=== PATIENT | female | born 2000 | race Caucasian/White ===

== ENCOUNTER 2020-03-22 08:50 | Observation (INO) | payer OTHER, SELFPAY ==
--- OUTSIDE RECORDS SUMMARY | 2020-03-22 08:59 | XMS REPORT | Summary of Care ---
:2000 Author Organization [facility] - Health Address [address] [id number] Care Team Providers Name Role Phone Joseph Cai MD Primary Care Provider Encounter Details Date Type Department Care Team Description 12/27/2019 Orders Only [facility] Doctor Unassigned, No [address] [facility] [place] [address] Allergies Active Allergy Reactions Severity Noted Date Comments Cephalexin Swelling 09/02/2012 Sulfa (Sulfonamide Antibiotics) Swelling 3 documented as of this encounter (statuses as of 12/27/2019) Medications Medication Sig Dispensed Refills Start Date End Date Status vitamin w/FA Take 1 tablet by 100 tablet 3 11/20/2018 Active tabletIndications: mouth daily. Liveborn infant, of eaton , born in hospital by vaginal delivery, High risk , antepartum, Maternal varicella, non-immune, Morbid obesity with body mass index of 40.0-49.9, Oligohydramnios in third trimester, single or unspecified fetus, Mild pre-eclampsia in third trimester, 38 weeks gestation of FLUoxetine 20 mg Take 1 capsule 30 capsule 3 05/27/2019 Active capsuleIndications: by mouth daily. depression albuterol 90 Inhale 2 Puffs 8.5 g 0 08/24/2019 A ctive mcg/actuation every 6 (six) inhalerIndications: hours as needed Viral illness for Wheezing or Shortness of Breath. documented as of this encounter (statuses as of 12/27/2019) Active Problems Problem Noted Date Presence of intrauterine contraceptive device 05/27/20 19 depression 05/27/2019 Obesity (BMI 30-39.9) 12/17/2018 Morbid obesity with body mass index of 40.0-49.9 10/12 Maternal varicella, non-immune 03/24/2018 Overview: Address in documented as of this encounter (statuses as of 12/27/2019) Resolved Problems Problem Noted Date Resolved Date Liveborn infant, of eaton , born in hospital by 11/20/2018 01/06/2019 vaginal delivery Mild pre-eclampsia in third trimester 11/18/2018 Oligohydramnios 11/17/2018 05/27/2019 38 weeks gestation of 04/28/2018 01/07/20 Dehydration during 04/28/2018 11/17/2018 Recent weight loss 04/28/2018 11/17/2018 Chlamydia 03/24/2018 11/17/2018 High risk , antepartum 03/23/2018 05/27/20 19 High risk teen in first trimester 03/23/2018 11/17/2018 Primigravida in first trimester 03/23/2018 11/18/19 19 Needs flu shot 03/23/2018 11/17/2018 Nausea and vomiting during prior to 22 weeks 03/2311/17/2018 gestation documented as of this encounter (statuses as of 12/27/2019) Immunizations Name Administration Dates Next Due DTAP 05/09/2005, 08/15/2003, 11/16/2002, 03/26/2001, 2000 HEPATITIS A 01/06/2013, 05/09/2005 HIB 4 Dose Schedule 08/15/2003, 11/16/2002, 03/26/2001, 2000 Hep B, Adol or Pedi Dosage 08/15/2003, 03/26/2001, , 2000 Influenza Virus Vaccine 03/23/2018, 04/09/2011 Influenza Virus Vaccine Quad .5 mL IM 03/23/2018 6+ MO MMR 05/09/2005, 11/16/2002 Meningococcal Vaccine 01/06/2013 Pneumococcal 13 Conjugate, PCV13 05/09/2005 (Prevnar 13) Polio (IPV/OPV) 05/09/2005, 11/16/2002, 03/26/2001, 2000 Rho (d) Immune Globulin 10/12/2018 TDAP 10/29/2018, 01/06/2013 Varicella (varivax)(chicken pox) 11/20/2018, 01/06/2013, 01/2004 documented as of this encounter Social History Tobacco Use Types Packs/Day Years Used Date Never Smoker Smokeless Tobacco: Never Used Alcohol Use Drinks/Week oz/Week Comments No Sex Assigned at Date Recorded Not on file Job Start Date Occupation Industry Not on file Not on file Not on file Travel History Travel Start Travel End No recent travel history available. documented as of this encounter Last Filed Vital Signs Not on filedocumented in this encounter Plan of Treatment Date Type Specialty Care Team Description 12/27/2019 Office Visit Obstetrics & Gynecology Eliel Cai MD [address] [place] [address] [address] [address] [phone] Health Maintenance Due Date Last Done Comments MENINGOCOCCAL B VACCINES (1 2010 of 2 - Risk Bexsero 2-dose series) HPV VACCINES (1 - Female 2011 2-dose series) WELL CARE VISIT: 12-21 YEARS 2012 (yearly) CHLAMYDIA SCREENING 12/30/2019 12/29/2018, 10/29/2018, 03/23/2018 INFLUENZA VACCINE (#1) 2020 03/23/2018, 03/23/2018, 04/09/2011 Depression Screening 05/27/2020 05/27/2019, 05/27/2019 DTaP,Tdap,and Td Vaccines (8 10/29/2028 10/29/2018, 013, - Td) 05/09/2005, Additional history exists PNEUMOCOCCAL 0-64 YEARS Completed 05/09/2005 COMBINED SERIES MENINGOCOCCAL VACCINE Aged Out 01/06/2013 No longer eligible based on patient 's age to complete this topic VARICELLA VACCINES Completed 11/20/2018, 01/06/2013, 08/15/2003 documented as of this encounter Procedures Procedure Name Priority Date/Time Associated Diagnosis Comme nts CONSENT/REFUSAL FOR Routine 12/27/2019 10:24 AM DIAGNOSIS AND TREATMENT CDT ASSIGNMENT OF BENEFITS Routine 12/27/2019 10:24 AM CDT documented in this encounter Results Not on filedocumented in this encounter
--- OUTSIDE RECORDS SUMMARY | 2020-03-22 08:59 | XMS REPORT | Continuity of Care Document ---
:2000 Author Organization [facility] t Address [address] [place] [address] Care Team Providers Name Role Phone Jonathan Mcguire MD Attending Clinician Moises JACK Attending Clinician Doctor Unassigned, Name Attending Clinician Unavailable Problems This patient has no known problems. Allergies, Adverse Reactions, Alerts This patient has no known allergies or adverse reactions. Medications This patient has no known medications. Procedures This patient has no known procedures. Encounters Start End Encounter Admission Attending Care Care Encounter Source Date/Time Date/Time Type Type Clinicians Facility Department ID 2020-03-20 2020-03-20 [facility] [id number] 08:02:35 23:59:00 Encounter Elvis [facility] [id number] [facility] [id number] 2020-03-09 2020-03-09 Emergency [id number] 21:34:00 23:39:00 Jerry Calix [id number] [place] [id number] [place] [id number] 2020-03-09 2020-03-09 [address] [id number] 00:00:00 00:00:00 Elvis Calix [id number] [place] [id number] [facility] [id number] [facility] 2020-03-09 2020-03-09 Orders Doctor NICHOLAS [id number] 00:00:00 00:00:00 Only Unassigned, [place] [id number] [place] [facility] [id number] Results This patient has no known results.
--- OUTSIDE RECORDS SUMMARY | 2020-03-22 09:00 | XMS REPORT | Summary of Care ---
:2000 Author Organization [facility] Address [address] [place] [id number] Care Team Providers Name Role Phone MD Chris Primary Care Provider Reason for Referral (Routine) Status Reason Specialty Diagnoses / Referred By Referred To Procedures Contact Contact New Request Ophthalmology Diagnoses Routine eye exam Chris Procedures CONSULT/REFERRAL OPHTHALMOLOGY MD Tyson [address] [place] [address] [facility] [address] [place] [address] Reason for Visit Reason Comments New Patient MIGRAINE Encounter Details Date Type Department Care Team Description 02/04/[address] [facility] Pediatric Tyson Perez M igraine equivalent syndrome (Primary Dx); and Adult Primary MD Encounter to establish care with new doc tor; [address] Does not have health insurance; [address] [place] [address] [id number] [place], [place] [phone] [address] [phone] Allergies Active Allergy Reactions Severity Noted Date Comments Cephalexin Swelling 09/02/2012 Sulfa (Sulfonamide Antibiotics) Swelling 3 documented as of this encounter (statuses as of 02/04/2020) Medications Medication Sig Dispensed Refills Start Date End Date Status albuterol 90 Inhale 2 Puffs 8.5 g 0 08/24/2019 A ctive mcg/actuation every 6 (six) inhalerIndications: hours as needed Viral illness for Wheezing or Shortness of Breath. estradiol 1 mg Take 1 tablet by 30 tablet 3 12/27/2019 Active tabletIndications: mouth daily. Breakthrough bleeding associated with intrauterine device (IUD) [id number] Take 1 tablet by 90 tablet 0 02/04/2020 Active feine per mouth every 6 tabletIndications: (six) hours as Migraine equivalent needed for Pain. syndrome documented as of this encounter (statuses as of 02/04/2020) Active Problems Problem Noted Date Migraine equivalent syndrome 02/04/2020 Routine eye exam 02/04/2020 Does not have health insurance 02/04/2020 Breakthrough bleeding associated with intrauterine dev ice (IUD) 12/27/2019 Presence of intrauterine contraceptive device 05/27/20 Obesity (BMI 30-39.9) 12/17/2018 Morbid obesity with body mass index of 40.0-49.9 10/12 Maternal varicella, non-immune 03/24/2018 Overview: Address in documented as of this encounter (statuses as of 02/04/2020) Resolved Problems Problem Noted Date Resolved Date depression 05/27/2019 12/27/2019 Liveborn infant, of eaton , born in hospital by 11/20/2018 01/06/2019 vaginal delivery Mild pre-eclampsia in third trimester 11/18/2018 Oligohydramnios 11/17/2018 05/27/2019 38 weeks gestation of 04/28/2018 01/07/20 19 Dehydration during 04/28/2018 11/17/2018 Recent weight loss 04/28/2018 11/17/2018 Chlamydia 03/24/2018 11/17/2018 High risk , antepartum 03/23/2018 05/27/20 19 High risk teen in first trimester 03/23/2018 11/17/2018 Primigravida in first trimester 03/23/2018 11/18/19 19 Needs flu shot 03/23/2018 11/17/2018 Nausea and vomiting during prior to 22 weeks 03/2311/17/2018 gestation documented as of this encounter (statuses as of 02/04/2020) Immunizations Name Administration Dates Next Due DTAP 05/09/2005, 08/15/2003, 11/16/2002, 03/26/2001, 2000 HEPATITIS A 01/06/2013, 05/09/2005 HIB 4 Dose Schedule 08/15/2003, 11/16/2002, 03/26/2001, 2000 Hep B, Adol or Pedi Dosage 08/15/2003, 03/26/2001, 1, 2000 Influenza Virus Vaccine 03/23/2018, 04/09/2011 Influenza [...] Assigned at Date Recorded Not on file COVID-19 Exposure Response Date Recorded In the last month, have you been in contact with No / Unsure 02/04/2020 9:52 AM CDT someone who was confirmed or suspected to have Coronavirus / COVID-19? documented as of this encounter Last Filed Vital Signs Vital Sign Reading Time Taken Comments Blood Pressure 107/76 02/04/2020 9:56 AM CDT Pulse 100 02/04/2020 9:56 AM CDT Temperature 36.8 C (98.2 F) 02/04/2020 9:56 AM CDT Respiratory Rate 18 02/04/2020 9:56 AM CDT Oxygen Saturation 98% 02/04/2020 9:56 AM CDT Inhaled Oxygen Concentration - - Weight 118.3 kg (260 lb 12.8 oz) 02/04/2020 9:56 AM CDT Height 162.6 cm (5' 4") 02/04/2020 9:56 AM CDT Body Mass Index 44.77 02/04/2020 9:56 AM CDT documented in this encounter Patient Instructions Patient InstructionsEdTyson odom MD - 02/04/2020 10:00 AM CDT Patient Education Migraine Headache: Stages and Treatment A migraine headache tends to progress in stages. Learning these stages can help you better understand what is happening. Then you can learn ways to reduce pain and relieve other symptoms. Methods for relieving your symptoms include self- care and medicines. Migraine stages Migraines tend to progress through 4 stages. Many people don't have all stages, and stages may differ with each headache: Prodrome. A few hours to a day or so before the headache, you may feel tired, (yawning many times),uneasy, or barroso. You may also feel bloated or crave certain foods. Aura. Up to an hour before the headache starts, some migraine sufferers experience auraflashing lights, blind spots, other vision problems, confusion,difficulty speaking, or other neurologic symptoms. Headache. Moderate to severe pain affects one side of the head and then can spread to both sides,often along with nausea. You may be highly sensitive to light, sound, and odors. Vomiting or diarrhea may also happen. This stage lasts 4 to 72 hours. Postdrome. After your headache ends, you may feel tired, achy, and "washed out." This may last for a day or so. Self-care during a migraine Here is what you can do: Use a cold compress. Wrap a thin cloth around a cold pack, a cold can of soda, or a bag of frozenvegetables. Apply this to your mandaen or other pain site. Drink fluids. If nausea makes it hard to drink, try sucking on ice. Rest. If possible, lie down. Try not to bend over, as this may increase your pain. Sometimes laying in a dark quiet room can help the migraine from being aggravated. Try caffeine. Some people find that drinking fluids with caffeine, such as coffee or tea, helps to lessen migraine pain. Using medicines Work with your healthcare provider to find the rightmedicines for you. Medicines for migraine may relieve pain (analgesics), relieve nausea, or attack the migraine's root causes (migraine-specific medicines). Rebound headache Taking analgesics each day, or even several times a week, may lead to more frequent and severe headaches. These are called rebound headaches. If you think you're having rebound headaches, tell your healthcare provider. He or she can help you safely decrease your medicine. Rebound caffeine withdrawal headaches can also happen. Certain medicines are addictive and can cause rebound headaches when discontinued abruptly. [employer]. last reviewed this educational content on 10/07/201719991522-9309 [employer]. [address] [place] [address], [place] [address]. All rights reserved. This information is not intended as a substitute for professional medical care. Always follow your healthcare professional's instructions. documented in this encounter Progress Notes Tyson Perez MD - 02/04/2020 10:00 AM CDT Cc: Chief Complaint Patient presents with New Patient MIGRAINE Cary Romano is a 19 year old female who has a past medical history of Breakthrough bleeding associated with intrauterine device (IUD) (12/27/2019), Chlamydia (03/24/2018), Mild pre-eclampsia in third trimester (11/18/2018), and depression (05/27/2019). She also has no past medical history of Anemia, Anesthesia complication, Anxiety, Asthma, Autoimmune disorder, Blood dyscrasia, Blood transfusion, without reported diagnosis, Breast disorder, Cancer, Clotting disorder, Coronary artery disease, Diabetes mellitus, Endocrine disorder, Endometriosis, Female infertility, Genital herpes,Genital warts, Heart murmur, Hormone disorder, Human immunodeficiency virus (HIV) disease, Kidney dis ease, Leiomyoma of uterus, Liver disease, Menstrual disorder, Osteoporosis, Pap smear abnormality ofcervix, PID (pelvic inflammatory disease), Rh incompatibility, Seizures, Sickle cell anemia, Substance abuse, Superficial thrombophlebitis, Thyroid disease, Transfusion history, Trauma, Tuberculosis, or Urinary incontinence. Patient presents to establish care with a new provider. At this visit, patient reports REED that comes and goes for the past 2 months, last all day, notes vision changes with blurriness and white dots, ringing in both ears, with intermittent N/V. Patient denies head trauma. Patient does not drink alcohol, smoke or use illicit drugs. Patient reports FH migraine on her mother's side of the family. Patient denies CP, palpitations or SOB. Allergies Cary is allergic to keflex [cephalexin] and sulfa (sulfonamide antibiotics). Medications Outpatient Medications Prior to Visit Medication Sig Dispense Refill estradiol 1 mg tablet Take 1 tablet by mouth daily. 30 tablet 3 albuterol 90 mcg/actuation inhaler Inhale 2 Puffs every 6 (six) hours as needed for Wheezing or Shortness of Breath. 8.5 g 0 No facility-administered medications prior to visit. Histories Past Medical History: Diagnosis Date Breakthrough bleeding associated with intrauterine device (IUD) 12/27/2019 Chlamydia 03/24/2018 Mild pre-eclampsia in third trimester 11/18/2018 depression 05/27/2019 Past Surgical History: Procedure Laterality Date INSERT CERVICAL DILATOR 11/17/2018 Social History Socioeconomic History Marital status: Single Spouse name: Not on file Number of children: Not on file Years of education: Not on file Highest education level: Not on file Occupational History Not on file Social Needs Financial resource strain: Not on file Food insecurity Worry: Not on file Inability: Not on file Transportation needs Medical: Not on file Non-medical: Not on file Tobacco Use Smoking status: Never Smoker Smokeless tobacco: Never Used Substance and Sexual Activity Alcohol use: No Drug use: Never Sexual activity: Yes Partners: Male control/protection: I.U.D. Lifestyle Physical activity Days per week: Not on file Minutes per session: Not on file Stress: Not on file Relationships Social connections Talks on phone: Not on file Gets together: Not on file Attends synagogue service: Not on file Active member of club or organization: Not on file Attends meetings of clubs or organizations: Not on file Relationship status: Not on file Intimate partner violence Fear of current or ex partner: Not on file Emotionally abused: Not on file Physically abused: Not on file Forced sexual activity: Not on file Other Topics Concern Not on file Social History Narrative Pt denies physical and sexual abuse. Patient feels safe at home. Family History Problem Relation Age of Onset Hypertension Mother Hypertension Paternal Grandfather Heart Paternal Grandfather Heart Maternal Grandfather Breast Cancer Paternal Grandmother Cancer Maternal Grandmother skin cancer Review of Systems Eyes: Positive for visual disturbance. Respiratory: Negative for shortness of breath. Cardiovascular: Negative for chest pain and palpitations. Gastrointestinal: Negative for abdominal pain. Neurological: Positive for headaches. Vital Signs BP 107/76 (BP Location: Right arm, Patient Position: Sitting, BP CUFF SIZE: Adult Medium) | Pulse 100 | Temp 36.8 C (98.2 F) (Temporal Artery) | Resp 18 | Ht 5' 4" (1.626 m) | Wt 260 lb 12.8 oz (118.3 kg) | LMP 01/27/2020 (Exact Date) | SpO2 98% | BMI 44.77 kg/m Physical Exam Vitals signs and nursing note reviewed. Constitutional: Appearance: Normal appearance. HENT: Head: Normocephalic and atraumatic. Eyes: Extraocular Movements: Extraocular movements intact. Pupils: Pupils are equal, round, and reactive to light. Neck: Musculoskeletal: Normal range of motion and neck supple. Cardiovascular: Rate and Rhythm: Normal rate and regular rhythm. Pulmonary: Effort: Pulmonary effort is normal. Breath sounds: Normal breath sounds. Abdominal: General: Abdomen is flat. Musculoskeletal: Normal range of motion. Skin: General: Skin is warm. Capillary Refill: Capillary refill takes less than 2 seconds. Neurological: General: No focal deficit present. Mental Status: She is alert and oriented to person, place, and time. Psychiatric: Mood and Affect: Mood normal. Behavior: Behavior normal. Assessment/Plan Migraine equivalent syndrome - Anticipatory guidance discussed - Labs as ordered - [id number] per tablet; Take 1 tablet by mouth every 6 (six) hours as needed for Pain. Dispense: 90 tablet; Refill: 0 Does not have health insurance - Resources for medications given - CONSULT/REFERRAL SOCIAL WORK-AMBULATORY Routine eye exam - CONSULT/REFERRAL OPHTHALMOLOGY Preventive Care: Medication reconciliation, patient education and anticipatory guidance completed. All questions and concerns addressed. AVS given, handout provided. Return in about 3 months (around 05/06/2020), or if symptoms worsen or fail to improve. Tyson Perez MD, MPH, [facility] Clinical Mandolin Repairer, Department of Family Medicine [facility] Primary & Specialty Care - ADC 02/04/2020 11:30 AM documented in this encounter Plan of Treatment Date Type Specialty Care Team Description 03/28/2020 Office Visit Obstetrics & Gynecology Saritha Cabrera PA-C [address] [place] [address] [phone] 05/09/2020 Office Visit Family Medicine Tyson Perez MD [address] [place] [address] Dr [address] [place], [place] [address] [phone] Name Type Priority Associated Diagnoses Order S chedule CBC WITH DIFF LAB Routine Migraine equivalent Expecte d: 02/04/2020, syndrome Expires: 2020 COMP. METABOLIC PANEL LAB Routine Migraine equivalent Expected: 02/04/2020, (43823) syndrome Expires: 2020 GLYCOSYLATED HEMOGLOBIN LAB Routine Migraine equivale nt Expected: 02/04/2020, (A1C) syndrome Expires: 2020 LIPID PANEL (19521)(TOTAL LAB Routine Migraine equiva lent Expected: 02/04/2020, CHOLESTEROL, syndrome Expires: 2020 TRIGLYCERIDES, HDL) THYROID STIMULATING LAB Routine Migraine equivalent E xpected: 02/04/2020, HORMONE syndrome Expires: 2020 FREE T4 LAB Routine Migraine equivalent Expected : 02/04/2020, syndrome Expires: 2020 FREE T3 LAB Routine Migraine equivalent Expected : 02/04/2020, syndrome Expires: 2020 Health Maintenance Due Date Last Done Comments MENINGOCOCCAL B VACCINES (1 2010 of 2 - Risk Bexsero 2-dose series) HPV VACCINES (1 - 2-dose 2011 series) WELL CARE VISIT: 12-21 YEARS 2012 (yearly) CHLAMYDIA SCREENING 12/30/2019 12/29/2018, 11/19/2018, 10/29/2018, Additional history exists INFLUENZA VACCINE (#1) 2020 03/23/2018, 03/23/2018, 04/09/2011 Depression Screening 05/27/2020 05/27/2019, 05/27/2019 DTaP,Tdap,and Td Vaccines (8 10/29/2028 10/29/2018, 013, - Td) 05/09/2005, Additional history exists PNEUMOCOCCAL 0-64 YEARS Completed 05/09/2005 COMBINED SERIES MENINGOCOCCAL VACCINE Aged Out 01/06/2013 No longer eligible based on patient 's age to complete this topic VARICELLA VACCINES Completed 11/20/2018, 01/06/2013, 08/15/2003 documented as of this encounter Results Not on filedocumented in this encounter Visit Diagnoses Diagnosis Migraine equivalent syndrome - Primary Variants of migraine, not elsewhere clas sified, without mention of intractable migraine without mention of status migra inosus Encounter to establish care with new doc tor Does not have health insurance Other specified housing or economic circ umstances Routine eye exam documented in this encounter
--- OUTSIDE RECORDS SUMMARY | 2020-03-22 09:00 | XMS REPORT | Summary of Care ---
:2000 Author Organization [facility] - [facility] Address [address] [place] [address] Care Team Providers Name Role Phone Joseph Cai MD Primary Care Provider Reason for Visit Reason Comments INTRAUTERINE DEVICE check Encounter Details Date Type Department Care Team Description 12/27/2019 Office Visit [facility] Women's Shelbie Cai MD Breakthrough bleeding associated with in trauterine device (IUD) (Primary Dx); Healthcare- [address] Family planning, IUD (intrau terine device) check/reinsertion/removal [address] [place] [address] [address], [address] [place], [place] [address] [phone] Allergies Active Allergy Reactions Severity Noted Date Comments Cephalexin Swelling 09/02/2012 Sulfa (Sulfonamide Antibiotics) Swelling 3 documented as of this encounter (statuses as of 12/27/2019) Medications Medication Sig Dispensed Refills Start End Date Status Date albuterol 90 Inhale 2 8.5 g 0 Active mcg/actuation Puffs every 6 0 inhalerIndications: (six) hours Viral illness as needed for Wheezing or Shortness of Breath. estradiol 1 mg Take 1 tablet 30 tablet 3 A ctive tabletIndications: by mouth 0 Breakthrough daily. bleeding associated with intrauterine device (IUD) vitamin Take 1 tablet 100 tablet 3 12/27/19 Discontinued w/FA by mouth 02 26 (Patient tabletIndications: daily. R eported) Liveborn infant, of eaton , born in hospital by vaginal delivery, High risk , antepartum, Maternal varicella, non-immune, Morbid obesity with body mass index of 40.0-49.9, Oligohydramnios in third trimester, single or unspecified fetus, Mild pre-eclampsia in third trimester, 38 weeks gestation of FLUoxetine 20 mg Take 1 30 capsule 3 12/27/19 Di scontinued capsuleIndications: capsule by 9 (Patient mouth daily. Report ed) depression documented as of this encounter (statuses as of 12/27/2019) Active Problems Problem Noted Date Breakthrough bleeding associated with intrauterine dev ice (IUD) 12/27/2019 Presence of intrauterine contraceptive device 05/27/20 Obesity (BMI 30-39.9) 12/17/2018 Morbid obesity with body mass index of 40.0-49.9 10/12 Maternal varicella, non-immune 03/24/2018 Overview: Address in documented as of this encounter (statuses as of 12/27/2019) Resolved Problems Problem Noted Date Resolved Date depression 05/27/2019 12/27/2019 Liveborn , of eaton , born in hospital by [...] Travel End No recent travel history available. COVID-19 Exposure Response Date Recorded In the last month, have you been in contact with No / Unsure 12/27/2019 10:25 AM CDT someone who was confirmed or suspected to have Coronavirus / COVID-19? documented as of this encounter Last Filed Vital Signs Vital Sign Reading Time Taken Comments Blood Pressure 140/84 12/27/2019 10:49 AM CDT Pulse 90 12/27/2019 10:49 AM CDT Temperature 37.1 C (98.7 F) 12/27/2019 10:49 AM CDT Respiratory Rate 18 12/27/2019 10:49 AM CDT Oxygen Saturation - - Inhaled Oxygen Concentration - - Weight 117.9 kg (260 lb) 12/27/2019 10:49 AM CDT Height 162.6 cm (5' 4") 12/27/2019 10:49 AM CDT Body Mass Index 44.63 12/27/2019 10:49 AM CDT documented in this encounter Progress Notes Shelbie Cai MD - 12/27/2019 10:30 AM CDTCC: Prolonged bleeding on IUD HPI: Cary Romano is a 19 year old female here for problem visit. Vanessa IUD placedon 01/06/2019. States that she has a period every month but period lasted 2 wks: 3-4 days of spotting then 7 days of moderate vaginal bleeding (used 4 pads daily) and then 3-4 days of vaginal spotting. This has not change since IUD placed. Sexually active with 1 partner for the past 1 yr. ROS: Constitutional: Negative fever, chills Cardiovascular: Negative chest pain Respiratory: Negative SOB Gastrointestinal: Negative abdominal pain, nausea, vomiting Gynecologic: As above PE: BP: (140)/(84) Temp: [37.1 C (98.7 F)] Temp source: Oral (12/26 1049) Pulse: [90] Resp: [18] SpO2: -- Height: [5' 4" (162.6 cm)] Weight: [260 lb (117.9 kg)] BMI (calculated): [44.63] NAD RRR Breathing unlabored Soft, NTTP Speculum exam revealed IUD strings at the external os A/P: Family planning, IUD (intrauterine device) check/reinsertion/removal (primary encounter diagnosis) Comment: IUD strings in place Breakthrough bleeding associated with intrauterine device (IUD) Comment: Discussed a trial of estrace daily for 2-3 months. Plan: estradiol 1 mg tablet; RTC in 3 months for follow-up RTC for WWE PRN Shelbie Cai MD #[id number] 12/27/2019 3:25 PM documented in this encounter Plan of Treatment Date Type Specialty Care Team Description 02/04/2020 Office Visit Obstetrics & Gynecology Saritha Cabrera PA-C [address] [phone] 03/28/2020 Office Visit Obstetrics & Gynecology Saritha Cabrera PA-C [address] [phone] Health Maintenance Due Date Last Done Comments [...] filedocumented in this encounter Visit Diagnoses Diagnosis Breakthrough bleeding associated with in trauterine device (IUD) - Primary Family planning, IUD (intrauterine devic e) check/reinsertion/removal Surveillance of previously prescribed in trauterine contraceptive device documented in this encounter
--- OUTSIDE RECORDS SUMMARY | 2020-03-22 09:00 | XMS REPORT | Summary of Care ---
:2000 Author Organization [facility] - [facility] Address [address] [place] [address] Care Team Providers Name Role Phone Joseph Cai MD Primary Care Provider Reason for Visit Reason Comments INTRAUTERINE DEVICE check Encounter Details Date Type Department Care Team Description 12/27/2019 Office Visit [facility] Women's Shelbie Cai MD Breakthrough bleeding associated with in trauterine device (IUD) (Primary Dx); Healthcare- [address] Family planning, IUD (intrau terine device) check/reinsertion/removal [address] [place] [address] [address], [address] [place], [place] [address] [phone] Allergies Active Allergy Reactions Severity Noted Date [...] RTC for WWE PRN Shelbie Cai MD #[id number] 12/27/2019 3:25 PM documented in this encounter Plan of Treatment Date Type Specialty Care Team Description 02/04/2020 Office Visit Obstetrics & Gynecology Saritha Cabrera PA-C [address] [phone] 03/28/2020 Office Visit Obstetrics & Gynecology Saritha Cabrera PA-C [address] [phone] Health Maintenance Due Date Last Done [...]
--- OUTSIDE RECORDS SUMMARY | 2020-03-22 09:00 | XMS REPORT | Summary of Care ---
:2000 Author Organization [facility] Address [address] [place] [address] Care Team Providers Name Role Phone MD Chris Primary Care Provider Reason for Referral (Routine) Status Reason Specialty Diagnoses / Referred By Referred To Procedures Contact Contact New Request Ophthalmology Diagnoses Routine eye exam Chris Procedures CONSULT/REFERRAL OPHTHALMOLOGY MD Tyson [address] [place] [address] [facility] [address] [place] [address] Reason for Visit Reason Comments New Patient MIGRAINE Encounter Details Date Type Department Care Team Description 02/04/[address] [facility] Pediatric Tyson Perez M igraine equivalent syndrome (Primary Dx); and Adult Primary MD Encounter to establish care with new doc tor; [address] Does not have health insurance; [address] [place] [address], [address] [id number] [place], [place] [phone] [address] [phone] Allergies Active Allergy Reactions Severity Noted Date [...] Breakthrough bleeding associated with intrauterine device (IUD) kvckxebtey-wxmlolz-biv Take 1 tablet by 90 tablet 0 [...] bag of frozenvegetables. Apply this to your voodoo or other pain site. Drink fluids. If [...] can cause rebound headaches when discontinued abruptly. [employer] last reviewed this educational content on 10/07/201719996699-3235 [employer], [employer]. [address] [place] [address], [place] [address]. All rights reserved. This information is not [...] file Gets together: Not on file Attends scientologist service: Not on file Active member of [...] guidance discussed - Labs as ordered - lhvikkxkkg-upwqjyg-nntvsdjw per tablet; Take 1 tablet by mouth [...] fail to improve. Tyson Perez MD, MPH, [facility] Clinical [employer], Department of Family Medicine [facility] Primary & Specialty Care - [facility] 02/04/2020 11:30 AM documented in this encounter Plan of Treatment Date Type Specialty Care Team Description 03/28/2020 Office Visit Obstetrics & Gynecology Saritha Cabrera PA-C [address] [place] [phone] 05/09/2020 Office Visit Family Medicine Tyson Perez MD [address] [place] [address] Dr [address], [place] [address] [phone] Name Type Priority Associated Diagnoses Order S chedule CBC WITH DIFF LAB Routine Migraine equivalent Expecte d: 02/04/2020, syndrome Expires: 2020 COMP. METABOLIC PANEL LAB Routine Migraine equivalent Expected: 02/04/2020, (51193) syndrome Expires: 2020 GLYCOSYLATED HEMOGLOBIN LAB Routine Migraine equivale nt Expected: 02/04/2020, (A1C) syndrome Expires: 2020 LIPID PANEL (65713)(TOTAL LAB Routine Migraine equiva lent Expected: 02/04/2020, [...]
--- OUTSIDE RECORDS SUMMARY | 2020-03-22 09:01 | XMS REPORT | Summary of Care ---
:2000 Author Organization [facility] - Health Address [address] [place], [place] [address] Care Team Providers Name Role Phone MD Chris Primary Care Provider Encounter Details Date Type Department Care Team Description 02/04/2020 Orders Only [facility] Doctor Unassigned, No [address] [facility] [place] [address] Allergies Active Allergy Reactions Severity Noted Date [...] Breakthrough bleeding associated with intrauterine device (IUD) dzpgafqyuk-zacnlrd-xmj Take 1 tablet by 90 tablet 0 [...] 12/27/2019 Presence of intrauterine contraceptive device 05/27/20 19 Obesity (BMI 30-39.9) 12/17/2018 Morbid obesity with [...] 03/28/2020 Office Visit Obstetrics & Gynecology Saritha Cbarera PA-C [address] [place] [phone] 05/09/2020 Office Visit Family Medicine Tyson Perez MD [address] [place] [address] 02/20/2021 Office Visit Obstetrics & Gynecology Eliel Cai MD [address] [place] [address] Health Maintenance Due Date Last Done Comments [...] Name Priority Date/Time Associated Diagnosis Comme nts ASSIGNMENT OF BENEFITS Routine 02/04/2020 1:59 PM CDT documented in this encounter Results Not on filedocumented in this encounter
--- OUTSIDE RECORDS SUMMARY | 2020-03-22 09:01 | XMS REPORT | Summary of Care ---
:2000 Author Organization [facility] Address [address] [place] [address] Care Team Providers Name Role Phone MD Chris Primary Care Provider Reason for Visit Reason Comments Well Woman Exam Encounter Details Date Type Department Care Team Description 02/04/2020 Office Visit [facility] Women's Adum, Nasreen Colvin MD Well woman exam with routine gynecologic al exam (Primary Dx); [address] Surveillance of intrauterine contraceptive device; [address] [place] [address] Counseling for HPV (human papillomavirus ) vaccination [facility], [address] [address] [phone] Allergies Active Allergy Reactions Severity Noted Date [...] Breakthrough bleeding associated with intrauterine device (IUD) aiixgssuwe-fjlfkor-oni Take 1 tablet by 90 tablet 0 [...] Sign Reading Time Taken Comments Blood Pressure 115/80 02/04/2020 11:17 AM CDT Pulse 94 02/04/2020 11:17 AM CDT Temperature 36.8 C (98.3 F) 02/04/2020 11:17 AM CDT Respiratory Rate 18 02/04/2020 11:17 AM CDT Oxygen Saturation - - Inhaled Oxygen Concentration - - Weight 118.3 kg (260 lb 12.8 oz) 02/04/2020 11:17 AM CDT Height 162.6 cm (5' 4") 02/04/2020 11:17 AM CDT Body Mass Index 44.77 02/04/2020 11:17 AM CDT documented in this encounter Progress Notes Nasreen Maloney MD - 02/04/2020 10:45 AM CDT Chief complaint: Chief Complaint Patient presents with Well Woman Exam 19 year-old presents for WWE. She has no concerns today. She has a Romeo IUD which was inserted in 2019 and reports that she continues to have irregular cycles but otherwise tolerating it well. 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 Declined STI screening. Hx of depression but reports that her mood is currently good and denies any symptoms of depression or anxiety disorder. Unsure of having had HPV vaccination- will check on it. I reviewed the importance of the vaccination, catch phase up to age 26 and gave her written information on it. Histories OB History Para Term AB Living 1 1 1 1 SAB TAB Ectopic Multiple Live Births 0 1 # Outcome Date GA Lbr Go/2nd Weight Sex Delivery Anes PTL Lv 1 Term 11/19/18 39w1d 38:08 / 00:41 7 lb 11 oz (3.487 kg) F NORMAL SPONT EPI N BRADLY Past Medical History: Diagnosis Date Breakthrough bleeding associated with intrauterine device (IUD) 12/27/2019 Chlamydia 03/24/2018 Mild pre-eclampsia in third trimester 11/18/2018 depression 05/27/2019 Family History Problem Relation Age of Onset Hypertension Mother Hypertension Paternal Grandfather Heart Paternal Grandfather Heart Maternal Grandfather Breast Cancer Paternal Grandmother Cancer Maternal Grandmother skin cancer Family Status Relation Name Status Mo (Not Specified) PGFa (Not Specified) MGFa (Not Specified) PGMo (Not Specified) MGMo (Not Specified) Past Surgical History: Procedure Laterality Date INSERT [...] file Gets together: Not on file Attends amish service: Not on file Active member of [...] sexual abuse. Patient feels safe at home. Social History Substance and Sexual Activity Sexual Activity Yes Partners: Male control/protection: I.U.D. Labs No new labs Radiology No new radiology. Allergies Cary is allergic to keflex [cephalexin] and sulfa (sulfonamide antibiotics). Medications Cary has a current medication list which includes the following prescription(s): gkjczpxhch-qebtdzs-oytvrfil, estradiol, and albuterol. Review of Systems Constitutional: Negative. HENT: Negative. Eyes: Negative. Respiratory: Negative. Breasts: Negative. Cardiovascular: Negative. Gastrointestinal: Negative. Genitourinary: Negative. Musculoskeletal: Negative. Skin: Negative. Neurological: Negative. Psychiatric/Behavioral: Negative. Endocrine: Endocrine negative BP 115/80 (BP Location: Left arm, Patient Position: Sitting, BP CUFF SIZE: Adult Small) | Pulse 94| Temp 36.8 C (98.3 F) (Oral) | Resp 18 | Ht 5' 4" (1.626 m) | Wt 260 lb 12.8 oz (118.3 kg) | LMP 01/27/2020 (Exact Date) | BMI 44.77 kg/m Pregravid BMI: Could not be calculated Physical Exam Vitals reviewed. Constitutional: She is oriented to person, place, and time. She appears well- developed and well-groomed. Her body habitus is obese. Neck: No tenderness and no mass. No thyroid nodules palpated. No neck adenopathy. Cardiovascular: Regular rate and rhythm. No murmur auscultated. No peripheral edema present. Pulmonary/Chest: Breath sounds clear to auscultation. Normal inspiratory effort. Abdominal: Abdomen is soft. No mass palpated. No tenderness present. There is no hepatosplenomegaly.There is no rigidity and no guarding. No hernia palpated or inspected. Neuro/Psychiatric: She has a normal mood and affect. She is oriented to person, place, and time. Skin: Skin normal. Lymphadenopathy: No neck adenopathy present. No axillary adenopathy present. No inguinal adenopathy present. Breast: Right breast exhibits no mass, no nipple discharge and no tenderness. Left breast exhibits no mass, no nipple discharge and no tenderness. Breasts are symmetrical. External genitalia: Normal external genitalia appropriate for age. Urethral meatus: Normal urethral meatus Vagina:No lesion inspected. Normal support. No abnormal vaginal discharge found. No lesions in the vagina. Cervix: No lesion. No tenderness and no discharge present. IUD string visualized Uterus: Uterus is normal size, normal contour, normal position and non-tender. Adnexa: Right adnexa without tenderness, ovary enlargement or mass. Left adnexa without tenderness, ovary enlargement or mass. Assessment/Plan Well woman exam with routine gynecological exam (primary encounter diagnosis) Comment:Reviewed good nutrition, regular exercise, use of sunscreen, awareness of her breasts, routine annuals, avoidance of risky behaviour- safe sex practices including abstinence, use of drugs and smoking/ vapping, importance of phone and internet safety. Save driving and use of seat belts. Also recommended age appropriate vaccinations and screening labs. Surveillance of intrauterine contraceptive device Comment: IUD string visualized. Patient continues to tolerate it well, encouraged that she checks for string on a regular basis and continue yearly WWE Counseling for HPV (human papillomavirus) vaccination Comment:Reviewed the importance of HPV vaccination with patient. Explained the HPV vaccination is given to prevent abnormal pap smear which can lead to cervical cancer,perineal warts and anal cancer. The vaccination is usually recommended to start age 9-11 and is a series of 3 shots with a catch phaseup to age 26. Current vaccination will protect against type 16,18,6 and 11. Vaccination doesn't replace the routine papsmears There are few SE of the vaccination with some people complaining of soreness at the injection site. Written information provided to patient This visit did not involve counseling and coordination that comprised more than 50% of the visit time. Nasreen Maloney MD documented in this encounter Plan of Treatment Date Type Specialty Care Team Description 03/28/2020 Office Visit Obstetrics & Gynecology Saritha Cabrera PA-C [address] [place] [phone] 05/09/2020 Office Visit Family Medicine Tyson Perez MD [address] [place] [address] [phone] 02/20/2021 Office Visit Obstetrics & Gynecology Eliel Cai MD [address] [place] [address] [address]. [place], [place] [address] [phone] Health Maintenance Due Date Last Done Comments [...] filedocumented in this encounter Visit Diagnoses Diagnosis Well woman exam with routine gynecologic al exam - Primary Routine gynecological examination Surveillance of intrauterine contracepti ve device Surveillance of previously prescribed in trauterine contraceptive device Counseling for HPV (human papillomavirus ) vaccination Other specified counseling documented in this encounter
--- OUTSIDE RECORDS SUMMARY | 2020-03-22 09:01 | XMS REPORT | Summary of Care ---
:2000 Author Organization [facility] Address [address] [place] [address] Care Team Providers Name Role Phone MD Chris Primary Care Provider Reason for Visit Reason Comments Well Woman Exam Encounter Details Date Type Department Care Team Description 02/04/2020 Office Visit [facility] Women's Adum, Nasreen Colvin MD Well woman exam with routine gynecologic al exam (Primary Dx); [address] Surveillance of intrauterine contraceptive device; [address] [place] [address] Counseling for HPV (human papillomavirus ) vaccination [facility], [address] [phone] Allergies Active Allergy Reactions Severity Noted Date [...] Breakthrough bleeding associated with intrauterine device (IUD) ybensmxliy-tgxzwue-uiy Take 1 tablet by 90 tablet 0 [...] file Gets together: Not on file Attends episcopal service: Not on file Active member of [...] medication list which includes the following prescription(s): okpvniqmub-qlwpvkm-ffzvnqrt, estradiol, and albuterol. Review of Systems Constitutional: [...] Visit Obstetrics & Gynecology Saritha Cabrera PA-C [address] [place] [phone] 05/09/2020 Office Visit Family Medicine Tyson Perez MD [address] [place] [address] [phone] 02/20/2021 Office Visit Obstetrics & Gynecology Eliel Cai MD [address] [place] [address] [address]. [place], [place] [address] [phone] Health Maintenance Due Date Last Done Comments [...]
--- OUTSIDE RECORDS SUMMARY | 2020-03-22 09:01 | XMS REPORT | Summary of Care ---
:2000 Author Organization [facility] Address [address] [place] [address] Care Team Providers Name Role Phone MD Chris Primary Care Provider Reason for Visit Reason Comments Social Work Encounter Details Date Type Department Care Team Description 02/04/2020 Patient Outreach [facility] Pediatric Guadalupe Donahue Social Work and Adult Primary Care- [address] [place] [address], [address] [place] [address] Allergies Active Allergy Reactions Severity Noted Date [...] Breakthrough bleeding associated with intrauterine device (IUD) staqtvzwyb-gjcsolg-wut Take 1 tablet by 90 tablet 0 [...] Signs Not on filedocumented in this encounter Progress Notes Liz Donahue - 02/04/2020 12:29 PM CDTSocial work note MILITARY SOURCE OPERATIONS SPECIALIST received a referral to assist patient with Indigent program application. MILITARY SOURCE OPERATIONS SPECIALIST called patient and she provide her email address to received the application. MILITARY SOURCE OPERATIONS SPECIALIST explained how to fill the application. MILITARY SOURCE OPERATIONS SPECIALIST send her the application, notarize letter of support and form [id number]. MILITARY SOURCE OPERATIONS SPECIALIST also sent her the following resources: Other medical resources in your area: [facility] prescription Assistance -[phone] [place] [address] Director: Kisha Fraser /[phone] for apps Email: [email or web address] Hours: Friday, 8:00 a.m. 5:00 p.m. & Fridays, 8:00 a.m. 12:00 p.m. Pt reported she doesn't have any other needs at this time. Liz Donahue LMSW [employer] [facility] Department of Care Management Ambulatory Social Work documented in this encounter Plan of Treatment Date Type Specialty Care Team Description 03/28/2020 Office Visit Obstetrics & Gynecology Saritha Cabrera PA-C [address] [facility] [address] [facility] [address] [place], [place] [address] [phone] 05/09/2020 Office Visit Family Medicine Tyson Perez MD [address] [place] [address] Dr [place] [address] [place] [address] [phone] 02/20/2021 Office Visit Obstetrics & Gynecology Eliel Cai MD [address] [place] [address] [address] [place], [place] [address] Health Maintenance Due Date Last [...]
--- OUTSIDE RECORDS SUMMARY | 2020-03-22 09:02 | XMS REPORT | Summary of Care ---
:2000 Author Organization [facility] - Health Address [address] [id number] Care Team Providers Name Role Phone Joseph Cai MD Primary Care Provider MD Chris Primary Care Provider Encounter Details Date Type Department Care Team Description 01/04/2020 Orders Only [facility] Doctor Unassigned, No [address] [facility] [place] [address] Allergies Active Allergy Reactions Severity Noted Date Comments Cephalexin Swelling 09/02/2012 Sulfa (Sulfonamide Antibiotics) Swelling 3 documented as of this encounter (statuses as of 02/07/2020) Medications Medication Sig Dispensed Refills Start Date End Date Status albuterol 90 Inhale 2 Puffs 8.5 g 0 08/24/2019 A ctive mcg/actuation every 6 (six) inhalerIndications: hours as needed Viral illness for Wheezing or Shortness of Breath. estradiol 1 mg Take 1 tablet by 30 tablet 3 12/27/2019 Active tabletIndications: mouth daily. Breakthrough bleeding associated with intrauterine device (IUD) documented as of this encounter (statuses as of 02/07/2020) Active Problems Problem Noted Date Migraine equivalent syndrome 02/04/2020 Routine eye exam 02/04/2020 Does not have health insurance 02/04/2020 Breakthrough bleeding associated with intrauterine dev ice (IUD) 12/27/2019 Presence of intrauterine contraceptive device 05/27/20 19 Obesity (BMI 30-39.9) 12/17/2018 Morbid obesity with body mass index of 40.0-49.9 10/12 Maternal varicella, non-immune 03/24/2018 Overview: Address in documented as of this encounter (statuses as of 02/07/2020) Resolved Problems Problem Noted Date Resolved Date [...] as of this encounter (statuses as of 02/07/2020) Immunizations Name Administration Dates Next Due DTAP [...] Obstetrics & Gynecology Saritha Cabrera PA-C [address] [place] [address] [phone] 05/09/2020 Office Visit Family Medicine Tyson Perez MD [address] [place] [address] 77 15 02/20/2021 Office Visit Obstetrics & Gynecology Eliel Cai MD [address] [place] [address] 775 15 Health Maintenance Due Date Last Done Comments MENINGOCOCCAL B VACCINES (1 2010 of 2 - Risk Bexsero 2-dose series) HPV VACCINES (1 - 2-dose 2011 series) CHLAMYDIA SCREENING 12/30/2019 12/29/2018, 11/19/2018, 10/29/2018, Additional history exists INFLUENZA VACCINE (#1) 2020 03/23/2018, 03/23/2018, 04/09/2011 Depression Screening 05/27/2020 05/27/2019, 05/27/2019 WELL CARE VISIT: 12-21 YEARS 02/03/2021 02/04/2020 (yearly) DTaP,Tdap,and Td Vaccines (8 10/29/2028 10/29/2018, 013, - Td) 05/09/2005, Additional history exists PNEUMOCOCCAL 0-64 YEARS Completed 05/09/2005 COMBINED SERIES MENINGOCOCCAL VACCINE Aged Out 01/06/2013 No longer eligible based on patient 's age to complete this topic VARICELLA VACCINES Completed 11/20/2018, 01/06/2013, 08/15/2003 documented as of this encounter Procedures Procedure Name Priority Date/Time Associated Diagnosis Comme nts [facility] STATEMENT OF PATIENT Routine 01/04/2020 12:01 AM FINANCIAL RESPONSIBILITY CDT documented in this encounter Results Not on filedocumented in this encounter
--- OUTSIDE RECORDS SUMMARY | 2020-03-22 09:02 | XMS REPORT | Summary of Care ---
:2000 Author Organization [facility] Address [address] [place] [address] Care Team Providers Name Role Phone MD Chris Primary Care Provider Encounter Details Date Type Department Care Team Description 02/07/2020 Patient Secure [facility] Pediatric Tyson Bragg MD and Adult Primary Care- [address] [facility] [address] [address] [address], [address] [place] [address] [phone] Allergies Active Allergy Reactions Severity Noted Date Comments Cephalexin Swelling 09/02/2012 Sulfa (Sulfonamide Antibiotics) Swelling 3 documented as of this encounter (statuses as of 02/08/2020) Medications Medication Sig Dispensed Refills Start Date End Date Status albuterol 90 Inhale 2 Puffs 8.5 g 0 08/24/2019 A ctive mcg/actuation every 6 (six) inhalerIndications: hours as needed Viral illness for Wheezing or Shortness of Breath. estradiol 1 mg Take 1 tablet by 30 tablet 3 12/27/2019 Active tabletIndications: mouth daily. Breakthrough bleeding associated with intrauterine device (IUD) rndfazsbql-iqceqqw-hck Take 1 tablet by 90 tablet 0 02/04/2020 Active feine per mouth every 6 tabletIndications: (six) hours as Migraine equivalent needed for Pain. syndrome documented as of this encounter (statuses as of 02/08/2020) Active Problems Problem Noted Date Migraine equivalent syndrome 02/04/2020 Routine eye exam 02/04/2020 Does not have health insurance 02/04/2020 Breakthrough bleeding associated with intrauterine dev ice (IUD) 12/27/2019 Presence of intrauterine contraceptive device 05/27/20 19 Obesity (BMI 30-39.9) 12/17/2018 Morbid obesity with body mass index of 40.0-49.9 10/12 Maternal varicella, non-immune 03/24/2018 Overview: Address in documented as of this encounter (statuses as of 02/08/2020) Resolved Problems Problem Noted Date Resolved Date [...] as of this encounter (statuses as of 02/08/2020) Immunizations Name Administration Dates Next Due DTAP [...] Visit Obstetrics & Gynecology Saritha Cabrera PA-C [address] [place] [address] [phone] 05/09/2020 Office Visit Family Medicine Tyson Perez MD [address] [place] [address] [place] [address] 15 02/20/2021 Office Visit Obstetrics & Gynecology Eliel Cai MD [address] [place], [place] [address]olly [address] 77 [phone] Health Maintenance Due Date Last Done Comments [...]
--- OUTSIDE RECORDS SUMMARY | 2020-03-22 09:02 | XMS REPORT | Summary of Care ---
:2000 Author Organization [facility] Address [address] [place] [address] Care Team Providers Name Role Phone MD Chris Primary Care Provider Reason for Visit Reason Comments LAB WORK Auth/Cert Status Reason Specialty Diagnoses / Procedures Referred By C ontact Referred To Contact Phlebotomy Diagnoses Migraine equivalent syndrome Adc Pob Lab Draw Procedures CBC W/DIFF CMP AIC LIPID PANEL TSH FREE T4 FREE T3 Professional Office Building [address] [facility] , [address] [place] [address] Phone: Fax: Encounter Details Date Type Department Care Team Description 02/04/2020 Web Project Manager Visit [facility] Adrian Perez MD [address] [place] [address] Dr Mcfar[address] [place] [address] Migraine equivalent Professional Office 2, Adc Lab syndrome Building Phlebotomy Lab Professional Office Building [address] [facility] , [address] [place] [address] Allergies Active Allergy Reactions Severity Noted Date [...] Breakthrough bleeding associated with intrauterine device (IUD) llfhjtyuhb-cunauun-uhu Take 1 tablet by 90 tablet 0 [...] Signs Not on filedocumented in this encounter Nursing Notes Kasandra Casas - 02/04/2020 11:15 AM CDT Venipuncture collection performed by clean technique on the left anticubitus. Total of 1 attempts were made. Slight pressure and a bandage/dressing were applied to the site(s). The patient experienced no complications. The following specimens were processed according to instructions and sent to [facility] laboratories per lab order on today: LT BLUE SST 1 RED LAV 2 PPT DK GREEN (LiHep) DK GREEN (SodH) [place] DK BLUE (K2) DK BLUE (S) ACD Blood Culture NIPT/NTD documented in this encounter Plan of Treatment Date Type Specialty Care Team Description 03/28/2020 Office Visit Obstetrics & Gynecology Saritha Cabrera PA-C 146 [facility] 208 [place], [place] [phone] 05/09/2020 Office Visit Family Medicine Tyson Perez MD [address] [place] [address] [address] [place], [place] [address] [phone] 02/20/2021 Office Visit Obstetrics & Gynecology Eliel Cai MD [address] [place], [place] [address]Molly [address] [place], [place] [address] Health Maintenance Due Date Last [...] encounter Visit Diagnoses Diagnosis Migraine equivalent syndrome Variants of migraine, not elsewhere clas sified, without mention of intractable migraine without mention of status migra inosus documented in this encounter
--- OUTSIDE RECORDS SUMMARY | 2020-03-22 09:03 | XMS REPORT | Summary of Care ---
:[address] [facility] Address [address] [place], [place] [id number] Care Team Providers Name Role Phone MD Chris Primary Care Provider Reason for Visit Reason Comments Lab Results Talk To Provider Assessment Encounter Details Date Type Department Care Team Description 02/08/2020 Telephone [facility] Pediatric Tyson Perez MD Lab Results; Talk To and Adult Primary [facility] Provider; Assessment Care- [facility] [address] [address] [place] [address] Allergies Active Allergy Reactions Severity Noted Date [...] Breakthrough bleeding associated with intrauterine device (IUD) xdutadvvwm-rtjofpl-gtx Take 1 tablet by 90 tablet 0 [...] Signs Not on filedocumented in this encounter Miscellaneous Notes Telephone Encounter - Susan Acosta RN - 02/08/2020 1:04 PM CDTPatient scheduled for a telehealth appointment with for today to discuss and clarify patients concerns. elephone Encounter - Gaby Leija - 02/08/2020 12:33 PM CDTPatient called to ask for her lab results. She stated that someone is trying to reach her but I was not able to see any encounters from the clinic. She is terrified that she has a brain tumor. She is crying and she stated that she has called the clinic and sent a mychart encounter as well with no response yet. She was somehow transferred to our referral center yet we have not called her. She went to [facility] on Friday to see the eye provider. She sent the info as well to the provider in a mychart message with the results. She said that the doctor told her to read up on her condition on the web and that to be diagnosis, she would have to have a brain surgery She is also asking for a neurology referral to Dr Barclay. Please call her POLO. She is very scared and has been reading a lot of info on the web over the weekend. documented in this encounter Plan of Treatment Date Type Specialty Care Team Description 02/08/2020 Telemedicine Visit Family Medicine Avery Perez MD [address] [place] [address] 77 15 03/28/2020 Office Visit Obstetrics & Gynecology Saritha Cabrera PA-C [address] [place] [phone] 05/09/2020 Office Visit Family Medicine Tyson Perez MD [address] [place] [address] 15 02/20/2021 Office Visit Obstetrics & Gynecology Eliel Cai MD [address] [place] [address] DR. Mc[address] [place] [address] 77 15 Health Maintenance Due Date Last [...]
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
--- OUTSIDE RECORDS SUMMARY | 2020-03-22 09:04 | XMS REPORT | Summary of Care ---
:2000 Author Organization [facility] Address [address] [place] [address] Care Team Providers Name Role Phone MD Chris Primary Care Provider Reason for Referral MRI/CAT Scan (Routine) Status Reason Specialty Diagnoses / Referred By Referred To Procedures Contact Contact Closed Diagnostic Diagnoses Migraine equivalent syndrome Papilledema Tyson Perez, Radiology Procedures MR BRAIN WO CONTRAST [address] [place] [address] [address] Reason for Visit MRI/CAT Scan (Routine) Status Reason Specialty Diagnoses / Referred By Referred To Procedures Contact Contact Closed Diagnostic Diagnoses Migraine equivalent syndrome Papilledema Tyson Perez, Radiology Procedures MR BRAIN WO CONTRAST [address] [place] [address] Dr [address]n [address] [place] [address] Encounter Details Date Type Department Care Team Description 02/19/2020 Hospital Encounter [facility] Tyson Goetz MD Arrived [address] [facility] [address] [phone] Allergies Active Allergy Reactions Severity Noted Date Comments Cephalexin Swelling 09/02/2012 Sulfa (Sulfonamide Antibiotics) Swelling 03/27/201 3 documented as of this encounter (statuses as of 02/20/2020) Medications Medication Sig Dispensed Refills Start Date End Date Status albuterol 90 Inhale 2 Puffs 8.5 g 0 08/24/2019 A ctive mcg/actuation every 6 (six) inhalerIndications: hours as needed Viral illness for Wheezing or Shortness of Breath. estradiol 1 mg Take 1 tablet by 30 tablet 3 12/27/2019 Active tabletIndications: mouth daily. Breakthrough bleeding associated with intrauterine device (IUD) kcwwqdxrxu-twemkfy-npf Take 1 tablet by 90 tablet 0 02/04/2020 Active feine per mouth every 6 tabletIndications: (six) hours as Migraine equivalent needed for Pain. syndrome documented as of this encounter (statuses as of 02/20/2020) Active Problems Problem Noted Date Papilledema 02/08/2020 [...] as of this encounter (statuses as of 02/20/2020) Resolved Problems Problem Noted Date Resolved Date [...] as of this encounter (statuses as of 02/20/2020) Immunizations Name Administration Dates Next Due DTAP [...] been in contact with No / Unsure 02/19/2020 4:51 PM CDT someone who was confirmed or suspected to have Coronavirus / COVID-19? documented as of this encounter Last Filed Vital Signs Not on filedocumented in this encounter Plan of Treatment Date Type Specialty Care Team Description 02/28/2020 Office Visit Neurology Elvis Mcguire MD [address] [place], [place] [address]d. [place], [place] [phone] 02/29/2020 Office Visit Family Medicine Tyson Perez MD [address] [place] [address] Dr Conner [place], [place] [address] 03/28/2020 Office Visit Obstetrics & Gynecology Saritha Cabrera PA-C 146 [facility] 208 [place], [place] [phone] 05/09/2020 Office Visit Family Medicine Tyson Perez MD [address] [place] [address] 02/20/2021 Office Visit Obstetrics & Gynecology Eliel Cai MD [address] [place], [place] [address] 208 [place], [place] [address] Health Maintenance Due Date [...] Name Priority Date/Time Associated Diagnosis Comme nts MR BRAIN WO Routine 02/19/2020 5:29 PM Migraine equivalent R esults for this CONTRAST CDT syndrome procedure are in Papilledema the results section. documented in this encounter Results MR BRAIN WO CONTRAST (02/19/2020 5:29 PM CDT) Specimen Impressions Performed At PACS/VR/DOSE No acute intracranial abnormality. Narrative Performed At MR BRAIN WO CONTRAST PACS/VR/DOSE COMPARISON: None HISTORY: Headache, chronic, normal neuro exam TECHNIQUE: Multisequence multiplanar MR images the brain were obtained without IV contrast. FINDINGS: The ventricles and cerebral sulci are normal in calibe r and configuration. No midline shift, hydrocephalus or patho logical extra-axial fluid collection is present. The basal cistern s are unremarkable. No restricted diffusion is present to espino ggest acute infarct. No abnormal parenchymal signal abnormality is present. No abnormal gradient blooming. The T2 flow voids for the major intracra nial vessels are unremarkable. Trace fluid within the mastoid air cells on the right. Remainder of the paranasal sinuses and left mastoid air c ells are essentially clear. Procedure Note [facility], Radiant Results Inft User - 2019 5:37 PM CDT MR BRAIN WO CONTRAST COMPARISON: None HISTORY: Headache, chronic, normal neuro exam TECHNIQUE: Multisequence multiplanar MR images the brain were obtained without IV contrast. FINDINGS: The ventricles and cerebral sulci are no rmal in caliber and configuration. No midline shift, hydrocephalus or patho logical extra-axial fluid collection is present. The basal cistern s are unremarkable. No restricted diffusion is present to espino ggest acute infarct. No abnormal parenchymal signal abnormality is presen t. No abnormal gradient blooming. The T2 flow voids for the major intracra nial vessels are unremarkable. Trace fluid within the mastoid air cells on the right. Remainder of the paranasal sinuses and left mastoid air c ells are essentially clear. IMPRESSION No acute intracranial abnormality. Performing Organization Address City/State/Zipcode Phone Number PACS/VR/DOSE documented in this encounter Visit Diagnoses Diagnosis Migraine equivalent syndrome Variants of migraine, not elsewhere clas sified, without mention of intractable migraine without mention of status migra inosus Papilledema Papilloedema, unspecified documented in this encounter
--- OUTSIDE RECORDS SUMMARY | 2020-03-22 09:04 | XMS REPORT | Summary of Care ---
:2000 Author Organization [facility] Address [address] [place] [address] Care Team Providers Name Role Phone MD Chris Primary Care Provider Reason for Referral (Routine) Status Reason Specialty Diagnoses / Referred By Referred To Procedures Contact Contact New Request Neurology Diagnoses Migraine equivalent syndrome Papilledema Tyson Perez, Procedures CONSULT/REFERRAL NEUROLOGY [address] [place] [address] [phone] MRI/CAT Scan (Routine) Status Reason Specialty Diagnoses / Referred By Referred To Procedures Contact Contact New Request Diagnostic Diagnoses Migraine equivalent syndrome Papilledema Chris, Radiology Procedures MR BRAIN WO CONTRAST MD Tyson [address] [place] [address] [address] Reason for Visit Reason Comments Eye Pain Eye Problem Referral/consult Encounter Details Date Type Department Care Team Description 02/08/2020 Telemedicine Visit [facility] Tyson Perez, Migr remington equivalent syndrome (Primary Dx); Pediatric and Adult Papilledema Primary Care- [address] [place] [address] Dr Rouse [address], [address] [place] [phone] Allergies Active Allergy Reactions Severity Noted Date Comments Cephalexin Swelling 09/02/2012 Sulfa (Sulfonamide Antibiotics) Swelling 3 documented as of this encounter (statuses as of 02/11/2020) Medications Medication Sig Dispensed Refills Start Date End Date Status albuterol 90 Inhale 2 Puffs 8.5 g 0 08/24/2019 A ctive mcg/actuation every 6 (six) inhalerIndications: hours as needed Viral illness for Wheezing or Shortness of Breath. estradiol 1 mg Take 1 tablet by 30 tablet 3 12/27/2019 Active tabletIndications: mouth daily. Breakthrough bleeding associated with intrauterine device (IUD) eaopzabsra-rgeoekb-geo Take 1 tablet by 90 tablet 0 02/04/2020 Active feine per mouth every 6 tabletIndications: (six) hours as Migraine equivalent needed for Pain. syndrome documented as of this encounter (statuses as of 02/11/2020) Active Problems Problem Noted Date Papilledema 02/08/2020 [...] as of this encounter (statuses as of 02/11/2020) Resolved Problems Problem Noted Date Resolved Date [...] as of this encounter (statuses as of 02/11/2020) Immunizations Name Administration Dates Next Due DTAP [...] last month, have you been in contact Unable to assess 02/08/2020 2:35 PM CDT with someone who was confirmed or suspected to have Coronavirus / COVID-19? documented as of this encounter Last Filed Vital Signs Not on filedocumented in this encounter Progress Notes Tyson Perez MD - 02/08/2020 3:00 PM CDT Cc: Chief Complaint Patient presents with Eye Pain Eye Problem Referral/consult Cary Romano is a 19 year old [...] history, Trauma, Tuberculosis, or Urinary incontinence. Patient has hx vision changes with blurriness and white dots, ringing in both ears, with intermittent N/V. Patient was seen 02/04/2020, referred to Ophthalmology, and completed her external Opthalmologist on 02/05/2020. 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 Patient was advised to check spinal pressure. Patient reports being concerned, looked on the internet about causes of "papillary edema", is very anxious and worried. 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 Patient was started on Butalbital- aspirin-caffeine 1 Tab q6H PRN. Patient FH migraine on her mother's side of the family. Patient denies CP, palpitations or SOB. Allergies Cary is allergic to keflex [cephalexin] and sulfa (sulfonamide antibiotics). Medications Outpatient Medications Prior to Visit Medication Sig Dispense Refill geiyzfsfwk-ucwdpuv-upduljxf per tablet Take 1 tablet by mouth every 6 (six) hours as needed for Pain. 90 tablet 0 estradiol 1 mg tablet Take 1 tablet [...] pre-eclampsia in third trimester 11/18/2018 depression 05/27/2019 No past surgical history on file. Social History Socioeconomic History Marital status: Single [...] pain. Neurological: Positive for headaches. Vital Signs LMP 01/27/2020 (Exact Date) Physical Exam Vitals signs and nursing note [...] Behavior normal. Assessment/Plan Migraine equivalent syndrome - s/p Ophthalmology visit, papilledema noted, will age MRI brain. Anticipatory guidance discussed - Labs reviewed and discussed, monitor - Encouraged to avoid prolonged exposure to bright lights, including "blue lights from Cell-phones". - Continue with ovsaxorefn-yykrecq-ywjhetew 1 Tab q6H PRN - MR BRAIN WO CONTRAST; Future - CONSULT/REFERRAL NEUROLOGY Preventive Care: Medication reconciliation, patient education and anticipatory guidance completed. All questions and concerns addressed. AVS given, handout provided. Return in about 2 weeks (around 02/22/2020), or if symptoms worsen or fail to improve. Tyson Perez MD, MPH, AAAZVS Clinical Lead [place], Department of Family Medicine [facility] - [facility] 02/08/2020 4:16 PM documented in this encounter Plan of Treatment Date Type Specialty Care Team Description 02/18/2020 Office Visit Neurology Elvis Mcguire MD [address] [place] [address]. [place], [place] [phone] 02/19/2020 Appointment Radiology Tyson Perez MD [address] [place] [address] Dr Mcfarland [address] [place] [address] 15 [phone] 02/29/2020 Office Visit Family Medicine Tyson Perez MD [address] [place] [address] Dr Mcfarland [address] [place] [address] 15 [phone] 03/28/2020 Office Visit Obstetrics & Gynecology Saritha Cabrera PA-C [address] [place] [address] [place] [phone] 05/09/2020 Office Visit Family Medicine Tyson Perez MD [address] [facility] [address] Mcfarland 205 [place], [place] [address] 02/20/2021 Office Visit Obstetrics & Gynecology Eliel Cai MD [address] [place] [address] DR. Mcfarland 208 [place], [place] [address] Name Type Priority Associated Diagnoses Order S chedule MR BRAIN WO CONTRAST IMAGING Routine Migraine equivalent Expected: 02/08/2020, syndrome Expires: 02/07/2021 Papilledema Health Maintenance Due Date Last Done Comments [...]
--- OUTSIDE RECORDS SUMMARY | 2020-03-22 09:04 | XMS REPORT | Summary of Care ---
:2000 Author Organization [facility] Address [address] [place], [place] [id number] Care Team Providers Name Role Phone MD Chris Primary Care Provider Reason for Referral (Routine) Status Reason Specialty Diagnoses / Referred By Referred To Procedures Contact Contact New Request Ophthalmology Diagnoses Complicated headache syndromes IIH (idiopathic intracranial hypertension) Elvis Mcguire Procedures CONSULT OPHTHALMOLOGY MD Jonathan [address] [place] [address]. [place] [phone] Reason for Visit Reason Comments New Evaluation (Routine) Status Reason Specialty Diagnoses / Procedures Referred By C johnny Referred To Contact Closed Neurology Diagnoses Migraine equivalent syndrome Papilledema Tyson Perez MD Procedures CONSULT/REFERRAL NEUROLOGY [address] [place] [address] Dr Mcfarland [address] [place] [phone] Phone: Encounter Details Date Type Department Care Team Description 02/28/2020 Office Visit [facility] Elvis Mcguire Complicated headache syndromes (Primary Dx); Neurology-Fifi Castillo MD IIH (idiopathic intracranial hypertensio n) [address] [place] [phone] Allergies Active Allergy Reactions [...] Breakthrough bleeding associated with intrauterine device (IUD) egrvlwcxxe-juvcopw-ryg Take 1 tablet by 90 tablet 0 [...] say that she had recently seen an strap sewer to felt that she might have some early papilledema and it was recommended she have a spinal fluid examination. She recently had an MRI study ordered by primary care physician and it was red as negative although I think there might be a partially empty sella. Treatment for the headaches has been with a variety of different qhaj-tlh-btbzrph medications including Tylenol, Advil, BC powder, CBD [...] (two) times daily., Disp: 60 tablet, Rfl:2 erlzxjltvt-tjcqpjt-xawvejva per tablet, Take 1 tablet by mouth [...] file Gets together: Not on file Attends zoroastrianism service: Not on file Active member of [...] during the exam, attention and concentration normal, hotel or motel receptionist and expression intact, fund of information [...] this point that she actually see an cut off operator scorer, and I did talk about potential workupwhich [...] from a Microsoft Word template created with [employer]. The text was dictated into the template via [employer]. documented in this encounter Plan of Treatment Date Type Specialty Care Team Description 05/09/2020 Office Visit Family Medicine Tyson Perez MD [address] [place] [address] Dr Mcfarland [address] [place] [address] 02/20/2021 Office Visit Obstetrics & Gynecology Eliel Cai MD [address] [place] [address] DR. Mcfarland [address] [place] [address] Health Maintenance Due Date Last Done [...]
--- OUTSIDE RECORDS SUMMARY | 2020-03-22 09:05 | XMS REPORT | Summary of Care ---
:2000 Author Organization [facility] Address [address] [place], [place] [id number] Care Team Providers Name Role Phone MD Chris Primary Care Provider Reason for Referral Radiology Services (Routine) Status Reason Specialty Diagnoses / Referred By Referred To Procedures Contact Contact New Request Diagnostic Diagnoses Complicated headache syndromes IIH (idiopathic intracranial hypertension) Elvis Mcguire Radiology Procedures IR SPINAL LUMBAR PUNCTURE DIAGNOSTIC MD Jonathan [address] [place] [phone] (Routine) Status Reason Specialty Diagnoses / Referred By Referred To Procedures Contact Contact New Request Ophthalmology Diagnoses Complicated headache syndromes IIH (idiopathic intracranial hypertension) Elvis Mcguire Procedures CONSULT OPHTHALMOLOGY MD Jonathan [address] [place] [phone] Reason for Visit Reason Comments New Evaluation (Routine) Status Reason Specialty Diagnoses / Procedures Referred By C ontact Referred To Contact Closed Neurology Diagnoses Migraine equivalent syndrome Papilledema Tyson Perez MD Procedures CONSULT/REFERRAL NEUROLOGY [address] [place] [address] Dr Conner [place], [place] [address] Phone: Encounter Details Date Type Department Care Team Description 02/28/2020 Office Visit [facility] Elvis Mcguire Complicated headache syndromes (Primary Dx); Neurology-Fifi Castillo MD IIH (idiopathic intracranial hypertensio n) [address] [place] [phone] Allergies Active Allergy Reactions Severity Noted Date Comments Cephalexin Swelling 09/02/2012 Sulfa (Sulfonamide Antibiotics) Swelling 3 documented as of this encounter (statuses as of 03/03/2020) Medications Medication Sig Dispensed Refills Start Date End Date Status albuterol 90 Inhale 2 Puffs 8.5 g 0 08/24/2019 A ctive mcg/actuation every 6 (six) inhalerIndications: hours as needed Viral illness for Wheezing or Shortness of Breath. estradiol 1 mg Take 1 tablet by 30 tablet 3 12/27/2019 Active tabletIndications: mouth daily. Breakthrough bleeding associated with intrauterine device (IUD) jlytgmmhmg-gcpsgny-qqy Take 1 tablet by 90 tablet 0 02/04/2020 Active feine per mouth every 6 tabletIndications: (six) hours as Migraine equivalent needed for Pain. syndrome acetaZOLAMIDE 250 mg Take 1 tablet by 60 tablet 2 02/28/2020 Active tabletIndications: mouth 2 (two) Complicated headache times daily. syndromes, IIH (idiopathic intracranial hypertension) documented as of this encounter (statuses as of 03/03/2020) Active Problems Problem Noted Date Papilledema 02/08/2020 [...] as of this encounter (statuses as of 03/03/2020) Resolved Problems Problem Noted Date Resolved Date [...] as of this encounter (statuses as of 03/03/2020) Immunizations Name Administration Dates Next Due DTAP [...] say that she had recently seen an manager market intelligence to felt that she might have some early papilledema and it was recommended she have a spinal fluid examination. She recently had an MRI study ordered by primary care physician and it was red as negative although I think there might be a partially empty sella. Treatment for the headaches has been with a variety of different qkoe-kxr-qjzcjds medications including Tylenol, Advil, BC powder, CBD [...] (two) times daily., Disp: 60 tablet, Rfl:2 lciiknjsxz-gyxpzpz-sfrchgjr per tablet, Take 1 tablet by mouth [...] file Gets together: Not on file Attends druze service: Not on file Active member of [...] during the exam, attention and concentration normal, spa receptionist and expression intact, fund of information [...] this point that she actually see an retail selling specialist, and I did talk about potential workupwhich [...] from a Microsoft Word template created with [employer]. The text was dictated into the template via [employer]. documented in this encounter Miscellaneous Notes Addendum Note - Elvis Mcguire MD - 02/28/2020 8:00 AM CDT Addended by: ELVIS MCGUIRE JR., MD on: 03/03/2020 12:52 PM Modules accepted: Orders documented in this encounter Plan of Treatment Date Type Specialty Care Team Description 05/09/2020 Office Visit Family Medicine Tyson Perez MD [address] [place] [address] Dr Mcfarland [address] [place] [address] 02/20/2021 Office Visit Obstetrics & Gynecology Eliel Cai MD [address] [place] [address] DR. Mcfarland [address] [place] [phone] 15 Name Type Priority Associated Diagnoses Order S chedule IR SPINAL LUMBAR PUNCTURE IMAGING Routine Complicated hea dache Expected: DIAGNOSTIC syndromes 03/03/2020, IIH (idiopathic Expires: intracranial hypertension) BODY FLUID CELL COUNT LAB Routine Complicated headach e Expected: syndromes 03/03/2020, IIH (idiopathic Expires: intracranial hypertension) CEREBROSPINAL FLUID LAB Routine Complicated headache Expected: GLUCOSE syndromes 03/03/2020, IIH (idiopathic Expires: intracranial hypertension) CEREBROSPINAL FLUID LAB Routine Complicated headache Expected: PROTEIN syndromes 03/03/2020, IIH (idiopathic Expires: intracranial hypertension) CSF CULTURE LAB Routine Complicated headache Expecte d: syndromes 03/03/2020, IIH (idiopathic Expires: intracranial hypertension) CYTO SPINAL FLUID LAB Routine Complicated headache Ex pected: syndromes 03/03/2020, IIH (idiopathic Expires: intracranial hypertension) Health Maintenance Due Date Last Done Comments [...]
--- OUTSIDE RECORDS SUMMARY | 2020-03-22 09:05 | XMS REPORT | Summary of Care ---
:2000 Author Organization [facility] Address [address] [place], [place] [address] Care Team Providers Name Role Phone MD Chris Primary Care Provider Reason for Visit Reason Comments Rx Concern/Question Allergic Encounter Details Date Type Department Care Team Description 02/28/2020 Telephone [facility] Elvis Mcguire, Rx Con cern/Question Neurology-Fifi DE GUZMAN (Allergic) [address] [place] [phone] Allergies Active Allergy Reactions [...] Breakthrough bleeding associated with intrauterine device (IUD) ofvlqaqdng-hdodujg-mhm Take 1 tablet by 90 tablet 0 [...] this encounter Miscellaneous Notes Telephone Encounter - Skyla Madsen LVN - 03/03/2020 2:02 PM CDTSpoke to patient and let her know we don't want her to take the Diamox d/t allergy to sulfa. Informed her spinal tap had been ordered and someone would call to schedule. elephone Encounter - Elvis Mcguire MD - 03/03/2020 12:48 PM CDTI will order the spinal tap, I don't want to take a chance on the Diamox if she does have this allergy to sulfa, there is a chance she could have an allergic reaction. elephone Encounter - Marilin Camarillo - 03/01/2020 4:34 PM CDLata Romano is a 19 year old female [facility] calling stating patient has an allergy to Sulfa-drugs elephone Encounter - Skyla Madsen LVN - 03/01/2020 4:[address] Deny, Spoke to patient and let her know to not take the diamox. Patient stated she would be willing to do spinal tap. Wants to know if she can pay it out since she does not have insurance. I told her that would be a question she would have to speak radiology about. Would you like to order the spinal tap? Please review and advise. elephone Encounter - Brittanie Benitez - 03/01/2020 4:18 PM Miguel A Romano is a 19 year old female Patient mother is calling. She is wanting to check status of medication acetaZOLAMIDE 250 mg tablet due to being allergic, and to see if patient should take another medication or none at all. Please contact patient at [phone] elephone Encounter - Elvis Mcguire MD - 03/01/2020 2:27 PM CDTProbably would be safer to skip the diamox, but otherwise for headache, drug therapy is limited. Question is should she proceed to spinal tap for diagnosis. I had hoped that the diamox might eliminatedthe need for the test. elephone Encounter - Yenifer Banegas RN - 02/29/2020 9:08 AM CDTPatient states literature for this medication notes to tell provider if allergic to sulfa. She had a child jon allergy to sulfa and it is listed in her allergy list. Advised will route to provider for alternate or advice. Telephone Encounter - Sandrita Lopez - 02/28/2020 3:51 PM CDTSierra Francisco Javier Romano is a 19 year old female Patient is calling stating that she is allergic to Sulfa in acetaZOLAMIDE 250 . Please contact her at [phone] (home) documented in this encounter Plan of Treatment Date Type Specialty Care Team Description 05/09/2020 Office Visit Family Medicine Tyson Perez MD [address] [place] [address] Dr Mcfarland 205 [place], [place] [address] 02/20/2021 Office Visit Obstetrics & Gynecology Eliel Cai MD [address] [place] [address] DR. Mcfarland [address] [place] [address] Health Maintenance Due Date Last Done [...]
--- OUTSIDE RECORDS SUMMARY | 2020-03-22 09:05 | XMS REPORT | Summary of Care ---
:2000 Author Organization [facility] Address [address] [place], [place] [id number] Care Team Providers Name Role Phone MD Chris Primary Care Provider Reason for Visit Reason Comments Referral/consult Encounter Details Date Type Department Care Team Description 02/08/2020 Telephone [facility] Pediatric and Tyson Fraga MD Referral/consult Adult Primary Care- [address] [facility] [address] [place] [address] [address] [place] [address] [phone] Allergies Active Allergy Reactions Severity Noted Date Comments Cephalexin Swelling 09/02/2012 Sulfa (Sulfonamide Antibiotics) Swelling 3 documented as of this encounter (statuses as of 03/02/2020) Medications Medication Sig Dispensed Refills Start Date End Date Status albuterol 90 Inhale 2 Puffs 8.5 g 0 08/24/2019 A ctive mcg/actuation every 6 (six) inhalerIndications: hours as needed Viral illness for Wheezing or Shortness of Breath. estradiol 1 mg Take 1 tablet by 30 tablet 3 12/27/2019 Active tabletIndications: mouth daily. Breakthrough bleeding associated with intrauterine device (IUD) xfwirkccde-xmtjqsk-dwf Take 1 tablet by 90 tablet 0 02/04/2020 Active feine per mouth every 6 tabletIndications: (six) hours as Migraine equivalent needed for Pain. syndrome documented as of this encounter (statuses as of 03/02/2020) Active Problems Problem Noted Date Papilledema 02/08/2020 [...] as of this encounter (statuses as of 03/02/2020) Resolved Problems Problem Noted Date Resolved Date [...] as of this encounter (statuses as of 03/02/2020) Immunizations Name Administration Dates Next Due DTAP [...] this encounter Miscellaneous Notes Telephone Encounter - Anup Conley RN - 03/02/2020 1:03 [facility] maintenance. This encounter has been open for over 72 hours and needs no further action. RN closing encounter. Anup Conley RN Nurse Clinician III [facility] elephone Encounter - Christine Bolanos - 02/08/2020 8:40 AM CDTSphill Francisco Javier Romano is a 19 year old female patient calling for referral to Neurology ( Dr. Barclay). Please call. documented in this encounter Plan of Treatment Date Type Specialty Care Team Description 05/09/2020 Office Visit Family Medicine Tyson Perez MD [address] [place] [address] Dr [place], [place] [address] [phone] 02/20/2021 Office Visit Obstetrics & Gynecology Eliel Cai MD [address] [place] [address] DR. Pozo [place] [id number] 15 [phone] Health Maintenance Due Date Last Done Comments [...]
--- OUTSIDE RECORDS SUMMARY | 2020-03-22 09:06 | XMS REPORT | Summary of Care ---
:2000 Author Organization [place] [id number] Care Team Providers Name Role Phone MD Chris Primary Care Provider Reason for Visit Reason Comments Assessment Encounter Details Date Type Department Care Team Description 03/09/2020 Telephone [facility] Elvis Mcguire MD Assessment Neurology-[address] [place] [phone] [address] [place] [address]-[facility] [phone] Allergies Active Allergy Reactions Severity Noted Date Comments Cephalexin Swelling 09/02/2012 Sulfa (Sulfonamide Antibiotics) Swelling 3 documented as of this encounter (statuses as of 03/09/2020) Medications Medication Sig Dispensed Refills Start Date End Date Status albuterol 90 Inhale 2 Puffs 8.5 g 0 08/24/2019 A ctive mcg/actuation every 6 (six) inhalerIndications: hours as needed Viral illness for Wheezing or Shortness of Breath. estradiol 1 mg Take 1 tablet by 30 tablet 3 12/27/2019 Active tabletIndications: mouth daily. Breakthrough bleeding associated with intrauterine device (IUD) xuomlrqldj-gmjfzne-kqt Take 1 tablet by 90 tablet 0 02/04/2020 Active feine per mouth every 6 tabletIndications: (six) hours as Migraine equivalent needed for Pain. syndrome acetaZOLAMIDE 250 mg Take 1 tablet by 60 tablet 2 02/28/2020 Active tabletIndications: mouth 2 (two) Complicated headache times daily. syndromes, IIH (idiopathic intracranial hypertension) documented as of this encounter (statuses as of 03/09/2020) Active Problems Problem Noted Date Papilledema 02/08/2020 [...] as of this encounter (statuses as of 03/09/2020) Resolved Problems Problem Noted Date Resolved Date [...] as of this encounter (statuses as of 03/09/2020) Immunizations Name Administration Dates Next Due DTAP [...] this encounter Miscellaneous Notes Telephone Encounter - Christine Bolanos - 03/09/2020 8:48 AM CDTSphill Romano is a 19 year old female patient calling to speak with Dr. Mcguire regarding speech difficulty and stuttering over the last week. Please call. [phone] documented in this encounter Plan of Treatment Date Type Specialty Care Team Description 05/09/2020 Office Visit Family Medicine Tyson Perez MD [address] [place] [address] Dr [place] [address] [place] [address] 15 02/20/2021 Office Visit Obstetrics & Gynecology Eliel Cai MD [address] [place] [address] DR. Mcfar[address] [place] [address] Health Maintenance Due Date Last Done [...]
--- OUTSIDE RECORDS SUMMARY | 2020-03-22 09:06 | XMS REPORT | Summary of Care ---
:2000 Author Organization [place] [phone] Care Team Providers Name Role Phone MD Chris Primary Care Provider Reason for Visit Reason Comments Assessment Encounter Details Date Type Department Care Team Description 03/09/2020 Telephone [facility] Elvis Mcguire MD Assessment Neurology-[address] [place] [phone] [address] [place] [address]-[facility] [phone] Allergies Active Allergy Reactions Severity Noted Date [...] Breakthrough bleeding associated with intrauterine device (IUD) tegxhuoqil-nhaoibs-ohk Take 1 tablet by 90 tablet 0 [...] stuttering over the last week. Please call. [phone] documented in this encounter Plan of Treatment Date Type Specialty Care Team Description 05/09/2020 Office Visit Family Medicine Tyson Perez MD [address] [place] [address] Dr [place] [address] [place] [address] 15 02/20/2021 Office Visit Obstetrics & Gynecology Eliel Cai MD [address] [place] [address] [address]. Mcfar[address] [place] [address] 15 Health Maintenance Due Date Last Done [...]
--- OUTSIDE RECORDS SUMMARY | 2020-03-22 09:07 | XMS REPORT | Summary of Care ---
:2000 Author Organization [facility] Address [address] [place], [place] [id number] Care Team Providers Name Role Phone MD Chris Primary Care Provider Reason for Referral Radiology Services (Routine) Status Reason Specialty Diagnoses / Referred By Referred To Procedures Contact Contact Closed Diagnostic Diagnoses Complicated headache syndromes IIH (idiopathic intracranial hypertension) Elvis Mcguire Radiology Procedures IR SPINAL LUMBAR PUNCTURE DIAGNOSTIC MD Jonathan [address] [place] [phone] Reason for Visit Radiology Services (Routine) Status Reason Specialty Diagnoses / Referred By Referred To Procedures Contact Contact Closed Diagnostic Diagnoses Complicated headache syndromes IIH (idiopathic intracranial hypertension) Elvis Mcguire Radiology Procedures IR SPINAL LUMBAR PUNCTURE DIAGNOSTIC MD Jonathan [address] [place] [phone] Encounter Details Date Type Department Care Team Description 03/20/2020 Hospital Encounter [facility] Elvis Mcguire Interventional Radio logy MD Jonathan [address] [place] [phone] [facility]. [phone] [place] [address] Allergies Active Allergy Reactions Severity Noted Date Comments Cephalexin Swelling 09/02/2012 Sulfa (Sulfonamide Antibiotics) Swelling 3 documented as of this encounter (statuses as of 03/21/2020) Medications Medication Sig Dispensed Refills Start Date End Date Status albuterol 90 Inhale 2 Puffs 8.5 g 0 08/24/2019 A ctive mcg/actuation every 6 (six) inhalerIndications: hours as needed Viral illness for Wheezing or Shortness of Breath. estradiol 1 mg Take 1 tablet by 30 tablet 3 12/27/2019 Active tabletIndications: mouth daily. Breakthrough bleeding associated with intrauterine device (IUD) hjqmsklqpw-sbhrqwp-gtg Take 1 tablet by 90 tablet 0 02/04/2020 Active feine per mouth every 6 tabletIndications: (six) hours as Migraine equivalent needed for Pain. syndrome acetaZOLAMIDE 250 mg Take 1 tablet by 60 tablet 2 02/28/2020 Active tabletIndications: mouth 2 (two) Complicated headache times daily. syndromes, IIH (idiopathic intracranial hypertension) documented as of this encounter (statuses as of 03/21/2020) Active Problems Problem Noted Date Papilledema 02/08/2020 [...] as of this encounter (statuses as of 03/21/2020) Resolved Problems Problem Noted Date Resolved Date [...] as of this encounter (statuses as of 03/21/2020) Immunizations Name Administration Dates Next Due DTAP [...] been in contact with No / Unsure 03/20/2020 8:00 AM CDT someone who was confirmed or suspected to have Coronavirus / COVID-19? documented as of this encounter Last Filed Vital Signs Vital Sign Reading Time Taken Comments Blood Pressure 127/77 03/20/2020 11:15 AM CDT Pulse 76 03/20/2020 11:15 AM CDT Temperature 36.8 C (98.2 F) 03/20/2020 8:36 AM CDT Respiratory Rate 16 03/20/2020 9:38 AM CDT Oxygen Saturation 97% 03/20/2020 11:15 AM CDT Inhaled Oxygen Concentration - - Weight - - Height - - Body Mass Index - - documented in this encounter Discharge Instructions Krishna Marc RN - 03/20/2020 Patient Discharge Instructions Follow instructions as indicated below: Today you had a procedure in the radiology department. We want to make sure that you have the information that you need to care for yourself after you go home. The nurse has explained the things that you need to do and has indicated the instruction that apply to your procedure below. Spinal Procedures: Spend the next 24 hours lying down as much as possible. Continue to drink 8 ounces of caffeinated beverage every hour over the next 24 hours, excepr while sleeping. If you develop a severe headache, stiff neck, drowsiness, weekness in the legs, paralysis or sizures, call the number listed below. Resume diet and Medications Increase fluid intake over the next 24 hours. No heavy lifting (more than 5 pounds) or strenuous exercise for the next 24 hours. Avoid aspirin or aspirin containing products for 24 hours. Unless directed by your doctor, use non-aspirin pain relievers. Watch for signs and symptoms of infection (chills, fever of 101F, drainage, redness, edema, swelling). Avoid hot baths or showers for 24 hours, after 24 hours showers are preferred until the area has healed. Keep site dry and clean. If bleeding occurs at the site, place a clean cloth over the area and apply firm pressure for 15 minutes, If the area does not stop bleeding or you notice your site swelling, call the number listed below. Diet Instructions: regular Take Home Medications: These are medications ordered for you by your healthcare provider. Do not take any other medicationsor supplements unless advised by your healthcare provider. Patient's Medications START taking these medications No medications on file CONTINUE taking these medications which have NOT CHANGED ACETAZOLAMIDE 250 MG TABLET Take 1 tablet by mouth 2 (two) times daily. ALBUTEROL 90 MCG/ACTUATION INHALER Inhale 2 Puffs every 6 (six) hours as needed for Wheezing or Shortness of Breath. XNYIGXRPFF-EHJMMER-GUXTBGOU PER TABLET Take 1 tablet by mouth every 6 (six) hours as needed for Pain. ESTRADIOL 1 MG TABLET Take 1 tablet by mouth daily. START taking Modified Medications as Prescribed No medications on file STOP taking these medications No medications on file Follow-up appointments: To schedule other appointments, call the [facility] at or . You may also make appointments online by going to [email or web address] and follow the RequestAppointment quicklink. For worsening symptoms/problems/questions: Non-emergency/urgent: call the [facility] at or and ask for the Neuroradiologist emissions testing and repair technician. Patient provided with preferred teaching of verbal information. Shows readiness to learn. Verbal instruction teaching provided. Individual is able to read and verbalizes understanding of teaching provided. Our Goal is to Always Provide You with Very Good Care! We will be mailing you a survey, Please complete and return at your convenience. Thank You TOBACCO AVOIDANCE Exposure to tobacco either from smoking or from second hand (environmental) smoke or smokeless tobacco (snuff) is damaging to your health. This information is to encourage everyone to avoid tobacco exposure. It is recommended that you: ? If you smoke or use smokeless tobacco, we encourage you to quit. ? If you have already quit smoking, continue your good work! ? If you do not smoke or use smokeless tobacco, do not start. ? Avoid secondhand smoke. Additional Resources You may want to contact these organizations for further information on smoking and how to quit. [place] [employer], http://www.lungusa.org/stop-smoking/ [place] [employer], http://www.cancer.org/Healthy/StayAwayfromTobacco/index [place] Heart Association, http://www.heart.org/HEARTORG/GettingHealthy/QuitSmoking/Quit-Smoking_[facility] _001085_SubHomePage.jsp documented in this encounter Plan of Treatment Date Type Specialty Care Team Description 05/09/2020 Office Visit Family Medicine Tyson Perez MD [address] [place] [address] Dr Mcfarland [address] [place], [place] [address] 02/20/2021 Office Visit Obstetrics & Gynecology Eliel Cai MD [address] [place] [address] DR. [place], [place] [address] [phone] Name Type Priority Associated Diagnoses Date/Ti me IR SPINAL LUMBAR IMAGING Routine Complicated headache 05/2020 9:48 AM PUNCTURE DIAGNOSTIC syndromes CDT IIH (idiopathic intracranial hypertension) CSF CULTURE LAB Routine Complicated headache 020 9:29 AM syndromes CDT IIH (idiopathic intracranial hypertension) CYTO SPINAL FLUID LAB Routine Complicated headache 9:29 AM syndromes CDT IIH (idiopathic intracranial hypertension) CSF CULTURE LAB Routine Complicated headache 020 9:29 AM syndromes CDT IIH (idiopathic intracranial hypertension) Name Type Priority Associated Diagnoses Order S chedule CSF CULTURE LAB Routine Complicated headache ONCE fo r 1 Occurrences syndromes starting 03/20/2020 until IIH (idiopathic 03/20/2020 intracranial hypertension) CYTO SPINAL FLUID LAB Routine Complicated headache ON CE for 1 Occurrences syndromes starting 03/20/2020 until IIH (idiopathic 03/20/2020, 1 completed intracranial hypertension) Health Maintenance Due Date Last Done Comments PNEUMOCOCCAL 0-64 YEARS 07/04/2005 05/09/2005 COMBINED SERIES (1 of 2 - PPSV23) MENINGOCOCCAL B VACCINES (1 2010 of 2 - Risk Bexsero 2-dose series) HPV VACCINES (1 - 2-dose 2011 series) CHLAMYDIA SCREENING 12/30/2019 12/29/2018, 11/19/2018, 10/29/2018, Additional history exists INFLUENZA VACCINE (#1) 2020 03/23/2018, 03/23/2018, 04/09/2011 Depression Screening 05/27/2020 05/27/2019, 05/27/2019 WELL CARE VISIT: 12-21 YEARS 02/03/2021 02/04/2020 (yearly) DTaP,Tdap,and Td Vaccines (8 10/29/2028 10/29/2018, 013, - Td) 05/09/2005, Additional history exists MENINGOCOCCAL VACCINE Aged Out 01/06/2013 No longer eligible based on patient 's age to complete this topic VARICELLA VACCINES Completed 11/20/2018, 01/06/2013, 08/15/2003 documented as of this encounter Procedures Procedure Name Priority Date/Time Associated Diagnosis Comme nts IR SPINAL LUMBAR Routine 03/20/2020 9:48 AM Complicated heada gregoria PUNCTURE DIAGNOSTIC CDT syndromes IIH (idiopathic intracranial hypertension) Procedure Note - [facility], Radia nt Results Inft User - 03/20/2020 9:58 AM CDT FLUOROSCOPY GUIDED LUMBAR PU NCTURE HISTORY: Chronic REED questio n IIH, please obtain csf OP SEDATION: Local anesthesia. ATTENDING PRESENCE: As the attending radiologist, I was immediately available during the entire procedure. chaplain resident- Dr. Nikolas Tan. RADIATION DOSE: 33.9 mGy. TECHNIQUE: The risks, benefi ts and alternatives were discussed and informed consent was obtained. Prior to beginning the procedure, Robbins Protocol was performed to confirm the patient's identity and the planned procedure. Maximum sterile barriers inc luding cap, mask, hand hygiene, sterile gloves, sterile gown, large sterile drape and cutaneous antisepsis were used. The patient was placed in th e prone position and the lower back was sterilely prepped and draped . Using fluoroscopic guidance, an entry site was marked and 2% buffered l idocaine was administered subcutaneously for local anesthesia. Under fluoroscopic guidance, a 22 gauge spinal needle was advanced into the thecal sac at the level of L 3-L4. An opening pressure of 46 cm was obtained. Approximately 4.5 cc of clear CSF were removed for a water analysis. The needle was rem sumit. Sterile dressing was applied. The patient tolerated the pr ocedure well without difficulty and had no immediate postprocedural com plications. ESTIMATED BLOOD LOSS: Minima l. CONDITION: Stable. DISCHARGED TO: Patient care division. FINDINGS: Spot fluoroscopic image demo nstrates intrathecal needle placement at the level of L3-L4. IMPRESSION Successful lumbar puncture w ith an opening pressure of 46 cm. Clear CSF samples were collected and s ent to laboratory. Preliminary Report Dictated by Resident: Nikolas Tan CSF CULTURE Routine 03/20/2020 9:29 Complicated headache AM CDT syndromes IIH (idiopathic intracranial hypertension) BODY FLUID DIRECT Routine 03/20/2020 9:29 Complicated headach e Results for this COUNT AM CDT syndromes procedure are in IIH (idiopathic the results intracranial section. hypertension) BODY FLUID MANUAL Routine 03/20/2020 9:29 Complicated headach e Results for this DIFF AM CDT syndromes procedure are in IIH (idiopathic the results intracranial section. hypertension) BODY FLUID DIRECT Routine 03/20/2020 9:29 Complicated headach e Results for this COUNT AM CDT syndromes procedure are in IIH (idiopathic the results intracranial section. hypertension) CEREBROSPINAL FLUID Routine 03/20/2020 9:29 Complicated heada gregoria Results for this GLUCOSE AM CDT syndromes procedure are in IIH (idiopathic the results intracranial section. hypertension) CEREBROSPINAL FLUID Routine 03/20/2020 9:29 Complicated heada gregoria Results for this PROTEIN AM CDT syndromes procedure are in IIH (idiopathic the results intracranial section. hypertension) documented in this encounter Results BODY FLUID MANUAL DIFF (03/20/2020 9:29 AM CDT) Pathologist Sig nature #CELS CNTD [facility] Specimen Cerebrospinal Fluid - CEREBRAL SPINAL FL UID Narrative Performed At Less than 100 cells counted due to low WBC; Differenti al is [facility] not reported in percent. 60 cells counted: 25 Neutrophils, 25 Lymphocytes, 8 Macrophages, 1 Reactive Lymphocyte, and 1 Eosinophils. Performing Organization Address [facility] Phone Number [facility] CLIA: [id number] [place] [address] [place] [address] BODY FLUID DIRECT COUNT (03/20/2020 9:29 AM CDT) Pathologist Sig nature BF COLOR Clear [facility] BF WBC Count 1 0 - 5 /L [facility] BF RBC Count 332 /L [facility] Specimen Cerebrospinal Fluid - CEREBRAL SPINAL FL UID Performing Organization Address [facility] Phone Number [facility] CLIA: [id number] [place], [place] [id number] [address] [facility] CEREBROSPINAL FLUID PROTEIN (03/20/2020 9:29 AM CDT) T. PRO CSF 30.0 15.0 - 45.0 [facility] mg/dL SERVICES UNSPUN BODY FLUID Colorless [facility] COLOR SERVICES UNSPUN BODY FLUID Clear [facility] CLARITY SERVICES SPUN BODY FLUID Colorless [facility] COLOR SERVICES SPUN BODY FLUID Clear [facility] CLARITY SERVICES Sediment The sediment [facility] volume is <0.1 SERVICES mLs of the total fluid volume of 1.0 mLs and its color is RED. Specimen Cerebrospinal Fluid - LUMBAR PUNCTURE Performing Organization Address City/[facility] Phone Number [facility] CLIA: [id number] [place] [address] [phone] [address] [facility] CEREBROSPINAL FLUID GLUCOSE (03/20/2020 9:29 AM CDT) GLU CSF 56 50 - 80 mg/dL [facility] UNSPUN BODY FLUID Colorless [facility] COLOR SERVICES UNSPUN BODY FLUID Clear [facility] CLARITY SERVICES SPUN BODY FLUID Colorless [facility] COLOR SERVICES SPUN BODY FLUID Clear [facility] CLARITY SERVICES Sediment The sediment [facility] volume is <0.1 SERVICES mLs of the total fluid volume of 1.0 mLs and its color is RED. Specimen Cerebrospinal Fluid - LUMBAR PUNCTURE Performing Organization Address City/State/Zipcode Phone Number [facility] CLIA: [id number] [place] [address] [place] [address] documented in this encounter Visit Diagnoses Diagnosis Complicated headache syndromes Other complicated headache syndrome IIH (idiopathic intracranial hypertensio n) Benign intracranial hypertension documented in this encounter
--- OUTSIDE RECORDS SUMMARY | 2020-03-22 09:07 | XMS REPORT | Summary of Care ---
:2000 Author Organization [place] [phone] Care Team Providers Name Role Phone MD Chris Primary Care Provider Reason for Visit Reason Comments Assessment Encounter Details Date Type Department Care Team Description 03/09/2020 Telephone [facility] Elvis Mcguire MD Assessment Neurology-[address] [place] [phone] [address] [place] [address]-[facility] [phone] Allergies Active Allergy Reactions Severity Noted Date [...] Breakthrough bleeding associated with intrauterine device (IUD) bramizkade-qfmqeyp-wzx Take 1 tablet by 90 tablet 0 [...] Telephone Encounter - Skyla Madsen LVN - 03/09/2020 11:00 AM JEANTDr. Mcguire, Spoke to patient. Reporting new symptom started a week ago. It comes and goes. She can think of a sentence but can not express it. She reports she can get the first 2 words out while stuttering and then she will finally give up. When asked if she had scheduled tests that were ordered at [facility] 02-28-20 BODY FLUID CELL COUNT CEREBROSPINAL FLUID GLUCOSE CEREBROSPINAL FLUID PROTEIN CSF CULTURE CYTO SPINAL FLUID IR SPINAL LUMBAR PUNCTURE DIAGNOSTIC She stated no one has called to schedule. I gave her Radiology's phone number and asked her to call them to schedule. Please review and advise. elephone Encounter - Christine Bolanos - 03/09/2020 8:48 AM Miguel A Francisco Javier Romano is a 19 year old female patient calling to speak with Dr. Mcguire regarding speech difficulty and stuttering over the last week. Please call. [phone] documented in this encounter Plan of Treatment Date Type Specialty Care Team Description 05/09/2020 Office Visit Family Medicine Tyson Perez MD [address] [place] [address] Dr Mcfarland [address] [place], [place] [address] 02/20/2021 Office Visit Obstetrics & Gynecology Eliel Cai MD [address] [place] [address] DR. Mcfarland [address] [place], [place] [address] Health Maintenance Due Date Last [...]
--- OUTSIDE RECORDS SUMMARY | 2020-03-22 09:07 | XMS REPORT | Summary of Care ---
:2000 Author Organization [facility] - [facility] Address [address] [place], [place] [address] Care Team Providers Name Role Phone MD Chris Primary Care Provider Reason for Visit Reason Comments Headache + onset of severe stuttering last night Auth/Cert Status Reason Specialty Diagnoses / Referred By Referred To Procedures Contact Contact Emergency Medicine [facility] Em ergency Dept [address] [place] [address] Fax: Encounter Details Date Type Department Care Team Description 03/09/2020 Emergency ADC-Emergency Jerry De Leon FNP Nonintractable headache, unspecified chr onicity pattern, unspecified headache type (Primary Dx); Department [address] [facility] 132 [facility] [address] [place] [address] [phone] Allergies Active Allergy Reactions Severity Noted Date [...] Breakthrough bleeding associated with intrauterine device (IUD) [id number]-zpb Take 1 tablet by 90 tablet 0 [...] been in contact with No / Unsure 03/09/2020 8:14 PM CDT someone who was confirmed or suspected to have Coronavirus / COVID-19? documented as of this encounter Last Filed Vital Signs Vital Sign Reading Time Taken Comments Blood Pressure 133/80 03/09/2020 11:12 PM CDT Pulse 103 03/09/2020 11:12 PM CDT Temperature 37.1 C (98.8 F) 03/09/2020 8:29 PM CDT Respiratory Rate 16 03/09/2020 11:12 PM CDT Oxygen Saturation 98% 03/09/2020 11:12 PM CDT Inhaled Oxygen Concentration - - Weight 118.8 kg (262 lb) 03/09/2020 8:29 PM CDT Height - - Body Mass Index - - documented in this encounter Discharge Instructions Jerry Chen FNP - 03/09/2020 DIAGNOSIS ICD-10-CM ICD-9-CM 1. Nonintractable headache, unspecified chronicity pattern, unspecified headache type R51.9 784.0 2. Stutter F80.81 315.35 NO LIFE-THREATENING FINDINGS ON TODAY'S EXAM. SPECIAL CARE INSTRUCTIONS: Stay well hydrated Follow up with PCP/ Neurology Return to ER as needed for change or worsening of condition FOLLOW-UP RECOMMENDATIONS: RECOMMEND FOLLOW-UP WITH A PRIMARY CARE PROVIDER OR SPECIALIST IN 2-5 DAYS, ESPECIALLY IF NO IMPROVEMENT IN SYMPTOMS. TO FOLLOW-UP WITHIN THE [facility], TRY THESE OPTIONS (CLINIC APPOINTMENTS AVAILABLE ON [id number]-TBEI BASIS): 1. SCHEDULE AN APPOINTMENT ONLINE AT WWW[facility] 2. OR CALL THE [facility] ACCESS CENTER AT OR 3. OR CALL YOUR [facility] PHYSICIAN'S OFFICE DIRECTLY IF YOU ARE ALREADY AN ESTABLISHED [facility] PATIENT. OR, YOU MAY FOLLOW-UP WITH A PROVIDER OF YOUR CHOICE, SUCH : 1. A PHYSICIAN OF YOUR CHOICE 2. [facility], . LOCATIONS IN [facility] 3. [facility], [address] [place] [address]; [phone] RETURN TO ER FOR WORSENING OF SYMPTOMS. AttachmentsThe following attachments cannot be sent through Care Everywhere. Headache, Migraine, Classic (Citizen [place])documented in this encounter ED Notes Carlos Eduardo Kwon RN - 03/09/2020 8:28 PM CDTPt reports that she has been seeing a neurologist for about a month for headaches and blurry vision. States that she developed severe stuttering that started last night that she has never had before.Patient has steady gait, otherwise no other complaints. documented in this encounter Miscellaneous Notes ED Nurse Note - Yenny Fernandez RN - 03/09/2020 11:20 PM CDTPt given printed and verbal discharge instructions regarding stutter and non intractable headache, encouraged hydration, No prescriptions provided Pt verbalized understanding of instructions, pt awake alert oriented, resp reg unlabored, skin w/d, color appropriate for race, moves all ext well,pt encouraged to follow up with neurologist Advised to seek medical attention for new/prolonged/worsening of symptoms, Symptoms were addressed. No adverse reaction to meds given in ER noted upon discharge PIV d'cd, dressing to site, catheter in tact. Awake, alert oriented, resp reg unlabored, skin w/d, pt leaving amb with steady gait, in no apparent distress, D Nurse Note - Yenny Fernandez RN - 03/09/2020 11:11 PM CDTPatient reports that she wants to go home. Patient states that she does not want to wait for the fluids to stop and just wants to go home. Patient appears very anxious at this time. Provider aware. documented in this encounter Plan of Treatment Date Type Specialty Care Team Description 03/20/2020 Appointment Radiology Elvis Mcguire MD [address] [place] [address]. [place], [place] [phone] 05/09/2020 Office Visit Family Medicine Tyson Perez MD [address] [place] [address] Dr Mcfarland [address] [place], [place] [address] 02/20/2021 Office Visit Obstetrics & Gynecology Eliel Cai MD [address] [place] [address] DR. Mcfarland [address] [place], [place] [address] Health Maintenance Due Date [...] Name Priority Date/Time Associated Diagnosis Comme nts POCT TEST POLO 03/09/2020 10:55 Nonintractable Re sults for this PM CDT headache, unspecified proced ure are in chronicity pattern, the resu lts unspecified headache section . type Stutter URINALYSIS STAT 03/09/2020 10:36 Nonintractable Results f or this PM CDT headache, unspecified proced ure are in chronicity pattern, the resu lts unspecified headache section . type Stutter CBC WITHOUT DIFF STAT 03/09/2020 10:36 Nonintractable Resul ts for this PM CDT headache, unspecified proced ure are in chronicity pattern, the resu lts unspecified headache section . type Stutter BASIC METABOLIC STAT 03/09/2020 10:36 Nonintractable Result s for this PANEL (NA, K, CL, PM CDT headache, unspecified p rocedure are in CO2, GLUCOSE, BUN, chronicity pattern, th e results CREATININE, CA) unspecified headache sect ion. type Stutter documented in this encounter Results POCT TEST (03/09/2020 10:55 PM CDT) Pathologist Sig nature POCT PREG Negative On board controls acceptable Present with C Line POCT PREG LOT # [id number] POCT PREG TEST DATE 04/08/2021 Specimen Urine - URINE, CLEAN CATCH URINALYSIS (03/09/2020 10:36 PM CDT) Pathologist Sig nature APPEARANCE Clear Clear [facility] COLOR Straw (A) Yellow [facility] PH 7.0 4.8 - 8.0 [facility] SP GRAVITY 1.010 1.003 - 1.030 [facility] GLU U QUAL Normal Normal [facility] BLOOD Negative Negative [facility] KETONES Negative Negative [facility] PROTEIN Negative Negative [facility] UROBILIN Normal Normal [facility] BILIRUBIN Negative Negative [facility] NITRITE Negative Negative [facility] LEUK MALIA Negative Negative [facility] RBC/HPF 2 0 - 3 HPF [facility] WBC/HPF 1 0 - 5 HPF [facility] BACTERIA Negative Negative [facility] SQ EPITH 1 HPF [facility] Specimen Urine - URINE, CLEAN CATCH Performing Organization Address [facility] Phone Number [facility] CLIA: [id number] [place] [address] CBC WITHOUT DIFF (03/09/2020 10:36 PM CDT) Pathologist Sig nature WBC 11.43 (H) 4.30 - 11.10 [facility] 10*3/L [facility] RBC 5.34 (H) 3.93 - 5.25 [facility] 10*6/L [facility] HGB 13.0 11.6 - 15.0 g/dL [facility] HCT 41.0 35.7 - 45.2 % [facility] MCH 24.3 (L) 25.9 - 32.8 pg [facility] MCV 76.8 (L) 80.6 - 95.5 fL [facility] MCHC 31.7 31.6 - 35.1 g/dL [facility] PLT 410 (H) 166 - 358 10*3/L [facility] MPV 9.8 9.5 - 12.9 fL [facility] RDW-CV 14.5 12.0 - 15.5 % [facility] RDW-SD 39.9 39.0 - 49.9 fL [facility] NRBC x10^3 <0.01 10*3/L [facility] NRBC/100 WBC 0.0 0.0 - 10.0 /100 [facility] WBCs HOSPITAL [facility] IPF % [facility] Specimen Blood - VENOUS Performing Organization Address City/[facility] Services[facility] Phone Number [facility] CLIA: [id number] [place] [address] BASIC METABOLIC PANEL (NA, K, CL, CO2, GLUCOSE, BUN, CREATININE, CA) (03/09/2020 10:36 PM CDT) [facility] NA 138 135 - 145 [facility] mmol/L [facility] K 3.4 (L) 3.5 - 5.0 [facility] mmol/L [facility] CL 101 98 - 108 mmol/L [facility] CO2 TOTAL 26 23 - 31 mmol/L [facility] AGAP 11 2 - 16 [facility] BUN 11 7 - 23 mg/dL [facility] GLUCOSE 90 70 - 110 mg/dL [facility] CREATININE 0.52 0.50 - 1.04 [facility] mg/dL [facility] CALCIUM 9.4 8.6 - 10.6 [facility] mg/dL [facility] eGFR Calculation 151.9 mL/min/1.73m2 [facility] ([facility] Tristan[place]) eGFR Calculation 184.1 mL/min/1.73m2 [facility] () [facility] Specimen Blood - VENOUS Narrative Performed At Association of Glomerular Filtration Rate (GFR) [facility] and Staging of Kidney Disease* + + +- + | GFR (mL/min/1.73 m2) | With Kidney Damage | Without Kidney Damage + + +- + | >90 | Stage one | Normal + + +- + | 60-89 | Stage two | Decreased GFR + + +- + | 30-59 | Stage three | Stage three + + +- + | 15-29 | Stage four | Stage four + + +- + | <15 (or dialysis) | Stage five | Stage five + + +- + *Each stage assumes the associated GFR level has been in effect for at least three months. Stages 1 to 5, with or without kidney disease, indicate chronic kidney disease. Notes: Determination of stages one and two (with eGFR >59mL/min/1.73 m2) requires estimation of kidney damage for at least three months as defined by structural or functional abnormalities of the kidney, manifested by either: Pathological abnormalities or Markers of kidney damage (including abnormalities in the composition of the blood or urine or abnormalities in imaging tests). Performing Organization Address City/State/Zipcode Phone Number [facility] CLIA: [id number] [place] [address] LABORATORY [address] [facility] documented in this encounter Visit Diagnoses Diagnosis Nonintractable headache, unspecified chr onicity pattern, unspecified headache type - Primary Stutter Childhood onset fluency disorder documented in this encounter Administered Medications Medication Order MAR Action Action Date Dose Rate Site oenkbmzpke-wvkdzmbwogjcv-tpdd Given 03/09/2020 10:56 PM CDT 1 ta blet (ESGIC) 50-325-40 mg tablet 1 tablet 1 tablet, Oral, ONCE, 1 dose, Gracie 03/09/20 at 2230, Routine dexamethasone (DECADRON PHOSPHATE) injection Given 06/2019 10:56 PM CDT 10 mg 10 mg 10 mg, Slow IV Push, ONCE, 1 dose, Gracie 03/09/20 at 2330, STAT diphenhydrAMINE (BENADRYL) injection 25 mg Given 03/09/2020 10:56 PM CDT 25 mg 25 mg, Intravenous, ONCE, 1 dose, Gracie 03/09/20 at 2330, POLO ketorolac (TORADOL) injection 30 mg Given 03/09/2020 10:56 PM CDT 30 mg 30 mg, Slow IV Push, ONCE, 1 dose, Gracie 03/09/20 at 2330, Routine, body team member approving Restricted medication: TERRENCE LAURENT metoclopramide HCl (REGLAN) injection 10 mg Given 03/09/2020 10:56 PM CDT 10 mg 10 mg, Slow IV Push, ONCE, 1 dose, Gracie 03/09/20 at 2330, POLO NaCl 0.9% (NS) bolus infusion New Bag 03/09/2020 10:55 PM CDT 1,000 mL 999 mL/hr 1,000 mL at 999 mL/hr, 1,000 mL, IV Infusion, ONCE, 1 dose, Gracie 03/09/20 at 2330, STAT documented in this encounter"
--- OUTSIDE RECORDS SUMMARY | 2020-03-22 09:07 | XMS REPORT | Summary of Care ---
:2000 Author Organization [facility] - Health Address [address] [place] [address] Care Team Providers Name Role Phone MD Chris Primary Care Provider Encounter Details Date Type Department Care Team Description 03/09/2020 Orders Only [facility] Doctor Unassigned, No [address] [facility] Name [place] [phone] Allergies Active Allergy Reactions Severity Noted Date [...] Breakthrough bleeding associated with intrauterine device (IUD) eoowevsabb-[id number]-kdq Take 1 tablet by 90 tablet 0 [...] Description 03/20/2020 Appointment Radiology Elvis Mcguire MD [address] [place] [phone] 05/09/2020 Office Visit Family Medicine Tyson Perez MD [address] [place] [address] Dr Mcfarland [address] [place] [address] 02/20/2021 Office Visit Obstetrics & Gynecology Eliel Cai MD [address] [place] [address] DR. Mcfarland [address] [place] [address] Health Maintenance Due Date Last [...] Associated Diagnosis Comme nts CONSENT/REFUSAL FOR Routine 03/09/2020 8:14 PM CDT DIAGNOSIS AND TREATMENT documented in this encounter Results Not on filedocumented in this encounter
[2020-03-22] MEDS ORDERED: KETOROLAC 30 MG/ML INJ ONE ×2 (09:42→09:47)
[2020-03-22] MEDS ORDERED: NA CHLORIDE 0.9% 0 ML ONE (09:42)
[2020-03-22] MEDS ORDERED: NA CHLORIDE 0.9% 1,000 ML ONE ×2 (09:47→12:41)
[2020-03-22 10:03] LABS: Absolute Lymphocytes (CBC) 1.1 K/uL (0.7-4.9); Basophils % 0.5 % (0-1.3); Hematocrit 40.1 % (36.0-45.0); Lymphocytes % 9.6 % (15.3-44.8); MPV 8.6 fL (7.6-11.3); RBC Red Blood Cell Count 5.37 M/uL (3.86-4.86)
[2020-03-22 10:11] LABS: Blood Morphology Comment NOT SEEN (NOT SEEN); Platelet Estimate ADEQ
[2020-03-22 10:17] LABS: BUN Blood Urea Nitrogen 8 mg/dL (7-18); Bicarbonate 24 mmol/L (21-32); Glucose Level 102 mg/dL (74-106); Potassium 3.8 mmol/L (3.5-5.1); Sodium Level 140 mmol/L (136-145)
[2020-03-22] MEDS ORDERED: ONDANSETRON 4 MG/2 ML VIAL ONE (10:36)
[2020-03-22] MEDS ORDERED: MORPHINE 4 MG/ML SYR ONE ×2 (10:36→13:32)
[2020-03-22] MEDS ORDERED: DIPHENHYDRAMINE 50 MG/ML VIAL ONE (12:41)
[2020-03-22] MEDS ORDERED: dexAMETHasone 10 MG/ML VIAL ONE (12:41)
[2020-03-22] MEDS ORDERED: METOCLOPRAMIDE 10 MG/2mL INJ ONE (12:41)
--- NOTE | 2020-03-22 15:56 | EDPHYS ---
Physician Documentation [facility] Name: Cary Romano Age: 19 yrs Sex: Female : 2000 Arrival Date: 03/22/2020 Time: 08:53 Bed 16 Private MD: ED Physician Jerry Pineda HPI: 03/22 17:29 This 19 yrs old Female presents to ER via EMS with complaints of Headache \T\ kdr backache. 17:30 The patient's problem is reported as headache and back pain s/p LP on Friday at [facility] [place]. Onset: The symptoms/episode began/occurred acutely, She states that the pain started about two hours after completion of the LP and has persisted. Duration: This was a single incident, The episode is continuous, the symptoms became persistent. Context: symptoms became apparent Friday. The symptoms are alleviated by nothing. The symptoms are aggravated by standing, walking, moving head, changing position. Associated signs and symptoms: Pertinent positives: Right arm pain with movement. Severity of symptoms: At their worst the symptoms were mild. Patient's baseline: Neuro: alert and fully oriented, Motor: no deficits, Ambulation: walks without assistance. The patient has not experienced similar symptoms in the past. At [facility] in [place] on Friday for LP/Opening pressure. 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 - Social history:: Smoking status: Patient denies any tobacco usage or history of. ROS: 17:30 Constitutional: Negative for fever, chills, and weight loss, Eyes: Negative for injury, kdr pain, redness, and discharge, ENT: Negative for injury, pain, and discharge, Neck: Negative for injury, pain, and swelling, Cardiovascular: Negative for chest pain, palpitations, and edema, Respiratory: Negative for shortness of breath, cough, wheezing, and pleuritic chest pain, Abdomen/GI: Negative for abdominal pain, nausea, vomiting, diarrhea, and constipation, : Negative for injury, bleeding, discharge, and swelling, MS/Extremity: Negative for injury and deformity, Skin: Negative for injury, rash, and discoloration, Psych: Negative for depression, anxiety, suicide ideation, homicidal ideation, and hallucinations, Allergy/Immunology: Negative for hives, rash, and allergies, Endocrine: Negative for neck swelling, polydipsia, polyuria, polyphagia, and marked weight changes, Hematologic/Lymphatic: Negative for swollen nodes, abnormal bleeding, and unusual bruising. 17:30 Neck: Positive for pain with movement, pain at rest, Negative for stiffness, swelling. 17:30 Neuro: Positive for headache. Exam: 17:30 Head/Face: Normocephalic, atraumatic. Eyes: Pupils equal round and reactive to light, kdr extra-ocular motions intact. Lids and lashes normal. Conjunctiva and sclera are non-icteric and not injected. Cornea within normal limits. Periorbital areas with no swelling, redness, or edema. Chest/axilla: Normal chest wall appearance and motion. Nontender with no deformity. No lesions are appreciated. Cardiovascular: Regular rate and rhythm with a normal S1 and S2. No gallops, murmurs, or rubs. Normal PMI, no JVD. No pulse deficits. Respiratory: Lungs have equal breath sounds bilaterally, clear to auscultation and percussion. No rales, rhonchi or wheezes noted. No increased work of breathing, no retractions or nasal flaring. Abdomen/GI: Soft, non-tender, with normal bowel sounds. No distension or tympany. No guarding or rebound. No evidence of tenderness throughout. Skin: Warm, dry with normal turgor. Normal color with no rashes, no lesions, and no evidence of cellulitis. MS/ Extremity: Pulses equal, no cyanosis. Neurovascular intact. Full, normal range of motion. Neuro: Awake and alert, GCS 15, oriented to person, place, time, and situation. Cranial nerves II-XII grossly intact. Motor strength 5/5 in all extremities. Sensory grossly intact. Cerebellar exam normal. Normal gait. Psych: Awake, alert, with orientation to person, place and time. Behavior, mood, and affect are within normal limits. 17:30 Neck: External neck: is normal, C-spine: ROM/movement: pain, that is mild, with any movement, Meningeal signs: Kernig's sign is negative, Brudzinski's sign is negative, nuchal rigidity, is not appreciated, Limited by pain not rigidity. 17:48 Radiologist reports: NAD kdr Vital Signs: 08:53 BP 117 / 79; Pulse 86; Resp 16; Temp 98; Pulse Ox 98% ; Weight 117.93 kg; Height 5 ft. hb 4 in. (162.56 cm); Pain 10/10; 10:00 BP 124 / 71; Pulse 59; Resp 18; Pulse Ox 98% on R/A; Pain 10/10; em 10:42 BP 107 / 62; Pulse 72; Resp 14; Pulse Ox 96% on R/A; Pain 7/10; ss 11:45 BP 127 / 80; Pulse 87; Resp 15 S; Pulse Ox 97% ; ss 13:05 BP 116 / 66; Pulse 72; Resp 18; Pulse Ox 97% on R/A; em 14:33 BP 132 / 59; Pulse 70; Resp 14; Pulse Ox 97% on R/A; Pain 8/10; ss 15:34 BP 123 / 69; Pulse 78; Pulse Ox 96% on R/A; Pain 6/10; jp3 08:53 Body Mass Index 44.63 (117.93 kg, 162.56 cm) hb Jaqui Coma Score: 11:45 Eye Response: spontaneous(4). Verbal Response: oriented(5). Motor Response: obeys ss commands(6). Total: 15. MDM: 10:58 Data reviewed: vital signs, nurses notes. ED course: Have discussed blood patch kdr evaluation with Dr. David at about 10:30. He will get to the ED as soon as possible. 15:56 Patient medically screened. kdr 17:30 ED course: The patient had some improvement in her back pain after the blood patch but kdr still had significant REED and limited overall movement due to exacerbation of REED. 03/22 09:05 Order name: CBC with Diff; Complete Time: 12:19 kdr 03/22 09:05 Order name: Chem 7; Complete Time: 12:19 kdr 03/22 10:11 Order name: Manual Differential; Complete Time: 12:19 EDMS 03/22 14:18 Order name: Urine Dipstick--Ancillary (enter results) hb 03/22 14:18 Order name: Urine --Ancillary (enter results) hb 03/22 15:53 Order name: CT Head Brain wo Cont kdr 03/22 16:48 Order name: CT; Complete Time: 17:50 EDMS 03/22 14:14 Order name: Urine Test (obtain specimen); Complete Time: 14:14 ss 03/22 14:14 Order name: Urine Dipstick-Ancillary (obtain specimen); Complete Time: 14:14 ss Administered Medications: 09:45 Drug: TORadol - Ketorolac 15 mg Route: IVP; Site: right antecubital; em 10:20 Follow up: Response: No adverse reaction; No change in condition; Pain is unchanged, em physician notified 09:45 Drug: NS 0.9% 1000 ml Route: IV; Rate: 1 bolus; Site: right antecubital; em 10:42 Follow up: IV Status: Completed infusion; IV Intake: 1000ml ss 10:25 Drug: Zofran (Ondansetron) 4 mg Route: IVP; Site: right antecubital; em 10:42 Follow up: Response: No adverse reaction ss 10:27 Drug: morphine 4 mg Route: IVP; Site: right antecubital; em 10:41 Follow up: Response: No adverse reaction; Pain is decreased ss 12:31 Drug: NS 0.9% 1000 ml Route: IV; Rate: 1000 ml; Site: right antecubital; em 13:30 Follow up: IV Status: Completed infusion; IV Intake: 1000ml ss 12:31 Drug: Benadryl 25 mg Route: IVP; Site: right antecubital; em 13:19 Follow up: Response: No adverse reaction; No change in condition; Pain is unchanged, em physician notified 12:33 Drug: Reglan 10 mg Route: IVP; Site: right antecubital; em 13:20 Follow up: Response: No adverse reaction; Marked relief of symptoms; Pain is unchanged, em physician notified 12:35 Drug: Decadron - Dexamethasone 10 mg Route: IVP; Site: right antecubital; em 13:20 Follow up: Response: No adverse reaction; No change in condition; Pain is unchanged, em physician notified 13:27 Drug: morphine 4 mg Route: IVP; Site: right antecubital; ss 16:27 Follow up: Response: No adverse reaction ss Disposition: 10/14/20 15:56 Hospitalization ordered by Brendan Waters for Observation. 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 - Bed requested for Telemetry/MedSurg (observation). - Status is Observation. ss - Condition is Fair. - Problem is new. - Symptoms have improved. Signatures: Dispatcher [employer] Larissa Villalobos, Jerry Cain RN, MD MD kdr Munoz, Edgar, RN RN em Smirch, [place], RN RN Terrence Johns PA PA [id number] Maria Fernanda Garcia RN RN Corrections: (The following items were deleted from the chart) 16:17 15:56 Hospitalization Ordered by Brendan Waters DO for Observation. Preliminary kl diagnosis is Post Lumbar Puncture Spinal Headache. Bed requested for Telemetry/MedSurg (observation). Status is Observation. Condition is Fair. Problem is new. Symptoms have improved. kdr 16:55 16:17 03/22/2020 15:56 Hospitalization Ordered by Brendan Waters DO for Observation. 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 Bed requested for Telemetry/MedSurg (observation). Status is Observation. Condition is Fair. Problem is new. Symptoms have improved. kl
--- NOTE | 2020-03-22 15:56 | ER ---
Nurse's Notes [facility] Name: Cary Romano Age: 19 yrs Sex: Female : 2000 Arrival Date: 03/22/2020 Time: 08:53 Bed 16 Private MD: Diagnosis: Post Lumbar Puncture Spinal Headache Presentation: 03/22 08:53 Chief complaint: EMS states: Headache, dizziness, low back pain, and N/V after LP 2 hb days ago. Coronavirus screen: At this time, the client does not indicate any symptoms associated with coronavirus-19. Ebola Screen: No symptoms or risks identified at this time. Initial Sepsis Screen: Does the patient meet any 2 criteria? No. Patient's initial sepsis screen is negative. Does the patient have a suspected source of infection? No. Patient's initial sepsis screen is negative. Risk Assessment: Do you want to hurt yourself or someone else? Patient reports no desire to harm self or others. Onset of symptoms was March 20, 2020. 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 - Social history:: Smoking status: Patient denies any tobacco usage or history of. Screenin:58 Abuse screen: Denies threats or abuse. Denies injuries from another. Nutritional hb screening: No deficits noted. Tuberculosis screening: No symptoms or risk factors identified. Fall Risk Total Garzon Fall Scale indicates Low Risk Score (25-44 pts). Fall prevention measures have been instituted. Side Rails Up X 2 Frequent Obs/Assesments occuring As available Patient and Family Educated on Fall Prevention Program and strategies. Assessment: 09:10 General: Appears distressed, uncomfortable, Behavior is calm, cooperative, Denies em fever. Pain: Complains of pain in head Pain currently is 10 out of 10 on a pain scale. Pain began 2-3 days ago. Neuro: Level of Consciousness is awake, alert, obeys commands, Oriented to person, place, time, situation, Appropriate for age Reports headache in entire. Cardiovascular: Capillary refill < 3 seconds Patient's skin is warm and dry. Respiratory: Airway is patent Respiratory effort is even, unlabored, Respiratory pattern is regular, symmetrical. GI: Reports nausea. Derm: Skin is intact, is healthy with good turgor, Skin is pink, warm \T\ dry. Musculoskeletal: Capillary refill < 3 seconds, Range of motion: intact in all extremities. 10:20 Reassessment: Patient and/or family updated on plan of care and expected duration. Pain em level reassessed. Patient is alert, oriented x 3, equal unlabored respirations, skin warm/dry/pink. reports pain is unchanged, Dr. Pineda notified, received new medication orders. 10:43 Reassessment: Patient appears in no apparent distress at this time. Patient is alert, ss oriented x 3, equal unlabored respirations, skin warm/dry/pink. Pt reports that after Morphine administration pain has decreased. Awaiting for anesthesiology. Patient states feeling better. 11:36 Reassessment: Dr. David at bedside to perform blood patch procedure with patients ss informed consent. 11:48 Reassessment: Pt laying flat as ordered by Dr. David. for 30 minutes. Spouse at bedside. PT on monitors. Call light remains within reach. 13:06 Reassessment: reports pain is unchanged, provider notified. em 13:55 Reassessment: Pt reports that pain has decreased minimally after morphine ss administration, but states that as soon as she tries to reposition her pain is back to 10/10. Dr. Pineda notified. Paged Dr. David. Awaiting for response. 14:32 Reassessment: Pt is laying at a 30 degree angle. Reports headache has not improved, but ss back pain has. Dr. David at bedside assessing patient. Awaiting disposition. 15:51 Reassessment: Reassessment: Dr. Waters at bedside discussing plan of care/ admission. 16:33 Reassessment: PT back from CT. Report called to MAURICE Crum on 2nd floor. Pt ambulated ss to restroom with spouse at side. Refused wheelchair/ bedpan. Pt reports that when standing her pain is still 10/10 , but when lying down her pain subsides to 6/10. Respiratory: Respiratory effort is even, unlabored. Vital Signs: 08:53 BP 117 / 79; Pulse 86; Resp 16; Temp 98; Pulse Ox 98% ; Weight 117.93 kg; Height 5 ft. hb 4 in. (162.56 cm); Pain 10/10; 10:00 BP 124 / 71; Pulse 59; Resp 18; Pulse Ox 98% on R/A; Pain 10/10; em 10:42 BP 107 / 62; Pulse 72; Resp 14; Pulse Ox 96% on R/A; Pain 7/10; ss 11:45 BP 127 / 80; Pulse 87; Resp 15 S; Pulse Ox 97% ; ss 13:05 BP 116 / 66; Pulse 72; Resp 18; Pulse Ox 97% on R/A; em 14:33 BP 132 / 59; Pulse 70; Resp 14; Pulse Ox 97% on R/A; Pain 8/10; ss 15:34 BP 123 / 69; Pulse 78; Pulse Ox 96% on R/A; Pain 6/10; jp3 08:53 Body Mass Index 44.63 (117.93 kg, 162.56 cm) hb [place] Coma Score: 11:45 Eye Response: spontaneous(4). Verbal Response: oriented(5). Motor Response: obeys ss commands(6). Total: 15. ED Course: 08:53 Patient arrived in ED. hb 08:56 Jerry Pineda MD is Attending Physician. kdr 08:56 Triage completed. hb 08:58 Danielito Taylor, RN is Primary Nurse. em 08:58 Arm band placed on. hb 09:10 Patient has correct armband on for positive identification. Placed in gown. Bed in low em position. Pulse ox on. NIBP on. 09:45 Initial lab(s) drawn, by la, sent to lab. Inserted saline lock: 22 gauge in right em antecubital area, using aseptic technique. Blood collected. 15:53 No provider procedures requiring assistance completed. Patient admitted, IV remains in ss place. 15:55 Brendan Waters DO is Hospitalizing Provider. kdr Administered Medications: 09:45 Drug: TORadol - Ketorolac 15 mg Route: IVP; Site: right antecubital; em 10:20 Follow up: Response: No adverse reaction; No change in condition; Pain is unchanged, em physician notified 09:45 Drug: NS 0.9% 1000 ml Route: IV; Rate: 1 bolus; Site: right antecubital; em 10:42 Follow up: IV Status: Completed infusion; IV Intake: 1000ml ss 10:25 Drug: Zofran (Ondansetron) 4 mg Route: IVP; Site: right antecubital; em 10:42 Follow up: Response: No adverse reaction ss 10:27 Drug: morphine 4 mg Route: IVP; Site: right antecubital; em 10:41 Follow up: Response: No adverse reaction; Pain is decreased ss 12:31 Drug: NS 0.9% 1000 ml Route: IV; Rate: 1000 ml; Site: right antecubital; em 13:30 Follow up: IV Status: Completed infusion; IV Intake: 1000ml ss 12:31 Drug: Benadryl 25 mg Route: IVP; Site: right antecubital; em 13:19 Follow up: Response: No adverse reaction; No change in condition; Pain is unchanged, em physician notified 12:33 Drug: Reglan 10 mg Route: IVP; Site: right antecubital; em 13:20 Follow up: Response: No adverse reaction; Marked relief of symptoms; Pain is unchanged, em physician notified 12:35 Drug: Decadron - Dexamethasone 10 mg Route: IVP; Site: right antecubital; em 13:20 Follow up: Response: No adverse reaction; No change in condition; Pain is unchanged, em physician notified 13:27 Drug: morphine 4 mg Route: IVP; Site: right antecubital; ss 16:27 Follow up: Response: No adverse reaction ss Intake: 10:42 IV: 1000ml; Total: 1000ml. ss 13:30 IV: 1000ml; Total: 2000ml. ss Outcome: 15:56 Decision to Hospitalize by Provider. kdr 16:33 Condition: stable ss 16:33 Instructed on the need for admit. 16:54 Admitted to Med/surg accompanied by tech, family with patient, via stretcher, with ss chart. 16:55 Patient left the ED. ss Signatures: Jerry Pineda MD MD [facility] Danielito Taylor RN RN em Claribel Moctezuma RN RN Marai Fernanda Garcia RN RN Antonio Rdz jp3 Corrections: (The following items were deleted from the chart) 15:53 09:10 General: Appears in no apparent distress. uncomfortable, Behavior is calm, ss cooperative, Denies fever, em
--- NOTE | 2020-03-22 16:12 | P.HP ---
Certification for Inpatient Patient admitted to: Observation With expected LOS: <2 Midnights Patient will require the following post-hospital care: None Practitioner: I am a practitioner with admitting privileges, knowledge of patient current condition, hospital course, and medical plan of care. Services: Services provided to patient in accordance with Admission requirements found in Title 42 Section 412.3 of the Code of Federal Regulations Patient History Date of Service: 03/22/20 Primary Care Provider: Neurology-Dr. Mcguire Reason for admission: Headache, nausea and vomiting History of Present Illness: 19-year-old female presented to the emergency room with persistent headache, nausea and vomiting. Patient is seen by neurology as an outpatient. She recently saw neurology for chronic headaches. Intracranial hypertension was suspected. Patient had MRI of the brain about 1 month ago. This was unremarkable. Patient had a spinal lumbar tap this past Friday to further evaluate her chronic headaches. Since the lumbar tap patient has had persistent headaches with nausea and vomiting. She denies any significant chest pain, shortness of breath. Denies any or constipation. She came to the ER for further evaluation. In the ER patient was evaluated. White count 11.5, hemoglobin 13.3. Platelet count 310. Sodium 140, potassium 3.8. BUN of 8, creatinine 0.6 with a GFR greater than 90. Glucose 102. Patient continued with persistent pain. Patient required pain IV. Anesthesia was consulted for blood patch. Blood patch was successful. Due to her continued nausea, and headache patient was admitted for observation. When saw the patient ER, she appeared comfortable. Iliana was at bedside. Eb laird reports photophobia. Home medications list reviewed: Yes - Past Medical/Surgical History Diabetic: No -: Suspected intracranial hypertension Past Surgical History: Patient denies surgical history Psychosocial/ Personal History: Patient has a fiance. She has 1 child. Patient has an IUD. - Family History Family History: Reviewed- Non-Contributory - Social History Smoking Status: Never smoker Alcohol use: No CD- Drugs: No Caffeine use: Yes Place of Residence: Home Review of Systems General: Weakness, As per HPI Eyes: Unremarkable ENT: Unremarkable Respiratory: Unremarkable Cardiovascular: Light Headedness, As per HPI Gastrointestinal: Nausea, As per HPI Genitourinary: Unremarkable Musculoskeletal: Unremarkable Integumentary: Unremarkable Neurological: Weakness, As per HPI (Headache, photophobia.) Physical Examination - Physical Exam General: Alert, In no apparent distress, Oriented x3, Cooperative HEENT: Atraumatic, Normocephalic, PERRLA, Other (Dry mucous membranes) Neck: Supple Respiratory: Clear to auscultation bilaterally, Normal air movement Cardiovascular: Normal pulses, Regular rate/rhythm Gastrointestinal: Normal bowel sounds, Soft and benign, Non-distended, No tenderness, No masses, No rebound, No guarding Musculoskeletal: No erythema, No tenderness, No warmth Integumentary: No tenderness/swelling, No erythema, No warmth, No cyanosis Neurological: Normal speech, Normal strength at 5/5 x4 extr, Normal tone, Normal affect - Studies Laboratory Data (last 24 hrs) 03/22/20 09:45: Sodium 140, Potassium 3.8, BUN 8, Creatinine 0.65, Glucose 102 03/22/20 09:45: WBC 11.5 H, Hgb 13.3, Hct 40.1, Plt Count 310 Assessment and Plan - Plan Impression: Persistent headache status post spinal tap 03/20/20 with nausea and vomiting, status post blood patch Plan: Patient will be admitted for observation. Patient had blood patch done by anesthesia in the emergency room. Pain slightly improved. Will provide IV fluids. Will provide medication for pain. Will obtain CT head to further evaluate. Blood and urine cultures obtained. Will reach out to her neurologist-Dr. Mcguire to discuss her recent findings from lumbar tap and MRI report. Will provide DVT prophylaxis. Anticipate improvement over the next 24 hr. Anticipate discharge tomorrow morning. Discharge Plan: Home Plan to discharge in: 24 Hours - Advance Directives Does patient have a Living Will: No Does patient have a Durable POA for Healthcare: No - Code Status/Comfort Care Code Status Assessed: Yes (Patient is full code) Time Spent Managing Pts Care (In Minutes): 55
--- NOTE | 2020-03-22 16:45 | RAD REPORT ---
EXAM DESCRIPTION: CT - Head Brain Wo Cont - 03/22/2020 4:29 pm CLINICAL HISTORY: Headache COMPARISON: None. TECHNIQUE: Computed axial tomography of the head was obtained. IV contrast was not requested. All CT scans are performed using dose optimization technique as appropriate and may include automated exposure control or mA/KV adjustment according to patient size. FINDINGS: An intracranial bleed is not seen . The ventricles are normal in caliber. No extra-axial fluid collection is noted. Fluid within the sinuses/ mastoids is not seen. IMPRESSION: No acute intracranial abnormality is seen. If patient's symptoms persist MRI of the bra in would be recommended.
[2020-03-22] MEDS ORDERED: ACETAMINOPHEN 500 MG TAB PO PRN (17:11)
[2020-03-22] MEDS ORDERED: TRAMADOL HCL 50 MG TAB PO PRN (17:11)
[2020-03-22 17:12] VITALS: O2SAT 96
[2020-03-22 17:36] VITALS: BMI 44.6
[2020-03-22] MEDS: ENOXAPARIN 40 MG/0.4 ML SQ SCH (18:02)
[2020-03-22] MEDS: HYDROCODONE/APAP 7.5/325 MG TAB PO PRN (18:03)
[2020-03-22] MEDS: NACHLORIDE 0.45% 1,000 ML IV SCH (18:03)
[2020-03-22 20:14] LABS: Urine Blood NEGATIVE (NEG); Urine Glucose NEGATIVE (NEG); Urine Protein NEGATIVE (NEG); Urine Specific Gravity 1.015 (1.005-1.030)
[2020-03-23] MEDS: ONDANSETRON 4 MG/2 ML VIAL IV PRN ×2 (01:41→08:38)
[2020-03-23] MEDS: NACHLORIDE 0.45% 1,000 ML IV SCH (02:43)
[2020-03-23 04:32] LABS: Absolute Lymphocytes (CBC) 1.2 K/uL (0.7-4.9); Basophils % 0.4 % (0-1.3); Hematocrit 39.6 % (36.0-45.0); Lymphocytes % 8.2 % (15.3-44.8); MPV 8.9 fL (7.6-11.3); RBC Red Blood Cell Count 5.25 M/uL (3.86-4.86)
[2020-03-23 04:46] LABS: BUN Blood Urea Nitrogen 7 mg/dL (7-18); Bicarbonate 23 mmol/L (21-32); Glucose Level 103 mg/dL (74-106); Magnesium 2.3 mg/dL (1.8-2.4); Potassium 3.7 mmol/L (3.5-5.1); Sodium Level 139 mmol/L (136-145)
--- NOTE | 2020-03-23 07:35 | P.DS ---
Admission Date: 03/22/20 Discharge Date: 03/23/20 Primary Care Provider: PCP-[facility] Fifi; Neurology-Dr. Mcguire Disposition: ROUTINE DISCHARGE Discharge Condition: GOOD Reason for Admission: Headache, nausea and vomiting Consultations: none Procedures: CT Head: FINDINGS: An intracranial bleed is not seen . The ventricles are normal in caliber. No extra-axial fluid collection is noted. Fluid within the sinuses/ mastoids is not seen. IMPRESSION: No acute intracranial abnormality is seen. Procedure: Blood patch to Lumbar region by Anesthesia Medical Problem List: Persistent headache status post spinal tap 03/20/20 with nausea and vomiting, status post blood patch Brief History of Present Illness: 19-year-old female presented to the emergency room with persistent headache, nausea and vomiting. Patient is seen by neurology as an outpatient. She recently saw neurology for chronic headaches. Intracranial hypertension was suspected. Patient had MRI of the brain about 1 month ago. This was unremarkable. Patient had a spinal lumbar tap this past Friday to further evaluate her chronic headaches. Since the lumbar tap patient has had persistent headaches with nausea and vomiting. She denies any significant chest pain, shortness of breath. Denies any or constipation. She came to the ER for further evaluation. In the ER patient was evaluated. White count 11.5, hemoglobin 13.3. Platelet count 310. Sodium 140, potassium 3.8. BUN of 8, creatinine 0.6 with a GFR greater than 90. Glucose 102. Patient continued with persistent pain. Patient required pain IV. Anesthesia was consulted for blood patch. Blood patch was successful. Due to her continued nausea, and headache patient was admitted for observation. When saw the patient ER, she appeared comfortable. Iliana was at bedside. Patient reports photophobia. Hospital Course: Patient presented with persistent headache, nausea and vomiting. Patient seen by Neurology at [facility]. Patient suffers from chronic headaches. Patient had spinal lumbar tap this past Friday at [facility] for further evaluation of possible intracranial hypertension. Patient reports recent MRI unremarkable. The patient continued to have increasing headaches, nausea and vomiting. This persisted. The patient was seen in the ER. Patient was given medication for nausea and vomiting. Symptoms likely related to post spinal lumbar tap. Patient was seen by anesthesia. Blood patch was placed with improvement. The patient was monitored Overnite. Patient received IV fluids. At this time patient back to baseline. Pro calcitonin unremarkable. Electrolytes unremarkable. At discharge she is without significant headache, nausea or vomiting. I was able to speak to her neurologist-Dr. Mcguire from [facility]. At discharge she may continue with Tylenol or ibuprofen as needed for pain. Patient will be given Zofran as needed for nausea. Recommend follow up with her PCP within 1 week. Will also recommend that she follow up with neurology. She does have an appointment within the next 7-10 days for follow up. Vital Signs/Physical Exam: Temp Pulse Resp BP Pulse Ox 98.0 F 60 16 123/71 98 03/23/20 04:00 03/23/20 04:00 03/23/20 04:00 03/23/20 04:00 03/23/20 04:00 General: Alert, In no apparent distress, Oriented x3, Cooperative HEENT: Atraumatic Neck: Supple Respiratory: Clear to auscultation bilaterally, Normal air movement Cardiovascular: Normal pulses, Regular rate/rhythm Gastrointestinal: Normal bowel sounds, Soft and benign, Non-distended, No tenderness, No masses, No rebound, No guarding Musculoskeletal: No erythema, No tenderness, No warmth Integumentary: No tenderness/swelling, No erythema, No warmth, No cyanosis Neurological: Normal speech, Normal strength at 5/5 x4 extr, Normal tone, Normal affect Laboratory Data at Discharge: WBC 14.5 K/uL (4.3-10.9) H D 03/23/20 03:24 Hgb 13.0 g/dL (12.0-15.0) 03/23/20 03:24 Hct 39.6 % (36.0-45.0) 03/23/20 03:24 Plt Count 321 K/uL (152-406) 03/23/20 03:24 Sodium 139 mmol/L (136-145) 03/23/20 03:29 Potassium 3.7 mmol/L (3.5-5.1) 03/23/20 03:29 BUN 7 mg/dL (7-18) 03/23/20 03:29 Creatinine 0.54 mg/dL (0.55-1.3) L 03/23/20 03:29 Glucose 103 mg/dL (74-106) 03/23/20 03:29 Magnesium 2.3 mg/dL (1.8-2.4) 03/23/20 03:29 Home Medications: Ondansetron HCl [Zofran] 4 mg PO TID PRN #5 tablet 03/23/20 New Medications: Ondansetron HCl [Zofran] 4 mg PO TID PRN #5 tablet PRN Reason: Nausea / Vomiting Patient Discharge Instructions: 1. Recommend follow up with her PCP within 1 week to follow up this hospitalization. 2. Patient presented with persistent headache, nausea and vomiting. Patient seen by Neurology at [facility]. Patient suffers from chronic headaches. Patient had spinal lumbar tap this past Friday at [facility] for further evaluation of possible intracranial hypertension. Patient reports recent MRI unremarkable. The patient continued to have increasing headaches, nausea and vomiting. This persisted. The patient was seen in the ER. Patient was given medication for nausea and vomiting. Symptoms likely related to post spinal lumbar tap. Patient was seen by anesthesia. Blood patch was placed with improvement. The patient was monitored Overnite. Patient received IV fluids. At this time patient back to baseline. Pro calcitonin unremarkable. Electrolytes unremarkable. At discharge she is without significant headache, nausea or vomiting. I was able to speak to her neurologist-Dr. Mcguire from [facility]. At discharge she may continue with Tylenol or ibuprofen as needed for pain. Patient will be given Zofran as needed for nausea. Recommend follow up with her PCP within 1 week. Will also recommend that she follow up with neurology. She does have an appointment within the next 7-10 days for follow up. Diet: Regular Activity: Ad beto Time spent managing pt's care (in minutes): 55
[2020-03-23] MEDS: HYDROCODONE/APAP 7.5/325 MG TAB PO PRN (08:37)
[2020-03-23] MEDS: ENOXAPARIN 40 MG/0.4 ML SQ SCH (08:39)
[2020-03-23] MEDS ORDERED: POTASSIUM CL SA 10 MEQ TAB PO ONE (09:00)
[2020-03-23] MEDS ORDERED: FAMOTIDINE 20 MG TAB PO SCH (09:00)
[2020-03-23] MEDS ORDERED: INFLUENZA VACCINE (for 3y+) 0.5 ML DOSE IMVAC ONE (09:00)
[2020-03-23 09:07] VITALS: BP 129/62; TEMP 98.3
== END 2020-03-23 09:12 | disposition home or self-care (01) ==
LOC: ER 08:50 → ERHOLD 16:19 → 2ND 16:34
PROVIDERS: ADMIT Family Medicine; ATTEND Family Medicine
PROC: 3E0S3GC Introduction of Other Therapeutic Substance into Epidural Space, Percutaneous Approach (ICD-10-PCS; principal; 2020-03-22)
DX: G97.1 Other reaction to spinal and lumbar puncture (principal); R11.2 Nausea with vomiting, unspecified; Z20.828 Contact with and (suspected) exposure to other viral communicable diseases
CPT/HCPCS: 36415; 70450; 80048; 81003; 81025; 83735; 84145; 84439; 84443; 85025; 87040; 90471; 96361; 96374; 96375; 99285; G0378; J1100; J1200; J1650; J2405; J2765; J7030; Q2035; U0002

== ENCOUNTER 2021-05-18 16:43 | Emergency (ER) | payer SELFPAY ==
--- OUTSIDE RECORDS SUMMARY | 2021-05-18 16:55 | XMS REPORT | Continuity of Care Document ---
:2000 Author Organization [facility] t Address [address] [place] [address] Care Team Providers Name Role Phone Payton DE GUZMAN Primary Care Physician Brenda RICHARDS T Attending Clinician Unavailable Flash JACK Attending Clinician Enedelia COOK Attending Clinician CHAZ PEOPLES Attending Clinician Unavailable Marii Maloney MD Attending Clinician Marii MALONEY Attending Clinician Unavailable Doctor Unassigned, Name Attending Clinician Unavailable Wilmer Turner DO Attending Clinician JOSH Attending Clinician Unavailable Jonathan Mcguire MD Attending Clinician CLARIBEL KAnthony Attending Clinician Unavailable PAYTON Attending Clinician Unavailable JONATHAN MCGUIRE Attending Clinician Unavailable JONATHAN MCGUIRE Attending Clinician Unavailable ENEDELIA Attending Clinician Unavailable Moises JACK Attending Clinician Payton DE GUZMAN Attending Clinician 2, Lab Attending Clinician Unavailable Hans Donahue Attending Clinician Unavailable Chaz Peoples MD Attending Clinician Hans VARNER Attending Clinician Unavailable Yumiko Mendez Attending Clinician UNKNOWN Attending Clinician Unavailable ALEJO MARTINS Attending Clinician Unavailable Guadalupe EWING Attending Clinician Unavailable Payers Payer Name Policy Type Policy Number Effective Date Expiration Date S ource [id number] 2019 00:00:00 Problems Condition Condition Condition Status Onset Resolution Last Treating Co mments Source Name Details Category Date Date Treatment Clinician Date Papilledem Papilledem Disease Active 2020- U nivers a a 9-01 ity of 00:00: [place] 00 Medical Branch Migraine Migraine Disease Active Unive rs equivalent equivalent 8-28 it y of syndrome syndrome 00:00: [place] [facility] Routine Routine Disease Active Univers eye exam eye exam 8-28 ity of 00:00: [place] 00 Medical Branch Does not Does not Disease Active Unive rs have have 8-28 ity of health health 00:00: [place] insurance insurance 00 [facility] Branch Breakthrou Breakthrou Disease Active 2019- U nivers gh gh 7-20 ity of bleeding bleeding 00:00: [place] associated associated 00 Me dical with with Branch intrauteri intrauteri ne device ne device (IUD) (IUD) Presence Presence Disease Active 2018-06 Unive rs of of 2-19 ity of intrauteri intrauteri [place] Medical contracept contracept Br anch octavia device octavia device Disease Active 2018-06 U margarethers depression depression 2-19 it y of 00:00: [place] [facility] Obesity Obesity Disease Active Univers (BMI (BMI 7-11 ity of 30-39.9) 30-39.9) 00:00: [place] 00 Medical Branch Oligohydra Oligohydra Disease Active U nivers mnios mnios 6-11 ity of 00:00: [place] [facility] Morbid Morbid Disease Active Univers obesity obesity 5-06 it[place] of with body with body [place] mass index mass index 00 Me dical of of Branch 40.0-49.9 40.0-49.9 Maternal Maternal Disease Active 2017-06 Overview: Un antony varicella, varicella, 0-16 Formatt[place] ity of non-immune non-immune 00:00: g of this 00 note Medical might be Branch different from the original. Address in Postpartu m High risk High risk Disease Active 2017-06 Uni vers , , 0-15 it y of antepartum antepartum 00:00[place] [facility] Allergies, Adverse Reactions, Alerts Allergy Allergy Status Severity Reaction(s) Onset Inactive Treating Comm ents Source Name Type Date Date Clinician CEPHALEX DRUG Active Swelling Univer s IN INGREDI 3-27 ity of 00:00: [place] 00 Medical Branch SULFA Drug Active Swelling Univers (SULFONA Class 3-27 ity of MIDE 00:00: [place] ANTIBIOT 00 Medical ICS) Branch Cephalex Propensi Active Swelling Univ ers in ty to 3-27 ity of adverse 00:00: [place] reaction 00 Medical s Branch Sulfa Propensi Active Swelling Univer s (Sulfona ty to 3-27 ity of mide adverse 00:00: [place] Antibiot reaction 00 Medica l ics) s Branch Social History Social Habit Start Date Stop Date Quantity Comments Source History SDOH University o f Alcohol Frequency [place] [facility] ed[facility] History SDOH University o f Alcohol Std [place] [facility] Drinks Branch History SDGA University o f Alcohol Binge [place] [facility] Exposure to Not sure [facility] SARS-CoV-2 [facility] [place] (event) Branch Alcohol intake 2021-02-25 2021-02-25 Current drinker Unive rsity of 00:00:00 00:00:00 of alcohol [facility] [place] (finding) Branch Alcohol Comment 2021-02-25 2021-02-25 social Universit y of 00:00:00 00:00:00 [facility] Tobacco use and 2020-11-02 2020-11-02 Never used Universit y of exposure 00:00:00 00:00:00 [facility] Sex Assigned At 2000 2000 Universit y of 00:00:00 00:00:00 [facility] Smoking Status Start Date Stop Date Source Never smoker [facility] Branch Medications Ordered Filled Start Stop Current Ordering Indication Dosage Frequency Signature Comments Components Source Medication Medication Date Date Medication? Clinician (SIG) Name Name norethindro Yes .35mg Take 0.35 Univers ne 0.35 mg 9-19 mg by ity of tablet 20:51: mouth [place] 04 daily. Medical Branch norethindro Yes .35mg Take 0.35 Univers ne 0.35 mg 9-19 mg by ity of tablet 20:51: mouth [place] 04 daily. Medical Branch norethindro Yes .35mg Take 0.35 Univers ne 0.35 mg 9-19 mg by ity of tablet 20:51: mouth [place] 04 daily. Medical Branch 2020- No Take by Univ ers vit 02-2519 mouth. ity of calc,iron,f 20:50: 00:00 [place] olic 04 :00 Medical ( Branch VITAMIN ORAL) azithromyci Yes [id number] 250mg Take 1 Univers n 9-19 tablet by ity of (ZITHROMAX) 00:00: mouth [place] 250 mg 00 daily. Medical tablet Take 500 Branch mg day 1, then 250 mg days 2 to 5. methylPREDN Yes [id number] Take by [facility] ISolone 02-25 mouth ity of (MEDROL, 00:00: SEE-INSTRU [place] JANE,) 4 mg 00 CTIONS. Medica l tablets follow Branch package directions azithromyci Yes [id number] 250mg Take 1 Univers n 9-19 tablet by ity of (ZITHROMAX) 00:00: mouth [place] 250 mg 00 daily. Medical tablet Take 500 Branch mg day 1, then 250 mg days 2 to 5. methylPREDN Yes [id number] Take by [facility] ISolone 02-25 mouth ity of (MEDROL, 00:00: SEE-INSTRU [place] JANE,) 4 mg 00 CTIONS. Medica l tablets follow Branch package directions azithromyci Yes [id number] 250mg Take 1 Univers n 9-19 tablet by ity of (ZITHROMAX) 00:00: mouth [place] 250 mg 00 daily. Medical tablet Take 500 Branch mg day 1, then 250 mg days 2 to 5. methylPREDN Yes [id number] Take by [facility] ISolone 02-25 mouth ity of (MEDROL, 00:00: SEE-INSTRU [place] JANE,) 4 mg 00 CTIONS. Medica l tablets follow Branch package directions Yes Take by [facility] rs vit 5- mouth. ity of calc,iron,f 18:04: [place] olic 32 Medical ( Branch VITAMIN ORAL) Yes Take by [facility] rs vit -27 mouth. ity of calc,iron,f 18:04: [place] [address] Medical ( Branch VITAMIN ORAL) Yes Take by Unive rs vit 5- mouth. ity of calc,iron,f 18:04: [place] [address] Medical ( Branch VITAMIN ORAL) gadobenate 2019-06 2020- No .2mL/kg 0.2 mL/kg, Univers dimeglumine 06-13 Intravenou i ty of (MULTIHANCE 01:00: 00:49 s, ONCE, 1 [place] -20 mL) 00 :00 dose, Wed Medical injection 04/12/20 at Bran ch 0.2 mL/kg 1900, Routine hydroCHLORO 2019-06 Yes [id number] 25mg Take 1 Univers thiazide 25 0-20 tablet by ity of mg tablet 00:00: mouth [place] 00 daily. Medical Branch hydroCHLORO 2019-06 Yes [id number] 25mg Take 1 Univers thiazide 25 0-20 tablet by ity of mg tablet 00:00: mouth [place] 00 daily. Medical Branch hydroCHLORO 2019-06 Yes [id number] 25mg Take 1 Univers thiazide 25 0-20 tablet by ity of mg tablet 00:00: mouth [place] 00 daily. Medical Branch hydroCHLORO 2019-06 Yes [id number] 25mg Take 1 Univers thiazide 25 0-20 tablet by ity of mg tablet 00:00: mouth [place] 00 daily. Medical Branch hydroCHLORO 2019-06 Yes [id number] 25mg Take 1 Univers thiazide 25 0-20 tablet by ity of mg tablet 00:00: mouth [place] 00 daily. Medical Branch hydroCHLORO 2019-06 Yes [id number] 25mg Take 1 Univers thiazide 25 0-20 tablet by ity of mg tablet 00:00: mouth [place] 00 daily. Medical Branch hydroCHLORO 2019-06 Yes [id number] 25mg Take 1 Univers thiazide 25 0-20 tablet by ity of mg tablet 00:00: mouth [place] 00 daily. Medical Branch hydroCHLORO 2019-06 Yes [id number] 25mg Take 1 Univers thiazide 25 0-20 tablet by ity of mg tablet 00:00: mouth [place] 00 daily. [facility] Branch hydroCHLORO 2019-06 Yes [id number] 25mg Take 1 Univers thiazide 25 0-20 tablet by ity of mg tablet 00:00: mouth [place] 00 daily. Medical Branch hydroCHLORO 2019-06- No [id number] 25mg Take 1 [facility] thiazide 25 0-20 09-19 tablet by it y of mg tablet 00:00: 00:00 mouth [place] 00 :00 daily. Medical Branch NaCl 0.9% 2019-06 No 1000mL at 999 Uni vers (NS) bolus 003-10 mL/hr, ity of infusion 04:30: 04:18 1,000 mL, [place] as 1,000 mL 00 :00 IV Medical Infusion, Branch ONCE, 1 dose, [facility] 03/09/20 at 2330, STAT metoclopram 2019-06 No 10mg 10 mg, Uni vers sonia HCl 003-10 Slow IV ity of (REGLAN) 04:30: 03:56 Push, [place] injection 00 :00 ONCE, 1 Medical 10 mg dose, [facility] 03/09/20 at 2330, POLO ketorolac 2019-06 No 30mg 30 mg, Unive rs (TORADOL) 003-10 Slow IV ity of injection 04:30: 03:56 Push, [place] 30 mg 00 :00 ONCE, 1 Medical dose, [facility] 03/09/20 at 2330, Routine
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 approving Restricted medication : TERRENCE LAURENT diphenhydrA 2019-06 No 25mg 25 mg, Uni vers MINE 003-10 Intravenou ity of (BENADRYL) 04:30: 03:56 s, ONCE, 1 [place] injection 00 :00 dose, [facility] Medic al 25 mg 03/09/20 at Branch 2330, POLO dexamethaso 2019-06 No 10mg 10 mg, Uni vers ne 003-10 Slow IV ity of (DECADRON 04:30: 03:56 Push, [place] PHOSPHATE) 00 :00 ONCE, 1 Medica l injection dose, [facility] Branc h 10 mg 03/09/20 at 2330, STAT butalbital- 2019-06- No 1{tbl} 1 tablet, [facility] acetaminoph 003-10 Oral, ity of en-caff 03:30: 03:56 ONCE, 1 [place] (ESGIC) 00 :00 dose, [facility] Medical 50-325-40 03/09/20 at Bran ch mg tablet 1 2230, tablet Routine acetaZOLAMI 2020-0 Yes [id number] 250mg Take 1 Univers DE 250 mg 9-21 tablet by ity o f tablet 00:00: mouth 2 00 (two) Medical times Branch daily. acetaZOLAMI 2020-0 Yes [id number] 250mg Take 1 Univers DE 250 mg 9-21 tablet by ity o f tablet 00:00: mouth 2 00 (two) Medical times Branch daily. acetaZOLAMI 2020-0 Yes [id number] 250mg Take 1 Univers DE 250 mg 9-21 tablet by ity o f tablet 00:00: mouth 2 00 (two) Medical times Branch daily. acetaZOLAMI 2020-0 Yes [id number] 250mg Take 1 Univers DE 250 mg 9-21 tablet by ity o f tablet 00:00: mouth 2 (two) Medical times Branch daily. acetaZOLAMI 2020-0 Yes [id number] 250mg Take 1 Univers [place] 250 mg 9-21 tablet by ity o f tablet 00:00: mouth 2 (two) Medical times Branch daily. acetaZOLAMI 2020-0 Yes [id number] 250mg Take 1 Univers [place] 250 mg 9-21 tablet by ity o f tablet 00:00: mouth 2 (two) Medical times Branch daily. acetaZOLAMI 2020-0 Yes [id number] 250mg Take 1 Univers [place] 250 mg 9-21 tablet by ity o f tablet 00:00: mouth 2 (two) Medical times Branch daily. acetaZOLAMI 2020-0 Yes [id number] 250mg Take 1 Univers [place] 250 mg 9-21 tablet by ity o f tablet 00:00: mouth 2 (two) Medical times Branch daily. acetaZOLAMI 2020-0 Yes [id number] 250mg Take 1 Univers [place] 250 mg 9-21 tablet by ity o f tablet 00:00: mouth 2 (two) Medical times Branch daily. acetaZOLAMI 2020-0 Yes [id number] 250mg Take 1 Univers [place] 250 mg 9-21 tablet by ity o f tablet 00:00: mouth 2 (two) Medical times Branch daily. acetaZOLAMI 2020-0 Yes [id number] 250mg Take 1 Univers [place] 250 mg 9-21 tablet by ity o f tablet 00:00: mouth 2 (two) Medical times Branch daily. acetaZOLAMI 2020-0 Yes [id number] 250mg Take 1 Univers [place] 250 mg 9-21 tablet by ity o f tablet 00:00: mouth 2 [place] 00 (two) Medical times Branch daily. acetaZOLAMI 2020-0 Yes [id number] 250mg Take 1 Univers [place] 250 mg 9-21 tablet by ity o f tablet 00:00: mouth 2 [place] 00 (two) Medical times Branch daily. acetaZOLAMI 2020-0 Yes [id number] 250mg Take 1 Univers [place] 250 mg 9-21 tablet by ity o f tablet 00:00: mouth 2 [place] 00 (two) Medical times Branch daily. acetaZOLAMI 2020-0 Yes [id number] 250mg Take 1 Univers [place] 250 mg 9-21 tablet by ity o f tablet 00:00: mouth 2 [place] 00 (two) Medical times Branch daily. acetaZOLAMI 2020-0 Yes [id number] 250mg Take 1 Univers [place] 250 mg 9-21 tablet by ity o f tablet 00:00: mouth 2 [place] 00 (two) Medical times Branch daily. acetaZOLAMI 2019-0 Yes [id number] 250mg Take 1 Univers [place] 250 mg 9-21 tablet by ity o f tablet 00:00: mouth 2 [place] 00 (two) Medical times Branch daily. acetaZOLAMI 2020-0 Yes [id number] 250mg Take 1 Univers [place] 250 mg 9-21 tablet by ity o f tablet 00:00: mouth 2 [place] 00 (two) Medical times Branch daily. acetaZOLAMI 2019-0 Yes [id number] 250mg Take 1 Univers [place] 250 mg 9-21 tablet by ity o f tablet 00:00: mouth 2 [place] 00 (two) Medical times Branch daily. acetaZOLAMI 2019-0 Yes [id number] 250mg Take 1 Univers [place] 250 mg 9-21 tablet by ity o f tablet 00:00: mouth 2 [place] 00 (two) Medical times Branch daily. acetaZOLAMI 2020-0 2020- No [id number] 250mg Take 1 Univers [place] 250 mg 9-21 09-19 tablet by ity of tablet 00:00: 00:00 mouth 2 [place] 00 :00 (two) Medical times Branch daily. butalbital- 2020-0 Yes [id number] 1{tbl} Take 1 Univers aspirin-caf 8-28 tablet by ity of feine per 00:00: mouth [place] tablet 00 every 6 Medical (six) Branch hours as needed for Pain. butalbital- 2020-0 Yes [id number] 1{tbl} Take 1 Univers aspirin-caf 8-28 tablet by ity of feine per 00:00: mouth [place] tablet 00 every 6 Medical (six) Branch hours as needed for Pain. butalbital- 2020-0 Yes [id number] 1{tbl} Take 1 Univers aspirin-caf 8-28 tablet by ity of feine per 00:00: mouth [place] tablet 00 every 6 Medical (six) Branch hours as needed for Pain. butalbital- 2020-0 Yes [id number] 1{tbl} Take 1 Univers aspirin-caf 8-28 tablet by ity of feine per 00:00: mouth [place] tablet 00 every 6 Medical (six) Branch hours as needed for Pain. butalbital- 2020-0 Yes [id number] 1{tbl} Take 1 Univers aspirin-caf 8-28 tablet by ity of feine per 00:00: mouth [place] tablet 00 every 6 Medical (six) Branch hours as needed for Pain. butalbital- 2020-0 Yes [id number] 1{tbl} Take 1 Univers aspirin-caf 8-28 tablet by ity of feine per 00:00: mouth [place] tablet 00 every 6 Medical (six) Branch hours as needed for Pain. butalbital- 2020-0 Yes [id number] 1{tbl} Take 1 Univers aspirin-caf 8-28 tablet by ity of feine per 00:00: mouth [place] tablet 00 every 6 Medical (six) Branch hours as needed for Pain. butalbital- 2020-0 Yes [id number] 1{tbl} Take 1 Univers aspirin-caf 8-28 tablet by ity of feine per 00:00: mouth [place] tablet 00 every 6 Medical (six) Branch hours as needed for Pain. butalbital- 2020-0 Yes [id number] 1{tbl} Take 1 Univers aspirin-caf 8-28 tablet by ity of feine per 00:00: mouth [place] tablet 00 every 6 Medical (six) Branch hours as needed for Pain. butalbital- 2020-0 Yes [id number] 1{tbl} Take 1 Univers aspirin-caf 8-28 tablet by ity of feine per 00:00: mouth [place] tablet 00 every 6 Medical (six) Branch hours as needed for Pain. butalbital- 2020-0 Yes [id number] 1{tbl} Take 1 Univers aspirin-caf 8-28 tablet by ity of feine per 00:00: mouth [place] tablet 00 every 6 Medical (six) Branch hours as needed for Pain. butalbital- 2020-0 Yes [id number] 1{tbl} Take 1 Univers aspirin-caf 8-28 tablet by ity of feine per 00:00: mouth [place] tablet 00 every 6 Medical (six) Branch hours as needed for Pain. butalbital- 2020-0 Yes [id number] 1{tbl} Take 1 Univers aspirin-caf 8-28 tablet by ity of feine per 00:00: mouth [place] tablet 00 every 6 Medical (six) Branch hours as needed for Pain. butalbital- 2020-0 Yes [id number] 1{tbl} Take 1 Univers aspirin-caf 8-28 tablet by ity of feine per 00:00: mouth [place] tablet 00 every 6 Medical (six) Branch hours as needed for Pain. butalbital- 2020-0 Yes [id number] 1{tbl} Take 1 Univers aspirin-caf 8-28 tablet by ity of feine per 00:00: mouth [place] tablet 00 every 6 Medical (six) Branch hours as needed for Pain. butalbital- 2020-0 Yes [id number] 1{tbl} Take 1 Univers aspirin-caf 8-28 tablet by ity of feine per 00:00: mouth [place] tablet 00 every 6 Medical (six) Branch hours as needed for Pain. butalbital- 2020-0 Yes [id number] 1{tbl} Take 1 Univers aspirin-caf 8-28 tablet by ity of feine per 00:00: mouth [place] tablet 00 every 6 Medical (six) Branch hours as needed for Pain. butalbital- 2020-0 Yes [id number] 1{tbl} Take 1 Univers aspirin-caf 8-28 tablet by ity of feine per 00:00: mouth [place] tablet 00 every 6 Medical (six) Branch hours as needed for Pain. butalbital- 2020-0 Yes [id number] 1{tbl} Take 1 Univers aspirin-caf 8-28 tablet by ity of feine per 00:00: mouth [place] tablet 00 every 6 Medical (six) Branch hours as needed for Pain. butalbital- 2020-0 Yes [id number] 1{tbl} Take 1 Univers aspirin-caf 8-28 tablet by ity of feine per 00:00: mouth [place] tablet 00 every 6 Medical (six) Branch hours as needed for Pain. butalbital- 2020-0 Yes [id number] 1{tbl} Take 1 Univers aspirin-caf 8-28 tablet by ity of feine per 00:00: mouth [place] tablet 00 every 6 Medical (six) Branch hours as needed for Pain. butalbital- 2020-0 Yes [id number] 1{tbl} Take 1 Univers aspirin-caf 8-28 tablet by ity of feine per 00:00: mouth [place] tablet 00 every 6 Medical (six) Branch hours as needed for Pain. butalbital- 2020-0 Yes [id number] 1{tbl} Take 1 Univers aspirin-caf 8-28 tablet by ity of feine per 00:00: mouth [place] tablet 00 every 6 Medical (six) Branch hours as needed for Pain. butalbital- 2020-0 Yes [id number] 1{tbl} Take 1 Univers aspirin-caf 8-28 tablet by ity of feine per 00:00: mouth [place] tablet 00 every 6 Medical (six) Branch hours as needed for Pain. butalbital- 2020-0 Yes [id number] 1{tbl} Take 1 Univers aspirin-caf 8-28 tablet by ity of feine per 00:00: mouth [place] tablet 00 every 6 Medical (six) Branch hours as needed for Pain. butalbital- 2020-0 Yes [id number] 1{tbl} Take 1 Univers aspirin-caf 8-28 tablet by ity of feine per 00:00: mouth [place] tablet 00 every 6 Medical (six) Branch hours as needed for Pain. butalbital- 2020-0 Yes [id number] 1{tbl} Take 1 Univers aspirin-caf 8-28 tablet by ity of feine per 00:00: mouth [place] tablet 00 every 6 Medical (six) Branch hours as needed for Pain. butalbital- 2020-0 Yes [id number] 1{tbl} Take 1 Univers aspirin-caf 8-28 tablet by ity of feine per 00:00: mouth [place] tablet 00 every 6 Medical (six) Branch hours as needed for Pain. butalbital- 2019- Yes [id number] 1{tbl} Take 1 Univers aspirin-caf 8-28 tablet by ity of feine per 00:00: mouth [place] tablet 00 every 6 Medical (six) Branch hours as needed for Pain. butalbital- 2019- Yes [id number] 1{tbl} Take 1 Univers aspirin-caf 8-28 tablet by ity of feine per 00:00: mouth [place] tablet 00 every 6 Medical (six) Branch hours as needed for Pain. butalbital- 2019- Yes [id number] 1{tbl} Take 1 Univers aspirin-caf 8-28 tablet by ity of feine per 00:00: mouth [place] tablet 00 every 6 Medical (six) Branch hours as needed for Pain. butalbital- 2019- Yes [id number] 1{tbl} Take 1 Univers aspirin-caf 8-28 tablet by ity of feine per 00:00: mouth [place] tablet 00 every 6 Medical (six) Branch hours as needed for Pain. butalbital- 2020- No [id number] 1{tbl} Take 1 Univers aspirin-caf 8-28 09-19 tablet by it y of feine per 00:00: 00:00 mouth [place] tablet 00 :00 every 6 Medical (six) Branch hours as needed for Pain. estradiol 1 2019-0 Yes [id number] 1mg Take 1 Univers mg tablet 7-20 tablet by ity o f 00:00: mouth [place] 00 daily. Medical Branch estradiol 1 2020-0 Yes [id number] 1mg Take 1 Univers mg tablet 7-20 tablet by ity o f 00:00: mouth [place] 00 daily. Medical Branch estradiol 1 2020-0 Yes [id number] 1mg Take 1 Univers mg tablet 7-20 tablet by ity o f 00:00: mouth [place] 00 daily. Medical Branch estradiol 1 2020-0 Yes [id number] 1mg Take 1 Univers mg tablet 7-20 tablet by ity o f 00:00: mouth [place] 00 daily. Medical Branch estradiol 1 2020-0 Yes [id number] 1mg Take 1 Univers mg tablet 7-20 tablet by ity o f 00:00: mouth [place] 00 daily. Medical Branch estradiol 1 2020-0 Yes [id number] 1mg Take 1 Univers mg tablet 7-20 tablet by ity o f 00:00: mouth [place] 00 daily. Medical Branch estradiol 1 2020-0 Yes [id number] 1mg Take 1 Univers mg tablet 7-20 tablet by ity o f 00:00: mouth [place] 00 daily. Medical Branch estradiol 1 2020-0 Yes [id number] 1mg Take 1 Univers mg tablet 7-20 tablet by ity o f 00:00: mouth [place] 00 daily. Medical Branch estradiol 1 2020-0 Yes [id number] 1mg Take 1 Univers mg tablet 7-20 tablet by ity o f 00:00: mouth [place] 00 daily. Medical Branch estradiol 1 2020-0 Yes [id number] 1mg Take 1 Univers mg tablet 7-20 tablet by ity o f 00:00: mouth [place] 00 daily. Medical Branch estradiol 1 2020-0 Yes [id number] 1mg Take 1 Univers mg tablet 7-20 tablet by ity o f 00:00: mouth [place] 00 daily. Medical Branch estradiol 1 2020-0 Yes [id number] 1mg Take 1 Univers mg tablet 7-20 tablet by ity o f 00:00: mouth [place] 00 daily. Medical Branch estradiol 1 2020-0 Yes [id number] 1mg Take 1 Univers mg tablet 7-20 tablet by ity o f 00:00: mouth [place] 00 daily. Medical Branch estradiol 1 2020-0 Yes [id number] 1mg Take 1 Univers mg tablet 7-20 tablet by ity o f 00:00: mouth [place] 00 daily. Medical Branch estradiol 1 2020-0 Yes [id number] 1mg Take 1 Univers mg tablet 7-20 tablet by ity o f 00:00: mouth [place] 00 daily. Medical Branch estradiol 1 2020-0 Yes [id number] 1mg Take 1 Univers mg tablet 7-20 tablet by ity o f 00:00: mouth [place] 00 daily. Medical Branch estradiol 1 2020-0 Yes [id number] 1mg Take 1 Univers mg tablet 7-20 tablet by ity o f 00:00: mouth [place] 00 daily. Medical Branch estradiol 1 2020-0 Yes [id number] 1mg Take 1 Univers mg tablet 7-20 tablet by ity o f 00:00: mouth [place] 00 daily. Medical Branch estradiol 1 2020-0 Yes [id number] 1mg Take 1 Univers mg tablet 7-20 tablet by ity o f 00:00: mouth [place] 00 daily. Medical Branch estradiol 1 2020-0 Yes [id number] 1mg Take 1 Univers mg tablet 7-20 tablet by ity o f 00:00: mouth [place] 00 daily. Medical Branch estradiol 1 2020-0 Yes [id number] 1mg Take 1 Univers mg tablet 7-20 tablet by ity o f 00:00: mouth [place] 00 daily. Medical Branch estradiol 1 2020-0 Yes [id number] 1mg Take 1 Univers mg tablet 7-20 tablet by ity o f 00:00: mouth [place] 00 daily. Medical Branch estradiol 1 2020-0 Yes [id number] 1mg Take 1 Univers mg tablet 7-20 tablet by ity o f 00:00: mouth [place] 00 daily. Medical Branch estradiol 1 2020-0 Yes [id number] 1mg Take 1 Univers mg tablet 7-20 tablet by ity o f 00:00: mouth [place] 00 daily. Medical Branch estradiol 1 2020-0 Yes [id number] 1mg Take 1 Univers mg tablet 7-20 tablet by ity o f 00:00: mouth [place] 00 daily. Medical Branch estradiol 1 2020-0 Yes [id number] 1mg Take 1 Univers mg tablet 7-20 tablet by ity o f 00:00: mouth [place] 00 daily. Medical Branch estradiol 1 2020-0 Yes [id number] 1mg Take 1 Univers mg tablet 7-20 tablet by ity o f 00:00: mouth [place] 00 daily. Medical Branch estradiol 1 2020-0 Yes [id number] 1mg Take 1 Univers mg tablet 7-20 tablet by ity o f 00:00: mouth [place] 00 daily. Medical Branch estradiol 1 2020-0 Yes [id number] 1mg Take 1 Univers mg tablet 7-20 tablet by ity o f 00:00: mouth [place] 00 daily. Medical Branch estradiol 1 2020-0 Yes [id number] 1mg Take 1 Univers mg tablet 7-20 tablet by ity o f 00:00: mouth [place] 00 daily. Medical Branch estradiol 1 2020-0 Yes [id number] 1mg Take 1 Univers mg tablet 7-20 tablet by ity o f 00:00: mouth [place] 00 daily. Medical Branch estradiol 1 2020-0 Yes [id number] 1mg Take 1 Univers mg tablet 7-20 tablet by ity o f 00:00: mouth [place] 00 daily. Medical Branch estradiol 1 2019-0 2020- No [id number] 1mg Take 1 Univers mg tablet 7-20 05-27 tablet by ity of 00:00: 00:00 mouth [place] 00 :00 daily. Medical Branch estradiol 1 2019-0 2020- No [id number] 1mg Take 1 Univers mg tablet 7- 05-27 tablet by ity of 00:00: 00:00 mouth [place] 00 :00 daily. Medical Branch albuterol 2020-0 Yes [id number] 2{puff} Inhale 2 Univers 90 3-17 Puffs ity of mcg/actuati 00:00: every 6 [place] as on inhaler 00 (six) Medical hours as Branch needed for Wheezing or Shortness of Breath. albuterol 2019-0 Yes [id number] 2{puff} Inhale 2 Univers 90 3-17 Puffs ity of mcg/actuati 00:00: every 6 [place] on inhaler 00 (six) Medical hours as Branch needed for Wheezing or Shortness of Breath. albuterol 2019-0 Yes [id number] 2{puff} Inhale 2 [facility] 90 3-17 Puffs ity of mcg/actuati 00:00: every 6 [place] on inhaler 00 (six) Medical hours as Branch needed for Wheezing or Shortness of Breath. albuterol 2019-0 Yes [id number] 2{puff} Inhale 2 [facility] 90 3-17 Puffs ity of mcg/actuati 00:00: every 6 [place] on inhaler 00 (six) Medical hours as Branch needed for Wheezing or Shortness of Breath. albuterol 2020-0 Yes [id number] 2{puff} Inhale 2 [facility] 90 3-17 Puffs ity of mcg/actuati 00:00: every 6 [place] inhaler 00 (six) Medical hours as Branch needed for Wheezing or Shortness of Breath. albuterol 2020-0 Yes [id number] 2{puff} Inhale 2 [facility] 90 3-17 Puffs ity of mcg/actuati 00:00: every 6 [place] inhaler 00 (six) Medical hours as Branch needed for Wheezing or Shortness of Breath. albuterol 2020-0 Yes [id number] 2{puff} Inhale 2 [facility] 90 3-17 Puffs ity of mcg/actuati 00:00: every 6 [place] inhaler 00 (six) Medical hours as Branch needed for Wheezing or Shortness of Breath. albuterol 2020-0 Yes [id number] 2{puff} Inhale 2 [facility] 90 3-17 Puffs ity of mcg/actuati 00:00: every 6 [place] on inhaler 00 (six) Medical hours as Branch needed for Wheezing or Shortness of Breath. albuterol 2020-0 Yes [id number] 2{puff} Inhale 2 [facility] 90 3-17 Puffs ity of mcg/actuati 00:00: every 6 [place] on inhaler 00 (six) Medical hours as Branch needed for Wheezing or Shortness of Breath. albuterol 2020-0 Yes [id number] 2{puff} Inhale 2 [facility] 90 3-17 Puffs ity of mcg/actuati 00:00: every 6 [place] on inhaler 00 (six) Medical hours as Branch needed for Wheezing or Shortness of Breath. albuterol 2020-0 Yes [id number] 2{puff} Inhale 2 [facility] 90 3-17 Puffs ity of mcg/actuati 00:00: every 6 [place] on inhaler 00 (six) Medical hours as Branch needed for Wheezing or Shortness of Breath. albuterol 2020-0 Yes [id number] 2{puff} Inhale 2 [facility] 90 3-17 Puffs ity of mcg/actuati 00:00: every 6 [place] on inhaler 00 (six) Medical hours as Branch needed for Wheezing or Shortness of Breath. albuterol 2020-0 Yes [id number] 2{puff} Inhale 2 [facility] 90 3-17 Puffs ity of mcg/actuati 00:00: every 6 [place] on inhaler 00 (six) Medical hours as Branch needed for Wheezing or Shortness of Breath. albuterol 2020-0 Yes [id number] 2{puff} Inhale 2 [facility] 90 3-17 Puffs ity of mcg/actuati 00:00: every 6 [place] on inhaler 00 (six) Medical hours as Branch needed for Wheezing or Shortness of Breath. albuterol 2020-0 Yes [id number] 2{puff} Inhale 2 [facility] 90 3-17 Puffs ity of mcg/actuati 00:00: every 6 [place] on inhaler 00 (six) Medical hours as Branch needed for Wheezing or Shortness of Breath. albuterol 2020-0 Yes [id number] 2{puff} Inhale 2 [facility] 90 3-17 Puffs ity of mcg/actuati 00:00: every 6 [place] on inhaler 00 (six) Medical hours as Branch needed for Wheezing or Shortness of Breath. albuterol 2020-0 Yes [id number] 2{puff} Inhale 2 [facility] 90 3-17 Puffs ity of mcg/actuati 00:00: every 6 [place] on inhaler 00 (six) Medical hours as Branch needed for Wheezing or Shortness of Breath. albuterol 2019-0 Yes [id number] 2{puff} Inhale 2 [facility] 90 3-17 Puffs ity of mcg/actuati 00:00: every 6 [place] on inhaler 00 (six) Medical hours as Branch needed for Wheezing or Shortness of Breath. albuterol 2020-0 Yes [id number] 2{puff} Inhale 2 [facility] 90 3-17 Puffs ity of mcg/actuati 00:00: every 6 [place] on inhaler 00 (six) Medical hours as Branch needed for Wheezing or Shortness of Breath. albuterol 2019-0 Yes [id number] 2{puff} Inhale 2 [facility] 90 3-17 Puffs ity of mcg/actuati 00:00: every 6 [place] on inhaler 00 (six) Medical hours as Branch needed for Wheezing or Shortness of Breath. albuterol 2019-0 Yes [id number] 2{puff} Inhale 2 [facility] 90 3-17 Puffs ity of mcg/actuati 00:00: every 6 [place] inhaler 00 (six) Medical hours as Branch needed for Wheezing or Shortness of Breath. albuterol 2019-0 Yes [id number] 2{puff} Inhale 2 [facility] 90 3-17 Puffs ity of mcg/actuati 00:00: every 6 [place] on inhaler 00 (six) Medical hours as Branch needed for Wheezing or Shortness of Breath. albuterol 2019-0 Yes [id number] 2{puff} Inhale 2 [facility] 90 3-17 Puffs ity of mcg/actuati 00:00: every 6 [place] on inhaler 00 (six) Medical hours as Branch needed for Wheezing or Shortness of Breath. albuterol 2020-0 Yes [id number] 2{puff} Inhale 2 [facility] 90 3-17 Puffs ity of mcg/actuati 00:00: every 6 [place] on inhaler 00 (six) Medical hours as Branch needed for Wheezing or Shortness of Breath. albuterol 2020-0 Yes [id number] 2{puff} Inhale 2 [facility] 90 3-17 Puffs ity of mcg/actuati 00:00: every 6 [place] on inhaler 00 (six) Medical hours as Branch needed for Wheezing or Shortness of Breath. albuterol 2020-0 Yes [id number] 2{puff} Inhale 2 [facility] 90 3-17 Puffs ity of mcg/actuati 00:00: every 6 [place] on inhaler 00 (six) Medical hours as Branch needed for Wheezing or Shortness of Breath. albuterol 2020-0 Yes [id number] 2{puff} Inhale 2 [facility] 90 3-17 Puffs ity of mcg/actuati 00:00: every 6 [place] on inhaler 00 (six) Medical hours as Branch needed for Wheezing or Shortness of Breath. albuterol 2020-0 Yes [id number] 2{puff} Inhale 2 [facility] 90 3-17 Puffs ity of mcg/actuati 00:00: every 6 [place] on inhaler 00 (six) Medical hours as Branch needed for Wheezing or Shortness of Breath. albuterol 2020-0 Yes [id number] 2{puff} Inhale 2 [facility] 90 3-17 Puffs ity of mcg/actuati 00:00: every 6 [place] on inhaler 00 (six) Medical hours as Branch needed for Wheezing or Shortness of Breath. albuterol 2020-0 Yes [id number] 2{puff} Inhale 2 [facility] 90 3-17 Puffs ity of mcg/actuati 00:00: every 6 [place] on inhaler 00 (six) Medical hours as Branch needed for Wheezing or Shortness of Breath. albuterol 2020-0 Yes [id number] 2{puff} Inhale 2 [facility] 90 3-17 Puffs ity of mcg/actuati 00:00: every 6 [place] on inhaler 00 (six) Medical hours as Branch needed for Wheezing or Shortness of Breath. albuterol 2020-0 Yes [id number] 2{puff} Inhale 2 [facility] 90 3-17 Puffs ity of mcg/actuati 00:00: every 6 [place] on inhaler 00 (six) Medical hours as Branch needed for Wheezing or Shortness of Breath. albuterol 2020-0 Yes [id number] 2{puff} Inhale 2 [facility] 90 3-17 Puffs ity of mcg/actuati 00:00: every 6 [place] on inhaler 00 (six) Medical hours as Branch needed for Wheezing or Shortness of Breath. albuterol Yes [id number] 2{puff} Inhale 2 [facility] 90 3-17 Puffs ity of mcg/actuati 00:00: every 6 [place] on inhaler 00 (six) Medical hours as Branch needed for Wheezing or Shortness of Breath. albuterol 2020- No [id number] 2{puff} Inhale 2 [facility] 90 3-17 05-27 Puffs ity of mcg/actuati 00:00: 00:00 every 6 [place] inhaler 00 :00 (six) Medical hours as Branch needed for Wheezing or Shortness of Breath. albuterol 2020- No [id number] 2{puff} Inhale 2 [facility] 90 3-17 05-27 Puffs ity of mcg/actuati 00:00: 00:00 every 6 [place] on inhaler 00 :00 (six) Medical hours as Branch needed for Wheezing or Shortness of Breath. bromphenira 2019- No [id number] 5mL Take 5 mL [facility] mine-pseudo 3-17 -28 by mouth 4 i ty of ephedrine-D 00:00: 04:59 (four) [place] [facility] M (BROMFED 00 :00 times Medical DM) 2-30-10 daily as Bran ch mg/5 mL needed for syrup Congestion /Allergies or Cough for up to 10 days. FLUoxetine 2018-06 Yes [id number] 20mg Take 1 U nivers 20 mg 2-19 capsule by ity of capsule 00:00: mouth [place] 00 daily. Medical Branch FLUoxetine 2018-06 Yes [id number] 20mg Take 1 U nivers 20 mg 2-19 capsule by ity of capsule 00:00: mouth [place] 00 daily. Medical Branch FLUoxetine 2018-06 Yes [id number] 20mg Take 1 U nivers 20 mg 2-19 capsule by ity of capsule 00:00: mouth [place] 00 daily. Medical Branch FLUoxetine 2018-06- No [id number] 20mg Take 1 [facility] 20 mg 2-19 07-20 capsule by ity of capsule 00:00: 00:00 mouth [place] 00 :00 daily. Medical Branch FLUoxetine 2018-06- No [id number] 20mg Take 1 [facility] 20 mg 2-19 07-20 capsule by ity of capsule 00:00: 00:00 mouth [place] 00 :00 daily. Medical Branch levonorgest 2019-0 2019- No 1{devic Un [place] rel (KEEGAN) 01-10 e} ity of 14 mcg/24 00:00: 20:49 [place] hrs (3 yrs) 00 :00 Medical 13.5 mg IUD Branch 1 Device levonorgest 2019-0 2019- No 1{devic 1 Device, [facility] rel (KEEGAN) 01-10 e} Intrauteri i ty of 14 mcg/24 00:00: 20:49 ne, ONCE, [place] hrs (3 yrs) 00 :00 1 dose, Medic al 13.5 mg IUD 01/09/19 Br anch 1 Device at 1900, Routine levonorgest 2019-0 2019- No 1{devic Un [place] rel (KEEGAN) 01-10 e} ity of 14 mcg/24 00:00: 20:49 [place] hrs (3 yrs) 00 :00 Medical 13.5 mg IUD Branch 1 Device levonorgest 2019-0 2019- No 1{devic 1 Device, [facility] rel (KEEGAN) 01-10 e} Intrauteri i ty of 14 mcg/24 00:00: 20:49 ne, ONCE, [place] (3 yrs) 00 :00 1 dose, Medic al 13.5 mg IUD 01/09/19 Br anch 1 Device at 1900, Routine FLUoxetine 2019-0 Yes [id number] 20mg Take 1 U nivers 20 mg 7-11 capsule by ity of capsule 00:00: mouth [place] 00 daily. Medical Branch FLUoxetine 2019-0 Yes [id number] 20mg Take 1 U nivers 20 mg 7-11 capsule by ity of capsule 00:00: mouth [place] 00 daily. Medical Branch FLUoxetine 2019-0 Yes [id number] 20mg Take 1 U nivers 20 mg 7-11 capsule by ity of capsule 00:00: mouth [place] 00 daily. Medical Branch FLUoxetine 2019-0 Yes [id number] 20mg Take 1 U nivers 20 mg 7-11 capsule by ity of capsule 00:00: mouth [place] 00 daily. Medical Branch FLUoxetine 2019-0 Yes [id number] 20mg Take 1 U nivers 20 mg 7-11 capsule by ity of capsule 00:00: mouth [place] 00 daily. Medical Branch Yes [id number] 1{tbl} Take 1 U nivers vitamin 6-14 tablet by ity of w/FA tablet 00:00: mouth [place] 00 daily. Medical Branch Yes [id number] 1{tbl} Take 1 U nivers vitamin 6-14 tablet by ity of w/FA tablet 00:00: mouth [place] 00 daily. Medical Branch Yes [id number] 1{tbl} Take 1 U nivers vitamin 6-14 tablet by ity of w/FA tablet 00:00: mouth [place] 00 daily. Medical Branch Yes [id number] 1{tbl} Take 1 U nivers vitamin 6-14 tablet by ity of w/FA tablet 00:00: mouth [place] 00 daily. [facility] Branch Yes [id number] 1{tbl} Take 1 U nivers vitamin 6-14 tablet by ity of w/FA tablet 00:00: mouth [place] 00 daily. Medical Branch Yes [id number] 1{tbl} Take 1 U nivers vitamin 6-14 tablet by ity of w/FA tablet 00:00: mouth [place] 00 daily. Medical Branch Yes [id number] 1{tbl} Take 1 U nivers vitamin 6-14 tablet by ity of w/FA tablet 00:00: mouth [place] 00 daily. [facility] Yes [id number] 1{tbl} Take 1 U nivers vitamin 6-14 tablet by ity of w/FA tablet 00:00: mouth [place] 00 daily. Medical Branch 0 2020- No [id number] 1{tbl} Take 1 [facility] vitamin 6-14 07-20 tablet by ity of w/FA tablet 00:00: 00:00 [place] 00 :00 daily. Medical [place] 0 2020- No [id number] 1{tbl} Take 1 [facility] vitamin 6-14 07-20 tablet by ity of w/FA tablet 00:00: 00:00 [place] 00 :00 daily. [facility] Immunizations Ordered Immunization Filled Immunization Date Status Commen ts Source Name Name Varicella 2018-11-20 Completed [facility] (varivax)(chicken 00:00:00 [place] [facility] pox) Branch Varicella 2018-11-20 Completed [facility] (varivax)(chicken 00:00:00 [place] [facility] pox) Branch Varicella 2018-11-20 Completed [facility] of (varivax)(chicken 00:00:00 [place] [facility] pox) Branch Varicella 2018-11-20 Completed [facility] of (varivax)(chicken 00:00:00 [place] [facility] pox) Branch Varicella 2018-11-20 Completed [facility] of (varivax)(chicken 00:00:00 [place] [facility] pox) Branch Varicella 2018-11-20 Completed [facility] of (varivax)(chicken 00:00:00 [place] [facility] pox) Branch Varicella 2018-11-20 Completed [facility] (varivax)(chicken 00:00:00 [place] [facility] pox) Branch Varicella 2018-11-20 Completed [facility] of (varivax)(chicken 00:00:00 [place] [facility] pox) Branch Varicella 2018-11-20 Completed [facility] of (varivax)(chicken 00:00:00 [place] [facility] pox) Branch Varicella 2018-11-20 Completed [facility] of (varivax)(chicken 00:00:00 [place] [facility] pox) Branch Varicella 2018-11-20 Completed [facility] of (varivax)(chicken 00:00:00 [place] [facility] pox) Branch Varicella 2018-11-20 Completed [facility] of (varivax)(chicken 00:00:00 [place] [facility] ed[facility] pox) Branch Varicella 2018-11-20 Completed [facility] of (varivax)(chicken 00:00:00 [place] [facility] ed[facility] pox) Branch Varicella 2018-11-20 Completed [facility] of (varivax)(chicken 00:00:00 [place] [facility] ed[facility] pox) Branch Varicella 2018-11-20 Completed [facility] of (varivax)(chicken 00:00:00 [place] [facility] edical pox) Branch Varicella 2018-11-20 Completed [facility] of (varivax)(chicken 00:00:00 [place] [facility] edical pox) Branch Varicella 2018-11-20 Completed [facility] of (varivax)(chicken 00:00:00 [place] [facility] ed[facility] pox) Branch Varicella 2018-11-20 Completed [facility] of (varivax)(chicken 00:00:00 [place] [facility] ed[facility] pox) Branch Varicella 2018-11-20 Completed [facility] of (varivax)(chicken 00:00:00 [place] [facility] ed[facility] pox) Branch Varicella 2018-11-20 Completed [facility] of (varivax)(chicken 00:00:00 [place] [facility] pox) Branch Varicella 2018-11-20 Completed [facility] of (varivax)(chicken 00:00:00 [place] [facility] ed[facility] pox) Branch Varicella 2018-11-20 Completed [facility] of (varivax)(chicken 00:00:00 [place] [facility] ed[facility] pox) Branch Varicella 2018-11-20 Completed [facility] of (varivax)(chicken 00:00:00 [place] [facility] ed[facility] pox) Branch Varicella 2018-11-20 Completed [facility] of (varivax)(chicken 00:00:00 [place] [facility] ed[facility] pox) Branch Varicella 2018-11-20 Completed [facility] of (varivax)(chicken 00:00:00 [place] [facility] pox) Branch Varicella 2018-11-20 Completed [facility] of (varivax)(chicken 00:00:00 [place] [facility] ed[facility] pox) Branch Varicella 2018-11-20 Completed University of (varivax)(chicken 00:00:00 [place] [facility] ed[facility] pox) Branch Varicella 2018-11-20 Completed University of (varivax)(chicken 00:00:00 [place] [facility] ed[facility] pox) Branch Varicella 2018-11-20 Completed University of (varivax)(chicken 00:00:00 [place] [facility] ed[facility] pox) Branch Varicella 2018-11-20 Completed [facility] of (varivax)(chicken 00:00:00 [place] [facility] ed[facility] pox) Branch Varicella 2018-11-20 Completed University of (varivax)(chicken 00:00:00 [place] [facility] ed[facility] pox) Branch Varicella 2018-11-20 Completed University of (varivax)(chicken 00:00:00 [place] [facility] ed[facility] pox) Branch Varicella 2018-11-20 Completed University of (varivax)(chicken 00:00:00 [place] [facility] ed[facility] pox) Branch Varicella 2018-11-20 Completed University of (varivax)(chicken 00:00:00 [place] [facility] ed[facility] pox) Branch Varicella 2018-11-20 Completed University of (varivax)(chicken 00:00:00 [place] [facility] ed[facility] pox) Branch Varicella 2018-11-20 Completed University of (varivax)(chicken 00:00:00 [place] [facility] ed[facility] pox) Branch Varicella 2018-11-20 Completed University of (varivax)(chicken 00:00:00 [place] [facility] ed[facility] pox) Branch Varicella 2018-11-20 Completed University of (varivax)(chicken 00:00:00 [place] [facility] ed[facility] pox) Branch Varicella 2018-11-20 Completed University of (varivax)(chicken 00:00:00 [place] [facility] ed[facility] pox) Branch Varicella 2018-11-20 Completed University of (varivax)(chicken 00:00:00 [place] [facility] pox) Branch Varicella 2018-11-20 Completed [facility] of (varivax)(chicken 00:00:00 [place] [facility] pox) Branch Varicella 2018-11-20 Completed [facility] of (varivax)(chicken 00:00:00 [place] [facility] pox) Branch Varicella 2018-11-20 Completed [facility] of (varivax)(chicken 00:00:00 [place] [facility] pox) Branch Varicella 2018-11-20 Completed [facility] of (varivax)(chicken 00:00:00 [place] [facility] ed[facility] pox) Branch Varicella 2018-11-20 Completed [facility] of (varivax)(chicken 00:00:00 [place] [facility] ed[facility] pox) Branch Varicella 2018-11-20 Completed University of (varivax)(chicken 00:00:00 [place] [facility] ed[facility] pox) Branch TDAP 2018-10-29 Completed University of 00:00:00 [facility] TDAP 2018-10-29 Completed University of 00:00:00 [facility] TDAP 2018-10-29 Completed University of 00:00:00 [facility] TDAP 2018-10-29 Completed University of 00:00:00 [facility] TDAP 2018-10-29 Completed University of 00:00:00 [facility] TDAP 2018-10-29 Completed University of 00:00:00 [facility] TDAP 2018-10-29 Completed University of 00:00:00 [facility] TDAP 2018-10-29 Completed University of 00:00:00 [facility] TDAP 2018-10-29 Completed University of 00:00:00 [facility] TDAP 2018-10-29 Completed University of 00:00:00 [facility] TDAP 2018-10-29 Completed University of 00:00:00 [facility] TDAP 2018-10-29 Completed University of 00:00:00 [facility] TDAP 2018-10-29 Completed University of 00:00:00 [facility] TDAP 2018-10-29 Completed University of 00:00:00 [place] [facility] TDAP 2018-10-29 Completed University of 00:00:00 [place] [facility] TDAP 2018-10-29 Completed University of 00:00:00 [place] [facility] TDAP 2018-10-29 Completed University of 00:00:00 [place] [facility] TDAP 2018-10-29 Completed University of 00:00:00 [place] [facility] TDAP 2018-10-29 Completed University of 00:00:00 [place] [facility] TDAP 2018-10-29 Completed University of 00:00:00 [place] [facility] Tdap 2018-10-29 Completed University of 00:00:00 [place] [facility] Tdap 2018-10-29 Completed University of 00:00:00 [place] [facility] Tdap 2018-10-29 Completed University of 00:00:00 [place] [facility] Tdap 2018-10-29 Completed University of 00:00:00 [place] [facility] Tdap 2018-10-29 Completed University of 00:00:00 [place] [facility] Tdap 2018-10-29 Completed University of 00:00:00 [place] [facility] Tdap 2018-10-29 Completed University of 00:00:00 [place] [facility] TDAP 2018-10-29 Completed University of 00:00:00 [place] [facility] TDAP 2018-10-29 Completed University of 00:00:00 [place] [facility] TDAP 2018-10-29 Completed University of 00:00:00 [place] [facility] TDAP 2018-10-29 Completed University of 00:00:00 [place] [facility] TDAP 2018-10-29 Completed University of 00:00:00 [place] [facility] TDAP 2018-10-29 Completed University of 00:00:00 [place] [facility] TDAP 2018-10-29 Completed University of 00:00:00 [place] [facility] TDAP 2018-10-29 Completed University of 00:00:00 [place] [facility] TDAP 2018-10-29 Completed University of 00:00:00 [place] [facility] TDAP 2018-10-29 Completed University of 00:00:00 [place] [facility] TDAP 2018-10-29 Completed University of 00:00:00 [place] [facility] TDAP 2018-10-29 Completed University of 00:00:00 [place] [facility] TDAP 2018-10-29 Completed University of 00:00:00 [place] [facility] TDAP 2018-10-29 Completed University of 00:00:00 [place] [facility] TDAP 2018-10-29 Completed University of 00:00:00 [facility] [place] [facility] TDAP 2018-10-29 Completed University of 00:00:00 [facility] [place] [facility] TDAP 2018-10-29 Completed University of 00:00:00 [facility] [place] [facility] TDAP 2018-10-29 Completed University of 00:00:00 [facility] [place] [facility] TDAP 2018-10-29 Completed University of 00:00:00 [facility] [place] [facility] Rho (d) Immune 2018-10-12 Completed University of Globulin 00:00:00 [place] [facility] Rho (d) Immune 2018-10-12 Completed University of Globulin 00:00:00 [facility] [place] [facility] Rho (d) Immune 2018-10-12 Completed University of Globulin 00:00:00 [facility] [place] [facility] Rho (d) Immune 2018-10-12 Completed University of Globulin 00:00:00 [facility] [place] [facility] Rho (d) Immune 2018-10-12 Completed University of Globulin 00:00:00 [facility] [place] [facility] Rho (d) Immune 2018-10-12 Completed University of Globulin 00:00:00 [facility] [place] [facility] Rho (d) Immune 2018-10-12 Completed University of Globulin 00:00:00 [facility] [place] [facility] Rho (d) Immune 2018-10-12 Completed University of Globulin 00:00:00 [facility] [place] [facility] Rho (d) Immune 2018-10-12 Completed University of Globulin 00:00:00 [facility] [place] [facility] Rho (d) Immune 2018-10-12 Completed University of Globulin 00:00:00 [facility] [place] [facility] Rho (d) Immune 2018-10-12 Completed University of Globulin 00:00:00 [facility] [place] [facility] Rho (d) Immune 2018-10-12 Completed University of Globulin 00:00:00 [place] [facility] Rho (d) Immune 2018-10-12 Completed University of Globulin 00:00:00 [place] [facility] Rho (d) Immune 2018-10-12 Completed University of Globulin 00:00:00 [facility] [place] [facility] Rho (d) Immune 2018-10-12 Completed University of Globulin 00:00:00 [facility] [place] [facility] Rho (d) Immune 2018-10-12 Completed University of Globulin 00:00:00 [place] [facility] Rho (d) Immune 2018-10-12 Completed University of Globulin 00:00:00 [facility] [place] [facility] Rho (d) Immune 2018-10-12 Completed University of Globulin 00:00:00 [place] [facility] Rho (d) Immune 2018-10-12 Completed University of Globulin 00:00:00 [facility] [place] [facility] Rho (d) Immune 2018-10-12 Completed University of Globulin 00:00:00 [facility] [place] [facility] Rho (d) Immune 2018-10-12 Completed University of Globulin 00:00:00 [facility] [place] [facility] Rho (d) Immune 2018-10-12 Completed University of Globulin 00:00:00 [facility] [place] [facility] Rho (d) Immune 2018-10-12 Completed University of Globulin 00:00:00 [facility] [place] [facility] Rho (d) Immune 2018-10-12 Completed University of Globulin 00:00:00 [facility] [place] [facility] Rho (d) Immune 2018-10-12 Completed University of Globulin 00:00:00 [facility] [place] [facility] Rho (d) Immune 2018-10-12 Completed University of Globulin 00:00:00 [facility] [place] [facility] Rho (d) Immune 2018-10-12 Completed University of Globulin 00:00:00 [facility] [place] [facility] Rho (d) Immune 2018-10-12 Completed University of Globulin 00:00:00 [facility] [place] [facility] Rho (d) Immune 2018-10-12 Completed University of Globulin 00:00:00 [facility] [place] [facility] Rho (d) Immune 2018-10-12 Completed University of Globulin 00:00:00 [facility] [place] [facility] Rho (d) Immune 2018-10-12 Completed University of Globulin 00:00:00 [facility] [place] [facility] Rho (d) Immune 2018-10-12 Completed University of Globulin 00:00:00 [facility] [place] [facility] Rho (d) Immune 2018-10-12 Completed University of Globulin 00:00:00 [facility] [place] [facility] Rho (d) Immune 2018-10-12 Completed University of Globulin 00:00:00 [facility] [place] [facility] Rho (d) Immune 2018-10-12 Completed University of Globulin 00:00:00 [facility] [place] [facility] Rho (d) Immune 2018-10-12 Completed University of Globulin 00:00:00 [facility] [place] [facility] Rho (d) Immune 2018-10-12 Completed University of Globulin 00:00:00 [facility] [place] [facility] Rho (d) Immune 2018-10-12 Completed University of Globulin 00:00:00 [facility] [place] [facility] Rho (d) Immune 2018-10-12 Completed University of Globulin 00:00:00 [facility] [place] [facility] Rho (d) Immune 2018-10-12 Completed University of Globulin 00:00:00 [facility] [place] [facility] Rho (d) Immune 2018-10-12 Completed University of Globulin 00:00:00 [facility] [place] [facility] Rho (d) Immune 2018-10-12 Completed University of Globulin 00:00:00 [facility] Rho (d) Immune 2018-10-12 Completed University of Globulin 00:00:00 [facility] Rho (d) Immune 2018-10-12 Completed University of Globulin 00:00:00 [facility] Rho (d) Immune 2018-10-12 Completed University of Globulin 00:00:00 [facility] Rho (d) Immune 2018-10-12 Completed University of Globulin 00:00:00 [facility] Influenza Virus 2018-03-23 Completed Universit y of Vaccine 00:00:00 [facility] Influenza Virus 2018-03-23 Completed Universit y of Vaccine Quad .5 mL 00:00:00 [facility] 6+ MO Branch Influenza Virus 2018-03-23 Completed Universit y of Vaccine 00:00:00 [facility] Influenza Virus 2018-03-23 Completed Universit y of Vaccine [place] .5 mL 00:00:00 [facility] 6+ [place] Branch Influenza Virus 2018-03-23 Completed Universit y of Vaccine 00:00:00 [facility] Influenza Virus 2018-03-23 Completed Universit y of Vaccine [place] .5 mL 00:00:00 [facility] 6+ [place] Branch Influenza Virus 2018-03-23 Completed Universit y of Vaccine 00:00:00 [facility] Influenza Virus 2018-03-23 Completed [facility] Quad .5 mL 00:00:00 [facility] 6+ MO Branch Influenza Virus 2018-03-23 Completed [facility] Vaccine 00:00:00 [facility] Influenza Virus 2018-03-23 Completed [facility] Vaccine 00:00:00 [facility] Influenza Virus 2018-03-23 Completed [facility] Vaccine Quad .5 mL 00:00:00 [facility] 6+ MO Branch Influenza Virus 2018-03-23 Completed [facility] Vaccine 00:00:00 [facility] Influenza Virus 2018-03-23 Completed [facility] Vaccine Quad .5 mL 00:00:00 [facility] 6+ MO [facility] Influenza Virus 2018-03-23 Completed [facility] Vaccine 00:00:00 [facility] Influenza Virus 2018-03-23 Completed [facility] Vaccine Quad .5 mL 00:00:00 [facility] 6+ MO [facility] Influenza Virus 2018-03-23 Completed [facility] Vaccine 00:00:00 [facility] Influenza Virus 2018-03-23 Completed [facility] Vaccine Quad .5 mL 00:00:00 [facility] 6+ MO [facility] Influenza Virus 2018-03-23 Completed [facility] Vaccine 00:00:00 [facility] [place] Influenza Virus 2018-03-23 Completed [facility] Vaccine Quad .5 mL 00:00:00 [facility] 6+ MO [facility] Influenza Virus 2018-03-23 Completed [facility] Vaccine Quad .5 mL 00:00:00 [facility] 6+ MO [facility] Influenza Virus 2018-03-23 Completed [facility] Vaccine 00:00:00 [facility] [place] Influenza Virus 2018-03-23 Completed [facility] Vaccine Quad .5 mL 00:00:00 [facility] 6+ MO [facility] Influenza Virus 2018-03-23 Completed [facility] Vaccine 00:00:00 [facility] Influenza Virus 2018-03-23 Completed [facility] Vaccine Quad .5 mL 00:00:00 [facility] 6+ MO [facility] Influenza Virus 2018-03-23 Completed [facility] Vaccine 00:00:00 [facility] Influenza Virus 2018-03-23 Completed [facility] Vaccine Quad .5 mL 00:00:00 [facility] 6+ MO [facility] Influenza Virus 2018-03-23 Completed [facility] Vaccine 00:00:00 [facility] Influenza Virus 2018-03-23 Completed [facility] Vaccine Quad .5 mL 00:00:00 [facility] 6+ MO Branch Influenza Virus 2018-03-23 Completed [facility] Vaccine 00:00:00 [facility] Influenza Virus 2018-03-23 Completed [facility] Vaccine 00:00:00 [facility] Influenza Virus 2018-03-23 Completed [facility] Vaccine Quad .5 mL 00:00:00 [facility] 6+ MO [facility] Influenza Virus 2018-03-23 Completed [facility] Vaccine 00:00:00 [facility] [place] Influenza Virus 2018-03-23 Completed [facility] Vaccine Quad .5 mL 00:00:00 [facility] 6+ MO [facility] Influenza Virus 2018-03-23 Completed [facility] Vaccine 00:00:00 [facility] Influenza Virus 2018-03-23 Completed [facility] Vaccine Quad .5 mL 00:00:00 [facility] 6+ MO [facility] Influenza Virus 2018-03-23 Completed [facility] Vaccine 00:00:00 [facility] Influenza Virus 2018-03-23 Completed [facility] Vaccine Quad .5 mL 00:00:00 [facility] 6+ MO [facility] Influenza Virus 2018-03-23 Completed [facility] Vaccine 00:00:00 [facility] [place] Influenza Virus 2018-03-23 Completed [facility] Vaccine Quad .5 mL 00:00:00 [facility] 6+ MO [facility] Influenza Virus 2018-03-23 Completed [facility] Vaccine 00:00:00 [facility] [place] Influenza Virus 2018-03-23 Completed [facility] Vaccine Quad .5 mL 00:00:00 [facility] 6+ MO [facility] Influenza Virus 2018-03-23 Completed [facility] Vaccine Quad .5 mL 00:00:00 [facility] 6+ MO [facility] Influenza Virus 2018-03-23 Completed [facility] Vaccine Quad .5 mL 00:00:00 [facility] 6+ MO [facility] Influenza Virus 2018-03-23 Completed [facility] Vaccine Quad .5 mL 00:00:00 [facility] 6+ MO [facility] Influenza Virus 2018-03-23 Completed [facility] Vaccine Quad .5 mL 00:00:00 [facility] 6+ MO [facility] Influenza Virus 2018-03-23 Completed [facility] Vaccine Quad .5 mL 00:00:00 [facility] 6+ MO [facility] Influenza Virus 2018-03-23 Completed [facility] Vaccine Quad .5 mL 00:00:00 [facility] 6+ MO [facility] Influenza Virus 2018-03-23 Completed [facility] Vaccine Quad .5 mL 00:00:00 [facility] 6+ MO [facility] Influenza Virus 2018-03-23 Completed [facility] Vaccine 00:00:00 [facility] [place] Influenza Virus 2018-03-23 Completed [facility] Vaccine Quad .5 mL 00:00:00 [facility] 6+ [facility] Influenza Virus 2018-03-23 Completed [facility] Vaccine 00:00:00 [facility] [place] Influenza Virus 2018-03-23 Completed [facility] Vaccine Quad .5 mL 00:00:00 [facility] 6+ MO [facility] Influenza Virus 2018-03-23 Completed [facility] Vaccine 00:00:00 [facility] [place] Influenza Virus 2018-03-23 Completed [facility] Vaccine Quad .5 mL 00:00:00 [facility] 6+ MO [facility] Influenza Virus 2018-03-23 Completed [facility] Vaccine 00:00:00 [facility] Influenza Virus 2018-03-23 Completed [facility] Vaccine Quad .5 mL 00:00:00 [facility] 6+ MO [facility] Influenza Virus 2018-03-23 Completed [facility] Vaccine 00:00:00 [facility] [place] Influenza Virus 2018-03-23 Completed [facility] Vaccine Quad .5 mL 00:00:00 [facility] 6+ MO [facility] Influenza Virus 2018-03-23 Completed [facility] Vaccine 00:00:00 [facility] Influenza Virus 2018-03-23 Completed [facility] Vaccine Quad .5 mL 00:00:00 [facility] 6+ [facility] Influenza Virus 2018-03-23 Completed [facility] Vaccine 00:00:00 [facility] Influenza Virus 2018-03-23 Completed [facility] Vaccine Quad .5 mL 00:00:00 [facility] 6+ MO [facility] Influenza Virus 2018-03-23 Completed [facility] Vaccine 00:00:00 [facility] Influenza Virus 2018-03-23 Completed [facility] Vaccine Quad .5 mL 00:00:00 [facility] 6+ MO Branch Influenza Virus 2018-03-23 Completed [facility] Vaccine 00:00:00 [facility] Influenza Virus 2018-03-23 Completed [facility] Vaccine Quad .5 mL 00:00:00 [facility] 6+ MO Branch Influenza Virus 2018-03-23 Completed [facility] Vaccine 00:00:00 [facility] Influenza Virus 2018-03-23 Completed [facility] Vaccine Quad .5 mL 00:00:00 [facility] 6+ MO Branch Influenza Virus 2018-03-23 Completed [facility] Vaccine 00:00:00 [facility] Influenza Virus 2018-03-23 Completed [facility] Vaccine Quad .5 mL 00:00:00 [facility] 6+ MO [facility] Influenza Virus 2018-03-23 Completed [facility] Vaccine 00:00:00 [facility] Influenza Virus 2018-03-23 Completed [facility] Vaccine Quad .5 mL 00:00:00 [facility] 6+ MO [facility] Influenza Virus 2018-03-23 Completed [facility] Vaccine 00:00:00 [facility] Influenza Virus 2018-03-23 Completed [facility] Vaccine Quad .5 mL 00:00:00 [facility] 6+ MO [facility] Influenza Virus 2018-03-23 Completed [facility] Vaccine 00:00:00 [facility] Influenza Virus 2018-03-23 Completed [facility] Vaccine Quad .5 mL 00:00:00 [facility] 6+ MO [place] Influenza Virus 2018-03-23 Completed [facility] Vaccine 00:00:00 [facility] Influenza Virus 2018-03-23 Completed [facility] Vaccine Quad .5 mL 00:00:00 [facility] 6+ MO [place] Influenza Virus 2018-03-23 Completed [facility] Vaccine 00:00:00 [facility] Influenza Virus 2018-03-23 Completed [facility] Vaccine Quad .5 mL 00:00:00 [facility] 6+ MO [place] Influenza Virus 2018-03-23 Completed [facility] Vaccine 00:00:00 [facility] Influenza Virus 2018-03-23 Completed [facility] Vaccine Quad .5 mL 00:00:00 [facility] 6+ MO [place] Influenza Virus 2018-03-23 Completed [facility] Vaccine 00:00:00 [facility] Influenza Virus 2018-03-23 Completed [facility] Vaccine Quad .5 mL 00:00:00 [facility] 6+ MO [place] Influenza Virus 2018-03-23 Completed [facility] Vaccine Quad .5 mL 00:00:00 [facility] 6+ MO [place] Meningococcal 2013-01-06 Completed [facility] Vaccine 00:00:00 [facility] TDAP 2013-01-06 Completed [facility] 00:00:00 [facility] Varicella 2013-01-06 Completed [facility] (varivax)(chicken 00:00:00 [place] [facility] pox) [facility] HEPATITIS A 2013-01-06 Completed [facility] 00:00:00 [facility] Meningococcal 2013-01-06 Completed [facility] of Vaccine 00:00:00 [facility] TDAP 2013-01-06 Completed [facility] 00:00:00 [facility] Varicella 2013-01-06 Completed [facility] (varivax)(chicken 00:00:00 [facility] pox[facility] HEPATITIS A 2013-01-06 Completed [facility] 00:00:00 [facility] Meningococcal 2013-01-06 Completed [facility] Vaccine 00:00:00 [facility] TDAP 2013-01-06 Completed [facility] 00:00:00 [facility] Varicella 2013-01-06 Completed [facility] (varivax)(chicken 00:00:00 [facility] pox[facility] HEPATITIS A 2013-01-06 Completed [facility] 00:00:00 [facility] Meningococcal 2013-01-06 Completed [facility] Vaccine 00:00:00 [facility] HEPATITIS A 2013-01-06 Completed [facility] 00:00:00 [facility] TDAP 2013-01-06 Completed [facility] 00:00:00 [facility] Varicella 2013-01-06 Completed [facility] (varivax)(chicken 00:00:00 [place] [facility] pox[facility] HEPATITIS A 2013-01-06 Completed [facility] 00:00:00 [facility] Meningococcal 2013-01-06 Completed [facility] of Vaccine 00:00:00 [facility] TDAP 2013-01-06 Completed [facility] 00:00:00 [facility] Varicella 2013-01-06 Completed [facility] of (varivax)(chicken 00:00:00 [facility] edical pox) Branch HEPATITIS A 2013-01-06 Completed [facility] of 00:00:00 [facility] Meningococcal 2013-01-06 Completed [facility] of Vaccine 00:00:00 [facility] Meningococcal 2013-01-06 Completed [facility] Vaccine 00:00:00 [facility] TDAP 2013-01-06 Completed [facility] 00:00:00 [facility] Varicella 2013-01-06 Completed [facility] (varivax)(chicken 00:00:00 [place] [facility] pox[facility] HEPATITIS A 2013-01-06 Completed [facility] 00:00:00 [facility] Meningococcal 2013-01-06 Completed [facility] of Vaccine 00:00:00 [facility] TDAP 2013-01-06 Completed [facility] 00:00:00 [facility] Varicella 2013-01-06 Completed [facility] (varivax)(chicken 00:00:00 [place] [facility] pox[facility] TDAP 2013-01-06 Completed [facility] 00:00:00 [facility] Varicella 2013-01-06 Completed [facility] (varivax)(chicken 00:00:00 [place] [facility] pox) [facility] HEPATITIS A 2013-01-06 Completed [facility] 00:00:00 [facility] Meningococcal 2013-01-06 Completed [facility] Vaccine 00:00:00 [facility] TDAP 2013-01-06 Completed [facility] 00:00:00 [facility] Varicella 2013-01-06 Completed [facility] (varivax)(chicken 00:00:00 [place] [facility] pox) [facility] HEPATITIS A 2013-01-06 Completed [facility] 00:00:00 [facility] Meningococcal 2013-01-06 Completed [facility] Vaccine 00:00:00 [facility] TDAP 2013-01-06 Completed [facility] 00:00:00 [facility] Varicella 2013-01-06 Completed [facility] (varivax)(chicken 00:00:00 [facility] pox) [facility] HEPATITIS A 2013-01-06 Completed [facility] 00:00:00 [facility] Meningococcal 2013-01-06 Completed [facility] Vaccine 00:00:00 [facility] TDAP 2013-01-06 Completed [facility] 00:00:00 [facility] Varicella 2013-01-06 Completed [facility] (varivax)(chicken 00:00:00 [facility] pox[facility] HEPATITIS A 2013-01-06 Completed [facility] 00:00:00 [facility] Meningococcal 2013-01-06 Completed [facility] Vaccine 00:00:00 [facility] TDAP 2013-01-06 Completed [facility] 00:00:00 [facility] Varicella 2013-01-06 Completed [facility] (varivax)(chicken 00:00:00 [facility] pox) [facility] HEPATITIS A 2013-01-06 Completed [facility] 00:00:00 [facility] Meningococcal 2013-01-06 Completed [facility] Vaccine 00:00:00 [facility] TDAP 2013-01-06 Completed [facility] 00:00:00 [facility] Varicella 2013-01-06 Completed [facility] (varivax)(chicken 00:00:00 [place] [facility] pox) [facility] HEPATITIS A 2013-01-06 Completed [facility] 00:00:00 [facility] HEPATITIS A 2013-01-06 Completed [facility] 00:00:00 [facility] Meningococcal 2013-01-06 Completed [facility] Vaccine 00:00:00 [facility] TDAP 2013-01-06 Completed [facility] 00:00:00 [facility] Varicella 2013-01-06 Completed [facility] (varivax)(chicken 00:00:00 [facility] pox) [facility] HEPATITIS A 2013-01-06 Completed [facility] 00:00:00 [facility] Meningococcal 2013-01-06 Completed [facility] Vaccine 00:00:00 [facility] TDAP 2013-01-06 Completed [facility] 00:00:00 [facility] Varicella 2013-01-06 Completed [facility] (varivax)(chicken 00:00:00 [place] [facility] pox) [facility] Meningococcal 2013-01-06 Completed [facility] Vaccine 00:00:00 [facility] HEPATITIS A 2013-01-06 Completed [facility] 00:00:00 [facility] Meningococcal 2013-01-06 Completed [facility] Vaccine 00:00:00 [facility] TDAP 2013-01-06 Completed [facility] 00:00:00 [facility] Varicella 2013-01-06 Completed [facility] (varivax)(chicken 00:00:00 [place] [facility] pox) [facility] HEPATITIS A 2013-01-06 Completed [facility] 00:00:00 [facility] Meningococcal 2013-01-06 Completed [facility] Vaccine 00:00:00 [facility] TDAP 2013-01-06 Completed [facility] 00:00:00 [facility] Varicella 2013-01-06 Completed [facility] (varivax)(chicken 00:00:00 [place] [facility] pox[facility] TDAP 2013-01-06 Completed [facility] 00:00:00 [facility] Varicella 2013-01-06 Completed [facility] (varivax)(chicken 00:00:00 [place] [facility] pox) [facility] HEPATITIS A 2013-01-06 Completed [facility] 00:00:00 [facility] Meningococcal 2013-01-06 Completed [facility] Vaccine 00:00:00 [facility] TDAP 2013-01-06 Completed [facility] 00:00:00 [facility] Varicella 2013-01-06 Completed [facility] (varivax)(chicken 00:00:00 [place] [facility] pox) [facility] HEPATITIS A 2013-01-06 Completed [facility] 00:00:00 [facility] Meningococcal 2013-01-06 Completed [facility] Vaccine 00:00:00 [facility] TDAP 2013-01-06 Completed [facility] 00:00:00 [facility] Varicella 2013-01-06 Completed [facility] (varivax)(chicken 00:00:00 [place] [facility] pox) [facility] HEPATITIS A 2013-01-06 Completed [facility] 00:00:00 [facility] Meningococcal 2013-01-06 Completed [facility] Vaccine 00:00:00 [facility] TDAP 2013-01-06 Completed [facility] 00:00:00 [facility] Varicella 2013-01-06 Completed [facility] (varivax)(chicken 00:00:00 [place] [facility] pox) [facility] HEPATITIS A 2013-01-06 Completed [facility] 00:00:00 [facility] Meningococcal 2013-01-06 Completed [facility] Vaccine 00:00:00 [facility] TDAP 2013-01-06 Completed [facility] 00:00:00 [facility] Varicella 2013-01-06 Completed [facility] (varivax)(chicken 00:00:00 [place] [facility] pox) [facility] HEPATITIS A 2013-01-06 Completed [facility] 00:00:00 [facility] Meningococcal 2013-01-06 Completed [facility] Vaccine 00:00:00 [facility] TDAP 2013-01-06 Completed [facility] 00:00:00 [facility] Varicella 2013-01-06 Completed [facility] (varivax)(chicken 00:00:00 [place] [facility] pox) [facility] HEPATITIS A 2013-01-06 Completed [facility] 00:00:00 [facility] Meningococcal 2013-01-06 Completed [facility] Vaccine 00:00:00 [facility] TDAP 2013-01-06 Completed [facility] 00:00:00 [facility] Varicella 2013-01-06 Completed [facility] (varivax)(chicken 00:00:00 [place] [facility] pox) [facility] HEPATITIS A 2013-01-06 Completed [facility] 00:00:00 [facility] Meningococcal 2013-01-06 Completed [facility] Vaccine 00:00:00 [facility] TDAP 2013-01-06 Completed [facility] 00:00:00 [facility] Varicella 2013-01-06 Completed [facility] (varivax)(chicken 00:00:00 [place] [facility] pox) [facility] HEPATITIS A 2013-01-06 Completed [facility] 00:00:00 [facility] Meningococcal 2013-01-06 Completed [facility] Vaccine 00:00:00 [facility] TDAP 2013-01-06 Completed [facility] 00:00:00 [facility] Varicella 2013-01-06 Completed [facility] (varivax)(chicken 00:00:00 [place] [facility] pox) [facility] HEPATITIS A 2013-01-06 Completed [facility] 00:00:00 [facility] Meningococcal 2013-01-06 Completed [facility] Vaccine 00:00:00 [facility] TDAP 2013-01-06 Completed [facility] 00:00:00 [facility] Varicella 2013-01-06 Completed [facility] (varivax)(chicken 00:00:00 [place] [facility] pox) [facility] HEPATITIS A 2013-01-06 Completed [facility] 00:00:00 [facility] Meningococcal 2013-01-06 Completed [facility] Vaccine 00:00:00 [facility] TDAP 2013-01-06 Completed [facility] 00:00:00 [facility] Varicella 2013-01-06 Completed [facility] (varivax)(chicken 00:00:00 [place] [facility] pox) [facility] HEPATITIS A 2013-01-06 Completed [facility] 00:00:00 [facility] Meningococcal 2013-01-06 Completed [facility] Vaccine 00:00:00 [facility] TDAP 2013-01-06 Completed [facility] 00:00:00 [facility] Varicella 2013-01-06 Completed [facility] (varivax)(chicken 00:00:00 [place] [facility] pox[facility] HEPATITIS A 2013-01-06 Completed [facility] 00:00:00 [facility] Meningococcal 2013-01-06 Completed [facility] Vaccine 00:00:00 [facility] TDAP 2013-01-06 Completed [facility] 00:00:00 [facility] Varicella 2013-01-06 Completed [facility] (varivax)(chicken 00:00:00 [place] [facility] pox) [facility] HEPATITIS A 2013-01-06 Completed [facility] 00:00:00 [facility] Meningococcal 2013-01-06 Completed [facility] Vaccine 00:00:00 [facility] TDAP 2013-01-06 Completed [facility] 00:00:00 [facility] Varicella 2013-01-06 Completed [facility] (varivax)(chicken 00:00:00 [place] [facility] pox) [facility] HEPATITIS A 2013-01-06 Completed [facility] 00:00:00 [facility] Meningococcal 2013-01-06 Completed [facility] Vaccine 00:00:00 [facility] TDAP 2013-01-06 Completed [facility] 00:00:00 [facility] Varicella 2013-01-06 Completed [facility] (varivax)(chicken 00:00:00 [place] [facility] pox) [facility] HEPATITIS A 2013-01-06 Completed [facility] 00:00:00 [facility] Meningococcal 2013-01-06 Completed [facility] Vaccine 00:00:00 [facility] TDAP 2013-01-06 Completed [facility] 00:00:00 [facility] Varicella 2013-01-06 Completed [facility] (varivax)(chicken 00:00:00 [place] [facility] pox) [facility] HEPATITIS A 2013-01-06 Completed [facility] 00:00:00 [facility] Meningococcal 2013-01-06 Completed [facility] Vaccine 00:00:00 [facility] TDAP 2013-01-06 Completed [facility] 00:00:00 [facility] Varicella 2013-01-06 Completed [facility] (varivax)(chicken 00:00:00 [place] [facility] pox) [facility] HEPATITIS A 2013-01-06 Completed [facility] 00:00:00 [facility] Meningococcal 2013-01-06 Completed [facility] Vaccine 00:00:00 [facility] TDAP 2013-01-06 Completed [facility] 00:00:00 [facility] Varicella 2013-01-06 Completed [facility] (varivax)(chicken 00:00:00 [place] [facility] pox[facility] HEPATITIS A 2013-01-06 Completed [facility] 00:00:00 [facility] Meningococcal 2013-01-06 Completed [facility] Vaccine 00:00:00 [facility] TDAP 2013-01-06 Completed [facility] 00:00:00 [facility] Varicella 2013-01-06 Completed [facility] (varivax)(chicken 00:00:00 [place] [facility] pox) [facility] HEPATITIS A 2013-01-06 Completed [facility] 00:00:00 [facility] Meningococcal 2013-01-06 Completed [facility] Vaccine 00:00:00 [facility] TDAP 2013-01-06 Completed [facility] 00:00:00 [facility] Varicella 2013-01-06 Completed [facility] (varivax)(chicken 00:00:00 [place] [facility] pox) [facility] HEPATITIS A 2013-01-06 Completed [facility] 00:00:00 [facility] Meningococcal 2013-01-06 Completed [facility] Vaccine 00:00:00 [facility] TDAP 2013-01-06 Completed [facility] 00:00:00 [facility] Varicella 2013-01-06 Completed [facility] (varivax)(chicken 00:00:00 [place] [facility] pox) [facility] HEPATITIS A 2013-01-06 Completed [facility] 00:00:00 [facility] Meningococcal 2013-01-06 Completed [facility] Vaccine 00:00:00 [facility] TDAP 2013-01-06 Completed [facility] 00:00:00 [facility] Varicella 2013-01-06 Completed [facility] (varivax)(chicken 00:00:00 [place] [facility] pox[facility] HEPATITIS A 2013-01-06 Completed [facility] 00:00:00 [facility] Influenza Virus 2011-04-09 Completed [facility] Vaccine 00:00:00 [facility] Influenza Virus 2011-04-09 Completed [facility] Vaccine 00:00:00 [facility] Influenza Virus 2011-04-09 Completed [facility] Vaccine 00:00:00 [facility] Influenza Virus 2011-04-09 Completed [facility] Vaccine 00:00:00 [facility] Influenza Virus 2011-04-09 Completed [facility] Vaccine 00:00:00 [facility] Influenza Virus 2011-04-09 Completed [facility] Vaccine 00:00:00 [facility] Influenza Virus 2011-04-09 Completed [facility] Vaccine 00:00:00 [facility] Influenza Virus 2011-04-09 Completed [facility] Vaccine 00:00:00 [facility] Influenza Virus 2011-04-09 Completed [facility] Vaccine 00:00:00 [facility] Influenza Virus 2011-04-09 Completed [facility] Vaccine 00:00:00 [facility] Influenza Virus 2011-04-09 Completed [facility] Vaccine 00:00:00 [facility] Influenza Virus 2011-04-09 Completed [facility] Vaccine 00:00:00 [facility] Influenza Virus 2011-04-09 Completed [facility] Vaccine 00:00:00 [facility] Influenza Virus 2011-04-09 Completed [facility] Vaccine 00:00:00 [facility] Influenza Virus 2011-04-09 Completed [facility] Vaccine 00:00:00 [facility] Influenza Virus 2011-04-09 Completed [facility] Vaccine 00:00:00 [facility] Influenza Virus 2011-04-09 Completed [facility] Vaccine 00:00:00 [facility] Influenza Virus 2011-04-09 Completed [facility] Vaccine 00:00:00 [facility] Influenza Virus 2011-04-09 Completed [facility] Vaccine 00:00:00 [facility] Influenza Virus 2011-04-09 Completed [facility] Vaccine 00:00:00 [facility] Influenza Virus 2011-04-09 Completed [facility] Vaccine 00:00:00 [facility] Influenza Virus 2011-04-09 Completed [facility] Vaccine 00:00:00 [facility] Influenza Virus 2011-04-09 Completed [facility] Vaccine 00:00:00 [facility] Influenza Virus 2011-04-09 Completed [facility] Vaccine 00:00:00 [facility] Influenza Virus 2011-04-09 Completed [facility] Vaccine 00:00:00 [facility] Influenza Virus 2011-04-09 Completed [facility] Vaccine 00:00:00 [facility] Influenza Virus 2011-04-09 Completed [facility] Vaccine 00:00:00 [facility] Influenza Virus 2011-04-09 Completed [facility] Vaccine 00:00:00 [facility] Influenza Virus 2011-04-09 Completed [facility] Vaccine 00:00:00 [facility] Influenza Virus 2011-04-09 Completed [facility] Vaccine 00:00:00 [facility] Influenza Virus 2011-04-09 Completed [facility] Vaccine 00:00:00 [facility] Influenza Virus 2011-04-09 Completed [facility] Vaccine 00:00:00 [facility] Influenza Virus 2011-04-09 Completed [facility] Vaccine 00:00:00 [facility] Influenza Virus 2011-04-09 Completed [facility] Vaccine 00:00:00 [facility] Influenza Virus 2011-04-09 Completed [facility] Vaccine 00:00:00 [facility] Influenza Virus 2011-04-09 Completed [facility] Vaccine 00:00:00 [facility] Influenza Virus 2011-04-09 Completed [facility] Vaccine 00:00:00 [facility] Influenza Virus 2011-04-09 Completed [facility] Vaccine 00:00:00 [facility] Influenza Virus 2011-04-09 Completed [facility] Vaccine 00:00:00 [facility] DTAP 2005-05-09 Completed [facility] 00:00:00 [facility] HEPATITIS A 2005-05-09 Completed [facility] 00:00:00 [facility] MMR 2005-05-09 Completed [facility] 00:00:00 [facility] Pneumococcal 13 2005-05-09 Completed [facility] Conjugate, PCV13 00:00:00 [facility] (Prevnar 13) [facility] DTAP 2005-05-09 Completed [facility] 00:00:00 [facility] Polio (IPV/OPV) 2005-05-09 Completed [facility] 00:00:00 [facility] DTAP 2005-05-09 Completed [facility] 00:00:00 [facility] HEPATITIS A 2005-05-09 Completed [facility] 00:00:00 [facility] MMR 2005-05-09 Completed [facility] 00:00:00 [facility] Pneumococcal 13 2005-05-09 Completed [facility] Conjugate, PCV13 00:00:00 [place] [facility] (Prevnar 13) [facility] Polio (IPV/OPV) 2005-05-09 Completed [facility] 00:00:00 [facility] HEPATITIS A 2005-05-09 Completed [facility] 00:00:00 [facility] DTAP 2005-05-09 Completed [facility] 00:00:00 [facility] HEPATITIS A 2005-05-09 Completed [facility] of 00:00:00 [facility] MMR 2005-05-09 Completed [facility] 00:00:00 [facility] Pneumococcal 13 2005-05-09 Completed [facility] Conjugate, PCV13 00:00:00 [facility] dical (Prevnar 13) Branch Polio (IPV/OPV) 2005-05-09 Completed [facility] 00:00:00 [facility] DTAP 2005-05-09 Completed [facility] 00:00:00 [facility] HEPATITIS A 2005-05-09 Completed [facility] 00:00:00 [facility] MMR 2005-05-09 Completed [facility] 00:00:00 [facility] Pneumococcal 13 2005-05-09 Completed [facility] of Conjugate, PCV13 00:00:00 [facility] dical (Prevnar 13) Branch Polio (IPV/OPV) 2005-05-09 Completed [facility] 00:00:00 [facility] DTAP 2005-05-09 Completed [facility] 00:00:00 [facility] HEPATITIS A 2005-05-09 Completed [facility] of 00:00:00 [facility] MMR 2005-05-09 Completed [facility] of 00:00:00 [facility] MMR 2005-05-09 Completed [facility] 00:00:00 [facility] Pneumococcal 13 2005-05-09 Completed [facility] of Conjugate, PCV13 00:00:00 [facility] dical (Prevnar 13) Branch Pneumococcal 13 2005-05-09 Completed [facility] of Conjugate, PCV13 00:00:00 [facility] dical (Prevnar 13) Branch Polio (IPV/OPV) 2005-05-09 Completed [facility] 00:00:00 [facility] DTAP 2005-05-09 Completed [facility] 00:00:00 [facility] HEPATITIS A 2005-05-09 Completed [facility] of 00:00:00 [facility] MMR 2005-05-09 Completed [facility] 00:00:00 [facility] Polio (IPV/OPV) 2005-05-09 Completed [facility] 00:00:00 [facility] Pneumococcal 13 2005-05-09 Completed [facility] Conjugate, PCV13 00:00:00 [facility] (Prevnar 13) [facility] Polio (IPV/OPV) 2005-05-09 Completed [facility] 00:00:00 [facility] DTAP 2005-05-09 Completed [facility] 00:00:00 [facility] HEPATITIS A 2005-05-09 Completed [facility] of 00:00:00 [facility] MMR 2005-05-09 Completed [facility] 00:00:00 [facility] Pneumococcal 13 2005-05-09 Completed [facility] Conjugate, PCV13 00:00:00 [place] [facility] (Prevnar 13) [facility] Polio (IPV/OPV) 2005-05-09 Completed [facility] 00:00:00 [facility] DTAP 2005-05-09 Completed [facility] of 00:00:00 [facility] HEPATITIS A 2005-05-09 Completed [facility] of 00:00:00 [facility] MMR 2005-05-09 Completed [facility] of 00:00:00 [facility] Pneumococcal 13 2005-05-09 Completed [facility] of Conjugate, PCV13 00:00:00 [facility] dical (Prevnar 13) Branch Polio (IPV/OPV) 2005-05-09 Completed [facility] 00:00:00 [facility] DTAP 2005-05-09 Completed [facility] of 00:00:00 [facility] HEPATITIS A 2005-05-09 Completed [facility] of 00:00:00 [facility] MMR 2005-05-09 Completed [facility] 00:00:00 [facility] Pneumococcal 13 2005-05-09 Completed [facility] Conjugate, PCV13 00:00:00 [place] [facility] (Prevnar 13) [facility] Polio (IPV/OPV) 2005-05-09 Completed [facility] 00:00:00 [facility] DTAP 2005-05-09 Completed [facility] 00:00:00 [facility] HEPATITIS A 2005-05-09 Completed [facility] of 00:00:00 [facility] MMR 2005-05-09 Completed [facility] 00:00:00 [facility] Pneumococcal 13 2005-05-09 Completed [facility] Conjugate, PCV13 00:00:00 [place] [facility] (Prevnar 13) Branch Polio (IPV/OPV) 2005-05-09 Completed [facility] 00:00:00 [facility] DTAP 2005-05-09 Completed [facility] 00:00:00 [facility] HEPATITIS A 2005-05-09 Completed [facility] of 00:00:00 [facility] MMR 2005-05-09 Completed [facility] of 00:00:00 [facility] Pneumococcal 13 2005-05-09 Completed [facility] of Conjugate, PCV13 00:00:00 [facility] dical (Prevnar 13) Branch Polio (IPV/OPV) 2005-05-09 Completed [facility] 00:00:00 [facility] DTAP 2005-05-09 Completed [facility] of 00:00:00 [facility] HEPATITIS A 2005-05-09 Completed [facility] of 00:00:00 [facility] MMR 2005-05-09 Completed [facility] 00:00:00 [facility] Pneumococcal 13 2005-05-09 Completed [facility] of Conjugate, PCV13 00:00:00 [facility] dical (Prevnar 13) Branch Polio (IPV/OPV) 2005-05-09 Completed [facility] 00:00:00 [facility] DTAP 2005-05-09 Completed [facility] of 00:00:00 [facility] HEPATITIS A 2005-05-09 Completed [facility] of 00:00:00 [facility] MMR 2005-05-09 Completed [facility] of 00:00:00 [facility] Pneumococcal 13 2005-05-09 Completed [facility] of Conjugate, PCV13 00:00:00 [facility] dical (Prevnar 13) Branch Polio (IPV/OPV) 2005-05-09 Completed [facility] 00:00:00 [facility] DTAP 2005-05-09 Completed [facility] of 00:00:00 [facility] HEPATITIS A 2005-05-09 Completed [facility] of 00:00:00 [facility] MMR 2005-05-09 Completed [facility] of 00:00:00 [facility] Pneumococcal 13 2005-05-09 Completed [facility] of Conjugate, PCV13 00:00:00 [facility] dical (Prevnar 13) Branch Polio (IPV/OPV) 2005-05-09 Completed [facility] 00:00:00 [facility] DTAP 2005-05-09 Completed [facility] of 00:00:00 [facility] HEPATITIS A 2005-05-09 Completed [facility] 00:00:00 [facility] MMR 2005-05-09 Completed [facility] 00:00:00 [facility] Pneumococcal 13 2005-05-09 Completed [facility] Conjugate, PCV13 00:00:00 [place] [facility] (Prevnar 13) Branch Polio (IPV/OPV) 2005-05-09 Completed [facility] 00:00:00 [facility] DTAP 2005-05-09 Completed [facility] of 00:00:00 [facility] HEPATITIS A 2005-05-09 Completed [facility] of 00:00:00 [facility] MMR 2005-05-09 Completed [facility] 00:00:00 [facility] Pneumococcal 13 2005-05-09 Completed [facility] Conjugate, PCV13 00:00:00 [facility] (Prevnar 13) Branch Polio (IPV/OPV) 2005-05-09 Completed [facility] 00:00:00 [facility] DTAP 2005-05-09 Completed [facility] of 00:00:00 [facility] HEPATITIS A 2005-05-09 Completed [facility] of 00:00:00 [facility] MMR 2005-05-09 Completed [facility] of 00:00:00 [facility] Pneumococcal 13 2005-05-09 Completed [facility] of Conjugate, PCV13 00:00:00 [facility] dical (Prevnar 13) Branch Polio (IPV/OPV) 2005-05-09 Completed [facility] of 00:00:00 [facility] DTAP 2005-05-09 Completed [facility] of 00:00:00 [facility] HEPATITIS A 2005-05-09 Completed [facility] 00:00:00 [facility] MMR 2005-05-09 Completed [facility] 00:00:00 [facility] Pneumococcal 13 2005-05-09 Completed [facility] Conjugate, PCV13 00:00:00 [place] [facility] (Prevnar 13) Branch Polio (IPV/OPV) 2005-05-09 Completed [facility] 00:00:00 [facility] DTAP 2005-05-09 Completed [facility] 00:00:00 [facility] HEPATITIS A 2005-05-09 Completed [facility] of 00:00:00 [facility] MMR 2005-05-09 Completed [facility] 00:00:00 [facility] Pneumococcal 13 2005-05-09 Completed [facility] Conjugate, PCV13 00:00:00 [place] [facility] (Prevnar 13) Branch Polio (IPV/OPV) 2005-05-09 Completed [facility] 00:00:00 [facility] DTAP 2005-05-09 Completed [facility] of 00:00:00 [facility] HEPATITIS A 2005-05-09 Completed [facility] 00:00:00 [facility] MMR 2005-05-09 Completed [facility] 00:00:00 [facility] Pneumococcal 13 2005-05-09 Completed [facility] of Conjugate, PCV13 00:00:00 [facility] dical (Prevnar 13) Branch Polio (IPV/OPV) 2005-05-09 Completed [facility] 00:00:00 [facility] DTAP 2005-05-09 Completed [facility] of 00:00:00 [facility] HEPATITIS A 2005-05-09 Completed [facility] of 00:00:00 [facility] MMR 2005-05-09 Completed [facility] 00:00:00 [facility] Pneumococcal 13 2005-05-09 Completed [facility] of Conjugate, PCV13 00:00:00 [facility] dical (Prevnar 13) Branch Polio (IPV/OPV) 2005-05-09 Completed [facility] 00:00:00 [facility] DTAP 2005-05-09 Completed [facility] of 00:00:00 [facility] HEPATITIS A 2005-05-09 Completed [facility] of 00:00:00 [facility] MMR 2005-05-09 Completed [facility] 00:00:00 [facility] Pneumococcal 13 2005-05-09 Completed [facility] of Conjugate, PCV13 00:00:00 [facility] dical (Prevnar 13) Branch Polio (IPV/OPV) 2005-05-09 Completed [facility] 00:00:00 [facility] DTAP 2005-05-09 Completed [facility] of 00:00:00 [facility] HEPATITIS A 2005-05-09 Completed [facility] 00:00:00 [facility] MMR 2005-05-09 Completed [facility] 00:00:00 [facility] Pneumococcal 13 2005-05-09 Completed [facility] of Conjugate, PCV13 00:00:00 [facility] dical (Prevnar 13) Branch Polio (IPV/OPV) 2005-05-09 Completed [facility] 00:00:00 [facility] DTAP 2005-05-09 Completed [facility] of 00:00:00 [facility] HEPATITIS A 2005-05-09 Completed [facility] 00:00:00 [facility] MMR 2005-05-09 Completed [facility] 00:00:00 [facility] Pneumococcal 13 2005-05-09 Completed [facility] Conjugate, PCV13 00:00:00 [facility] (Prevnar 13) Branch Polio (IPV/OPV) 2005-05-09 Completed [facility] 00:00:00 [facility] DTAP 2005-05-09 Completed [facility] of 00:00:00 [facility] HEPATITIS A 2005-05-09 Completed [facility] of 00:00:00 [facility] MMR 2005-05-09 Completed [facility] of 00:00:00 [facility] Pneumococcal 13 2005-05-09 Completed [facility] Conjugate, PCV13 00:00:00 [facility] (Prevnar 13) Branch Polio (IPV/OPV) 2005-05-09 Completed [facility] 00:00:00 [facility] DTAP 2005-05-09 Completed [facility] of 00:00:00 [facility] HEPATITIS A 2005-05-09 Completed [facility] of 00:00:00 [facility] MMR 2005-05-09 Completed [facility] of 00:00:00 [facility] Pneumococcal 13 2005-05-09 Completed [facility] of Conjugate, PCV13 00:00:00 [facility] dical (Prevnar 13) Branch Polio (IPV/OPV) 2005-05-09 Completed [facility] of 00:00:00 [facility] DTAP 2005-05-09 Completed [facility] of 00:00:00 [facility] HEPATITIS A 2005-05-09 Completed [facility] of 00:00:00 [facility] MMR 2005-05-09 Completed [facility] of 00:00:00 [facility] Pneumococcal 13 2005-05-09 Completed [facility] of Conjugate, PCV13 00:00:00 [facility] dical (Prevnar 13) Branch Polio (IPV/OPV) 2005-05-09 Completed [facility] 00:00:00 [facility] DTAP 2005-05-09 Completed [facility] of 00:00:00 [facility] HEPATITIS A 2005-05-09 Completed [facility] of 00:00:00 [facility] MMR 2005-05-09 Completed [facility] 00:00:00 [facility] Pneumococcal 13 2005-05-09 Completed [facility] Conjugate, PCV13 00:00:00 [place] [facility] (Prevnar 13) Branch Polio (IPV/OPV) 2005-05-09 Completed [facility] 00:00:00 [facility] DTAP 2005-05-09 Completed [facility] of 00:00:00 [facility] HEPATITIS A 2005-05-09 Completed [facility] of 00:00:00 [facility] MMR 2005-05-09 Completed [facility] of 00:00:00 [facility] Pneumococcal 13 2005-05-09 Completed [facility] of Conjugate, PCV13 00:00:00 [facility] dical (Prevnar 13) Branch Polio (IPV/OPV) 2005-05-09 Completed [facility] 00:00:00 [facility] DTAP 2005-05-09 Completed [facility] of 00:00:00 [facility] DTAP 2005-05-09 Completed [facility] of 00:00:00 [facility] HEPATITIS A 2005-05-09 Completed [facility] of 00:00:00 [facility] MMR 2005-05-09 Completed [facility] 00:00:00 [facility] Pneumococcal 13 2005-05-09 Completed [facility] of Conjugate, PCV13 00:00:00 [facility] dical (Prevnar 13) Branch Polio (IPV/OPV) 2005-05-09 Completed [facility] of 00:00:00 [facility] DTAP 2005-05-09 Completed [facility] of 00:00:00 [facility] HEPATITIS A 2005-05-09 Completed [facility] of 00:00:00 [facility] HEPATITIS A 2005-05-09 Completed [facility] of 00:00:00 [facility] MMR 2005-05-09 Completed [facility] of 00:00:00 [facility] Pneumococcal 13 2005-05-09 Completed [facility] of Conjugate, PCV13 00:00:00 [facility] dical (Prevnar 13) Branch Polio (IPV/OPV) 2005-05-09 Completed [facility] 00:00:00 [facility] DTAP 2005-05-09 Completed [facility] of 00:00:00 [facility] HEPATITIS A 2005-05-09 Completed [facility] of 00:00:00 [facility] MMR 2005-05-09 Completed [facility] of 00:00:00 [facility] Pneumococcal 13 2005-05-09 Completed [facility] of Conjugate, PCV13 00:00:00 [facility] dical (Prevnar 13) Branch Polio (IPV/OPV) 2005-05-09 Completed [facility] 00:00:00 [facility] DTAP 2005-05-09 Completed [facility] of 00:00:00 [facility] HEPATITIS A 2005-05-09 Completed [facility] of 00:00:00 [facility] MMR 2005-05-09 Completed [facility] of 00:00:00 [facility] Pneumococcal 13 2005-05-09 Completed [facility] of Conjugate, PCV13 00:00:00 [facility] dical (Prevnar 13) Branch Polio (IPV/OPV) 2005-05-09 Completed [facility] 00:00:00 [facility] MMR 2005-05-09 Completed [facility] 00:00:00 [facility] Pneumococcal 13 2005-05-09 Completed [facility] of Conjugate, PCV13 00:00:00 [facility] dical (Prevnar 13) Branch DTAP 2005-05-09 Completed [facility] of 00:00:00 [facility] HEPATITIS A 2005-05-09 Completed [facility] of 00:00:00 [facility] MMR 2005-05-09 Completed [facility] of 00:00:00 [facility] Pneumococcal 13 2005-05-09 Completed [facility] of Conjugate, PCV13 00:00:00 [facility] dical (Prevnar 13) Branch Polio (IPV/OPV) 2005-05-09 Completed [facility] 00:00:00 [facility] Polio (IPV/OPV) 2005-05-09 Completed [facility] 00:00:00 [facility] DTAP 2005-05-09 Completed [facility] 00:00:00 [facility] HEPATITIS A 2005-05-09 Completed [facility] of 00:00:00 [facility] MMR 2005-05-09 Completed [facility] of 00:00:00 [facility] Pneumococcal 13 2005-05-09 Completed [facility] of Conjugate, PCV13 00:00:00 [facility] dical (Prevnar 13) Branch Polio (IPV/OPV) 2005-05-09 Completed [facility] 00:00:00 [facility] DTAP 2005-05-09 Completed [facility] of 00:00:00 [facility] HEPATITIS A 2005-05-09 Completed [facility] of 00:00:00 [facility] MMR 2005-05-09 Completed [facility] 00:00:00 [facility] Pneumococcal 13 2005-05-09 Completed [facility] of Conjugate, PCV13 00:00:00 [facility] dical (Prevnar 13) Branch Polio (IPV/OPV) 2005-05-09 Completed [facility] 00:00:00 [facility] DTAP 2005-05-09 Completed [facility] of 00:00:00 [facility] HEPATITIS A 2005-05-09 Completed [facility] of 00:00:00 [facility] MMR 2005-05-09 Completed [facility] of 00:00:00 [facility] Pneumococcal 13 2005-05-09 Completed [facility] of Conjugate, PCV13 00:00:00 [facility] dical (Prevnar 13) Branch Polio (IPV/OPV) 2005-05-09 Completed [facility] 00:00:00 [facility] Hep B, Adol or Pedi 2003-08-15 Completed Unive rsity of Dosage 00:00:00 [facility] Varicella 2003-08-15 Completed [facility] of (varivax)(chicken 00:00:00 [place] [facility] pox) [facility] DTAP 2003-08-15 Completed [facility] 00:00:00 [facility] HIB 4 Dose Schedule 2003-08-15 Completed Unive rsity of 00:00:00 [facility] Hep B, Adol or Pedi 2003-08-15 Completed [facility]ive rsity of Dosage 00:00:00 [facility] DTAP 2003-08-15 Completed [facility] 00:00:00 [facility] Varicella 2003-08-15 Completed [facility] (varivax)(chicken 00:00:00 [place] [facility] pox) [facility] DTAP 2003-08-15 Completed [facility] 00:00:00 [facility] HIB 4 Dose Schedule 2003-08-15 Completed [facility]ive rsity of 00:00:00 [facility] Hep B, Adol or Pedi 2003-08-15 Completed Unive rsity of Dosage 00:00:00 [facility] Varicella 2003-08-15 Completed [facility] (varivax)(chicken 00:00:00 [place] [facility] pox) [facility] HIB 4 Dose Schedule 2003-08-15 Completed [facility]ive rsity of 00:00:00 [facility] DTAP 2003-08-15 Completed [facility] of 00:00:00 [facility] HIB 4 Dose Schedule 2003-08-15 Completed Unive rsity of 00:00:00 [facility] Hep B, Adol or Pedi 2003-08-15 Completed [facility]ive rs[facility] of Dosage 00:00:00 [facility] Varicella 2003-08-15 Completed [facility] (varivax)(chicken 00:00:00 [place] [facility] pox) [facility] DTAP 2003-08-15 Completed [facility] 00:00:00 [facility] HIB 4 Dose Schedule 2003-08-15 Completed [facility]ive rsity of 00:00:00 [facility] Hep B, Adol or Pedi 2003-08-15 Completed [facility]ive rs[facility] of Dosage 00:00:00 [facility] Hep B, Adol or Pedi 2003-08-15 Completed [facility] rs[facility] of Dosage 00:00:00 [facility] Varicella 2003-08-15 Completed [facility] (varivax)(chicken 00:00:00 [place] [facility] pox) [facility] DTAP 2003-08-15 Completed [facility] 00:00:00 [facility] HIB 4 Dose Schedule 2003-08-15 Completed [facility] rsity of 00:00:00 [facility] Hep B, Adol or Pedi 2003-08-15 Completed [facility] of Dosage 00:00:00 [facility] Varicella 2003-08-15 Completed [facility] (varivax)(chicken 00:00:00 [place] [facility] pox) [facility] DTAP 2003-08-15 Completed [facility] 00:00:00 [facility] HIB 4 Dose Schedule 2003-08-15 Completed [facility] rsity of 00:00:00 [facility] Hep B, Adol or Pedi 2003-08-15 Completed [facility] rs[facility] of Dosage 00:00:00 [facility] Varicella 2003-08-15 Completed [facility] (varivax)(chicken 00:00:00 [place] [facility] pox) [facility] DTAP 2003-08-15 Completed [facility] 00:00:00 [facility] HIB 4 Dose Schedule 2003-08-15 Completed [facility] rsity of 00:00:00 [facility] Varicella 2003-08-15 Completed [facility] (varivax)(chicken 00:00:00 [place] [facility] pox) [facility] Hep B, Adol or Pedi 2003-08-15 Completed [facility] of Dosage 00:00:00 [facility] Varicella 2003-08-15 Completed [facility] (varivax)(chicken 00:00:00 [place] [facility] pox) [facility] DTAP 2003-08-15 Completed [facility] 00:00:00 [facility] HIB 4 Dose Schedule 2003-08-15 Completed [facility] rsity of 00:00:00 [facility] Hep B, Adol or Pedi 2003-08-15 Completed [facility] of Dosage 00:00:00 [facility] Varicella 2003-08-15 Completed [facility] (varivax)(chicken 00:00:00 [place] [facility] pox) [facility] DTAP 2003-08-15 Completed [facility] 00:00:00 [facility] HIB 4 Dose Schedule 2003-08-15 Completed [facility] rs[facility] of 00:00:00 [facility] Hep B, Adol or Pedi 2003-08-15 Completed [facility] of Dosage 00:00:00 [facility] Varicella 2003-08-15 Completed [facility] (varivax)(chicken 00:00:00 [place] [facility] pox) [facility] DTAP 2003-08-15 Completed [facility] 00:00:00 [facility] HIB 4 Dose Schedule 2003-08-15 Completed [facility] rs[facility] of 00:00:00 [facility] DTAP 2003-08-15 Completed [facility] 00:00:00 [facility] Hep B, Adol or Pedi 2003-08-15 Completed [facility] of Dosage 00:00:00 [facility] Varicella 2003-08-15 Completed [facility] (varivax)(chicken 00:00:00 [place] [facility] pox) [facility] DTAP 2003-08-15 Completed [facility] 00:00:00 [facility] HIB 4 Dose Schedule 2003-08-15 Completed [facility] rs[facility] of 00:00:00 [facility] Hep B, Adol or Pedi 2003-08-15 Completed [facility] rs[facility] of Dosage 00:00:00 [facility] HIB 4 Dose Schedule 2003-08-15 Completed [facility] rs[facility] of 00:00:00 [facility] Varicella 2003-08-15 Completed [facility] (varivax)(chicken 00:00:00 [place] [facility] pox) [facility] DTAP 2003-08-15 Completed [facility] 00:00:00 [facility] HIB 4 Dose Schedule 2003-08-15 Completed [facility] 00:00:00 [facility] [facility] Adol or Pedi 2003-08-15 Completed [facility] Dosage 00:00:00 [facility] Varicella 2003-08-15 Completed [facility] (varivax)(chicken 00:00:00 [place] [facility] Hep B, Adol or Pedi 2003-08-15 Completed [facility] Dosage 00:00:00 [facility] DTAP 2003-08-15 Completed [facility] 00:00:00 [facility] HIB 4 Dose Schedule 2003-08-15 Completed [facility] 00:00:00 [facility] Hep B, Adol or Pedi 2003-08-15 Completed [facility] Dosage 00:00:00 [facility] Varicella 2003-08-15 Completed [facility] (varivax)(chicken 00:00:00 [place] [facility] DTAP 2003-08-15 Completed [facility] 00:00:00 [facility] HIB 4 Dose Schedule 2003-08-15 Completed [facility] 00:00:00 [facility] Hep B, Adol or Pedi 2003-08-15 Completed [facility] Dosage 00:00:00 [facility] Varicella 2003-08-15 Completed [facility] (varivax)(chicken 00:00:00 [place] [facility] DTAP 2003-08-15 Completed [facility] 00:00:00 [facility] HIB 4 Dose Schedule 2003-08-15 Completed [facility] 00:00:00 [facility] Hep B, Adol or Pedi 2003-08-15 Completed [facility] Dosage 00:00:00 [facility] Varicella 2003-08-15 Completed [facility] (varivax)(chicken 00:00:00 [place] [facility] Varicella 2003-08-15 Completed [facility] (varivax)(chicken 00:00:00 [place] [facility] DTAP 2003-08-15 Completed [facility] 00:00:00 [facility] HIB 4 Dose Schedule 2003-08-15 Completed [facility] 00:00:00 [facility] Hep B, Adol or Pedi 2003-08-15 Completed [facility] Dosage 00:00:00 [facility] Varicella 2003-08-15 Completed [facility] (varivax)(chicken 00:00:00 [place] [facility] DTAP 2003-08-15 Completed [facility] 00:00:00 [facility] HIB 4 Dose Schedule 2003-08-15 Completed [facility] 00:00:00 [facility] Hep B, Adol or Pedi 2003-08-15 Completed [facility] Dosage 00:00:00 [facility] Varicella 2003-08-15 Completed [facility] (varivax)(chicken 00:00:00 [place] [facility] DTAP 2003-08-15 Completed [facility] 00:00:00 [facility] HIB 4 Dose Schedule 2003-08-15 Completed [facility] 00:00:00 [facility] Hep B, Adol or Pedi 2003-08-15 Completed [facility] Dosage 00:00:00 [facility] Varicella 2003-08-15 Completed [facility] (varivax)(chicken 00:00:00 [place] [facility] DTAP 2003-08-15 Completed [facility] 00:00:00 [facility] HIB 4 Dose Schedule 2003-08-15 Completed [facility] 00:00:00 [facility] Hep B, Adol or Pedi 2003-08-15 Completed [facility] Dosage 00:00:00 [facility] Varicella 2003-08-15 Completed [facility] (varivax)(chicken 00:00:00 [place] [facility] DTAP 2003-08-15 Completed [facility] 00:00:00 [facility] HIB 4 Dose Schedule 2003-08-15 Completed [facility] 00:00:00 [facility] Hep B, Adol or Pedi 2003-08-15 Completed [facility] Dosage 00:00:00 [facility] Varicella 2003-08-15 Completed [facility] (varivax)(chicken 00:00:00 [place] [facility] DTAP 2003-08-15 Completed [facility] 00:00:00 [facility] HIB 4 Dose Schedule 2003-08-15 Completed [facility] 00:00:00 [facility] Hep B, Adol or Pedi 2003-08-15 Completed [facility] Dosage 00:00:00 [facility] Varicella 2003-08-15 Completed [facility] (varivax)(chicken 00:00:00 [place] [facility] DTAP 2003-08-15 Completed [facility] 00:00:00 [facility] HIB 4 Dose Schedule 2003-08-15 Completed [facility] 00:00:00 [facility] Hep B, Adol or Pedi 2003-08-15 Completed [facility] Dosage 00:00:00 [facility] Varicella 2003-08-15 Completed [facility] (varivax)(chicken 00:00:00 [place] [facility] DTAP 2003-08-15 Completed [facility] 00:00:00 [facility] HIB 4 Dose Schedule 2003-08-15 Completed [facility] 00:00:00 [facility] Hep B, Adol or Pedi 2003-08-15 Completed [facility] Dosage 00:00:00 [facility] Varicella 2003-08-15 Completed [facility] (varivax)(chicken 00:00:00 [place] [facility] DTAP 2003-08-15 Completed [facility] 00:00:00 [facility] HIB 4 Dose Schedule 2003-08-15 Completed [facility] 00:00:00 [facility] Hep B, Adol or Pedi 2003-08-15 Completed [facility] Dosage 00:00:00 [facility] Varicella 2003-08-15 Completed [facility] (varivax)(chicken 00:00:00 [place] [facility] DTAP 2003-08-15 Completed [facility] 00:00:00 [facility] HIB 4 Dose Schedule 2003-08-15 Completed [facility] 00:00:00 [facility] Hep B, Adol or Pedi 2003-08-15 Completed [facility] Dosage 00:00:00 [facility] Varicella 2003-08-15 Completed [facility] (varivax)(chicken 00:00:00 [place] [facility] DTAP 2003-08-15 Completed [facility] 00:00:00 [facility] HIB 4 Dose Schedule 2003-08-15 Completed [facility] 00:00:00 [facility] Hep B, Adol or Pedi 2003-08-15 Completed [facility] Dosage 00:00:00 [facility] Varicella 2003-08-15 Completed [facility] (varivax)(chicken 00:00:00 [place] [facility] DTAP 2003-08-15 Completed [facility] 00:00:00 [facility] HIB 4 Dose Schedule 2003-08-15 Completed [facility] 00:00:00 [facility] Hep B, Adol or Pedi 2003-08-15 Completed [facility] Dosage 00:00:00 [facility] Varicella 2003-08-15 Completed [facility] (varivax)(chicken 00:00:00 [place] [facility] DTAP 2003-08-15 Completed [facility] 00:00:00 [facility] HIB 4 Dose Schedule 2003-08-15 Completed [facility] 00:00:00 [facility] Hep B, Adol or Pedi 2003-08-15 Completed [facility] Dosage 00:00:00 [facility] Varicella 2003-08-15 Completed [facility] (varivax)(chicken 00:00:00 [place] [facility] DTAP 2003-08-15 Completed [facility] 00:00:00 [facility] HIB 4 Dose Schedule 2003-08-15 Completed [facility] 00:00:00 [facility] Hep B, Adol or Pedi 2003-08-15 Completed [facility] Dosage 00:00:00 [facility] Varicella 2003-08-15 Completed [facility] (varivax)(chicken 00:00:00 [place] [facility] DTAP 2003-08-15 Completed [facility] 00:00:00 [facility] HIB 4 Dose Schedule 2003-08-15 Completed [facility] 00:00:00 [facility] Hep B, Adol or Pedi 2003-08-15 Completed [facility] Dosage 00:00:00 [facility] Varicella 2003-08-15 Completed [facility] (varivax)(chicken 00:00:00 [place] [facility] DTAP 2003-08-15 Completed [facility] 00:00:00 [facility] HIB 4 Dose Schedule 2003-08-15 Completed [facility] 00:00:00 [facility] Hep B, Adol or Pedi 2003-08-15 Completed [facility] Dosage 00:00:00 [facility] Varicella 2003-08-15 Completed [facility] (varivax)(chicken 00:00:00 [place] [facility] DTAP 2003-08-15 Completed [facility] 00:00:00 [facility] HIB 4 Dose Schedule 2003-08-15 Completed [facility] 00:00:00 [facility] Hep B, Adol or Pedi 2003-08-15 Completed [facility] Dosage 00:00:00 [facility] Varicella 2003-08-15 Completed [facility] (varivax)(chicken 00:00:00 [place] [facility] DTAP 2003-08-15 Completed [facility] 00:00:00 [facility] HIB 4 Dose Schedule 2003-08-15 Completed [facility] 00:00:00 [facility] Hep B, Adol or Pedi 2003-08-15 Completed [facility] Dosage 00:00:00 [facility] Varicella 2003-08-15 Completed [facility] (varivax)(chicken 00:00:00 [place] [facility] DTAP 2003-08-15 Completed [facility] 00:00:00 [facility] HIB 4 Dose Schedule 2003-08-15 Completed [facility] 00:00:00 [facility] [place] [facility] Hep B, Adol or Pedi 2003-08-15 Completed [facility] Dosage 00:00:00 [facility] Varicella 2003-08-15 Completed [facility] (varivax)(chicken 00:00:00 [place] [facility] DTAP 2003-08-15 Completed [facility] 00:00:00 [facility] HIB 4 Dose Schedule 2003-08-15 Completed [facility] 00:00:00 [facility] Hep B, Adol or Pedi 2003-08-15 Completed [facility] Dosage 00:00:00 [facility] Varicella 2003-08-15 Completed [facility] (varivax)(chicken 00:00:00 [place] [facility] DTAP 2003-08-15 Completed [facility] 00:00:00 [facility] HIB 4 Dose Schedule 2003-08-15 Completed [facility] 00:00:00 [facility] Hep B, Adol or Pedi 2003-08-15 Completed [facility] Dosage 00:00:00 [facility] Varicella 2003-08-15 Completed [facility] (varivax)(chicken 00:00:00 [place] [facility] DTAP 2003-08-15 Completed [facility] 00:00:00 [facility] HIB 4 Dose Schedule 2003-08-15 Completed [facility] 00:00:00 [facility] MMR 2002-11-16 Completed [facility] 00:00:00 [facility] Polio (IPV/OPV) 2002-11-16 Completed [facility] 00:00:00 [facility] DTAP 2002-11-16 Completed [facility] 00:00:00 [facility] HIB 4 Dose Schedule 2002-11-16 Completed [facility] 00:00:00 [facility] DTAP 2002-11-16 Completed [facility] 00:00:00 [facility] MMR 2002-11-16 Completed [facility] 00:00:00 [facility] Polio (IPV/OPV) 2002-11-16 Completed [facility] 00:00:00 [facility] DTAP 2002-11-16 Completed [facility] 00:00:00 [facility] HIB 4 Dose Schedule 2002-11-16 Completed [facility] 00:00:00 [facility] MMR 2002-11-16 Completed [facility] 00:00:00 [facility] Polio (IPV/OPV) 2002-11-16 Completed [facility] 00:00:00 [facility] HIB 4 Dose Schedule 2002-11-16 Completed [facility] 00:00:00 [facility] DTAP 2002-11-16 Completed [facility] 00:00:00 [facility] HIB 4 Dose Schedule 2002-11-16 Completed [facility] 00:00:00 [facility] MMR 2002-11-16 Completed [facility] 00:00:00 [facility] [place] [facility] Polio (IPV/OPV) 2002-11-16 Completed [facility] 00:00:00 [facility] DTAP 2002-11-16 Completed [facility] 00:00:00 [facility] [place] [facility] HIB 4 Dose Schedule 2002-11-16 Completed [facility] 00:00:00 [facility] MMR 2002-11-16 Completed [facility] 00:00:00 [facility] [place] [facility] Polio (IPV/OPV) 2002-11-16 Completed [facility] 00:00:00 [facility] DTAP 2002-11-16 Completed [facility] 00:00:00 [facility] [place] [facility] HIB 4 Dose Schedule 2002-11-16 Completed [facility] 00:00:00 [facility] MMR 2002-11-16 Completed [facility] 00:00:00 [facility] MMR 2002-11-16 Completed [facility] 00:00:00 [facility] Polio (IPV/OPV) 2002-11-16 Completed [facility] 00:00:00 [facility] DTAP 2002-11-16 Completed [facility] 00:00:00 [facility] HIB 4 Dose Schedule 2002-11-16 Completed [facility] 00:00:00 [facility] MMR 2002-11-16 Completed [facility] 00:00:00 [facility] [place] [facility] Polio (IPV/OPV) 2002-11-16 Completed [facility] 00:00:00 [facility] Polio (IPV/OPV) 2002-11-16 Completed [facility] 00:00:00 [facility] [place] [facility] DTAP 2002-11-16 Completed [facility] 00:00:00 [facility] HIB 4 Dose Schedule 2002-11-16 Completed [facility] 00:00:00 [facility] [place] MMR 2002-11-16 Completed [facility] 00:00:00 [facility] [place] Polio (IPV/OPV) 2002-11-16 Completed [facility] 00:00:00 [facility] DTAP 2002-11-16 Completed [facility] 00:00:00 [facility] HIB 4 Dose Schedule 2002-11-16 Completed [facility] 00:00:00 [facility] MMR 2002-11-16 Completed [facility] 00:00:00 [facility] Polio (IPV/OPV) 2002-11-16 Completed [facility] 00:00:00 [facility] DTAP 2002-11-16 Completed [facility] 00:00:00 [facility] HIB 4 Dose Schedule 2002-11-16 Completed [facility] 00:00:00 [facility] MMR 2002-11-16 Completed [facility] 00:00:00 [facility] Polio (IPV/OPV) 2002-11-16 Completed [facility] 00:00:00 [facility] DTAP 2002-11-16 Completed [facility] 00:00:00 [facility] DTAP 2002-11-16 Completed [facility] 00:00:00 [facility] HIB 4 Dose Schedule 2002-11-16 Completed [facility] 00:00:00 [facility] MMR 2002-11-16 Completed [facility] 00:00:00 [facility] Polio (IPV/OPV) 2002-11-16 Completed [facility] 00:00:00 [facility] DTAP 2002-11-16 Completed [facility] 00:00:00 [facility] HIB 4 Dose Schedule 2002-11-16 Completed [facility] 00:00:00 [facility] HIB 4 Dose Schedule 2002-11-16 Completed [facility] 00:00:00 [facility] MMR 2002-11-16 Completed [facility] 00:00:00 [facility] Polio (IPV/OPV) 2002-11-16 Completed [facility] 00:00:00 [facility] DTAP 2002-11-16 Completed [facility] 00:00:00 [facility] HIB 4 Dose Schedule 2002-11-16 Completed [facility] 00:00:00 [facility] MMR 2002-11-16 Completed [facility] 00:00:00 [facility] Polio (IPV/OPV) 2002-11-16 Completed [facility] 00:00:00 [facility] DTAP 2002-11-16 Completed [facility] 00:00:00 [facility] HIB 4 Dose Schedule 2002-11-16 Completed [facility] 00:00:00 [facility] MMR 2002-11-16 Completed [facility] 00:00:00 [facility] Polio (IPV/OPV) 2002-11-16 Completed [facility] 00:00:00 [facility] MMR 2002-11-16 Completed [facility] 00:00:00 [facility] DTAP 2002-11-16 Completed [facility] 00:00:00 [facility] HIB 4 Dose Schedule 2002-11-16 Completed [facility] 00:00:00 [facility] MMR 2002-11-16 Completed [facility] 00:00:00 [facility] Polio (IPV/OPV) 2002-11-16 Completed [facility] 00:00:00 [facility] [place] [facility] DTAP 2002-11-16 Completed [facility] 00:00:00 [facility] HIB 4 Dose Schedule 2002-11-16 Completed [facility] 00:00:00 [facility] Polio (IPV/OPV) 2002-11-16 Completed [facility] 00:00:00 [facility] [place] [facility] MMR 2002-11-16 Completed [facility] 00:00:00 [facility] Polio (IPV/OPV) 2002-11-16 Completed [facility] 00:00:00 [facility] DTAP 2002-11-16 Completed [facility] 00:00:00 [facility] [place] [facility] HIB 4 Dose Schedule 2002-11-16 Completed [facility] 00:00:00 [facility] MMR 2002-11-16 Completed [facility] 00:00:00 [facility] Polio (IPV/OPV) 2002-11-16 Completed [facility] 00:00:00 [facility] DTAP 2002-11-16 Completed [facility] 00:00:00 [facility] [place] [facility] HIB 4 Dose Schedule 2002-11-16 Completed [facility] 00:00:00 [facility] MMR 2002-11-16 Completed [facility] 00:00:00 [facility] Polio (IPV/OPV) 2002-11-16 Completed [facility] 00:00:00 [facility] DTAP 2002-11-16 Completed [facility] 00:00:00 [facility] HIB 4 Dose Schedule 2002-11-16 Completed [facility] 00:00:00 [facility] MMR 2002-11-16 Completed [facility] 00:00:00 [facility] Polio (IPV/OPV) 2002-11-16 Completed [facility] 00:00:00 [facility] DTAP 2002-11-16 Completed [facility] 00:00:00 [facility] HIB 4 Dose Schedule 2002-11-16 Completed [facility] 00:00:00 [facility] MMR 2002-11-16 Completed [facility] 00:00:00 [facility] Polio (IPV/OPV) 2002-11-16 Completed [facility] 00:00:00 [facility] DTAP 2002-11-16 Completed [facility] 00:00:00 [facility] [place] [facility] HIB 4 Dose Schedule 2002-11-16 Completed [facility] 00:00:00 [facility] MMR 2002-11-16 Completed [facility] 00:00:00 [facility] Polio (IPV/OPV) 2002-11-16 Completed [facility] 00:00:00 [facility] DTAP 2002-11-16 Completed [facility] 00:00:00 [facility] HIB 4 Dose Schedule 2002-11-16 Completed [facility] 00:00:00 [facility] MMR 2002-11-16 Completed [facility] 00:00:00 [facility] Polio (IPV/OPV) 2002-11-16 Completed [facility] 00:00:00 [facility] DTAP 2002-11-16 Completed [facility] 00:00:00 [facility] HIB 4 Dose Schedule 2002-11-16 Completed [facility] 00:00:00 [facility] MMR 2002-11-16 Completed [facility] 00:00:00 [facility] Polio (IPV/OPV) 2002-11-16 Completed [facility] 00:00:00 [facility] DTAP 2002-11-16 Completed [facility] 00:00:00 [facility] HIB 4 Dose Schedule 2002-11-16 Completed [facility] 00:00:00 [facility] MMR 2002-11-16 Completed [facility] 00:00:00 [facility] Polio (IPV/OPV) 2002-11-16 Completed [facility] 00:00:00 [facility] DTAP 2002-11-16 Completed [facility] 00:00:00 [facility] HIB 4 Dose Schedule 2002-11-16 Completed [facility] 00:00:00 [facility] MMR 2002-11-16 Completed [facility] 00:00:00 [facility] Polio (IPV/OPV) 2002-11-16 Completed [facility] 00:00:00 [facility] DTAP 2002-11-16 Completed [facility] 00:00:00 [facility] HIB 4 Dose Schedule 2002-11-16 Completed [facility] 00:00:00 [facility] MMR 2002-11-16 Completed [facility] 00:00:00 [facility] Polio (IPV/OPV) 2002-11-16 Completed [facility] 00:00:00 [facility] DTAP 2002-11-16 Completed [facility] 00:00:00 [facility] HIB 4 Dose Schedule 2002-11-16 Completed [facility] 00:00:00 [facility] MMR 2002-11-16 Completed [facility] 00:00:00 [facility] Polio (IPV/OPV) 2002-11-16 Completed [facility] 00:00:00 [facility] DTAP 2002-11-16 Completed [facility] 00:00:00 [facility] HIB 4 Dose Schedule 2002-11-16 Completed [facility] 00:00:00 [facility] MMR 2002-11-16 Completed [facility] 00:00:00 [facility] Polio (IPV/OPV) 2002-11-16 Completed [facility] 00:00:00 [facility] DTAP 2002-11-16 Completed [facility] 00:00:00 [facility] HIB 4 Dose Schedule 2002-11-16 Completed [facility] 00:00:00 [facility] MMR 2002-11-16 Completed [facility] 00:00:00 [facility] Polio (IPV/OPV) 2002-11-16 Completed [facility] 00:00:00 [facility] DTAP 2002-11-16 Completed [facility] 00:00:00 [facility] HIB 4 Dose Schedule 2002-11-16 Completed [facility] 00:00:00 [facility] MMR 2002-11-16 Completed [facility] 00:00:00 [facility] Polio (IPV/OPV) 2002-11-16 Completed [facility] 00:00:00 [facility] DTAP 2002-11-16 Completed [facility] 00:00:00 [facility] HIB 4 Dose Schedule 2002-11-16 Completed [facility] 00:00:00 [facility] MMR 2002-11-16 Completed [facility] 00:00:00 [facility] Polio (IPV/OPV) 2002-11-16 Completed [facility] 00:00:00 [facility] DTAP 2002-11-16 Completed [facility] 00:00:00 [facility] HIB 4 Dose Schedule 2002-11-16 Completed [facility] 00:00:00 [facility] MMR 2002-11-16 Completed [facility] 00:00:00 [facility] Polio (IPV/OPV) 2002-11-16 Completed [facility] 00:00:00 [facility] [place] [facility] DTAP 2002-11-16 Completed [facility] 00:00:00 [facility] HIB 4 Dose Schedule 2002-11-16 Completed [facility] 00:00:00 [facility] [place] [facility] MMR 2002-11-16 Completed [facility] 00:00:00 [facility] [place] [facility] Polio (IPV/OPV) 2002-11-16 Completed [facility] 00:00:00 [facility] [place] [facility] DTAP 2002-11-16 Completed [facility] 00:00:00 [facility] HIB 4 Dose Schedule 2002-11-16 Completed [facility] 00:00:00 [facility] [place] [facility] MMR 2002-11-16 Completed [facility] 00:00:00 [facility] Polio (IPV/OPV) 2002-11-16 Completed [facility] 00:00:00 [facility] DTAP 2002-11-16 Completed [facility] 00:00:00 [facility] HIB 4 Dose Schedule 2002-11-16 Completed [facility] 00:00:00 [facility] MMR 2002-11-16 Completed [facility] 00:00:00 [facility] Polio (IPV/OPV) 2002-11-16 Completed [facility] 00:00:00 [facility] DTAP 2002-11-16 Completed [facility] 00:00:00 [facility] HIB 4 Dose Schedule 2002-11-16 Completed [facility] 00:00:00 [facility] MMR 2002-11-16 Completed [facility] 00:00:00 [facility] Polio (IPV/OPV) 2002-11-16 Completed [facility] 00:00:00 [facility] DTAP 2002-11-16 Completed [facility] 00:00:00 [facility] HIB 4 Dose Schedule 2002-11-16 Completed [facility] 00:00:00 [facility] MMR 2002-11-16 Completed [facility] 00:00:00 [facility] Polio (IPV/OPV) 2002-11-16 Completed [facility] 00:00:00 [facility] DTAP 2002-11-16 Completed [facility] 00:00:00 [facility] HIB 4 Dose Schedule 2002-11-16 Completed [facility] 00:00:00 [facility] Hep B, Adol or Pedi 2001-03-26 Completed [facility] Dosage 00:00:00 [facility] Polio (IPV/OPV) 2001-03-26 Completed [facility] 00:00:00 [facility] DTAP 2001-03-26 Completed [facility] 00:00:00 [facility] DTAP 2001-03-26 Completed [facility] 00:00:00 [facility] HIB 4 Dose Schedule 2001-03-26 Completed [facility] 00:00:00 [facility] Hep B, Adol or Pedi 2001-03-26 Completed [facility] Dosage 00:00:00 [facility] Polio (IPV/OPV) 2001-03-26 Completed [facility] 00:00:00 [facility] DTAP 2001-03-26 Completed [facility] 00:00:00 [facility] HIB 4 Dose Schedule 2001-03-26 Completed [facility] 00:00:00 [facility] Hep B, Adol or Pedi 2001-03-26 Completed [facility] Dosage 00:00:00 [facility] HIB 4 Dose Schedule 2001-03-26 Completed [facility] 00:00:00 [facility] Polio (IPV/OPV) 2001-03-26 Completed [facility] 00:00:00 [facility] DTAP 2001-03-26 Completed [facility] 00:00:00 [facility] HIB 4 Dose Schedule 2001-03-26 Completed [facility] 00:00:00 [facility] Hep B, Adol or Pedi 2001-03-26 Completed [facility] Dosage 00:00:00 [facility] Polio (IPV/OPV) 2001-03-26 Completed [facility] 00:00:00 [facility] DTAP 2001-03-26 Completed [facility] 00:00:00 [facility] HIB 4 Dose Schedule 2001-03-26 Completed [facility] 00:00:00 [facility] Hep B, Adol or Pedi 2001-03-26 Completed [facility] Dosage 00:00:00 [facility] Hep B, Adol or Pedi 2001-03-26 Completed [facility] Dosage 00:00:00 [facility] Polio (IPV/OPV) 2001-03-26 Completed [facility] 00:00:00 [facility] DTAP 2001-03-26 Completed [facility] 00:00:00 [facility] HIB 4 Dose Schedule 2001-03-26 Completed [facility] 00:00:00 [facility] Hep B, Adol or Pedi 2001-03-26 Completed [facility] Dosage 00:00:00 [facility] Polio (IPV/OPV) 2001-03-26 Completed [facility] 00:00:00 [facility] DTAP 2001-03-26 Completed [facility] 00:00:00 [facility] HIB 4 Dose Schedule 2001-03-26 Completed [facility] 00:00:00 [facility] Hep B, Adol or Pedi 2001-03-26 Completed [facility] Dosage 00:00:00 [facility] Polio (IPV/OPV) 2001-03-26 Completed [facility]00 [facility] Polio (IPV/OPV) 2001-03-26 Completed [facility] 00:00:00 [facility] DTAP 2001-03-26 Completed [facility] 00:00:00 [facility] HIB 4 Dose Schedule 2001-03-26 Completed [facility] 00:00:00 [facility] Hep B, Adol or Pedi 2001-03-26 Completed [facility] Dosage 00:00:00 [facility] Polio (IPV/OPV) 2001-03-26 Completed [facility] 00:00:00 [facility] DTAP 2001-03-26 Completed [facility] 00:00:00 [facility] HIB 4 Dose Schedule 2001-03-26 Completed [facility] 00:00:00 [facility] Hep B, Adol or Pedi 2001-03-26 Completed [facility] Dosage 00:00:00 [facility] Polio (IPV/OPV) 2001-03-26 Completed [facility] 00:00:00 [facility] DTAP 2001-03-26 Completed [facility] 00:00:00 [facility] HIB 4 Dose Schedule 2001-03-26 Completed [facility] 00:00:00 [facility] Hep B, Adol or Pedi 2001-03-26 Completed [facility] Dosage 00:00:00 [facility] Polio (IPV/OPV) 2001-03-26 Completed [facility] 00:00:00 [facility] DTAP 2001-03-26 Completed [facility] 00:00:00 [facility] DTAP 2001-03-26 Completed [facility] 00:00:00 [facility] HIB 4 Dose Schedule 2001-03-26 Completed [facility] 00:00:00 [facility] Hep B, Adol or Pedi 2001-03-26 Completed [facility] Dosage 00:00:00 [facility] Polio (IPV/OPV) 2001-03-26 Completed [facility] 00:00:00 [facility] HIB 4 Dose Schedule 2001-03-26 Completed [facility] 00:00:00 [facility] DTAP 2001-03-26 Completed [facility] 00:00:00 [facility] HIB 4 Dose Schedule 2001-03-26 Completed [facility] 00:00:00 [facility] Hep B, Adol or Pedi 2001-03-26 Completed [facility] Dosage 00:00:00 [facility] Polio (IPV/OPV) 2001-03-26 Completed [facility] 00:00:00 [facility] DTAP 2001-03-26 Completed [facility] 00:00:00 [facility] HIB 4 Dose Schedule 2001-03-26 Completed [facility] 00:00:00 [facility] Hep B, Adol or Pedi 2001-03-26 Completed [facility] Dosage 00:00:00 [facility] Polio (IPV/OPV) 2001-03-26 Completed [facility] 00:00:00 [facility] Hep B, Adol or Pedi 2001-03-26 Completed [facility] Dosage 00:00:00 [facility] DTAP 2001-03-26 Completed [facility] 00:00:00 [facility] HIB 4 Dose Schedule 2001-03-26 Completed [facility] 00:00:00 [facility] Hep B, Adol or Pedi 2001-03-26 Completed [facility] Dosage 00:00:00 [facility] Polio (IPV/OPV) 2001-03-26 Completed [facility] 00:00:00 [facility] DTAP 2001-03-26 Completed [facility] 00:00:00 [facility] HIB 4 Dose Schedule 2001-03-26 Completed [facility] 00:00:00 [facility] Hep B, Adol or Pedi 2001-03-26 Completed [facility] Dosage 00:00:00 [facility] Polio (IPV/OPV) 2001-03-26 Completed [facility] 00:00:00 [facility] Polio (IPV/OPV) 2001-03-26 Completed [facility] 00:00:00 [facility] DTAP 2001-03-26 Completed [facility] 00:00:00 [facility] HIB 4 Dose Schedule 2001-03-26 Completed [facility] 00:00:00 [facility] Hep B, Adol or Pedi 2001-03-26 Completed [facility] Dosage 00:00:00 [facility] Polio (IPV/OPV) 2001-03-26 Completed [facility] 00:00:00 [facility] DTAP 2001-03-26 Completed [facility] 00:00:00 [facility] HIB 4 Dose Schedule 2001-03-26 Completed [facility] 00:00:00 [facility] Hep B, Adol or Pedi 2001-03-26 Completed [facility] Dosage 00:00:00 [facility] Polio (IPV/OPV) 2001-03-26 Completed [facility] 00:00:00 [facility] DTAP 2001-03-26 Completed [facility] 00:00:00 [facility] HIB 4 Dose Schedule 2001-03-26 Completed [facility] 00:00:00 [facility] Hep B, Adol or Pedi 2001-03-26 Completed [facility] Dosage 00:00:00 [facility] Polio (IPV/OPV) 2001-03-26 Completed [facility] 00:00:00 [facility] DTAP 2001-03-26 Completed [facility] 00:00:00 [facility] HIB 4 Dose Schedule 2001-03-26 Completed [facility] 00:00:00 [facility] Hep B, Adol or Pedi 2001-03-26 Completed [facility] Dosage 00:00:00 [facility] Polio (IPV/OPV) 2001-03-26 Completed [facility] 00:00:00 [facility] DTAP 2001-03-26 Completed [facility] 00:00:00 [facility] HIB 4 Dose Schedule 2001-03-26 Completed [facility] 00:00:00 [facility] Hep B, Adol or Pedi 2001-03-26 Completed [facility] Dosage 00:00:00 [facility] Polio (IPV/OPV) 2001-03-26 Completed [facility] 00:00:00 [facility] DTAP 2001-03-26 Completed [facility] 00:00:00 [facility] HIB 4 Dose Schedule 2001-03-26 Completed [facility] 00:00:00 [facility] Hep B, Adol or Pedi 2001-03-26 Completed [facility] Dosage 00:00:00 [facility] Polio (IPV/OPV) 2001-03-26 Completed [facility] 00:00:00 [facility] DTAP 2001-03-26 Completed [facility] 00:00:00 [facility] HIB 4 Dose Schedule 2001-03-26 Completed [facility] 00:00:00 [facility] Hep B, Adol or Pedi 2001-03-26 Completed [facility] Dosage 00:00:00 [facility] Polio (IPV/OPV) 2001-03-26 Completed [facility] 00:00:00 [facility] DTAP 2001-03-26 Completed [facility] 00:00:00 [facility] HIB 4 Dose Schedule 2001-03-26 Completed [facility] 00:00:00 [facility] Hep B, Adol or Pedi 2001-03-26 Completed [facility] Dosage 00:00:00 [facility] Polio (IPV/OPV) 2001-03-26 Completed [facility] 00:00:00 [facility] DTAP 2001-03-26 Completed [facility] 00:00:00 [facility] HIB 4 Dose Schedule 2001-03-26 Completed [facility] 00:00:00 [facility] Hep B, Adol or Pedi 2001-03-26 Completed [facility] Dosage 00:00:00 [facility] Polio (IPV/OPV) 2001-03-26 Completed [facility] 00:00:00 [facility] DTAP 2001-03-26 Completed [facility] 00:00:00 [facility] HIB 4 Dose Schedule 2001-03-26 Completed [facility] 00:00:00 [facility] Hep B, Adol or Pedi 2001-03-26 Completed [facility] Dosage 00:00:00 [facility] Polio (IPV/OPV) 2001-03-26 Completed [facility] 00:00:00 [facility] DTAP 2001-03-26 Completed [facility] 00:00:00 [facility] HIB 4 Dose Schedule 2001-03-26 Completed [facility] 00:00:00 [facility] Hep B, Adol or Pedi 2001-03-26 Completed [facility] Dosage 00:00:00 [facility] Polio (IPV/OPV) 2001-03-26 Completed [facility] 00:00:00 [facility] DTAP 2001-03-26 Completed [facility] 00:00:00 [facility] HIB 4 Dose Schedule 2001-03-26 Completed [facility] 00:00:00 [facility] Hep B, Adol or Pedi 2001-03-26 Completed [facility] Dosage 00:00:00 [facility] Polio (IPV/OPV) 2001-03-26 Completed [facility] 00:00:00 [facility] DTAP 2001-03-26 Completed [facility] 00:00:00 [facility] HIB 4 Dose Schedule 2001-03-26 Completed [facility] 00:00:00 [facility] Hep B, Adol or Pedi 2001-03-26 Completed [facility] Dosage 00:00:00 [facility] Polio (IPV/OPV) 2001-03-26 Completed [facility] 00:00:00 [facility] DTAP 2001-03-26 Completed [facility] 00:00:00 [facility] HIB 4 Dose Schedule 2001-03-26 Completed [facility] 00:00:00 [facility] Hep B, Adol or Pedi 2001-03-26 Completed [facility] Dosage 00:00:00 [facility] Polio (IPV/OPV) 2001-03-26 Completed [facility] 00:00:00 [facility] DTAP 2001-03-26 Completed [facility] 00:00:00 [facility] HIB 4 Dose Schedule 2001-03-26 Completed [facility] 00:00:00 [facility] Hep B, Adol or Pedi 2001-03-26 Completed [facility] Dosage 00:00:00 [facility] Polio (IPV/OPV) 2001-03-26 Completed [facility] 00:00:00 [facility] DTAP 2001-03-26 Completed [facility] 00:00:00 [facility] HIB 4 Dose Schedule 2001-03-26 Completed [facility] 00:00:00 [facility] Hep B, Adol or Pedi 2001-03-26 Completed [facility] Dosage 00:00:00 [facility] Polio (IPV/OPV) 2001-03-26 Completed [facility] 00:00:00 [facility] DTAP 2001-03-26 Completed [facility] 00:00:00 [facility] HIB 4 Dose Schedule 2001-03-26 Completed [facility] 00:00:00 [facility] Hep B, Adol or Pedi 2001-03-26 Completed [facility] Dosage 00:00:00 [facility] Polio (IPV/OPV) 2001-03-26 Completed [facility] 00:00:00 [facility] DTAP 2001-03-26 Completed [facility] 00:00:00 [facility] HIB 4 Dose Schedule 2001-03-26 Completed [facility] 00:00:00 [facility] Hep B, Adol or Pedi 2001-03-26 Completed [facility] Dosage 00:00:00 [facility] Polio (IPV/OPV) 2001-03-26 Completed [facility] 00:00:00 [facility] DTAP 2001-03-26 Completed [facility] 00:00:00 [facility] HIB 4 Dose Schedule 2001-03-26 Completed [facility] 00:00:00 [facility] Hep B, Adol or Pedi 2001-03-26 Completed [facility] Dosage 00:00:00 [facility] Polio (IPV/OPV) 2001-03-26 Completed [facility] 00:00:00 [facility] DTAP 2001-03-26 Completed [facility] 00:00:00 [facility] HIB 4 Dose Schedule 2001-03-26 Completed [facility] 00:00:00 [facility] Hep B, Adol or Pedi 2001-03-26 Completed [facility] Dosage 00:00:00 [facility] Polio (IPV/OPV) 2001-03-26 Completed [facility] 00:00:00 [facility] DTAP 2001-03-26 Completed [facility] 00:00:00 [facility] HIB 4 Dose Schedule 2001-03-26 Completed [facility] 00:00:00 [facility] Hep B, Adol or Pedi 2001-03-26 Completed [facility] Dosage 00:00:00 [facility] Polio (IPV/OPV) 2001-03-26 Completed [facility] 00:00:00 [facility] DTAP 2001-03-26 Completed [facility] 00:00:00 [facility] HIB 4 Dose Schedule 2001-03-26 Completed [facility] 00:00:00 [facility] Hep B, Adol or Pedi 2001-03-26 Completed [facility] Dosage 00:00:00 [facility] Polio (IPV/OPV) 2001-03-26 Completed [facility] 00[facility]00:00 [facility] DTAP 2001-03-26 Completed [facility] 00:00:00 [facility] HIB 4 Dose Schedule 2001-03-26 Completed [facility] 00:00:00 [facility] Hep B, Adol or Pedi 2000 Completed [facility] Dosage 00:00:00 [facility] Polio (IPV/OPV) 2000 Completed [facility] 00:00:00 [facility] DTAP 2000 Completed [facility] 00:00:00 [facility] DTAP 2000 Completed [facility] 00:00:00 [facility] HIB 4 Dose Schedule 2000 Completed [facility] 00:00:00 [facility] Hep B, Adol or Pedi 2000 Completed [facility] Dosage 00:00:00 [facility] Polio (IPV/OPV) 2000 Completed [facility] 00:00:00 [facility] DTAP 2000 Completed [facility] 00:00:00 [facility] HIB 4 Dose Schedule 2000 Completed [facility] 00:00:00 [facility] HIB 4 Dose Schedule 2000 Completed [facility] 00:00:00 [facility] Hep B, Adol or Pedi 2000 Completed [facility] Dosage 00:00:00 [facility] Polio (IPV/OPV) 2000 Completed [facility] 00:00:00 [facility] DTAP 2000 Completed [facility] 00:00:00 [facility] HIB 4 Dose Schedule 2000 Completed [facility] 00:00:00 [facility] Hep B, Adol or Pedi 2000 Completed [facility] Dosage 00:00:00 [facility] Polio (IPV/OPV) 2000 Completed [facility] 00:00:00 [facility] DTAP 2000 Completed [facility] 00:00:00 [facility] Hep B, Adol or Pedi 2000 Completed [facility] Dosage 00:00:00 [facility] HIB 4 Dose Schedule 2000 Completed [facility] 00:00:00 [facility] Hep B, Adol or Pedi 2000 Completed [facility] Dosage 00:00:00 [facility] Polio (IPV/OPV) 2000 Completed [facility] 00:00:00 [facility] DTAP 2000 Completed [facility] 00:00:00 [facility] HIB 4 Dose Schedule 2000 Completed [facility] 00:00:00 [facility] Hep B, Adol or Pedi 2000 Completed [facility] Dosage 00:00:00 [facility] Polio (IPV/OPV) 2000 Completed [facility] 00:00:00 [facility] DTAP 2000 Completed [facility] 00:00:00 [facility] HIB 4 Dose Schedule 2000 Completed [facility] 00:00:00 [facility] Polio (IPV/OPV) 2000 Completed [facility] 00:00:00 [facility] Hep B, Adol or Pedi 2000 Completed [facility] Dosage 00:00:00 [facility] Polio (IPV/OPV) 2000 Completed [facility] 00:00:00 [facility] DTAP 2000 Completed [facility] 00:00:00 [facility] HIB 4 Dose Schedule 2000 Completed [facility] 00:00:00 [facility] Hep B, Adol or Pedi 2000 Completed [facility] Dosage 00:00:00 [facility] Polio (IPV/OPV) 2000 Completed [facility] 00:00:00 [facility] DTAP 2000 Completed [facility] 00:00:00 [facility] HIB 4 Dose Schedule 2000 Completed [facility] 00:00:00 [facility] Hep B, Adol or Pedi 2000 Completed [facility] Dosage 00:00:00 [facility] Polio (IPV/OPV) 2000 Completed [facility] 00:00:00 [facility] DTAP 2000 Completed [facility] 00:00:00 [facility] HIB 4 Dose Schedule 2000 Completed [facility] 00:00:00 [facility] Hep B, Adol or Pedi 2000 Completed [facility] Dosage 00:00:00 [facility] Polio (IPV/OPV) 2000 Completed [facility] 00:00:00 [facility] DTAP 2000 Completed [facility] 00:00:00 [facility] DTAP 2000 Completed [facility] 00:00:00 [facility] HIB 4 Dose Schedule 2000 Completed [facility] 00:00:00 [facility] Hep B, Adol or Pedi 2000 Completed [facility] Dosage 00:00:00 [facility] Polio (IPV/OPV) 2000 Completed [facility] 00:00:00 [facility] HIB 4 Dose Schedule 2000 Completed [facility] 00:00:00 [facility] DTAP 2000 Completed [facility] 00:00:00 [facility] HIB 4 Dose Schedule 2000 Completed [facility] 00:00:00 [facility] Hep B, Adol or Pedi 2000 Completed [facility] Dosage 00:00:00 [facility] Polio (IPV/OPV) 2000 Completed [facility] 00:00:00 [facility] DTAP 2000 Completed [facility] 00:00:00 [facility] HIB 4 Dose Schedule 2000 Completed [facility] 00:00:00 [facility] Hep B, Adol or Pedi 2000 Completed [facility] Dosage 00:00:00 [facility] Hep B, Adol or Pedi 2000 Completed [facility] Dosage 00:00:00 [facility] Polio (IPV/OPV) 2000 Completed [facility] 00:00:00 [facility] DTAP 2000 Completed [facility] 00:00:00 [facility] HIB 4 Dose Schedule 2000 Completed [facility] 00:00:00 [facility] Hep B, Adol or Pedi 2000 Completed [facility] Dosage 00:00:00 [facility] Polio (IPV/OPV) 2000 Completed [facility] 00:00:00 [facility] DTAP 2000 Completed [facility] 00:00:00 [facility] HIB 4 Dose Schedule 2000 Completed [facility] 00:00:00 [facility] Hep B, Adol or Pedi 2000 Completed [facility] Dosage 00:00:00 [facility] Polio (IPV/OPV) 2000 Completed [facility] 00:00:00 [facility] Polio (IPV/OPV) 2000 Completed [facility] 00:00:00 [facility] DTAP 2000 Completed [facility] 00:00:00 [facility] HIB 4 Dose Schedule 2000 Completed [facility] 00:00:00 [facility] Hep B, Adol or Pedi 2000 Completed [facility] Dosage 00:00:00 [facility] Polio (IPV/OPV) 2000 Completed [facility] 00:00:00 [facility] DTAP 2000 Completed [facility] 00:00:00 [facility] HIB 4 Dose Schedule 2000 Completed [facility] 00:00:00 [facility] Hep B, Adol or Pedi 2000 Completed [facility] Dosage 00:00:00 [facility] Polio (IPV/OPV) 2000 Completed [facility] 00:00:00 [facility] DTAP 2000 Completed [facility] 00:00:00 [facility] HIB 4 Dose Schedule 2000 Completed [facility] 00:00:00 [facility] Hep B, Adol or Pedi 2000 Completed [facility] Dosage 00:00:00 [facility] Polio (IPV/OPV) 2000 Completed [facility] 00:00:00 [facility] DTAP 2000 Completed [facility] 00:00:00 [facility] HIB 4 Dose Schedule 2000 Completed [facility] 00:00:00 [facility] Hep B, Adol or Pedi 2000 Completed [facility] Dosage 00:00:00 [facility] Polio (IPV/OPV) 2000 Completed [facility] 00:00:00 [facility] DTAP 2000 Completed [facility] 00:00:00 [facility] HIB 4 Dose Schedule 2000 Completed [facility] 00:00:00 [facility] Hep B, Adol or Pedi 2000 Completed [facility] Dosage 00:00:00 [facility] Polio (IPV/OPV) 2000 Completed [facility] 00:00:00 [facility] DTAP 2000 Completed [facility] 00:00:00 [facility] HIB 4 Dose Schedule 2000 Completed [facility] 00:00:00 [facility] Hep B, Adol or Pedi 2000 Completed [facility] Dosage 00:00:00 [facility] Polio (IPV/OPV) 2000 Completed [facility] 00:00:00 [facility] DTAP 2000 Completed [facility] 00:00:00 [facility] HIB 4 Dose Schedule 2000 Completed [facility] 00:00:00 [facility] Hep B, Adol or Pedi 2000 Completed [facility] Dosage 00:00:00 [facility] Polio (IPV/OPV) 2000 Completed [facility] 00:00:00 [facility] DTAP 2000 Completed [facility] 00:00:00 [facility] HIB 4 Dose Schedule 2000 Completed [facility] 00:00:00 [facility] Hep B, Adol or Pedi 2000 Completed [facility] Dosage 00:00:00 [facility] Polio (IPV/OPV) 2000 Completed [facility] 00:00:00 [facility] DTAP 2000 Completed [facility] 00:00:00 [facility] HIB 4 Dose Schedule 2000 Completed [facility] 00:00:00 [facility] Hep B, Adol or Pedi 2000 Completed [facility] Dosage 00:00:00 [facility] Polio (IPV/OPV) 2000 Completed [facility] 00:00:00 [facility] DTAP 2000 Completed [facility] 00:00:00 [facility] HIB 4 Dose Schedule 2000 Completed [facility] 00:00:00 [facility] Hep B, Adol or Pedi 2000 Completed [facility] Dosage 00:00:00 [facility] Polio (IPV/OPV) 2000 Completed [facility] 00:00:00 [facility] DTAP 2000 Completed [facility] 00:00:00 [facility] HIB 4 Dose Schedule 2000 Completed [facility] 00:00:00 [facility] Hep B, Adol or Pedi 2000 Completed [facility] Dosage 00:00:00 [facility] Polio (IPV/OPV) 2000 Completed [facility] 00:00:00 [facility] DTAP 2000 Completed [facility] 00:00:00 [facility] HIB 4 Dose Schedule 2000 Completed [facility] 00:00:00 [facility] Hep B, Adol or Pedi 2000 Completed [facility] Dosage 00:00:00 [facility] Polio (IPV/OPV) 2000 Completed [facility] 00:00:00 [facility] DTAP 2000 Completed [facility] 00:00:00 [facility] HIB 4 Dose Schedule 2000 Completed [facility] 00:00:00 [facility] Hep B, Adol or Pedi 2000 Completed [facility] Dosage 00:00:00 [facility] Polio (IPV/OPV) 2000 Completed [facility] 00:00:00 [facility] DTAP 2000 Completed [facility] 00:00:00 [facility] HIB 4 Dose Schedule 2000 Completed [facility] 00:00:00 [facility] Hep B, Adol or Pedi 2000 Completed [facility] Dosage 00:00:00 [facility] Polio (IPV/OPV) 2000 Completed [facility] 00:00:00 [facility] DTAP 2000 Completed [facility] 00:00:00 [facility] HIB 4 Dose Schedule 2000 Completed [facility] 00:00:00 [facility] Hep B, Adol or Pedi 2000 Completed [facility] Dosage 00:00:00 [facility] Polio (IPV/OPV) 2000 Completed [facility] 00:00:00 [facility] DTAP 2000 Completed [facility] 00:00:00 [facility] HIB 4 Dose Schedule 2000 Completed [facility] 00:00:00 [facility] Hep B, Adol or Pedi 2000 Completed [facility] Dosage 00:00:00 [facility] Polio (IPV/OPV) 2000 Completed [facility] 00:00:00 [facility] DTAP 2000 Completed [facility] 00:00:00 [facility] HIB 4 Dose Schedule 2000 Completed [facility] 00:00:00 [facility] Hep B, Adol or Pedi 2000 Completed [facility] Dosage 00:00:00 [facility] Polio (IPV/OPV) 2000 Completed [facility] 00:00:00 [facility] DTAP 2000 Completed [facility] 00:00:00 [facility] HIB 4 Dose Schedule 2000 Completed [facility] 00:00:00 [facility] Hep B, Adol or Pedi 2000 Completed [facility] Dosage 00:00:00 [facility] Polio (IPV/OPV) 2000 Completed [facility] 00:00:00 [facility] DTAP 2000 Completed [facility] 00:00:00 [facility] HIB 4 Dose Schedule 2000 Completed [facility] 00:00:00 [facility] Hep B, Adol or Pedi 2000 Completed [facility] Dosage 00:00:00 [facility] Polio (IPV/OPV) 2000 Completed [facility] 00:00:00 [facility] DTAP 2000 Completed [facility] 00:00:00 [facility] HIB 4 Dose Schedule 2000 Completed [facility] 00:00:00 [facility] Hep B, Adol or Pedi 2000 Completed [facility] Dosage 00:00:00 [facility] Polio (IPV/OPV) 2000 Completed [facility] 00:00:00 [facility] DTAP 2000 Completed [facility] 00:00:00 [facility] HIB 4 Dose Schedule 2000 Completed [facility] 00:00:00 [facility] Hep B, Adol or Pedi 2000 Completed [facility] Dosage 00:00:00 [facility] Polio (IPV/OPV) 2000 Completed [facility] 00:00:00 [facility] DTAP 2000 Completed [facility] 00:00:00 [facility] HIB 4 Dose Schedule 2000 Completed [facility] 00:00:00 [facility] Hep B, Adol or Pedi 2000 Completed [facility] Dosage 00:00:00 [facility] Polio (IPV/OPV) 2000 Completed [facility] 00:00:00 [facility] DTAP 2000 Completed [facility] 00:00:00 [facility] HIB 4 Dose Schedule 2000 Completed [facility] 00:00:00 [facility] Hep B, Adol or Pedi 2000 Completed [facility] Dosage 00:00:00 [facility] Hep B, Adol or Pedi 2000 Completed Unive rsity of Dosage 00:00:00 [facility] Hep B, Adol or Pedi 2000 Completed Unive [facility]ity of Dosage 00:00:00 [facility] Hep B, Adol or Pedi 2000 Completed Unive rsity of Dosage 00:00:00 [facility] Hep B, Adol or Pedi 2000 Completed Unive rsity of Dosage 00:00:00 [facility] Hep B, Adol or Pedi 2000 Completed Unive rsity of Dosage 00:00:00 [facility] Hep B, Adol or Pedi 2000 Completed Unive rsity of Dosage 00:00:00 [facility] Hep B, Adol or Pedi 2000 Completed Unive rsity of Dosage 00:00:00 [facility] Hep B, Adol or Pedi 2000 Completed Unive rsity of Dosage 00:00:00 [facility] Hep B, Adol or Pedi 2000 Completed Unive rsity of Dosage 00:00:00 [facility] Hep B, Adol or Pedi 2000 Completed Unive rsity of Dosage 00:00:00 [facility] Hep B, Adol or Pedi 2000 Completed Unive rsity of Dosage 00:00:00 [facility] Hep B, Adol or Pedi 2000 Completed Unive rsity of Dosage 00:00:00 [facility] Hep B, Adol or Pedi 2000 Completed Unive rsity of Dosage 00:00:00 [facility] Hep B, Adol or Pedi 2000 Completed Unive rsity of Dosage 00:00:00 [facility] Hep B, Adol or Pedi 2000 Completed Unive rsity of Dosage 00:00:00 [facility] Hep B, Adol or Pedi 2000 Completed Unive rsity of Dosage 00:00:00 [facility] Hep B, Adol or Pedi 2000 Completed Unive rsity of Dosage 00:00:00 [facility] Hep B, Adol or Pedi 2000 Completed Unive rsity of Dosage 00:00:00 [facility] Hep B, Adol or Pedi 2000 Completed Unive rsity of Dosage 00:00:00 [facility] Hep B, Adol or Pedi 2000 Completed Unive rsity of Dosage 00:00:00 [facility] Hep B, Adol or Pedi 2000 Completed Unive rsity of Dosage 00:00:00 [facility] Hep B, Adol or Pedi 2000 Completed Unive rsity of Dosage 00:00:00 [facility] Hep B, Adol or Pedi 2000 Completed Unive rsity of Dosage 00:00:00 [facility] Hep B, Adol or Pedi 2000 Completed Unive rsity of Dosage 00:00:00 [facility] Hep B, Adol or Pedi 2000 Completed Unive rsity of Dosage 00:00:00 [facility] Hep B, Adol or Pedi 2000 Completed Unive rsity of Dosage 00:00:00 [facility] Hep B, Adol or Pedi 2000 Completed Unive rsity of Dosage 00:00:00 [facility] Hep B, Adol or Pedi 2000 Completed Unive rsity of Dosage 00:00:00 [facility] Hep B, Adol or Pedi 2000 Completed Unive rsity of Dosage 00:00:00 [facility] Hep B, Adol or Pedi 2000 Completed [facility]ive rsity of Dosage 00:00:00 [facility] Hep B, Adol or Pedi 2000 Completed Unive rsity of Dosage 00:00:00 [facility] Hep B, Adol or Pedi 2000 Completed Unive rsity of Dosage 00:00:00 [facility] Hep B, Adol or Pedi 2000 Completed Unive rsity of Dosage 00:00:00 [facility] Hep B, Adol or Pedi 2000 Completed Unive rsity of Dosage 00:00:00 [facility] Hep B, Adol or Pedi 2000 Completed Unive rsity of Dosage 00:00:00 [facility] Hep B, Adol or Pedi 2000 Completed Unive rsity of Dosage 00:00:00 [facility] Hep B, Adol or Pedi 2000 Completed Unive rsity of Dosage 00:00:00 [facility] Hep B, Adol or Pedi 2000 Completed Unive rsity of Dosage 00:00:00 [facility] Vital Signs Vital Name Observation Time Observation Value Comments Source Systolic blood 2021-02-26 01:41:00 128 mm[Hg] Univer sity of pressure [facility] Diastolic blood 2021-02-26 01:41:00 77 mm[Hg] Unive rsity of pressure [facility] Heart rate 2021-02-26 01:41:00 82 /min [facility] Body temperature 2021-02-26 01:41:00 36.72 Radha [facility] 2021-02-26 01:41:00 18 /min [facility] Body height 2021-02-26 01:41:00 162.6 cm [facility] Body weight 2021-02-26 01:41:00 116.631 kg [facility] BMI 2021-02-26 01:41:00 44.14 kg/m2 [facility] Oxygen saturation in 2021-02-26 01:41:00 99 /min [facility] Arterial blood by [facility] Pulse oximetry Branch Systolic blood 2020-11-02 18:03:00 130 mm[Hg] Univer sity of pressure [facility] Diastolic blood 2020-11-02 18:03:00 87 mm[Hg] Unive rsity of pressure [facility] Heart rate 2020-11-02 18:03:00 113 /min [facility] Body temperature 2020-11-02 18:03:00 37.33 Radha [facility] Respiratory rate 2020-11-02 18:03:00 20 /min Univ ers[facility] Body height 2020-11-02 18:03:00 162.6 cm [facility] Body weight 2020-11-02 18:03:00 119.75 kg [facility] BMI 2020-11-02 18:03:00 45.32 kg/m2 [facility] Systolic blood 2020-03-28 20:47:00 109 mm[Hg] Univer sity of pressure [facility] Diastolic blood 2020-03-28 20:47:00 73 mm[Hg] Unive rsity of pressure [facility] Heart rate 2020-03-28 20:47:00 120 /min [facility] Body temperature 2020-03-28 20:47:00 37.83 Radah [facility] Body weight 2020-03-28 20:47:00 117.935 kg [facility] Oxygen saturation in 2020-03-28 20:47:00 99 /min University of Arterial blood by [employer] tamiko Pulse oximetry Branch Systolic blood 2020-03-20 16:15:00 127 mm[Hg] Univer sity of pressure [facility] Diastolic blood 2020-03-20 16:15:00 77 mm[Hg] Unive rsity of pressure [facility] Heart rate 2020-03-20 16:15:00 76 /min [facility] Oxygen saturation in 2020-03-20 16:15:00 97 /min University of Arterial blood by [employer] tamiko Pulse oxim[facility] Branch Respiratory rate 2020-03-20 14:38:24 16 /min Univ ersity [facility] Body temperature 2020-03-20 13:36:00 36.78 Radha [facility] Systolic blood 2020-03-20 16:15:00 127 mm[Hg] Univer sity of pressure [facility] Diastolic blood 2020-03-20 16:15:00 77 mm[Hg] Unive rsity of pressure [facility] Heart rate 2020-03-20 16:15:00 76 /min [facility] Oxygen saturation in 2020-03-20 16:15:00 97 /min University of Arterial blood by [facility] [employer] tamiko P[facility] Branch Respiratory rate 2020-03-20 14:38:24 16 /min Univ ers[facility] Body temperature 2020-03-20 13:36:00 36.78 Radha [facility] Systolic blood 2020-03-10 04:12:59 133 mm[Hg] Univer sity of pressure [facility] Diastolic blood 2020-03-10 04:12:59 80 mm[Hg] Unive rsity of pressure [facility] Heart rate 2020-03-10 04:12:59 103 /min [facility] Respiratory rate 2020-03-10 04:12:59 16 /min Univ [facility] Oxygen saturation in 2020-03-10 04:12:59 98 /min University of Arterial blood by [facility] tamiko Pulse oximetry Branch Body temperature 2020-03-10 01:29:00 37.11 Radha [facility] Body weight 2020-03-10 01:29:00 118.842 kg [facility] Systolic blood 2020-03-10 04:12:59 133 mm[Hg] Univer sity of pressure [facility] Diastolic blood 2020-03-10 04:12:59 80 mm[Hg] Unive rsity of pressure [facility] Heart rate 2020-03-10 04:12:59 103 /min [facility] Respiratory rate 2020-03-10 04:12:59 16 /min Univ [facility] Oxygen saturation in 2020-03-10 04:12:59 98 /min University of Arterial blood by [facility] Pulse oximetry Branch Body temperature 2020-03-10 01:29:00 37.11 Radha [facility] Body weight 2020-03-10 01:29:00 118.842 kg [facility] Systolic blood 2020-02-28 13:09:00 118 mm[Hg] Univer sity of pressure [facility] Diastolic blood 2020-02-28 13:09:00 83 mm[Hg] Unive rsity of pressure [facility] Heart rate 2020-02-28 13:09:00 94 /min [facility] Body temperature 2020-02-28 13:09:00 37.06 Radha [facility] Respiratory rate 2020-02-28 13:09:00 18 /min Univ [facility] Body height 2020-02-28 13:09:00 162.6 cm [facility] Body weight 2020-02-28 13:09:00 118.842 kg [facility] BMI 2020-02-28 13:09:00 44.97 kg/m2 [facility] Oxygen saturation in 2020-02-28 13:09:00 99 /min University of Arterial blood by [facility] Pulse oximetry Branch Systolic blood 2020-02-04 16:17:00 115 mm[Hg] Univer sity of pressure [facility] Diastolic blood 2020-02-04 16:17:00 80 mm[Hg] Unive rsity of pressure [facility] Heart rate 2020-02-04 16:17:00 94 /min [facility] Body temperature 2020-02-04 16:17:00 36.83 Radha [facility] Respiratory rate 2020-02-04 16:17:00 18 /min Univ [facility] Body height 2020-02-04 16:17:00 162.6 cm [facility] Body weight 2020-02-04 16:17:00 118.298 kg [facility] BMI 2020-02-04 16:17:00 44.77 kg/m2 [facility] Systolic blood 2020-02-04 14:56:00 107 mm[Hg] Univer sity of pressure [facility] Diastolic blood 2020-02-04 14:56:00 76 mm[Hg] Unive rsity of pressure [facility] Heart rate 2020-02-04 14:56:00 100 /min [facility] Body temperature 2020-02-04 14:56:00 36.78 Radha [facility] Respiratory rate 2020-02-04 14:56:00 18 /min Univ [facility] Body height 2020-02-04 14:56:00 162.6 cm [facility] Body weight 2020-02-04 14:56:00 118.298 kg [facility] BMI 2020-02-04 14:56:00 44.77 kg/m2 [facility] Oxygen saturation in 2020-02-04 14:56:00 98 /min University of Arterial blood by [facility] Pulse oximetry Branch Systolic blood 2019-12-27 15:49:00 140 mm[Hg] Univer sity of pressure [facility] Diastolic blood 2019-12-27 15:49:00 84 mm[Hg] Unive rsity of pressure [facility] Heart rate 2019-12-27 15:49:00 90 /min [facility] Body temperature 2019-12-27 15:49:00 37.06 Radha [facility] Respiratory rate 2019-12-27 15:49:00 18 /min Univ [facility] Body height 2019-12-27 15:49:00 162.6 cm [facility] Body weight 2019-12-27 15:49:00 117.935 kg [facility] BMI 2019-12-27 15:49:00 44.63 kg/m2 [facility] Systolic blood 2019-02-03 19:14:00 108 mm[Hg] Univer sity of pressure [facility] Diastolic blood 2019-02-03 19:14:00 74 mm[Hg] Unive rsity of pressure [facility] Heart rate 2019-02-03 19:14:00 78 /min [facility] Body temperature 2019-02-03 19:14:00 36.72 Radha [facility] Respiratory rate 2019-02-03 19:14:00 18 /min Univ [facility] Body height 2019-02-03 19:14:00 162.6 cm [facility] Body weight 2019-02-03 19:14:00 101.606 kg [facility] BMI 2019-02-03 19:14:00 38.45 kg/m2 [facility] Systolic blood 2019-01-06 19:58:00 115 mm[Hg] Univer sity of pressure [facility] Diastolic blood 2019-01-06 19:58:00 73 mm[Hg] Unive rsity of pressure [facility] Heart rate 2019-01-06 19:58:00 75 /min [facility] Body temperature 2019-01-06 19:58:00 36.72 Radha [facility] Respiratory rate 2019-01-06 19:58:00 18 /min Univ [facility] Body height 2019-01-06 19:58:00 162.6 cm [facility] Body weight 2019-01-06 19:58:00 98.431 kg [facility] BMI 2019-01-06 19:58:00 37.25 kg/m2 [facility] Procedures Procedure Date / Time Performing Clinician Source Performed DISCLOSURE AND CONSENT, 2020-11-02 05:01:00 Doctor Unassigned, U [facility] MEDICAL AND SURGICAL [facility] PROCEDURES MR VENOGRAM HEAD W WO 2020-04-12 22:25:[address] [facility] CONTRAST [facility] IR SPINAL LUMBAR PUNCTURE 2020-03-20 14:48:25 Elvis Mcguire ne [facility] DIAGNOSTIC [facility] CEREBROSPINAL FLUID 2020-03-20 14:29:00 Elvis Mcguire [facility] PROTEIN [facility] CEREBROSPINAL FLUID 2020-03-20 14:29:00 Elvis Mcguire [facility] GLUCOSE [facility] BODY FLUID DIRECT COUNT 2020-03-20 14:29:00 Elvis Mcguire [facility] CSF CULTURE 2020-03-20 14:29:00 Elvis Mcguire [facility] POCT TEST 2020-03-10 03:55:00 Jerry De Leon [facility] BASIC METABOLIC PANEL 2020-03-10 03:36:[address] [facility] (NA, K, CL, CO2, GLUCOSE, Medica l Branch BUN, CREATININE, CA) CBC WITHOUT DIFF 2020-03-10 03:36:00 Jerry De Leon [facility] URINALYSIS 2020-03-10 03:36:00 Moises Jerry [place] o f [facility] CONSENT/REFUSAL FOR 2020-03-10 01:14:14 Doctor Unahenrietta, [facility] DIAGNOSIS AND TREATMENT [facility] MR BRAIN WO CONTRAST 2020-02-19 22:29:44 Nigel Perez [facility] ASSIGNMENT OF BENEFITS 2020-02-04 18:59:37 Doctor Unassigned, [facility] STATEMENT OF PATIENT 2020-01-04 05:01:00 Doctor Unasstalita, [facility] FINANCIAL RESPONSIBILITY [facility] CONSENT/REFUSAL FOR 2019-12-27 15:24:56 Doctor Unasstalita, [facility] DIAGNOSIS AND TREATMENT [facility] ASSIGNMENT OF BENEFITS 2019-12-27 15:24:40 [facility] ULTR[facility] 2019-01-06 05:01:00 Doctor Butch, [facility] POCT TEST 2019-01-06 00:00:00 [facility] En[facility] Start End Encounter Admission Attending Care Care Encounter Source Date/Time Date/Time Type Type Clinicians Facility Department ID 2021-04-06 Emergency [facility] [id number] [facility] 2021-02-26 2021-02-26 Letter NICHOLAS Gutierrez 1.2.840.114 [id number] Univers 00:00:00 00:00:00 (Out) Britney Ponce CUPERTINO [id number] it y of [facility] [id number] [place] as [phone] [address] 2021-02-25 2021-02-25 Urgent Yeny Vidales [facility] [id number] Univers 20:36:11 21:00:43 [facility] [id number] ity [facility] [id number] Wade as Shaq?Blea [phone] [address] Medical Office Building 2021-02-25 2021-02-25 Outpatient R [facility] [id number] Univers 20:40:00 20:40:00 [id number] ity [facility] 2021-02-25 2021-02-25 Outpatient R [facility] [id number] Univers 20:40:00 20:40:00 ity [facility] 2021-02-20 2021-02-20 Outpatient R OLESYA PEOPLES [facility] [id number] Univers 13:30:00 13:30:00 [id number] ity [facility] 2021-02-20 2021-02-20 Outpatient R OLESYA PEOPLES [facility] [id number] Univers 13:30:00 13:30:00 ity of [facility] 2020-11-02 2020-11-02 Office Chenchoshyla [facility] 1.2.840.114 [id number] Univers 12:52:19 13:28:26 Visit Nasreen Calix [id number] it[id number] [id number] Ri dical nal [address] [facility] 2020-11-02 2020-11-02 Outpatient R CARMELITA [facility] [id number] Univers 13:00:00 13:00:00 NASREEN [id number] ity [facility] 2020-11-02 2020-11-02 [facility] [id number] Univers 13:00:00 13:00:00 NASREEN [facility] 2020-11-02 2020-11-02 Orders Doctor NICHOLAS 1.2.840.114 [id number] Univers 00:00:00 00:00:00 Only Unassigned, [place] [id number] ity of [place] [facility] [id number] [place] [phone] [address] 2020-08-29 2020-08-29 [facility] 1.2.840.114 [id number] Univers 00:00:00 00:00:00 Outreach Pepe PRIMARY [id number] i ty of [facility] [id number] [phone] Ri dical [address] [place] 2020-07-19 2020-07-19 Outpatient Teddy MORENO [facility] [id number] Univers 08:00:00 08:00:00 MARIIA [id number] ity [facility] 2020-06-07 2020-06-07 Outpatient Teddy MORENO [facility] [id number] Univers 13:00:00 13:00:00 MARIIA [id number] ity [facility] 2020-06-07 2020-06-07 Outpatient Teddy MORENO [facility] [id number] Univers 13:00:00 13:00:00 MARIIA ity [facility] 2020-05-17 2020-05-17 Telephone [facility] 1.2.840.114 [id number] Univers 00:00:00 00:00:00 Elvis Calix [id number] it[id number] [phone] [facility] 092 [facility] 2020-05-11 2020-05-11 Out[facility] [id number] Univers 14:30:00 14:30:00 SENDIL ity [facility] 2020-05-11 2020-05-11 Outpatient R CLARIBEL [facility] [id number] Univers 14:30:00 14:30:00 SENDIL ity [facility] 2020-05-09 2020-05-09 Outpatient R PAYTON [facility] [id number] Univers 13:40:00 13:40:00 NIGEL ity [facility] 2020-04-26 2020-04-26 Telephone [facility] 1.2.840.114 [id number] Univers 00:00:00 00:00:00 Elvis Calix [id number] it[id number] [phone] [address] 2020-04-12 2020-04-12 [facility] 1.2.194.121 [id number] Univers 14:52:16 23:59:00 Encounter Elvis MARISCAL [id number] ity of [facility] [id number] AT [phone] Ri michelleadam [place] 804 [facility] 2020-04-12 2020-04-12 Outpatient ELVIS MCGUIRE [facility] [id number] Univers 15:00:00 15:00:00 ELVIS MCGUIRE ity [facility] 2020-04-12 2020-04-12 Outpatient R ELVIS MCGUIRE [facility] [id number] Univers 00:00:00 00:00:00 ELVIS MCGUIRE ittramaine [facility] 2020-03-28 2020-03-28 [facility] 1.2.840.114 [id number] Univers 15:43:25 16:38:05 Visit Elvis Calix [id number] it[id number] [phone] Ri dical nal 2 [facility] 2020-03-28 2020-03-28 Outpatient Teddy ELVIS MCGUIRE [facility] [id number] Univers 15:40:00 15:40:00 ELVIS MCGUIRE ittramaine [facility] 2020-03-28 2020-03-28 Outpatient R ENEDELIA [facility] [id number] Univers 09:00:00 09:00:00 TERESA [id number] ity [facility] 2020-03-28 2020-03-28 Outpatient R ENEDELIA [facility] [id number] Univers 09:00:00 09:00:00 TERESA [facility] 2020-03-22 2020-03-22 Telephone [facility] 1.2.840.114 [id number] Univers 00:00:00 00:00:00 Elvis Calix [id number] ity [facility] [id number] [phone] [address] 2020-03-20 2020-03-20 [facility] 1.2.840.114 [id number] 08:02:35 23:59:00 Encounter Elvis Castillo [facility] [id number] CLINICS [id number] [facility] 2020-03-20 2020-03-20 [facility] 1.2.840.114 [id number] Univers 08:02:35 23:59:00 Encounter Elvis Castillo [facility] [id number] ity of CL[place]ICS [id number] [id number] [address] 2020-03-20 2020-03-20 Outpatient ELVIS AVALOS [facility] [id number] Univers 08:30:00 08:30:00 ELIVS MCGUIRE [id number] ity [facility] 2020-03-20 2020-03-20 Outpatient ELVIS AVALOS [facility] [id number] Univers 00:00:00 00:00:00 DOUGELVIS GHOTRA ittramaine [facility] 2020-03-09 2020-03-09 [facility] 1.2.840.114 [id number] 21:34:00 23:39:00 Jerry Fifi [id number] [place] [id number] [place] [id number] [facility] 2020-03-09 2020-03-09 Emergency [facility] 1.2.840.114 [id number] Univers 21:34:00 23:39:00 Jerry Fifi 350.1.13.10 i ty [id number] [phone] [address] 2020-03-09 2020-03-09 Telephone Doug [facility] 1.2.840.114 [id number] 00:00:00 00:00:00 Elvis Calix 350.1.13.10 [place] [id number] Professio [phone] nal [address] [place] [address] 2020-03-09 2020-03-09 Telephone Doug [facility] 1.2.840.114 [id number] Univers 00:00:00 00:00:00 Elvis Calix [id number] it[id number] [phone] Ri dical [address] 2020-03-09 2020-03-09 Orders Doctor NICHOLAS 1.2.840.114 [id number] Univers 00:00:00 00:00:00 Only Unassigned, [place] [id number] ity of [place] [facility] [id number] [place] as [phone] [facility] [address] [place] 2020-03-09 2020-03-09 Orders Doctor PETERSON 1.2.840.114 [id number] 00:00:00 00:00:00 Only Unassigned, [place] 350.1.13.10 [facility] [id number] [id number] 009 2020-02-28 2020-03-03 Office Doug [facility] 1.2.840.114 [id number] Univers 08:02:02 12:52:10 Visit Elvis Calix [id number] ity [facility] [id number] [phone] Ri michellemd nal [address] [place] [address] 2020-02-29 2020-02-29 Outpatient R [facility] [id number] Univers 11:20:00 11:20:00 NIGEL [id number] ity [facility] 2020-02-29 2020-02-29 Outpatient R [facility] [id number] Univers 11:20:00 11:20:00 NIGEL ity [facility] 2020-02-28 2020-02-28 Outpatient R ELVIS MCGUIRE [facility] [id number] Univers 08:00:00 08:00:00 [facility]CGUIRE [id number] [facility] 2020-02-28 2020-02-28 Outpatient ELVIS AVALOS [facility] [id number] Univers 08:00:00 08:00:00 [facility] 2020-02-28 2020-02-28 Telephone [facility] 1.2.840.114 [id number] Univers 00:00:00 00:00:00 Elvis Calix [id number] ity [facility] [id number] [phone] Ri michellemd nal [address] [place] [address] 2020-02-19 2020-02-19 [facility] 1.2.840.114 [id number] Univers 16:52:25 23:59:00 Encounter Nigel MARISCAL [id number] ity of [facility] [id number] [phone] Ri timi [place] 804 [facility] 2020-02-19 2020-02-19 Outpatient [place] [id number] Univers 17:45:00 17:45:00 NIGEL [id number] ity [facility] 2020-02-19 2020-02-19 Outpatient R [facility] [id number] Univers 00:00:00 00:00:00 NIGEL ittramaine [facility] 2020-02-18 2020-02-18 Outpatient R ELVIS MCGUIRE [facility] [id number] Univers 13:40:00 13:40:00 ELVIS MCGUIRE [id number] ity [facility] 2020-02-08 2020-02-08 [facility] 1.2.840.114 [id number] Univers 14:36:06 17:10:42 ne Visit Nigel Calix [id number] [id number] [phone] Ri dical nal [address] [place] [address] 2020-02-08 2020-02-08 Outpatient [facility] [id number] Univers 15:00:00 15:00:00 [facility]IGEL [facility] [facility] 2020-02-08 2020-02-08 [id number] Univers 15:00:00 15:00:00 NIGEL [facility] 2020-02-08 2020-02-08 Telephone [facility] [id number] Univers 00:00:00 00:00:00 Nigel Calix 350.1.13.10 [place] [phone] Ri dical [place]al [address] [place] [address] 2020-02-08 2020-02-08 Telephone [facility] [id number] Univers 00:00:00 00:00:00 Nigel Calix 350.1.13.10 [place] [phone] Ri dical nal [address] [place] [address] 2020-02-07 2020-02-07 Patient [facility] 1.2.840.114 [id number] Univers 00:00:00 00:00:00 Secure Msg Nigel Calix 350.1.13.10 [place] [phone] Ri dical nal 044 [facility] 2020-02-04 2020-02-04 Legal Arbitrator 2, Adc Lab [facility] 1.2.840.114 [id number] Univers 13:30:03 13:45:03 Visit Nigel Preez 350.1.13.10 [place] [phone] Ri dical nal 353 [facility] 2020-02-04 2020-02-04 Outpatient R ENEDELIA [facility] [id number] Univers 13:30:00 13:30:00 TERESA [id number] ity [facility] 2020-02-04 2020-02-04 Outpatient R ENEDELIA [facility] [id number] Univers 13:30:00 13:30:00 TERESA [facility] 2020-02-04 2020-02-04 [facility] 1.2.840.114 [id number] Univers 10:48:31 11:55:13 Visit Nasreen Calix 350.1.13.10 [place] [phone] Ri dical nal 134 [facility] 2020-02-04 2020-02-04 [facility] 1.2.840.114 [id number] Univers 09:55:16 10:39:58 Visit Nigel Calix 350.1.13.10 [place] [phone] Ri dical nal 044 [facility] 2020-02-04 2020-02-04 Outpatient R PAYTON [facility] [id number] Univers 10:00:00 10:00:00 NIGEL eid [facility] 2020-02-04 2020-02-04 Patient Godfrey [facility] 1.2.840.114 [id number] Univers 00:00:00 00:00:00 Outreach Liz Calix 350.1.13.10 [place] [phone] Ri dical nal 044 [facility] 2020-02-04 2020-02-04 Orders Doctor NICHOLAS 1.2.840.114 [id number] Univers 00:00:00 00:00:00 Only Unassigned, [place] 350.1.13.10 ity of [place] [facility] 4.2.7.2.686 [place] as [phone] [address] 2020-01-04 2020-01-04 Orders Doctor NICHOLAS 1.2.840.114 [id number] Univers 00:00:00 00:00:00 Only Unassigned, [place] 350.1.13.10 ity of [place] [facility] 4.2.7.2.686 [place] as [phone] [address] 2019-12-27 2019-12-27 Office Shelton [facility] [id number] Univers 10:26:47 11:00:17 Visit Cam Fifi 350.1.13.10 [place] [phone] Ri dic[address] 2019-12-27 2019-12-27 Outpatient R SHELTON OLESYA [facility] [id number] Univers 10:30:00 10:30:00 [id number] ity [facility] 2019-12-27 2019-12-27 Outpatient R SHELTON OLESYA [facility] [id number] Univers 10:30:00 10:30:00 ity [facility] 2019-12-27 2019-12-27 Orders Doctor NICHOLAS 1.2.840.114 [id number] Univers 00:00:00 00:00:00 Only Unassigned, [place] 350.1.13.10 ity of [place] [facility] 4.2.7.2.686 [place] as [phone] [address] 2019-08-26 2019-08-26 Outpatient R TELLY [facility] [id number] Univers 13:00:00 13:00:00 BONNIE eid [facility] 2019-08-25 2019-08-25 [facility]phone [facility] [id number] Univers 00:00:00 00:00:00 Shaylee [facility] 350.1.13.10 i ty of [place] 4.2.7.2.686 [place] as Professio [phone] Ri mcihelle[address] Office [facility] 2019-08-24 2019-08-24 Outpatient R [facility] [id number] Univers 18:15:00 18:15:00 [id number] ity of [facility] 2019-08-24 2019-08-24 Outpatient R UNKNOWN, [facility] [id number] Univers 18:15:00 18:15:00 ATTENDING ity [facility] 2019-08-24 2019-08-24 Telephone Olesya Peoples [facility] 1.2.840.114 [id number] Univers 00:00:00 00:00:00 Cam [place] 350.1.13.10 [place] [phone] Ri dical nal 134 [facility] 2019-02-03 2019-02-03 Office Olesya Peoples [facility] [id number] Univers 13:42:38 14:36:36 Visit Chaz Calix 350.1.13.10 [place] [phone] Ri dical nal [address] [place] [address] 2019-01-06 2019-01-06 Office Olesya Peoples [facility] [id number] Univers 14:28:33 16:42:02 Visit Chaz Calix 350.1.13.10 [place] [phone] Ri dic[address] 2019-01-06 2019-01-06 Orders Doctor NICHOLAS 1.2.840.114 [id number] Univers 00:00:00 00:00:00 Only Unassigned, [place] 350.1.13.10 ity of [place] [facility] 4.2.7.2.686 [place] as [phone] [address] 2018-11-13 2018-11-13 Outpatient R [facility] [id number] Univers 13:00:00 13:00:00 [id number] ity of [facility] 2018-11-13 2018-11-13 Outpatient P AMOL MARTINS [facility] [id number] Univers 08:00:00 08:00:00 ity of [facility] 2018-11-09 2018-11-09 Outpatient P KAYLIN, [facility] [id number] Univers 08:00:00 10:18:36 KATHY eid [facility] Results Test Test Test Results Result Source Description Time Comments Comments MR VENOGRAM 2020-04- No evidence of dural Un iversity of HEAD W WO 05 venous sinus thrombosisMR [facility] CONTRAST 02:04:02 VENOGRAM HEAD W WO Branch CONTRAST HISTORY: Female 19 years Dural venous sinus thrombosis suspected Note mainproblem may be IIH, but now patient is complaining of sensory change rightside of body. Also CSF OP is 46. Want to R/O venous sinus thrombosis. COMPARISON: MRI brain dated 02/19/2020 TECHNIQUE: Phase contrast and contrast enhanced MRV followingadministration of 20 mL IV MultiHance were provided FINDINGS: The dural venous sinuses and internal cerebral veins and visualizedcortical veins are widely patent. 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 [facility], Radiant Results Inft User - 04/12/2020 8:05 PM CSTMR VENOGRAM HEAD W WO CONTRASTHISTORY: Female 19 years Dural venous sinus thrombosis suspected Note mainproblem may be IIH, but now patient is complaining of sensory change rightside of body. Also CSF OP is 46. Want to R/O venous sinus thrombosis. COMPARISON: MRI brain dated 02/19/2020TECHNIQUE: Phase contrast and contrast enhanced MRV followingadministration of 20 mL IV MultiHance were providedFINDINGS:The dural venous sinuses and internal cerebral veins and visualizedcortical veins are widely patent. 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 ?60 cells counted: ?25 Neutrophils, 25 Lymphocytes, 8 Macrophages, 1 Reactive Lymphocyte, and 1 Eosinophils. BODY FLUID DIRECT COUNT 2020-03-20 17:44:00 Test Item Value Reference Range Interpretation Comme nts BF COLOR (test code = 8734294730) Clear BF WBC Count (test code = See_Comment [ Automated message] The system [id number]) which generated this result transmitted ref erence range: 0 - 5 /?L. The refe rence range was not used to int erpret this result as tonya l/abnormal. BF RBC Count (test code = See_Comment [ Automated message] The system [id number]) which generated this result transmitted ref erence range: /?L. The refere nce range was not used to interpr et this result as normal/abnormal . [facility] [id number] 16:11:00 Test Item Value Reference Range Interpretation Comments GLU CSF (test code = 56 mg/dL 50-80 2550259345) UNSPUN BODY FLUID Colorless COLOR (test code = 1184180751) UNSPUN BODY FLUID Clear CLARITY (test code = 3132091259) SPUN BODY FLUID COLOR Colorless (test code = 8320528541) SPUN BODY FLUID Clear CLARITY (test code = 9804787826) Sediment (test code = The sediment volume is 5958186829) <0.1 mLs of the total fluid volume of 1.0 mLs and its color is RED. [facility] [id number] 16:11:00 Test Item Value Reference Range Interpretation Comments T. PRO CSF (test code 30.0 mg/dL 15-45 = 2440429075) UNSPUN BODY FLUID Colorless COLOR (test code = 9767229185) UNSPUN BODY FLUID Clear CLARITY (test code = 4207868753) SPUN BODY FLUID COLOR Colorless (test code = 3707794316) SPUN BODY FLUID Clear CLARITY (test code = 0482674035) Sediment (test code = The sediment volume is 6824396351) <0.1 mLs of the total fluid volume of 1.0 mLs and its color is RED. [facility] METABOLIC PANEL (NA, K, CL, CO2, GLUCOSE, BUN, CREATININE, CA)2020-03-10 04:06:00 Test Item Value Reference Range Interpretation Comments NA (test code = 138 mmol/L 135-145 4108720295) K (test code = 3.4 mmol/L 3.5-5 L 1886530314) CL (test code = 101 mmol/L 98-108 1117986491) CO2 TOTAL (test code = 26 mmol/L 23-31 3459700180) AGAP (test code = 2-16 0746441841) BUN (test code = 11 mg/dL 7-23 3886556960) GLUCOSE (test code = 90 mg/dL 70-110 5917951160) CREATININE (test code = 0.52 mg/dL 0.5-1.04 1575226924) CALCIUM (test code = 9.4 mg/dL 8.6-10.6 5965765674) eGFR Calculation mL/min/1.73m2 (Non-) (test code = 3466921105) eGFR Calculation mL/min/1.73m2 () (test code = 3636219899) MICHELL (test code = MICHELL) Association of Glomerular Filtration Rate (GFR) and Staging of Kidney Disease* + --+ --+ ------+| GFR (mL/min/1.73 m2) ?| With Kidney Damage ?| ?Without Kidney Damage+ --------+ --------+ +| ?>90 ?| ?Stage one ?| ? Normal ?+ ---+ ---+ -------+| ?60-89 ?| ?Stage two ?| ? Decreased GFR ? + --+ --+ ------+| ?30-59 ?| ?Stage three ?| ? Stage three ? + --+ --+ ------+| ?15-29 ?| ?Stage four ? | ? Stage four ?+ ---+ ---+ -------+| ?<15 (or dialysis) ? ?| ?Stage five ? | ? Stage five ?+ ---+ ---+ -------+ *Each stage assumes the associated GFR level has been in effect for at least three months. ?Stages 1 to 5, with or without kidney disease, indicate chronic kidney disease. Notes: Determination of stages one and two (with eGFR >59mL/min/1.73 m2) requires estimation of kidney damage for at least three months as defined by structural or functional abnormalities of the kidney, manifested by either:Pathological abnormalities or Markers of kidney damage (including abnormalities in the composition of the blood or urine or abnormalities in imaging tests). Lab Interpretation Abnormal (test code = 66267-7) [facility] [id number] 03:55:00 Test Item Value Reference Range Interpretation Comments POCT PREG (test code = 1605) Negative On board controls acceptable with Present C Line (test code = 3574) POCT PREG LOT # (test code = 3575) [id number] POCT PREG TEST DATE (test 04/08/2021 code = 3576) Lab Interpretation (test code = Normal 54222-4) [facility] 03:54:00 Test Item Value Reference Range Interpretation Comments APPEARANCE (test code = Clear Clear 0827938715) COLOR (test code = Straw Yellow A 0410642974) PH (test code = 4.8-8.0 9964390756) SP GRAVITY (test code = 1.003-1.030 4283942113) GLU U QUAL (test code = Normal Normal 0406897360) BLOOD (test code = Negative Negative 8713650249) KETONES (test code = Negative Negative 9442401092) PROTEIN (test code = Negative Negative 2887-8) UROBILIN (test code = Normal Normal 0446405024) BILIRUBIN (test code = Negative Negative 7842191724) NITRITE (test code = Negative Negative 6571692807) LEUK MALIA (test code = Negative Negative 9164464316) RBC/HPF (test code = See_Comment [Autom ated message] 4711758856) The system [employer] generated this result transmitted ref erence range: 0 - 3 HP F. The reference range was not used to int erpret this result as normal/abnormal . WBC/HPF (test code = See_Comment [Autom ated message] 9447047034) The system [employer] generated this result transmitted ref erence range: 0 - 5 HP F. The reference range was not used to int erpret this result as normal/abnormal . BACTERIA (test code = Negative Negative 2311208107) SQ EPITH (test code = HPF 5117009176) Lab Interpretation (test Abnormal code = 24551-8) [facility] WITHOUT [id number] 03:48:00 Test Item Value Reference Range Interpretation Comments WBC (test code = 6690-2) See_Comment H [A utomated message] The system [employer] generated this result transmit fabio reference range : 4.30 - 11.10 10*3/?L. The reference range was not used to interpret this result as normal/abnormal . RBC (test code = 789-8) See_Comment H [Au tomated message] The system [employer] generated this result transmit fabio reference range : 3.93 - 5.25 10* 6/?L. The reference r carolyn was not used to interpret this result as normal/abnormal . HGB (test code = 718-7) 13.0 g/dL 11.6-15 HCT (test code = 4544-3) 41.0 % 35.7-45.2 MCH (test code = 785-6) 24.3 pg 25.9-32.8 L MCV (test code = 787-2) 76.8 fL 80.6-95.5 L MCHC (test code = 786-4) 31.7 g/dL 31.6-35.1 PLT (test code = 777-3) See_Comment H [Au tomated message] The system [employer] generated this result transmit fabio reference range : 166 - 358 10*3/?L. The reference range was not used to interpret this result as normal/abnormal . MPV (test code = 9.8 fL 9.5-12.9 94563-5) RDW-CV (test code = 14.5 % 12-15.5 788-0) RDW-SD (test code = 39.9 fL 39-49.9 80788-7) NRBC x10^3 (test code = <0.01 See_Comment [Au tomated message] 3934300786) The system [employer] generated this result transmit fabio reference range : 10*3/?L. The reference range was not used to interpret this result as normal/abnormal . NRBC/100 WBC (test code See_Comment [Au tomated message] = 4123271995) The system [facility] generated this result transmit fabio reference range : 0.0 - 10.0 /100 WBC s. The reference r carolyn was not used to interpret this result as normal/abnormal . IPF % (test code = 0405105390) Lab Interpretation (test Abnormal code = 54866-3) [facility] BRAIN WO [id number] 22:36:33 No acute intracranial abnormality. MR BRAIN WO CONTRAST COMPARISON: None HISTORY: Headache, chronic, normal neuro exam TECHNIQUE: Multisequence multiplanar MR images the brain were obtainedwithout IVcontrast. FINDINGS: The ventricles and cerebral sulci are normal in caliber and configuration.No midline shift, hydrocephalus or pathological extra-axial fluidcollection is present. The basal cisterns are unremarkable. No restricted diffusion is present to suggest acute infarct. No abnormalparenchymalsignal abnormality is present. No abnormal gradient blooming. The T2 flow voids for the major intracranial vessels are unremarkable.Trace fluid within the mastoid air cells on the right. Remainder of theparanasal sinuses and left mastoid air cells are essentially clear. [facility], Radiant Results Inft User - 02/19/2020 5:37 PM CDTMR BRAIN WO CONTRASTCOMPARISON: NoneHISTORY: Headache, chronic, normal neuro exam TECHNIQUE: Multisequence multiplanar MR images the brain were obtainedwithout IV contrast.FINDINGS:The ventricles and cerebral sulci are normal in caliber and configuration.No midline shift, hydrocephalus or pathological extra-axial fluidcollection is present. The basal cisterns are unremarkable.No restricted diffusion is present to suggest acute infarct. No abnormalparenchymal signal abnormality is present. No abnormal gradient blooming. The T2 flow voids for the major intracranial vessels are unremarkable.Trace fluid within the mastoid air cells on the right. Remainder of theparanasal sinuses and left mastoid air cells are essentially clear.IMPRESSIONNo acute intracranial abnormality.[facility] [id number] 20:08:00 Test Item Value Reference Range Interpretation Comments POCT PREG (test code = 1605) Negative On board controls acceptable with C Yes Line (test code = 3574) POCT PREG LOT # (test code = 3575) POCT PREG TEST DATE (test code = 3576) [facility]OW[facility] [id number] 20:08:00 Test Item Value Reference Range Interpretation Comments POCT PREG (test code = 1605) Negative On board controls acceptable with C Yes Line (test code = 3574) POCT PREG LOT # (test code = 3575) POCT PREG TEST DATE (test code = 3576) [facility]"
[2021-05-18] MEDS ORDERED: NA CHLORIDE 0.9% 1,000 ML ONE (20:25)
[2021-05-18] MEDS ORDERED: METOCLOPRAMIDE 10 MG/2mL INJ ONE (20:25)
[2021-05-18] MEDS ORDERED: ONDANSETRON 4 MG/2 ML VIAL ONE (20:25)
[2021-05-18] MEDS ORDERED: DIPHENHYDRAMINE 50 MG/ML VIAL ONE (20:25)
[2021-05-18 20:32] LABS: Urine Blood Negative (Negative); Urine Glucose Negative (Negative); Urine Protein 1+ (Negative); Urine Specific Gravity 1.025 (1.005-1.030); Urine pH 7.5 (5.0-7.0)
[2021-05-18] MEDS ORDERED: dexAMETHasone 10 MG/ML VIAL ONE (20:38)
[2021-05-18 21:15] LABS: Absolute Lymphocytes (CBC) 0.8 K/uL (0.7-4.9); Basophils % 0.4 % (0-1.3); Hematocrit 38.8 % (36.0-45.0); Lymphocytes % 10.3 % (15.3-44.8); MPV 8.1 fL (7.6-11.3); RBC Red Blood Cell Count 5.03 M/uL (3.86-4.86)
--- NOTE | 2021-05-18 21:17 | RAD REPORT ---
EXAM DESCRIPTION: CT - Head Brain Wo Cont - 05/18/2021 9:11 pm CLINICAL HISTORY: Dizziness;Headache COMPARISON: Head Brain Wo Cont dated 03/22/2020 TECHNIQUE: All CT scans are performed using dose optimization technique as appropriate and may inclu de automated exposure control or mA/KV adjustment according to patient size. FINDINGS: No intracranial hemorrhage, hydrocephalus or extra-axial fluid collection.No areas of brai n edema or evidence of midline shift. The paranasal sinuses and mastoids are clear. The calvarium is intact. IMPRESSION: No acute intracranial abnormality.
[2021-05-18 21:24] LABS: Protime INR 1.05
[2021-05-18 21:41] LABS: ALT/SGPT 31 U/L (12-78); AST/SGOT 20 U/L (15-37); Albumin 3.5 g/dL (3.4-5.0); Alkaline Phosphatase 64 U/L (45-117); BUN Blood Urea Nitrogen 12 mg/dL (7-18); Bicarbonate 23 mmol/L (21-32); Bilirubin Direct < 0.1 mg/dL (0-0.2); Bilirubin Total 0.3 mg/dL (0.2-1.0); Glucose Level 96 mg/dL (74-106); Lipase 79 U/L (73-393); Protein, Total 7.9 g/dL (6.4-8.2); Sodium Level 137 mmol/L (136-145)
--- NOTE | 2021-05-18 22:56 | ER ---
Nurse's Notes [facility] Name: Cary Romano Age: 20 yrs Sex: Female : 2000 Arrival Date: 05/18/2021 Time: 16:44 Bed 15 Private MD: Diagnosis: Headache Presentation: 05/18 17:50 Chief complaint: Patient states: "last year I had a lumbar puncture to relive some vg1 fluid on my brain and ended up back in hospital due to fluid leaking into my spin" Pt states 'the symptoms Im having now feels how it did last year". Pt states vomiting since Friday05/15/21 and dizziness, headache and back ache today; states "feels like room is spinning.". Coronavirus screen: Vaccine status: Patient reports being unvaccinated. Client denies travel out of the [place] in the last 14 days. Ebola Screen: Patient negative for fever greater than or equal to 101.5 degrees Fahrenheit, and additional compatible Ebola Virus Disease symptoms. Initial Sepsis Screen: Does the patient meet any 2 criteria? No. Patient's initial sepsis screen is negative. Does the patient have a suspected source of infection? No. Patient's initial sepsis screen is negative. Risk Assessment: Do you want to hurt yourself or someone else? Patient reports no desire to harm self or others. Onset of symptoms was May 15, 2021. 17:50 Method Of Arrival: Ambulatory vg1 17:50 Acuity: DEMETRA 3 vg1 Triage Assessment: 17:54 General: Appears in no apparent distress. uncomfortable, Behavior is calm, cooperative. vg1 Pain: Complains of pain in head and back Pain currently is 8 out of 10 on a pain scale. GI: Reports nausea, vomiting. 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 - Social history:: Smoking status: Patient denies any tobacco usage or history of. Screenin:00 Abuse screen: Denies threats or abuse. Denies injuries from another. Nutritional mr2 screening: No deficits noted. Tuberculosis screening: No symptoms or risk factors identified. Fall Risk None identified. Assessment: 21:00 GI: Abdomen is round non-distended, Reports lower abdominal pain, nausea. mr2 Vital Signs: 17:50 BP 117 / 81; Pulse 110; Resp 16; Temp 100.0(O); Pulse Ox 100% ; Weight 117.93 kg; vg1 Height 5 ft. 5 in. (165.10 cm); Pain 8/10; 17:50 Body Mass Index 43.27 (117.93 kg, 165.10 cm) vg1 ED Course: 16:44 Patient arrived in ED. kc5 17:54 Triage completed. vg1 17:54 Arm band placed on. vg1 20:02 Anup Weinstein PA is PHCP. cp 20:02 Anup Esquivel MD is Attending Physician. cp 20:10 Sam Liu, MAURICE is Primary Nurse. mr2 20:32 Basic Metabolic Panel Sent. mr2 20:32 CBC with Diff Sent. mr2 20:32 Hepatic Function Sent. mr2 20:32 Lipase Sent. mr2 20:32 Ptt, Activated Sent. mr2 20:32 PT-INR Sent. mr2 21:00 Bed in low position. Side rails up X2. mr2 21:00 No provider procedures requiring assistance completed. Inserted saline lock: 20 gauge mr2 in left antecubital area, using aseptic technique. 21:11 CT Head Brain wo Cont In Process Unspecified. EDMS 23:10 IV discontinued. mr2 Administered Medications: 20:27 Drug: NS 0.9% 1000 ml Route: IV; Rate: 1 bolus; Site: left antecubital; mr2 20:27 Drug: Reglan (metoCLOPramide) 10 mg Route: IVP; Site: left antecubital; mr2 20:27 Drug: Benadryl (diphenhydrAMINE) 25 mg Route: IVP; Site: left antecubital; mr2 20:27 Drug: Decadron - Dexamethasone 10 mg Route: IVP; Site: left antecubital; mr2 20:27 Drug: Zofran (Ondansetron) 4 mg Route: IVP; Site: left antecubital; mr2 23:30 Drug: acetaZOLAMIDE 250 mg Route: PO; mr2 23:30 Drug: Meclizine 25 mg Route: PO; mr2 Outcome: 22:55 Discharge ordered by . ivana 23:10 Discharged to home mr2 23:10 Condition: stable 23:10 Discharge instructions given to patient, Prescriptions given X 2. 23:34 Patient left the ED. mr2 Signatures: Dispatcher [employer] EDMS Anup Weinstein PA PA cp Garcia, Victoria, RN RN vg1 Sam Liu RN RN mr2 Laura Turner kc5 Corrections: (The following items were deleted from the chart) 17:55 17:54 Allergies: Kefzol; vg1 vg1
--- NOTE | 2021-05-18 22:56 | EDPHYS ---
Physician Documentation [facility] Name: Cary Romano Age: 20 yrs Sex: Female : 2000 Arrival Date: 05/18/2021 Time: 16:44 Bed 15 Private MD: ED Physician Anup Esquivel HPI: 05/18 20:25 This 20 yrs old Female presents to ER via Ambulatory with complaints of Dizziness, cp Nausea/Vomiting. 20:25 The patient complains of pain to the top of head and back of head. The patient cp describes the headache as aching. Onset: The symptoms/episode began/occurred yesterday, and became worse today. 20:25 Associated signs and symptoms: Pertinent positives: nausea, Photophobia vomiting, cp dizziness, Pertinent negatives: altered mental status, fever, neck stiffness, paresthesias, weakness. Severity of symptoms: in the emergency department the pain is unchanged, despite home interventions. Headache History: The patient has had previous headaches and this one is similar to previous episodes. Patient reports history of idiopathic intracranial hypertension and having spinal tap last year that resulted in spinal headache. Patient reports vomiting since Friday, headache and dizziness since yesterday. 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 - Social history:: Smoking status: Patient denies any tobacco usage or history of. ROS: 20:30 Constitutional: Negative for body aches, chills, fever. cp 20:30 Eyes: Positive for photophobia. cp 20:30 ENT: Negative for drainage from ear(s), ear pain, sinus congestion, sinus pain, sore throat, difficulty swallowing, difficulty handling secretions. 20:30 Neck: Positive for pain at rest, Negative for stiffness. 20:30 Cardiovascular: Negative for chest pain, palpitations. 20:30 Respiratory: Negative for cough, shortness of breath, wheezing. 20:30 Abdomen/GI: Positive for nausea and vomiting, Negative for abdominal pain, diarrhea, constipation. 20:30 Back: Positive for pain at rest. 20:30 Neuro: Positive for headache, Negative for altered mental status, numbness, speech changes, weakness. 20:30 All other systems are negative. Exam: 20:35 Constitutional: The patient appears in no acute distress, alert, awake, non-toxic, well cp developed, well nourished, obese, uncomfortable. 20:35 Head/Face: Normocephalic, atraumatic. cp 20:35 Eyes: Periorbital structures: appear normal, Pupils: equal, round, and reactive to light and accomodation, Extraocular movements: intact throughout, Conjunctiva: normal, no exudate, no injection, Sclera: no appreciated abnormality, Lids and lashes: appear normal, bilaterally. 20:35 ENT: External ear(s): are unremarkable, Ear canal(s): are normal, clear, TM's: dullness, bilaterally, Nose: is normal, Mouth: Lips: moist, Oral mucosa: pink and intact, moist, Posterior pharynx: Airway: no evidence of obstruction, patent, Tonsils: are normal in appearance. 20:35 Neck: ROM/movement: is normal, is supple, no meningismus, no nuchal rigidity, Lymph nodes: no appreciated lymphadenopathy. 20:35 Chest/axilla: Inspection: normal. 20:35 Cardiovascular: Rate: tachycardic, Rhythm: regular. 20:35 Respiratory: the patient does not display signs of respiratory distress, Respirations: normal, no use of accessory muscles, no retractions, labored breathing, is not present, Breath sounds: are clear throughout, no decreased breath sounds, no stridor, no wheezing. 20:35 Abdomen/GI: Inspection: abdomen appears normal, Palpation: abdomen is soft and non-tender, in all quadrants. 20:35 Back: ROM is normal, CVA tenderness, is absent. 20:35 Skin: no rash present. 20:35 Neuro: Orientation: to person, place \T\ time. Mentation: is normal, Cerebellar function: is grossly normal, Motor: moves all fours, strength is normal, Sensation: is normal. Vital Signs: 17:50 BP 117 / 81; Pulse 110; Resp 16; Temp 100.0(O); Pulse Ox 100% ; Weight 117.93 kg; vg1 Height 5 ft. 5 in. (165.10 cm); Pain 8; 17:50 Body Mass Index 43.27 (117.93 kg, 165.10 cm) vg1 MDM: 20:15 Patient medically screened. cp 22:55 Data reviewed: vital signs, nurses notes, lab test result(s), radiologic studies, CT cp scan. 22:55 Counseling: I had a detailed discussion with the patient and/or guardian regarding: the cp historical points, exam findings, and any diagnostic results supporting the discharge/admit diagnosis, lab results, radiology results, the need for outpatient follow up, a neurologist, to return to the emergency department if symptoms worsen or persist or if there are any questions or concerns that arise at home. Response to treatment: the patient's symptoms have markedly improved after treatment, and as a result, I will discharge patient. ED course: VSS. Patient reports headache and nausea markedly improved, vomiting resolved. Will discharge to home for continued monitoring. 05/18 20:17 Order name: Basic Metabolic Panel; Complete Time: 22:28 cp 05/18 20:17 Order name: CBC with Diff; Complete Time: 21:28 cp 05/18 20:17 Order name: Hepatic Function; Complete Time: 22:28 cp 05/18 20:17 Order name: Lipase; Complete Time: 22:28 cp 05/18 20:17 Order name: PT-INR; Complete Time: 21:28 cp 05/18 20:17 Order name: Ptt, Activated; Complete Time: 21:28 cp 05/18 20:17 Order name: CT Head Brain wo Cont; Complete Time: 21:28 cp 05/18 20:32 Order name: Urine Dipstick-Ancillary; Complete Time: 21:28 EDMS 05/18 20:17 Order name: IV Saline Lock; Complete Time: 20:32 cp 05/18 20:17 Order name: Labs collected and sent; Complete Time: 20:32 cp 05/18 20:17 Order name: Urine Dipstick-Ancillary (obtain specimen) cp 05/18 20:17 Order name: Urine Test (obtain specimen) cp 05/18 22:54 Order name: PO challenge; Complete Time: 23:30 cp Administered Medications: 20:27 Drug: NS 0.9% 1000 ml Route: IV; Rate: 1 bolus; Site: left antecubital; mr2 20:27 Drug: Reglan (metoCLOPramide) 10 mg Route: IVP; Site: left antecubital; mr2 20:27 Drug: Benadryl (diphenhydrAMINE) 25 mg Route: IVP; Site: left antecubital; mr2 20:27 Drug: Decadron - Dexamethasone 10 mg Route: IVP; Site: left antecubital; mr2 20:27 Drug: Zofran (Ondansetron) 4 mg Route: IVP; Site: left antecubital; mr2 23:30 Drug: acetaZOLAMIDE 250 mg Route: PO; mr2 23:30 Drug: Meclizine 25 mg Route: PO; mr2 Disposition: 23:00 Chart complete. cp Disposition Summary: 05/18/21 22:55 Discharge Ordered Location: Home cp Problem: an acute exacerbation cp Symptoms: have improved cp Condition: Stable cp Diagnosis - Headache cp Followup: cp - With: Private Physician - When: 2 - 3 days - Reason: Recheck today's complaints Discharge Instructions: - Form - Return To Work bb - Discharge Summary Sheet cp - Idiopathic Intracranial Hypertension cp - Migraine Headache cp Forms: - Medication Reconciliation Form cp - Thank You Letter cp - Antibiotic Education cp - Prescription Opioid Use cp Prescriptions: - acetazolamide 250 mg Oral tablet - take 1 tablet by ORAL route every 8 hours; 60 tablet; Refills: 0, Product cp Selection Permitted - promethazine 25 mg Oral Tablet - take 1 tablet by ORAL route every 6 hours As needed; 20 tablet; Refills: 0, cp Product Selection Permitted Addendum: 05/21/2021 11:07 Co-signature as Attending Physician, Anup Esquivel MD I agree with the assessment and c shipley plan of care. Signatures: Dispatcher [employer] EDAnup Wilde MD MD cha Page, Corey, PA PA cp Garcia, Victoria, RN RN vg1 Sam Liu RN RN mr2 Corrections: (The following items were deleted from the chart) 05/18 17:55 17:54 Allergies: Kefzol; vg1 vg1
[2021-05-18] MEDS ORDERED: MECLIZINE HCL 12.5 MG TAB ONE (23:20)
[2021-05-18 23:40] VITALS: BP 117/81; TEMP 100; O2SAT 100
== END 2021-05-18 23:34 | disposition home or self-care (01) ==
LOC: ER 16:43
DX: R51.9 Headache, unspecified (principal); Z88.1 Allergy status to other antibiotic agents; Z88.2 Allergy status to sulfonamides
CPT/HCPCS: 36415; 70450; 80048; 80076; 81003; 83690; 85025; 85610; 85730; 96374; 96375; 99284; J1100; J1200; J2405; J2765; J7030; J8597

== ENCOUNTER 2021-08-01 17:23 | Emergency (ER) | payer SELFPAY ==
--- OUTSIDE RECORDS SUMMARY | 2021-08-01 17:26 | XMS REPORT | Continuity of Care Document ---
:2000 Author Organization [facility] t Address [address] [place] [address] Care Team Providers Name Role Phone Chris DE GUZMAN Primary Care Physician Melina RN, L Attending Clinician Unavailable Shayla DE GUZMAN, Gene Attending Clinician Moises JACK Attending Clinician Doctor Unassigned, Name Attending Clinician Unavailable Problems Condition Condition Condition Status Onset Resolution Last Treating Co mments Source Name Details Category Date Date Treatment Clinician Date Papilledem Papilledem Disease Active 2019- U nivers a a 9- ity of 00:00: [place] [address] Medical Branch Migraine Migraine Disease Active Unive rs equivalent equivalent 8-28 it y of syndrome syndrome 00:00: [place] [address] Medical Branch Routine Routine Disease Active 2019- Univers eye exam eye exam 8-28 ity of 00:00: [address] Branch Does not Does not Disease Active 2020-0 Unive rs have have 8-28 ity of health health 00:00: [place] insurance insurance 00 [facility] Branch Obesity Obesity Disease Active Univers (BMI (BMI 7-11 ity of 30-39.9) 30-39.9) 00:00: [place] [address] Medical Branch Morbid Morbid Disease Active Univers [...] from the original. Address in [place] m Allergies, Adverse Reactions, Alerts Allergy Allergy Status Severity Reaction(s) Onset Inactive Treating Comm ents Source Name Type Date Date Clinician Cephalex Propensi Active Swelling Univ ers in ty to 3 ity of adverse 00:00: [place] reaction 00 Medical s Branch Sulfa Propensi Active Swelling Univer s (Sulfona ty to 3-27 ity of mide adverse 00:00: [place] Antibiot reaction 00 Medica l ics) s Branch Social History Social Habit Start Date Stop Date Quantity Comments Source History SDOH University o f Alcohol Frequency [place] M edical Branch History SDOH University o f Alcohol Std [place] [facility] Drinks Branch History [facility] University o f Alcohol Binge [place] Medic al Branch Alcohol intake 2021-02-25 2021-02-25 Current drinker Unive rsity of 00:00:00 00:00:00 of alcohol [place] [facility] (finding) Branch Alcohol Comment 2021-02-25 2021-02-25 social Universit y of 00:00:00 00:00:00 [facility] Sex Assigned At [birth year] Universit y of 00:00:00 00:00:00 [facility] Smoking Status Start Date Stop Date Source Never smoker [facility] Medications Ordered Filled Start Stop Current Ordering Indication Dosage Frequency Signature Comments Components Source Medication Medication Date Date Medication? Clinician (SIG) Name Name norethindro Yes .35mg Take 0.35 Univers ne 0.35 mg 9-19 mg by ity of tablet 20:51: mouth [place] 04 daily. Medical Branch azithromyci Yes [id number] 250mg Take 1 Univers n 9-19 tablet by ity of (ZITHROMAX) 00:00: mouth [place] 250 mg 00 daily. Medical tablet Take 500 Branch mg day 1, then 250 mg days 2 to 5. methylPREDN Yes [id number] Take by Univers ISolone 9-19 mouth ity of (MEDROL, 00:00: SEE-INSTRU Waed as JANE,) 4 mg 00 CTIONS. Medica l tablets follow Branch package directions Immunizations Ordered Immunization Filled Immunization Date Status Commen ts Source Name Name Varicella 2018-11-20 Completed University of (varivax)(chicken 00:00:00 [facility] edical pox) Branch TDAP 2018-10-29 Completed University of 00:00:00 [facility] Rho (d) Immune 2018-10-12 Completed University of Globulin 00:00:00 [facility] Influenza Virus 2018-03-23 Completed Universit y of Vaccine Quad .5 mL 00:00:00 [facility] IM 6+ MO Branch Influenza Virus 2018-03-23 Completed Universit y of Vaccine 00:00:00 [facility] HEPATITIS A 2013-01-06 Completed University of 00:00:00 [facility] Meningococcal 2013-01-06 Completed University of Vaccine 00:00:00 [facility] TDAP 2013-01-06 Completed University of 00:00:00 [facility] Varicella 2013-01-06 Completed University of (varivax)(chicken 00:00:00 [facility] edical pox) Branch Influenza Virus 2011-04-09 Completed Universit y of Vaccine 00:00:00 [facility] DTAP 2005-05-09 Completed University of 00:00:00 [facility] HEPATITIS A 2005-05-09 Completed University of 00:00:00 [facility] MMR 2005-05-09 Completed University of 00:00:00 [facility] Pneumococcal 13 2005-05-09 Completed Universit y of Conjugate, PCV13 00:00:00 [facility] (Prevnar 13) Branch Polio (IPV/OPV) 2005-05-09 Completed Universit y of 00:00:00 [facility] DTAP 2003-08-15 Completed University of 00:00:00 [facility] HIB 4 Dose Schedule 2003-08-15 Completed Unive rsity of 00:00:00 [facility] Hep B, Adol or Pedi 2003-08-15 Completed Unive rsity of Dosage 00:00:00 [facility] Varicella 2003-08-15 Completed University of (varivax)(chicken 00:00:00 [facility] edical pox) Branch DTAP 2002-11-16 Completed University of 00:00:00 [facility] HIB 4 Dose Schedule 2002-11-16 Completed Unive rsity of 00:00:00 [facility] MMR 2002-11-16 Completed University of 00:00:00 [facility] Polio (IPV/OPV) 2002-11-16 Completed Universit y of 00:00:00 [facility] DTAP 2001-03-26 Completed University of 00:00:00 [facility] HIB 4 Dose Schedule 2001-03-26 Completed Unive rsity of 00:00:00 [facility] Hep B, Adol or Pedi 2001-03-26 Completed Unive rsity of Dosage 00:00:00 [facility] Polio (IPV/OPV) 2001-03-26 Completed Universit y of 00:00:00 [facility] DTAP 2000 Completed University of 00:00:00 [facility] HIB 4 Dose Schedule 2000 Completed Unive rsity of 00:00:00 [facility] Hep B, Adol or Pedi 2000 Completed Unive rsity of Dosage 00:00:00 [facility] Polio (IPV/OPV) 2000 Completed Universit y of 00:00:00 [facility] Hep B, Adol or Pedi 2000 Completed Unive rsity of Dosage 00:00:00 [facility] Procedures This patient has no known procedures. Encounters Start End Encounter Admission Attending Care Care Encounter Source Date/Time Date/Time Type Type Clinicians Facility Department ID 2021-07-10 2021-07-10 Telephone Melina HERNANDEZ [id number] [facility] 00:00:00 00:00:00 , Beatriz DIAZ [id number] tramaine [facility] [id number] [facility] [id number] [place] [address] Branch 2020-03-20 2020-03-20 [facility] [id number] 08:02:35 23:59:00 Encounter [facility] [id number] CLINICS [id number] 2020-03-09 2020-03-09 Emergency Moises [facility] [id number] 21:34:00 23:39:00 Jerry Calix [id number] [place] [id number] [place] [id number] 2020-03-09 2020-03-09 Telephone Shayla [facility] [id number] 00:00:00 00:00:00 Elvis Calix [id number] [place] [id number] [place] [id number] [facility] 2020-03-09 2020-03-09 Orders Doctor NICHOLAS [id number] 00:00:00 00:00:00 Only Unassigned, [place] [id number] [place] [facility] [id number] Results This patient has no known results.
[2021-08-01 19:00] LABS: Urine Blood Negative (Negative); Urine Glucose Negative (Negative); Urine Protein 1+ (Negative); Urine Specific Gravity >=1.030 (1.005-1.030)
[2021-08-01 19:05] LABS: Urine Specific Gravity/Preg >1.030 (1.005-1.030)
[2021-08-01 19:26] LABS: Urine Bacteria <20 /HPF (<20); Urine RBC <5 /HPF (NONE SEEN)
[2021-08-01] MEDS ORDERED: MORPHINE 2 MG/ML SYR ONE (19:27)
[2021-08-01] MEDS ORDERED: NA CHLORIDE 0.9% 1,000 ML ONE (19:28)
[2021-08-01] MEDS ORDERED: ONDANSETRON 4 MG/2 ML VIAL ONE (19:28)
[2021-08-01] MEDS ORDERED: FAMOTIDINE 20 MG/2 ML VIAL IV ONE (19:28)
[2021-08-01 19:30] LABS: Barbiturates NEGATIVE (NEGATIVE); Benzodiazepines NEGATIVE (NEGATIVE); Cocaine NEGATIVE (NEGATIVE); METHAMPHETAM NEGATIVE (NEGATIVE); Methadone NEGATIVE (NEGATIVE); Opiates NEGATIVE (NEGATIVE); Phencyclidine NEGATIVE (NEGATIVE); THC Cannibis POSITIVE (NEGATIVE)
[2021-08-01 19:56] LABS: Absolute Lymphocytes (CBC) 0.5 K/uL (0.7-4.9); Hematocrit 42.1 % (36.0-45.0); Lymphocytes % 4.2 % (15.3-44.8); MPV 8.3 fL (7.6-11.3); RBC Red Blood Cell Count 5.53 M/uL (3.86-4.86)
--- NOTE | 2021-08-01 20:33 | RAD REPORT ---
EXAM DESCRIPTION: CTAbdomen Pelvis W Contrast - 08/01/2021 8:21 pm CLINICAL HISTORY: Abdominal pain. ABD PAIN COMPARISON: No comparisons TECHNIQUE: Biphasic CT imaging of the abdomen and pelvis was performed with 100 ml non-ionic IV cont rast. All CT scans are performed using dose optimization technique as appropriate and may include automated exposure control or mA/KV adjustment according to patient size. FINDINGS: The lung bases are clear.Cholelithiasis. The liver, spleen, pancreas, adrenal glands and kidneys are within normal limits. No bowel obstruction, free air, free fluid or abscess. The appendix is normal. No evidence of signi ficant lymphadenopathy. No suspicious bony findings. IMPRESSION: Cholelithiasis.
[2021-08-01] MEDS ORDERED: PROMETHAZINE INJ 25 MG/ML AMP ONE (21:47)
[2021-08-01 22:01] LABS: ALT/SGPT 20 U/L (12-78); AST/SGOT 13 U/L (15-37); Albumin 4.2 g/dL (3.4-5.0); Alkaline Phosphatase 62 U/L (45-117); BUN Blood Urea Nitrogen 12 mg/dL (7-18); Bicarbonate 21 mmol/L (21-32); Bilirubin Direct 0.1 mg/dL (0-0.2); Bilirubin Total 0.6 mg/dL (0.2-1.0); Glucose Level 119 mg/dL (74-106); Lipase 103 U/L (73-393); Potassium 3.5 mmol/L (3.5-5.1); Sodium Level 139 mmol/L (136-145)
--- NOTE | 2021-08-01 22:15 | ER ---
Nurse's Notes [facility] Name: Cary Romano Age: 21 yrs Sex: Female : 2000 Arrival Date: 08/01/2021 Time: 17:23 Bed 13 Private MD: Diagnosis: Diarrhea, unspecified;Nausea with vomiting, unspecified;Other cholelithiasis without obstruction Presentation: 08/01 18:01 Chief complaint: Patient states: she started having abdominal pain and nausea ap3 yesterday. Patient reports that she started vomiting and having the inability to control her bowels today. She also states she is not able to hold down any fluids or foods at this time. Coronavirus screen: At this time, the client does not indicate any symptoms associated with coronavirus-19. Ebola Screen: No symptoms or risks identified at this time. Initial Sepsis Screen: Does the patient meet any 2 criteria? No. Patient's initial sepsis screen is negative. Does the patient have a suspected source of infection? No. Patient's initial sepsis screen is negative. Risk Assessment: Do you want to hurt yourself or someone else? Patient reports no desire to harm self or others. Onset of symptoms was July 31, 2021. 18:01 Method Of Arrival: Ambulatory ap3 18:01 Acuity: DEMETRA 3 ap3 Triage Assessment: 18:04 General: Appears uncomfortable, Behavior is calm, cooperative. Pain: Complains of pain ap3 in abdomen Pain currently is 9 out of 10 on a pain scale. Quality of pain is described as stabbing, Pain began gradually, 1 day ago. Neuro: Level of Consciousness is awake, alert, obeys commands, Oriented to person, place, time, situation, Appropriate for age. Cardiovascular: Patient's skin is warm and dry. Respiratory: Airway is patent. GI: Reports lower abdominal pain, upper abdominal pain, diarrhea, intolerance of fluids, intolerance of food, nausea, vomiting. 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 Flu vaccine is not up to date. - Social history:: Smoking status: Patient denies any tobacco usage or history of. Patient uses alcohol, only on a social basis. Screenin:05 Abuse screen: Denies threats or abuse. Nutritional screening: No deficits noted. ap3 Tuberculosis screening: No symptoms or risk factors identified. 19:03 Fall Risk None identified. cb5 Assessment: 18:15 General: Appears uncomfortable, obese, well groomed, well developed, Behavior is calm, cb5 cooperative, appropriate for age. Pain: Denies pain. Neuro: No deficits noted. Level of Consciousness is awake, alert, obeys commands, Oriented to person, place, time, situation, Appropriate for age. Cardiovascular: No deficits noted. Respiratory: No deficits noted. GI: Reports nausea, vomiting. : No deficits noted. Derm: No deficits noted. Musculoskeletal: No deficits noted. 19:00 General: machine tech placed P.I.V unable to obtain blood in return. Lab notified for cb5 assistance by charge nurse. Lab will obtain ordered blood specimens.. 19:05 General: Appears uncomfortable, obese, well groomed, well developed, well nourished, tk1 Behavior is calm, cooperative. Pain: Complains of pain in abdomen Pain does not radiate. Pain currently is 8 out of 10 on a pain scale. Quality of pain is described as crampy, Pain began 1 day ago. Is intermittent. 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 Gait is steady, Speech is normal. Cardiovascular: No deficits noted. Capillary refill < 3 seconds is brisk in bilateral fingers. Respiratory: No deficits noted. Airway is patent Trachea midline Respiratory effort is even, unlabored. GI: Abdomen is round non-distended, obese, Pt is actively vomiting bile, Bowel sounds present X 4 quads. Abd is soft Abd is non tender X 4 quads Reports nausea, vomiting. : No deficits noted. No signs and/or symptoms were reported regarding the genitourinary system. EENT: No deficits noted. No signs and/or symptoms were reported regarding the EENT system. Derm: Skin is dry, Skin is pale. Musculoskeletal: No deficits noted. No signs and/or symptoms reported regarding the musculoskeletal system. 20:30 Reassessment: Patient and/or family updated on plan of care and expected duration. Pain tk1 level reassessed. Patient is alert, oriented x 3, equal unlabored respirations, skin warm/dry/pink. Patient rates pain to abdomen 3/10. 21:52 Reassessment: PO challenge of water given to patient. tk1 22:15 Reassessment: Patient tolerating PO challenge. SETH Hebert updated. Reassessment: D/C per tk1 MD order. Discharge/Prescription instructions given to patient. Verbalized understanding. Vital Signs: 18:01 BP 118 / 95; Pulse 105; Resp 17; Temp 98.1; Pulse Ox 100% ; Weight 120.2 kg; Height 5 ap3 ft. 5 in. (165.10 cm); Pain 8/10; 18:14 BP 109 / 87; Resp 16; Temp 98.6; Pulse Ox 100% ; Height 5 ft. 8 in. (172.72 cm); Pain cb5 0/10; 19:05 BP 114 / 65 LA Sitting (auto/reg); Pulse 104 MON; Resp 22 S; Temp 98(O); Pulse Ox 98% tk1 on R/A; Pain 10/10; 20:00 BP 114 / 84 LA Supine (auto/lg); Pulse 91 MON; Resp 18 S; Pulse Ox 98% on R/A; Pain tk1 3/10; 21:00 BP 110 / 62 LA Supine (auto/lg); Pulse 85; Resp 16; Temp 98.3(O); Pulse Ox 100% on R/A; tk1 Pain 3/10; 21:53 BP 103 / 68 Sitting (auto/reg); Pulse 90 MON; Resp 18 S; Pulse Ox 99% on R/A; Pain 3/10;tk1 22:00 BP 107 / 59 LA Supine (auto/lg); Pulse 72 MON; Resp 18 S; Pulse Ox 100% on R/A; tk1 18:14 Body Mass Index 40.29 (120.20 kg, 172.72 cm) cb5 ED Course: 17:23 Patient arrived in ED. as 18:03 Triage completed. ap3 18:05 Arm band placed on right wrist. ap3 18:09 Ally Bowser, RN is Primary Nurse. cb5 18:22 Anup Weinstein PA is PHCP. cp 18:22 Nuris Steven MD is Attending Physician. cp 18:29 Patient has correct armband on for positive identification. Call light in reach. Side cb5 rails up X 1. 18:56 Urine Microscopic Only Sent. cb5 19:01 Primary Nurse role handed off by Ally Bowser, RN mw2 19:05 IV is patent, with fluids infusing freely, with good blood return. Patient maintains tk1 SpO2 saturation greater than 95% on room air. 19:11 Report given to Klarissa Garg cb5 19:21 Britany Hwang is Primary Nurse. tk1 19:37 Urine --Ancillary (enter results) Sent. tk1 20:21 CT Abd/Pelvis - IV Contrast Only In Process Unspecified. EDMS 20:30 No provider procedures requiring assistance completed. tk1 22:13 Mejia Gonzales MD is Referral Physician. cp 22:30 IV discontinued, intact, bleeding controlled, No redness/swelling at site. Pressure tk1 dressing applied. Administered Medications: 19:24 Drug: Zofran (Ondansetron) 4 mg Route: IVP; Rate: 2 mg/min; Infused Over: 2 mins; Site: tk1 right antecubital; 23:28 Follow up: Response: Vomiting decreased tk1 19:30 Drug: Pepcid (famotidine) 20 mg Route: IVP; Rate: 10 mg/min; Infused Over: 2 mins; tk1 Site: right antecubital; 21:56 Follow up: Response: Nausea is decreased tk1 19:34 Drug: morphine 2 mg Route: IVP; Rate: 1 mg/min; Infused Over: 2 mins; Site: right tk1 antecubital; 21:53 Follow up: BP 103 / 68 Sitting Left Arm Auto Regular; Pulse 90 bpm Monitor; Resp 18 bpm tk1 Spontaneous; Pulse Ox 99% RA; Pain 3/10 Adult; Response: Pain is decreased; RASS: Drowsy (-1) 19:36 Drug: NS 0.9% 1000 ml Route: IV; Rate: 1 bolus; Infused Over: 1 hrs; Site: right tk1 antecubital; Delivery: Primary tubing; 21:56 Follow up: Response: No adverse reaction; IV Status: Completed infusion; IV Intake: tk1 100ml 21:48 Drug: Phenergan (promethazine) 12.5 mg Route: IVP; Rate: 6.25 mg/min; Infused Over: 2 tk1 mins; Site: right antecubital; 23:27 Follow up: Response: Nausea is decreased; Vomiting decreased tk1 Intake: 21:56 IV: 100ml; Total: 100ml. tk1 Outcome: 22:14 Discharge ordered by . ivana 22:30 Discharged to home ambulatory, with family. tk1 22:30 Condition: improved 22:30 Discharge instructions given to patient, Instructed on discharge instructions, follow up and referral plans. medication usage, Demonstrated understanding of instructions, follow-up care, medications. 23:27 Patient left the ED. tk1 Signatures: Dispatcher [employer] EDMS Dipika Fernandez Corey, PA PA cp Prokisch, Amanda, RN RN ap3 Maryellen Fagan mw2 Britany Hwang tk1 Ally Bowser, RN RN cb5
--- NOTE | 2021-08-01 22:15 | EDPHYS ---
Physician Documentation [facility] Name: Cary Romano Age: 21 yrs Sex: Female : 2000 Arrival Date: 08/01/2021 Time: 17:23 Bed 13 Private MD: ED Physician Nuris Steven HPI: 08/01 18:40 This 21 yrs old Female presents to ER via Ambulatory with complaints of Vomiting, cp Diarrhea. 18:40 The patient presents to the emergency department with nausea, with "dry heaves", cp vomiting, that is continuous, described as bilious, diarrhea, that is continuous, abdominal pain, of the right upper quadrant and left upper quadrant. Onset: The symptoms/episode began/occurred yesterday. Possible causes: unknown. Associated signs and symptoms: Pertinent positives: anorexia, Pertinent negatives: constipation, dysuria, fever, GI bleeding. Severity of symptoms: in the emergency department the symptoms are unchanged despite home interventions. 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 Flu vaccine is not up to date. - Social history:: Smoking status: Patient denies any tobacco usage or history of. Patient uses alcohol, only on a social basis. ROS: 18:45 Constitutional: Positive for poor PO intake, Negative for body aches, chills, fever. cp 18:45 Eyes: Negative for injury, pain, redness, and discharge. cp 18:45 Cardiovascular: Negative for chest pain. 18:45 Respiratory: Negative for cough, shortness of breath, wheezing. 18:45 Abdomen/GI: Positive for abdominal pain, nausea, vomiting, and diarrhea, anorexia, Negative for hematemesis, black/tarry stool, rectal bleeding. 18:45 Back: Negative for radiated pain. 18:45 : Negative for urinary symptoms. 18:45 Neuro: Negative for altered mental status, headache. 18:45 All other systems are negative. Exam: 18:50 Constitutional: The patient appears in no acute distress, alert, awake, non-toxic, well cp developed, well nourished, obese, uncomfortable. 18:50 Head/Face: Normocephalic, atraumatic. cp 18:50 Eyes: Periorbital structures: appear normal, Conjunctiva: normal, no exudate, no injection, Sclera: no appreciated abnormality, Lids and lashes: appear normal, bilaterally. 18:50 ENT: External ear(s): are unremarkable, Nose: is normal, Mouth: Lips: moist, Oral mucosa: moist, Posterior pharynx: Airway: no evidence of obstruction, patent. 18:50 Chest/axilla: Inspection: normal. 18:50 Cardiovascular: Rate: tachycardic, Rhythm: regular. 18:50 Respiratory: the patient does not display signs of respiratory distress, Respirations: normal, no use of accessory muscles, no retractions, labored breathing, is not present, Breath sounds: are clear throughout, no decreased breath sounds. 18:50 Abdomen/GI: Inspection: obese Bowel sounds: active, all quadrants, Palpation: soft, in all quadrants, moderate abdominal tenderness, in the right upper quadrant and left upper quadrant, rebound tenderness, is not appreciated, voluntary guarding, is elicited in the right upper quadrant and left upper quadrant. 18:50 Back: pain, is absent, ROM is normal. 18:50 Neuro: Orientation: to person, place \\T\\ time. Mentation: is normal, Motor: moves all fours, strength is normal, Sensation: is normal. Vital Signs: 18:01 BP 118 / 95; Pulse 105; Resp 17; Temp 98.1; Pulse Ox 100% ; Weight 120.2 kg; Height 5 ap3 ft. 5 in. (165.10 cm); Pain 8/10; 18:14 BP 109 / 87; Resp 16; Temp 98.6; Pulse Ox 100% ; Height 5 ft. 8 in. (172.72 cm); Pain cb5 0/10; 19:05 BP 114 / 65 LA Sitting (auto/reg); Pulse 104 MON; Resp 22 S; Temp 98(O); Pulse Ox 98% tk1 on R/A; Pain 10/10; 20:00 BP 114 / 84 LA Supine (auto/lg); Pulse 91 MON; Resp 18 S; Pulse Ox 98% on R/A; Pain tk1 3/10; 21:00 BP 110 / 62 LA Supine (auto/lg); Pulse 85; Resp 16; Temp 98.3(O); Pulse Ox 100% on R/A; tk1 Pain 3/10; 21:53 BP 103 / 68 Sitting (auto/reg); Pulse 90 MON; Resp 18 S; Pulse Ox 99% on R/A; Pain 3/10;tk1 22:00 BP 107 / 59 LA Supine (auto/lg); Pulse 72 MON; Resp 18 S; Pulse Ox 100% on R/A; tk1 18:14 Body Mass Index 40.29 (120.20 kg, 172.72 cm) cb5 MDM: 18:22 Patient medically screened. cp 19:00 Differential diagnosis: gastritis, cholecystitis, pancreatitis, appendicitis, viral cp gastroenteritis, gastroenteritis. 22:13 Data reviewed: vital signs, nurses notes, lab test result(s), radiologic studies, CT cp scan. 22:13 Counseling: I had a detailed discussion with the patient and/or guardian regarding: the cp historical points, exam findings, and any diagnostic results supporting the discharge/admit diagnosis, lab results, radiology results, the need for outpatient follow up, a general surgeon, to return to the emergency department if symptoms worsen or persist or if there are any questions or concerns that arise at home. Response to treatment: the patient's symptoms have markedly improved after treatment. ED course: VSS. Pain and nausea markedly improved, vomiting resolved. Will discharge to home for continued monitoring. 08/01 18:34 Order name: Basic Metabolic Panel cp 08/01 18:34 Order name: CBC with Diff cp 08/01 20:40 Interpretation: Normal except: WBC 11.30; RBC 5.53; MCV 76.0; MCH 24.9; RDW 15.3; MANUELA% cp 93.3; LYM% 4.2; MN% 2.0; NEUT A 10.6; LYMA 0.5. 08/01 18:34 Order name: Hepatic Function cp 08/01 18:34 Order name: Lipase cp 08/01 18:34 Order name: Urine Microscopic Only; Complete Time: 20:40 cp 08/01 20:41 Interpretation: Normal except: UWBC 5-10. cp 08/01 18:34 Order name: UDS; Complete Time: 20:40 cp 08/01 20:41 Interpretation: Normal except: THC POSITIVE. cp 08/01 19:00 Order name: Urine Dipstick-Ancillary; Complete Time: 20:40 EDMS 08/01 20:41 Interpretation: Normal except: UKET 4+; UPROT 1+; UESTR Trace. cp 08/01 19:02 Order name: Urine --Ancillary (enter results) mw2 08/01 19:03 Order name: Urine --Ancillary; Complete Time: 20:40 EDMS 08/01 19:27 Order name: Urine Culture EDMS 08/01 19:44 Order name: CT Abd/Pelvis - IV Contrast Only; Complete Time: 20:40 cp 08/01 19:57 Order name: Manual Differential EDMS 08/01 18:34 Order name: IV Saline Lock; Complete Time: 18:56 cp 08/01 18:34 Order name: Labs collected and sent; Complete Time: 19:36 cp 08/01 18:34 Order name: Urine Dipstick-Ancillary (obtain specimen); Complete Time: 18:56 cp 08/01 18:34 Order name: Urine Test (obtain specimen); Complete Time: 18:56 cp 08/01 21:27 Order name: PO challenge; Complete Time: 21:43 cp Administered Medications: 19:24 Drug: Zofran (Ondansetron) 4 mg Route: IVP; Rate: 2 mg/min; Infused Over: 2 mins; Site: tk1 right antecubital; 23:28 Follow up: Response: Vomiting decreased tk1 19:30 Drug: Pepcid (famotidine) 20 mg Route: IVP; Rate: 10 mg/min; Infused Over: 2 mins; tk1 Site: right antecubital; 21:56 Follow up: Response: Nausea is decreased tk1 19:34 Drug: morphine 2 mg Route: IVP; Rate: 1 mg/min; Infused Over: 2 mins; Site: right tk1 antecubital; 21:53 Follow up: BP 103 / 68 Sitting Left Arm Auto Regular; Pulse 90 bpm Monitor; Resp 18 bpm tk1 Spontaneous; Pulse Ox 99% RA; Pain 3/10 Adult; Response: Pain is decreased; RASS: Drowsy (-1) 19:36 Drug: NS 0.9% 1000 ml Route: IV; Rate: 1 bolus; Infused Over: 1 hrs; Site: right tk1 antecubital; Delivery: Primary tubing; 21:56 Follow up: Response: No adverse reaction; IV Status: Completed infusion; IV Intake: tk1 100ml 21:48 Drug: Phenergan (promethazine) 12.5 mg Route: IVP; Rate: 6.25 mg/min; Infused Over: 2 tk1 mins; Site: right antecubital; 23:27 Follow up: Response: Nausea is decreased; Vomiting decreased tk1 Disposition Summary: 08/01/21 22:14 Discharge Ordered Location: Home cp Problem: new cp Symptoms: have improved cp Condition: Stable cp Diagnosis - Diarrhea, unspecified cp - Nausea with vomiting, unspecified cp - Other cholelithiasis without obstruction cp Followup: cp - With: Mejia Gonzales MD - When: 1 - 2 days - Reason: Recheck today's complaints Discharge Instructions: - Discharge Summary Sheet cp - Food Choices to Help Relieve Diarrhea, Adult cp - Diarrhea, Adult cp - Nausea and Vomiting, Adult cp - Cholelithiasis cp - Form - Excuse from Work, School, or Physical Activity mw2 Forms: - Medication Reconciliation Form cp - Thank You Letter cp - Antibiotic Education cp - Prescription Opioid Use cp Prescriptions: - Zofran 4 mg Oral Tablet - take 1 tablet by ORAL route every 12 hours As needed; 20 tablet; Refills: 0, cp Product Selection Permitted - Cipro 500 mg Oral Tablet - take 1 tablet by ORAL route every 12 hours for 7 days; 14 tablet; Refills: 0, cp Product Selection Permitted - dicyclomine 20 mg Oral Tablet - take 1 tablet by ORAL route 4 times per day; 30 tablet; Refills: 0, Product cp Selection Permitted Signatures: Dispatcher [employer] EDAnup Manning PA PA cp Prokisch, Amanda RN RN ap3 Britany Hwang tk1
[2021-08-01 22:22] LABS: Blood Morphology Comment NOT SEEN (NOT SEEN); Platelet Estimate ADEQ
[2021-08-02 00:18] VITALS: TEMP 98.3
[2021-08-02 00:21] VITALS: BP 107/59; O2SAT 100
== END 2021-08-01 23:27 | disposition home or self-care (01) ==
LOC: ER 17:23
DX: K80.80 Other cholelithiasis without obstruction (principal); R19.7 Diarrhea, unspecified; Z88.2 Allergy status to sulfonamides; Z88.8 Allergy status to other drugs, medicaments and biological substances
CPT/HCPCS: 36415; 74177; 80048; 80076; 80307; 81003; 81015; 81025; 83690; 85025; 87086; 87088; 96361; 96374; 96375; 99284; J2270; J2405; J2550; J7030; Q9967

== ENCOUNTER 2022-12-08 23:58 | Emergency (ER) | payer SELFPAY ==
[2022-12-09] MEDS ORDERED: ONDANSETRON 4 MG/2 ML VIAL ONE (00:28)
[2022-12-09] MEDS ORDERED: NA CHLORIDE 0.9% 1,000 ML ONE ×2 (00:28→01:50)
[2022-12-09 01:21] LABS: Specific Gravity > 1.030 (1.005-1.030); Urine Bacteria None Seen /HPF (<20); Urine Bilirubin NEGATIVE (Negative); Urine Blood Negative (Negative); Urine Clarity Turbid (Clear); Urine Color Yellow (Yellow); Urine Glucose NEGATIVE (Negative); Urine Mucus 3+ /HPF (None Seen); Urine Protein 1+ (Negative); Urine RBC <5 /HPF (None Seen); Urine Urobilinogen Normal (Normal); Urine pH 5.5 (5.0-7.0)
[2022-12-09 01:33] LABS: Specific Gravity 1.032 (1.005-1.030)
[2022-12-09] MEDS ORDERED: FENTANYL CITR 100 MCG/2 ML ONE (01:36)
[2022-12-09 01:38] LABS: Absolute Lymphocytes (CBC) 1.8 K/uL (0.7-4.9); Hematocrit 41.9 % (36.0-45.0); MCV 81.6 fL (80-100); MPV 8.6 fL (7.6-11.3); RBC Red Blood Cell Count 5.13 M/uL (3.86-4.86)
[2022-12-09 01:48] LABS: Albumin 3.7 g/dL (3.4-5.0); Bilirubin Total 0.5 mg/dL (0.2-1.0); Potassium 2.9 mEq/L (3.5-5.1); Protein, Total 7.6 g/dL (6.4-8.2)
[2022-12-09] MEDS ORDERED: KCL 20 MEQ/100 mL IVPB 200 ML IV ONE (02:05)
[2022-12-09] MEDS ORDERED: CLINDAMYCIN 600MG/D5W 50 ML IV ONE (02:09)
--- NOTE | 2022-12-09 03:35 | EDPHYS ---
Physician Documentation [facility] Name: Cary Romano Age: 22 yrs Sex: Female : 2000 Arrival Date: 12/08/2022 Time: 23:58 Bed 6 Private MD: ED Physician Anup Esquivel HPI: 12/09 01:22 This 22 yrs old Female presents to ER via Ambulatory with complaints of snw Nausea/Vomiting/Diarrhea. 01:22 The patient presents to the emergency department with nausea, vomiting, diarrhea. snw Onset: The symptoms/episode began/occurred acutely, 4 day(s) ago, and became persistent. Possible causes: unknown. Associated signs and symptoms: Pertinent positives: abdominal pain, diarrhea, nausea, vomiting. Severity of symptoms: At their worst the symptoms were moderate. The patient has not experienced similar symptoms in the past. The patient has not recently seen a physician. 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 - Social history:: Smoking status: Patient denies any tobacco usage or history of. ROS: 01:21 Constitutional: Negative for fever, chills, and weight loss, Eyes: Negative for injury, snw pain, redness, and discharge, ENT: Negative for injury, pain, and discharge, Neck: Negative for injury, pain, and swelling, Cardiovascular: Negative for chest pain, palpitations, and edema, Respiratory: Negative for shortness of breath, cough, wheezing, and pleuritic chest pain, Back: Negative for injury and pain, : Negative for injury, bleeding, discharge, and swelling, MS/Extremity: Negative for injury and deformity, Skin: Negative for injury, rash, and discoloration, Neuro: Negative for headache, weakness, numbness, tingling, and seizure, Psych: Negative for depression, anxiety, suicide ideation, homicidal ideation, and hallucinations. 01:21 Abdomen/GI: Positive for abdominal pain, nausea, vomiting, and diarrhea, of the epigastric area and right upper quadrant. Exam: 01:17 Constitutional: This is a well developed, well nourished patient who is awake, alert, snw and in no acute distress. Head/Face: Normocephalic, atraumatic. Eyes: Pupils equal round and reactive to light, extra-ocular motions intact. Lids and lashes normal. Conjunctiva and sclera are non-icteric and not injected. Cornea within normal limits. Periorbital areas with no swelling, redness, or edema. ENT: Nares patent. No nasal discharge, no septal abnormalities noted. Tympanic membranes are normal and external auditory canals are clear. Oropharynx with no redness, swelling, or masses, exudates, or evidence of obstruction, uvula midline. Mucous membranes moist. Neck: Trachea midline, no thyromegaly or masses palpated, and no cervical lymphadenopathy. Supple, full range of motion without nuchal rigidity, or vertebral point tenderness. No Meningismus. Chest/axilla: Normal chest wall appearance and motion. Nontender with no deformity. No lesions are appreciated. Cardiovascular: Regular rate and rhythm with a normal S1 and S2. No gallops, murmurs, or rubs. Normal PMI, no JVD. No pulse deficits. Respiratory: Lungs have equal breath sounds bilaterally, clear to auscultation and percussion. No rales, rhonchi or wheezes noted. No increased work of breathing, no retractions or nasal flaring. Back: No spinal tenderness. No costovertebral tenderness. Full range of motion. MS/ Extremity: Pulses equal, no cyanosis. Neurovascular intact. Full, normal range of motion. Neuro: Awake and alert, GCS 15, oriented to person, place, time, and situation. Cranial nerves II-XII grossly intact. Motor strength 5/5 in all extremities. Sensory grossly intact. Cerebellar exam normal. Normal gait. Psych: Awake, alert, with orientation to person, place and time. Behavior, mood, and affect are within normal limits. 01:17 Abdomen/GI: Inspection: obese Bowel sounds: normal, Palpation: moderate abdominal tenderness, in the epigastric area and right upper quadrant. 01:17 Skin: Appearance: Color: pale. Vital Signs: 00:11 BP 137 / 92; Pulse 86; Resp 18 S; Temp 98.3(O); Pulse Ox 99% on R/A; Weight 117.93 kg as6 (R); Height 5 ft. 4 in. (R); Pain 7/10; 01:53 BP 99 / 75; Pulse 79; Resp 17; Pulse Ox 99% on R/A; ll3 03:37 BP 117 / 70; Pulse 79; Resp 17; Temp 98.1; Pulse Ox 100% on R/A; rv 04:29 BP 126 / 82; Pulse 79; Resp 17; Temp 98; Pulse Ox 100% on R/A; rv 00:11 Body Mass Index 44.63 (117.93 kg, 162.56 cm) as6 00:11 Pain Scale: Adult as6 [place] Coma Score: 03:37 Eye Response: spontaneous(4). Motor Response: obeys commands(6). Verbal Response: rv oriented(5). Total: 15. 04:29 Eye Response: spontaneous(4). Motor Response: obeys commands(6). Verbal Response: rv oriented(5). Total: 15. MDM: 00:12 Patient medically screened. snw 03:27 Differential diagnosis: Nonspecific abd pain, gastritis, cholecystitis, pancreatitis, snw viral gastroenteritis. Data reviewed: vital signs, nurses notes, lab test result(s), radiologic studies. I considered the following discharge prescriptions or medication management in the emergency department Medications were administered in the Emergency Department. See MAR. Counseling: I had a detailed discussion with the patient and/or guardian regarding: the historical points, exam findings, and any diagnostic results supporting the discharge/admit diagnosis, lab results, radiology results, the need for outpatient follow up, for definitive care, to return to the emergency department if symptoms worsen or persist or if there are any questions or concerns that arise at home. Response to treatment: the patient's symptoms have markedly improved after treatment. Special discussion: Based on the patient's Hx, exam, and Dx evaluation, there is no indication for emergent surgery or inpatient Tx. It is understood by the patient/guardian that if the Sx's persist or worsen they need to return immediately for re-evaluation. Based on the history and exam findings, there is no indication for further emergent testing or inpatient evaluation. I discussed with the patient/guardian the need to see the general surgeon for further evaluation of the symptoms. I discussed with the patient/guardian the need to see the primary care provider for further evaluation of the symptoms. 12/09 00:14 Order name: Urine W/Microscopic (UAM); Complete Time: 01:32 snw 12/09 00:14 Order name: PREGU; Complete Time: 01:34 snw 12/09 00:34 Order name: CBC with Diff; Complete Time: 01:47 snw 12/09 00:34 Order name: CMP; Complete Time: 01:51 snw 12/09 00:34 Order name: Lipase; Complete Time: 01:51 snw 12/09 01:34 Order name: Urine Culture EDMS 12/09 01:53 Order name: US Abdomen Limited snw 12/09 00:34 Order name: IV Saline Lock; Complete Time: 00:35 snw 12/09 00:34 Order name: Labs collected and sent; Complete Time: 00:35 snw Administered Medications: 00:35 Drug: Ondansetron IVP 4 mg Route: IVP; Site: right antecubital; rv 04:29 Follow up: Response: No adverse reaction rv 00:35 Drug: NS 0.9% IV 1000 ml Route: IV; Rate: 1 bolus; Site: right antecubital; rv 01:32 Drug: fentaNYL (PF) IVP 25 mcg Route: IVP; Site: right antecubital; rv 04:29 Follow up: Response: No adverse reaction; Marked relief of symptoms rv 01:43 Drug: NS 0.9% IV 1000 ml Route: IV; Rate: 1 bolus; Site: right antecubital; ll3 04:29 Follow up: IV Status: Completed infusion; IV Intake: 1000ml rv 02:02 Drug: Clindamycin IVPB 600 mg Route: IVPB; Infused Over: 30 mins; Site: right rv antecubital; 02:27 Follow up: Response: No adverse reaction; IV Status: Completed infusion; IV Intake: 50mlrv 02:27 Drug: Potassium Chloride IV 20 mEq Route: IV; Rate: calculated rate; Site: right rv antecubital; 03:48 Follow up: Response: No adverse reaction; IV Status: Completed infusion; IV Intake: rv 100ml 03:55 Drug: Promethazine IVP 12.5 mg Route: IVP; Site: right antecubital; rv 04:24 Follow up: Response: No adverse reaction; Nausea is decreased rv 04:24 Not Given (Patient Refused): Potassium Chloride IV 20 mEq IV at calculated rate once; rv administer over 1-2 hours 04:25 Drug: Potassium Chloride PO 20 mEq Route: PO; rv 04:29 Follow up: Response: Medication administered at discharge. rv Disposition Summary: 12/09/22 03:34 Discharge Ordered Location: Home snw Condition: Stable snw Diagnosis - Upper abdominal pain, unspecified snw - Other cholelithiasis without obstruction snw Followup: snw - With: Emergency Department - When: As needed - Reason: Worsening of condition Followup: snw - With: Private Physician - When: 2 - 3 days - Reason: Recheck today's complaints, Continuance of care, Re-evaluation by your physician Discharge Instructions: - Discharge Summary Sheet snw - Abdominal Pain, Adult snw - Fat and Cholesterol Restricted Eating Plan snw - Cholelithiasis snw - Rehydration, Adult snw Forms: - Medication Reconciliation Form snw - Thank You Letter snw - Antibiotic Education snw - Prescription Opioid Use snw - [email or web address] snw - Work release form rv Prescriptions: - Clindamycin HCl 300 mg Oral Capsule - take 1 capsule by ORAL route every 8 hours for 10 days; 30 capsule; Refills: 0, snw Product Selection Permitted - promethazine 25 mg Oral Tablet - take 1 tablet by ORAL route every 6 hours As needed; 20 tablet; Refills: 0, snw Product Selection Permitted - dicyclomine 20 mg Oral Tablet - take 1 tablet by ORAL route 3 times per day; 20 tablet; Refills: 0, Product snw Selection Permitted Signatures: Dispatcher [employer] Mirella Rouse FNP-C PICTURE COPYIST-Csnw Abad Richards RN RN rv Albert Walters, RN RN as6 Erin Cornejo RN RN ll3
--- NOTE | 2022-12-09 03:35 | ER ---
Nurse's Notes [facility] Name: Cary Romano Age: 22 yrs Sex: Female : 2000 Arrival Date: 12/08/2022 Time: 23:58 Bed 6 Private MD: Diagnosis: Upper abdominal pain, unspecified;Other cholelithiasis without obstruction Presentation: 12/09 00:12 Chief complaint: Patient states: n/v/d and back pain that started . Coronavirus as6 screen: At this time, the client does not indicate any symptoms associated with coronavirus-19. Ebola Screen: No symptoms or risks identified at this time. Initial Sepsis Screen: Does the patient meet any 2 criteria? No. Patient's initial sepsis screen is negative. Does the patient have a suspected source of infection? No. Patient's initial sepsis screen is negative. Risk Assessment: Do you want to hurt yourself or someone else? Patient reports no desire to harm self or others. Onset of symptoms was December 05, 2022. 00:12 Acuity: DEMETRA 3 as6 00:12 Method Of Arrival: Ambulatory as6 Triage Assessment: 00:11 General: Appears uncomfortable, Behavior is calm, cooperative. Pain: Complains of pain as6 in abdomen. GI: Reports upper abdominal pain, diarrhea, nausea, vomiting. 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 - Social history:: Smoking status: Patient denies any tobacco usage or history of. Screenin:36 [facility] ED Fall Risk Assessment (Adult) History of falling in the last 3 months, rv including since admission No falls in past 3 months (0 pts) Confusion or Disorientation No (0 pts) Intoxicated or Sedated No (0 pts) Impaired Gait No (0 pts) Mobility Assist Device Used No (0 pt) Altered Elimination No (0 pt) Score/Fall Risk Level 0 - 2 = Low Risk Oriented to surroundings, Maintained a safe environment, Educated pt \T\ family on fall prevention, incl call for assistance when getting out of bed, Assessed \T\ reinforced patient's understanding of fall precautions, Provided non-skid footwear, Hourly rounding (assess needs \T\ fall precautionary measures) done, Used ambulatory aids as needed (educated on \T\ assisted with), Used gait belt as appropriate. Abuse screen: Denies threats or abuse. Denies injuries from another. Nutritional screening: No deficits noted. Tuberculosis screening: No symptoms or risk factors identified. Assessment: 00:35 General: Appears uncomfortable, Behavior is calm, cooperative. Pain: Complains of pain rv in abdomen. Neuro: Level of Consciousness is awake, alert, obeys commands, Oriented to person, place, time, situation. Cardiovascular: Capillary refill < 3 seconds. Respiratory: Airway is patent Respiratory effort is even, unlabored. GI: Abdomen is round non-distended, Reports upper abdominal pain, nausea, vomiting. Vital Signs: 00:11 BP 137 / 92; Pulse 86; Resp 18 S; Temp 98.3(O); Pulse Ox 99% on R/A; Weight 117.93 kg as6 (R); Height 5 ft. 4 in. (R); Pain 7/10; 01:53 BP 99 / 75; Pulse 79; Resp 17; Pulse Ox 99% on R/A; ll3 03:37 BP 117 / 70; Pulse 79; Resp 17; Temp 98.1; Pulse Ox 100% on R/A; rv 04:29 BP 126 / 82; Pulse 79; Resp 17; Temp 98; Pulse Ox 100% on R/A; rv 00:11 Body Mass Index 44.63 (117.93 kg, 162.56 cm) as6 00:11 Pain Scale: Adult as6 [place] Coma Score: 03:37 Eye Response: spontaneous(4). Motor Response: obeys commands(6). Verbal Response: rv oriented(5). Total: 15. 04:29 Eye Response: spontaneous(4). Motor Response: obeys commands(6). Verbal Response: rv oriented(5). Total: 15. ED Course: 00:03 Patient arrived in ED. kj1 00:11 Mirella Diego FNP-C [facility]. snw 00:11 Anup Esquivel MD is Attending Physician. snw 00:11 Arm band placed on. as6 00:14 Triage completed. as6 00:34 Abad Richards, MAURICE is Primary Nurse. rv 00:35 CBC with Diff Sent. rv 00:35 CMP Sent. rv 00:35 Lipase Sent. rv 00:35 PREGU Sent. rv 00:35 Urine W/Microscopic (UAM) Sent. rv 00:35 Inserted saline lock: 20 gauge in right antecubital area, using aseptic technique. rv Blood collected. 00:36 Patient has correct armband on for positive identification. Bed in low position. Call rv light in reach. Side rails up X 1. Client placed on continuous cardiac and pulse oximetry monitoring. NIBP monitoring applied. 00:36 No provider procedures requiring assistance completed. rv 02:18 US Abdomen Limited In Process Unspecified. EDMS 04:30 IV discontinued, intact, bleeding controlled, No redness/swelling at site. Pressure rv dressing applied. Administered Medications: 00:35 Drug: Ondansetron IVP 4 mg Route: IVP; Site: right antecubital; rv 04:29 Follow up: Response: No adverse reaction rv 00:35 Drug: NS 0.9% IV 1000 ml Route: IV; Rate: 1 bolus; Site: right antecubital; rv 01:32 Drug: fentaNYL (PF) IVP 25 mcg Route: IVP; Site: right antecubital; rv 04:29 Follow up: Response: No adverse reaction; Marked relief of symptoms rv 01:43 Drug: NS 0.9% IV 1000 ml Route: IV; Rate: 1 bolus; Site: right antecubital; ll3 04:29 Follow up: IV Status: Completed infusion; IV Intake: 1000ml rv 02:02 Drug: Clindamycin IVPB 600 mg Route: IVPB; Infused Over: 30 mins; Site: right rv antecubital; 02:27 Follow up: Response: No adverse reaction; IV Status: Completed infusion; IV Intake: 50mlrv 02:27 Drug: Potassium Chloride IV 20 mEq Route: IV; Rate: calculated rate; Site: right rv antecubital; 03:48 Follow up: Response: No adverse reaction; IV Status: Completed infusion; IV Intake: rv 100ml 03:55 Drug: Promethazine IVP 12.5 mg Route: IVP; Site: right antecubital; rv 04:24 Follow up: Response: No adverse reaction; Nausea is decreased rv 04:24 Not Given (Patient Refused): Potassium Chloride IV 20 mEq IV at calculated rate once; rv administer over 1-2 hours 04:25 Drug: Potassium Chloride PO 20 mEq Route: PO; rv 04:29 Follow up: Response: Medication administered at discharge. rv Medication: 00:36 VIS not applicable for this client. rv Intake: 02:27 IV: 50ml; Total: 50ml. rv 03:48 IV: 100ml; Total: 150ml. rv 04:29 IV: 1000ml; Total: 1150ml. rv Outcome: 03:34 Discharge ordered by MD. snw 04:30 Discharged to home ambulatory. rv 04:30 Condition: improved 04:30 Discharge instructions given to patient, Instructed on discharge instructions, follow up and referral plans. medication usage, Demonstrated understanding of instructions, follow-up care, medications, Prescriptions given X 3. 04:30 Patient left the ED. rv Signatures: Dispatcher [employer] EDMS Mirella Diego, COIL TIER-C COIL TIER-Csnw Abad Richards, RN RN rv Vidhi Crespo kj1 Albert Walters RN RN as6 Erin Cornejo RN RN ll3
[2022-12-09] MEDS ORDERED: PROMETHAZINE INJ 25 MG/ML AMP ONE (03:53)
[2022-12-09] MEDS ORDERED: POTASSIUM CL SA 10 MEQ TAB PO ONE (04:29)
[2022-12-09 04:59] VITALS: O2SAT 100
[2022-12-09 05:00] VITALS: BP 126/82; TEMP 98
--- NOTE | 2022-12-09 14:43 | RAD REPORT ---
EXAM DESCRIPTION: US - Abdomen Exam Limited - 12/09/2022 2:16 am CLINICAL HISTORY: The patient is 22 years old and is Female; ABD PAIN TECHNIQUE: Real-time ultrasound of the right upper quadrant with image documentation. COMPARISON: No relevant prior studies available. FINDINGS: GALLBLADDER: The gallbladder is contracted. A gallstone is present within the gallbladde r. There is no pericholecystic fluid. COMMON BILE DUCT: Common bile duct is normal. No stones. No dilation. PANCREAS: Unremarkable as visualized. IMPRESSION: Cholelithiasis without evidence to suggest cholecystitis. Electronically signed by: Miranda Chino MD 12/09/2022 2:31 AM CDT Due to temporary technical issues with the PACS/Fluency reporting system, reports are being signed by the in house radiologist without review as a courtesy to ensure prompt reporting. The interpreting r adiologist is fully responsible for the content of the report.
== END 2022-12-09 04:30 | disposition home or self-care (01) ==
LOC: ER 23:58
DX: K80.80 Other cholelithiasis without obstruction (principal)
CPT/HCPCS: 36415; 76705; 80053; 81001; 81025; 83690; 85025; 87086; 87088; 96361; 96365; 96367; 96375; 99284; J2405; J2550; J3010; J3480; J7030

== ENCOUNTER 2023-06-09 12:04 | Observation (INO) | payer SELFPAY ==
--- OUTSIDE RECORDS SUMMARY | 2023-06-09 12:09 | XMS REPORT | Continuity of Care Document ---
Author Name Unknown Address [address] [facility] [address] [place] [address] [facility] Address [address] [facility] [address] [place] [address] Care Team Providers Care Magistrate Name Role Phone Nigel Perez MD Primary Care Physician [phone] Nigel Perez MD Attending Clinician + NASREEN MALONEY Attending Clinician Unavailable TANISHA RODRIGUES Attending Clinician Unavailable Doctor Unassigned, [place] Attending Clinician U javier Summers RNBeatriz Attending Clinician Unav Britney Graves RN Attending Clinician Unavailab Yeny King Attending Clinician [phone] Saritha Mcdaniels PA-C Attending Clinician [phone] OLESYA PEOPLES Attending Clinician Unavailable Nasreen Maloney MD Attending Clinician [phone] Pepe Turner DO Attending Clinician [phone] MARIIA MORENO Attending Clinician Unavailable Elvis Mcguire MD Attending Clinician [phone] BERNARDO SANFORD Attending Clinician Unavaila ELVIS Gillis Attending Clinician Unavail able ELVIS MCGUIRE Attending Clinician Unavail able SARITHA MCDANIELS Attending Clinician Unavailable Jerry Canela Attending Clinician NIGEL PEREZ Attending Clinician Unavailable 2, [facility] Attending Clinician Unavailable Liz Donahue Attending Clinician Unavailable Olesya Peoples MD Attending Clinician [phone] BONNIE VARNER Attending Clinician UnavailShaylee Kimble Attending Clinician [phone] UNKNOWN, ATTENDING Attending Clinician Unavailab AMOL Higgins Attending Clinician KATHY Coates Attending Clinician Unavailable Payers Payer Name Policy Type Policy Number Effective Date Expirati on Date Source Problems Condition Name Condition Details Condition Category Status Onset Date Resolution Date Last Treatment Date Treating Clinician Comments Source Papilledem a Papilledem a Disease Active 9 00:00: 00 [facility] Does not have health insurance Does not have health insurance Disease Active 02-03 00:00: 00 [facility] Migraine equivalent syndrome Migraine equivalent syndrome Disease Active 8 00:00: 00 [facility] Routine eye exam Routine eye exam Disease Active 8 00:00: 00 [facility] Does not have health insurance Does not have health insurance Disease Active 02-03 00:00: 00 [facility] Obesity (BMI 30-39.9) Obesity (BMI 30-39.9) Disease Active 7-11 00:00: 00 [facility] Morbid obesity with body mass index of 40.0-49.9 Morbid obesity with body mass index of 40.0-49.9 Disease Active 5-06 00:00: 00 [facility] Maternal varicella, non-immune Maternal varicella, non-immune Disease Active 2017-06 0-16 00:00: 00 Overview: Formattin g of this note might be different from the original. [facility] Allergies, Adverse Reactions, Alerts Allergy Name Allergy Type Status Severity Reaction(s) Onset Date Inactive Date Treating Clinician Comments Source CEPHALEX IN DRUG INGREDI Active Swelling 3- 00:00: 00 [facility] SULFA (SULFONA MIDE ANTIBIOT ICS) Drug Class Active Swelling 09-02 00:00: 00 [facility] Sulfa (Sulfona mide Antibiot ics) Propensi ty to adverse reaction s Active Swelling 09-02 00:00: 00 [facility] Cephalex in Propensi ty to adverse reaction s Active Swelling 09-02 00:00: 00 [facility] Sulfa (Sulfona mide Antibiot ics) Propensi ty to adverse reaction s Active Swelling 09-02 00:00: 00 [facility] Social History Social Habit Start Date Stop Date Quantity Comments Source [facility] SDOH Alcohol Frequency [facility] History SDOH Alcohol Std Drinks [facility] History SDOH Alcohol Binge [facility] Exposure to SARS-CoV-2 (event) 2021-01-26 00:00:00 2021-02-25 20:39:00 Not sure [facility] Alcohol Comment 2021-02-25 00:00:00 2021-02-25 00:00:00 social [facility] History of Social function 2020-03-28 00:00:00 2020-03-28 00:00:00 [facility] Alcohol intake 2020-02-04 00:00:00 2020-02-04 00:00:00 Current non-drinker of alcohol (finding) [facility] Tobacco use and exposure 2018-01-27 00:00:00 2018-01-27 00:00:00 Smokeless tobacco non-user [facility] Sex Assigned At 2000 00:00:00 2000 00:00:00 [facility] Smoking Status Start Date Stop Date Source Never smoked tobacco [facility] Medications Ordered Medication Name Filled Medication Name Start Date Stop Date Current Medication? Ordering Clinician Indication Dosage Frequency Signature (SIG) Comments Components Source norethindro ne 0.35 mg tablet 02-25 20:51: 04 Yes .35mg Take 0.35 mg by mouth daily. [facility] norethindro ne 0.35 mg tablet 02-25 20:51: 04 Yes .35mg Take 0.35 mg by mouth daily. [facility] norethindro ne 0.35 mg tablet 02-25 20:51: 04 Yes .35mg Take 0.35 mg by mouth daily. [facility] azithromyci n (ZITHROMAX) 250 mg tablet 02-25 00:00: 00 Yes [id number] 250mg Take 1 tablet by mouth daily. Take 500 mg day 1, then 250 mg days 2 to 5. [facility] methylPREDN ISolone (MEDROL, JANE,) 4 mg tablets 02-25 00:00: 00 Yes [id number] Take by mouth SEE-INSTRU CTIONS. follow package directions [facility] azithromyci n (ZITHROMAX) 250 mg tablet 02-25 00:00: 00 Yes [id number] 250mg Take 1 tablet by mouth daily. Take 500 mg day 1, then 250 mg days 2 to 5. [facility] methylPREDN ISolone (MEDROL, JANE,) 4 mg tablets 02-25 00:00: 00 Yes [id number] Take by mouth SEE-INSTRU CTIONS. follow package directions [facility] azithromyci n (ZITHROMAX) 250 mg tablet 02-25 00:00: 00 Yes [id number] 250mg Take 1 tablet by mouth daily. Take 500 mg day 1, then 250 mg days 2 to 5. [facility] methylPREDN ISolone (MEDROL, JANE,) 4 mg tablets 02-25 00:00: 00 Yes [id number] Take by mouth SEE-INSTRU CTIONS. follow package directions [facility] Immunizations Ordered Immunization Name Filled Immunization Name Date Status Comments Source Varicella (varivax)(chicken pox) 2018-11-20 00:00:00 Completed [facility] Varicella (varivax)(chicken pox) 2018-11-20 00:00:00 Completed [facility] Varicella (varivax)(chicken pox) 2018-11-20 00:00:00 Completed [facility] TDAP 2018-10-29 00:00:00 Completed [facility] TDAP 2018-10-29 00:00:00 Completed [facility] TDAP 2018-10-29 00:00:00 Completed [facility] Rho (d) Immune Globulin 2018-10-12 00:00:00 Completed [facility] Rho (d) Immune Globulin 2018-10-12 00:00:00 Completed [facility] Rho (d) Immune Globulin 2018-10-12 00:00:00 Completed [facility] Influenza Virus Vaccine Quad .5 mL IM 6+ MO 2018-03-23 00:00:00 Completed [facility] Influenza Virus Vaccine 2018-03-23 00:00:00 Completed [facility] Influenza Virus Vaccine Quad .5 mL IM 6+ MO 2018-03-23 00:00:00 Completed [facility] Influenza Virus Vaccine 2018-03-23 00:00:00 Completed [facility] Influenza Virus Vaccine Quad .5 mL IM 6+ MO 2018-03-23 00:00:00 Completed [facility] Influenza Virus Vaccine 2018-03-23 00:00:00 Completed [facility] HEPATITIS A 2013-01-06 00:00:00 Completed [facility] Meningococcal Vaccine 2013-01-06 00:00:00 Completed [facility] TDAP 2013-01-06 00:00:00 Completed [facility] Varicella (varivax)(chicken pox) 2013-01-06 00:00:00 Completed [facility] HEPATITIS A 2013-01-06 00:00:00 Completed [facility] Meningococcal Vaccine 2013-01-06 00:00:00 Completed [facility] TDAP 2013-01-06 00:00:00 Completed [facility] Varicella (varivax)(chicken pox) 2013-01-06 00:00:00 Completed [facility] HEPATITIS A 2013-01-06 00:00:00 Completed [facility] Meningococcal Vaccine 2013-01-06 00:00:00 Completed [facility] TDAP 2013-01-06 00:00:00 Completed [facility] Varicella (varivax)(chicken pox) 2013-01-06 00:00:00 Completed [facility] Influenza Virus Vaccine 2011-04-09 00:00:00 Completed [facility] Influenza Virus Vaccine 2011-04-09 00:00:00 Completed [facility] Influenza Virus Vaccine 2011-04-09 00:00:00 Completed [facility] DTAP 2005-05-09 00:00:00 Completed [facility] HEPATITIS A 2005-05-09 00:00:00 Completed [facility] MMR 2005-05-09 00:00:00 Completed [facility] Pneumococcal 13 Conjugate, PCV13 (Prevnar 13) 2005-05-09 00:00:00 Completed [facility] Polio (IPV/OPV) 2005-05-09 00:00:00 Completed [facility] DTAP 2005-05-09 00:00:00 Completed [facility] HEPATITIS A 2005-05-09 00:00:00 Completed [facility] MMR 2005-05-09 00:00:00 Completed [facility] Pneumococcal 13 Conjugate, PCV13 (Prevnar 13) 2005-05-09 00:00:00 Completed [facility] Polio (IPV/OPV) 2005-05-09 00:00:00 Completed [facility] DTAP 2005-05-09 00:00:00 Completed [facility] HEPATITIS A 2005-05-09 00:00:00 Completed [facility] MMR 2005-05-09 00:00:00 Completed [facility] Pneumococcal 13 Conjugate, PCV13 (Prevnar 13) 2005-05-09 00:00:00 Completed [facility] Polio (IPV/OPV) 2005-05-09 00:00:00 Completed [facility] DTAP 2003-08-15 00:00:00 Completed [facility] HIB 4 Dose Schedule 2003-08-15 00:00:00 Completed [facility] Hep B, Adol or Pedi Dosage 2003-08-15 00:00:00 Completed [facility] Varicella (varivax)(chicken pox) 2003-08-15 00:00:00 Completed [facility] DTAP 2003-08-15 00:00:00 Completed [facility] HIB 4 Dose Schedule 2003-08-15 00:00:00 Completed [facility] Hep B, Adol or Pedi Dosage 2003-08-15 00:00:00 Completed [facility] Varicella (varivax)(chicken pox) 2003-08-15 00:00:00 Completed [facility] DTAP 2003-08-15 00:00:00 Completed [facility] HIB 4 Dose Schedule 2003-08-15 00:00:00 Completed [facility] Hep B, Adol or Pedi Dosage 2003-08-15 00:00:00 Completed [facility] Varicella (varivax)(chicken pox) 2003-08-15 00:00:00 Completed [facility] DTAP 2002-11-16 00:00:00 Completed [facility] HIB 4 Dose Schedule 2002-11-16 00:00:00 Completed [facility] MMR 2002-11-16 00:00:00 Completed [facility] Polio (IPV/OPV) 2002-11-16 00:00:00 Completed [facility] DTAP 2002-11-16 00:00:00 Completed [facility] HIB 4 Dose Schedule 2002-11-16 00:00:00 Completed [facility] MMR 2002-11-16 00:00:00 Completed [facility] Polio (IPV/OPV) 2002-11-16 00:00:00 Completed [facility] DTAP 2002-11-16 00:00:00 Completed [facility] HIB 4 Dose Schedule 2002-11-16 00:00:00 Completed [facility] MMR 2002-11-16 00:00:00 Completed [facility] Polio (IPV/OPV) 2002-11-16 00:00:00 Completed [facility] DTAP 2001-03-26 00:00:00 Completed [facility] HIB 4 Dose Schedule 2001-03-26 00:00:00 Completed [facility] Hep B, Adol or Pedi Dosage 2001-03-26 00:00:00 Completed [facility] Polio (IPV/OPV) 2001-03-26 00:00:00 Completed [facility] DTAP 2001-03-26 00:00:00 Completed [facility] HIB 4 Dose Schedule 2001-03-26 00:00:00 Completed [facility] Hep B, Adol or Pedi Dosage 2001-03-26 00:00:00 Completed [facility] Polio (IPV/OPV) 2001-03-26 00:00:00 Completed [facility] DTAP 2001-03-26 00:00:00 Completed [facility] HIB 4 Dose Schedule 2001-03-26 00:00:00 Completed [facility] Hep B, Adol or Pedi Dosage 2001-03-26 00:00:00 Completed [facility] Polio (IPV/OPV) 2001-03-26 00:00:00 Completed [facility] DTAP 2000 00:00:00 Completed [facility] HIB 4 Dose Schedule 2000 00:00:00 Completed [facility] Hep B, Adol or Pedi Dosage 2000 00:00:00 Completed [facility] Polio (IPV/OPV) 2000 00:00:00 Completed [facility] DTAP 2000 00:00:00 Completed [facility] HIB 4 Dose Schedule 2000 00:00:00 Completed [facility] Hep B, Adol or Pedi Dosage 2000 00:00:00 Completed [facility] Polio (IPV/OPV) 2000 00:00:00 Completed [facility] DTAP 2000 00:00:00 Completed [facility] HIB 4 Dose Schedule 2000 00:00:00 Completed [facility] Hep B, Adol or Pedi Dosage 2000 00:00:00 Completed [facility] Polio (IPV/OPV) 2000 00:00:00 Completed [facility] Hep B, Adol or Pedi Dosage 2000 00:00:00 Completed [facility] Hep B, Adol or Pedi Dosage 2000 00:00:00 Completed [facility] Hep B, Adol or Pedi Dosage 2000 00:00:00 Completed [facility] Influenza Virus Vaccine Quad .5 mL IM 6+ MO (FLUZONE/FLULAVAL/F LUARIX) Unknown Completed [facility] Rho (d) Immune Globulin Unknown Completed [facility] TDAP Unknown Completed [facility] Varicella (varivax)(chicken pox) Unknown Completed [facility] DTAP Unknown Completed [facility] DTAP Unknown Completed [facility] DTAP Unknown Completed [facility] DTAP Unknown Completed [facility] DTAP Unknown Completed [facility] HIB 4 Dose Schedule Unknown Completed [facility] HIB 4 Dose Schedule Unknown Completed [facility] HIB 4 Dose Schedule Unknown Completed [facility] HIB 4 Dose Schedule Unknown Completed [facility] HEPATITIS A Unknown Completed [facility] HEPATITIS A Unknown Completed [facility] Hep B, Adol or Pedi Dosage Unknown Completed [facility] Hep B, Adol or Pedi Dosage Unknown Completed [facility] Hep B, Adol or Pedi Dosage Unknown Completed [facility] Hep B, Adol or Pedi Dosage Unknown Completed [facility] Influenza Virus Vaccine Unknown Completed [facility] Influenza Virus Vaccine Unknown Completed [facility] Meningococcal Vaccine Unknown Completed [facility] MMR Unknown Completed [facility] MMR Unknown Completed [facility] Pneumococcal 13 Conjugate, PCV13 (Prevnar 13) Unknown Completed [facility] Polio (IPV/OPV) Unknown Completed [facility] Polio (IPV/OPV) Unknown Completed [facility] Polio (IPV/OPV) Unknown Completed [facility] Polio (IPV/OPV) Unknown Completed [facility] TDAP Unknown Completed [facility] Varicella (varivax)(chicken pox) Unknown Completed [facility] Varicella (varivax)(chicken pox) Unknown Completed [facility] Procedures Procedure Date / Time Performed Performing Clinicia n Source EXTERNAL PROVIDER RECORDS 2021-08-17 06:01:00 Doctor Unassigned, [place] [facility] Encounters Start Date/Time End Date/Time Encounter Type Admission Type Attending Clinicians Care Facility Care Department Encounter ID Source 2021-04-06 20:37:55 Emergency [facility] [id number] [facility] 2022-12-26 15:13:22 2022-12-26 15:13:22 Outpatient [facility] [id number] Enrique Chacon 2022-03-30 14:00:18 2022-03-30 14:00:18 Outpatient [facility] [id number] Enrique Chacon 2021-12-17 00:00:00 2021-12-17 00:00:00 Telephone Nigel Perez [facility] 1.840.114 350.1.13.10 4.2.7.2.686 [id number] [facility] 2021-09-26 09:30:00 2021-09-26 09:30:00 Outpatient NASREEN RUIZ [facility] [id number] [facility] 2021-09-06 15:00:00 2021-09-06 15:00:00 Outpatient TANISHA SKELTON [facility] [id number] [facility] 2021-08-17 00:00:00 2021-08-17 00:00:00 Orders Only Doctor Unassigned, [place] [facility] 1..114 350.1.13.10 4.2.7.2.686 [id number] [facility] 2021-07-10 00:00:00 2021-07-10 00:00:00 Telephone Beatriz Summers 1.84.114 350.1.13.10 4.2.7.2.686 [id number] [facility] 2021-02-26 00:00:00 2021-02-26 00:00:00 Letter (Out) Britney Gutierrez [facility] 1..114 350.1.13.10 4.2.7.2.686 [id number] [facility] 2021-02-25 20:36:11 2021-02-25 21:00:43 Urgent Care Yeny Vidales [facility] 1.2.840.114 350.1.13.10 4.2.7.2.686 [id number] [facility] 2021-02-25 20:40:00 2021-02-25 20:40:00 Outpatient R [facility] [id number] [facility] 2021-02-20 13:30:00 2021-02-20 13:30:00 Outpatient R OLESYA PEOPLES [facility] [id number] [facility] 2020-11-02 12:52:19 2020-11-02 13:28:26 Office Visit Nasreen Maloney [facility] 1.2.840.114 350.1.13.10 4.2.7.2.686 [id number] [facility] 2020-11-02 13:00:00 2020-11-02 13:00:00 Outpatient R NASREEN MALONEY [facility] [id number] [facility] 2020-11-02 00:00:00 2020-11-02 00:00:00 Orders Only Doctor Unassigned, [place] [facility] 1.2.840.114 350.1.13.10 4.2.7.2.686 [id number] [facility] 2020-08-29 00:00:00 2020-08-29 00:00:00 Patient Outreach Pepe Turner [facility] 1.2.840.114 350.1.13.10 4.2.7.2.686 [id number] [facility] 2020-06-07 13:00:00 2020-06-07 13:00:00 Outpatient R MARIIA MORENO [facility] [id number] [facility] 2020-05-17 00:00:00 2020-05-17 00:00:00 Telephone Elvis Mcguire [facility] 1.2.840.114 350.1.13.10 4.2.7.2.686 [id number] [facility] 2020-05-11 14:30:00 2020-05-11 14:30:00 Outpatient BERNARDO EM [facility] [id number] [facility] 2020-04-26 00:00:00 2020-04-26 00:00:00 Telephone Shayla Elvis Jonathan [facility] 1..840.114 350.1.13.10 4.2.7.2.686 [id number] [facility] 2020-04-12 14:52:16 2020-04-12 23:59:00 Hospital Encounter Elvis Mcguire [facility] 1..840.114 350.1.13.10 4.2.7.2.686 [id number] [facility] 2020-04-12 00:00:00 2020-04-12 00:00:00 Outpatient ELVIS AVALOS HOWARD [facility] [id number] [facility] 2020-03-28 15:43:25 2020-03-28 16:38:05 [facility] 1..840.114 350.1.13.10 4.2.7.2.686 [id number] [facility] 2020-03-28 15:40:00 2020-03-28 15:40:00 Outpatient ELVIS AVALOS HOWARD [facility] [id number] [facility] 2020-03-28 09:00:00 2020-03-28 09:00:00 Outpatient SARITHA LIMON [facility] [id number] [facility] 2020-03-22 00:00:00 2020-03-22 00:00:00 Tele[facility] Sh[facility] 1.2840.114 350.1.13.10 4.2.7.2.686 [id number] [facility] 2020-03-20 08:02:35 2020-03-20 23:59:00 Hospital Encounter Elvis Mcguire [facility] 1.20.114 350.1.13.10 4.2.7.2.686 [id number] [facility] 2020-03-20 08:02:35 2020-03-20 23:59:00 Hospital Encounter Elvis Mcguire [facility] 1.20.114 350.1.13.10 4.2.7.2.686 [id number] 2020-03-20 00:00:00 2020-03-20 00:00:00 Outpatient ELVIS AVALOSE ELVIS [facility] [id number] [facility] 2020-03-09 21:34:00 2020-03-09 23:39:00 Emergency [facility] 1.20.114 350.1.13.10 4.2.7.2.686 [id number] [facility] 2020-03-09 21:34:00 2020-03-09 23:39:00 Emergency [facility] 1.2840.114 350.1.13.10 4.2.7.2.686 [id number] 2020-03-09 00:00:00 2020-03-09 00:00:00 Telephone Elvis Mcguire [facility] 1.2840.114 350.1.13.10 4.2.7.2.686 [id number] [facility] 2020-03-09 00:00:00 2020-03-09 00:00:00 Orders Only Doctor Unassigned, [place] [facility] 1.0.114 350.1.13.10 4.2.7.2.686 [id number] [facility] 2020-03-09 00:00:00 2020-03-09 00:00:00 Telephone Shayla Elvis Castillo [facility] 1.2840.114 350.1.13.10 4.2.7.2.686 [id number] 2020-03-09 00:00:00 2020-03-09 00:00:00 Orders Only Doctor Unassigned, [place] [facility] 1.20.114 350.1.13.10 4.2.7.2.686 [id number] 2020-02-28 08:02:02 2020-03-03 12:52:10 Office Visit Shayla Elvis Castillo [facility] 1.840.114 350.1.13.10 4.2.7.2.686 [id number] [facility] 2020-02-29 11:20:00 2020-02-29 11:20:00 Outpatient NIGEL BROOKE [facility] [id number] [facility] 2020-02-28 08:00:00 2020-02-28 08:00:00 Outpatient ELVIS AVALOS HOWARD [facility] [id number] [facility] 2020-02-28 00:00:00 2020-02-28 00:00:00 Telephone ShaylaElvis acharya [facility] 1.84.114 350.1.13.10 4.2.7.2.686 [id number] [facility] 2020-02-19 16:52:25 2020-02-19 23:59:00 Hospital Encounter Nigel Perez [facility] 1.840.114 350.1.13.10 4.2.7.2.686 [id number] [facility] 2020-02-19 00:00:00 2020-02-19 00:00:00 Outpatient R NIGEL PEREZ [facility] [id number] [facility] 2020-02-10 00:00:00 2020-02-10 00:00:00 Patient Secure Msg Doctor Unassigned, [place] [facility] 1.2840.114 350.1.13.10 4.2.7.2.686 [id number] [facility] 2020-02-08 14:36:06 2020-02-08 17:10:42 Telemedici ne Visit Nigel Perez [facility] 1.2840.114 350.1.13.10 4.2.7.2.686 [id number] [facility] 2020-02-08 15:00:00 2020-02-08 15:00:00 Outpatient R NIGEL PEREZ [facility] [id number] [facility] 2020-02-08 00:00:00 2020-02-08 00:00:00 Telephone Nigel Perez [facility] 1..840.114 350.1.13.10 4.2.7.2.686 [id number] [facility] 2020-02-08 00:00:00 2020-02-08 00:00:00 Telephone Nigel Perez [facility] 1.2.840.114 350.1.13.10 4.2.7.2.686 [id number] [facility] 2020-02-07 00:00:00 2020-02-07 00:00:00 Patient Secure Msg Nigel Perez [facility] 1.2.840.114 350.1.13.10 4.2.7.2.686 [id number] [facility] 2020-02-04 13:30:03 2020-02-04 13:45:03 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, [facility] 1.2840.114 350.1.13.10 4.2.7.2.686 [id number] [facility] 2020-02-04 13:30:00 2020-02-04 13:30:00 Outpatient Teddy MCDANIELS SARITHA [facility] [id number] [facility] 2020-02-04 10:48:31 2020-02-04 11:55:13 Office [facility] 1.20.114 350.1.13.10 4.2.7.2.686 [id number] [facility] 2020-02-04 09:55:16 2020-02-04 10:39:58 Office Visit Nigel Perez [facility] Building 1.2.114 350.1.13.10 4.2.7.2.686 [id number] [facility] 2020-02-04 10:00:00 2020-02-04 10:00:00 Outpatient R NIGEL PEREZ [facility] [id number] [facility] 2020-02-04 00:00:00 2020-02-04 00:00:00 Patient Outreach [facility] 1.2840.114 350.1.13.10 4.2.7.2.686 [id number] [facility] 2020-02-04 00:00:00 2020-02-04 00:00:00 Orders Only Doctor Unassigned, [place] [facility] 1.20.114 350.1.13.10 4.2.7.2.686 [id number] [facility] 2020-01-04 00:00:00 2020-01-04 00:00:00 Orders Only Doctor Unassigned, [place] [facility] 1.114 350.1.13.10 4.2.7.2.686 [id number] [facility] 2019-12-27 10:26:47 2019-12-27 11:00:17 Office Visit Olesya Peoples [facility] Building 1.114 350.1.13.10 4.2.7.2.686 [id number] [facility] 2019-12-27 10:30:00 2019-12-27 10:30:00 Outpatient R SHELTON OLESYA [facility] [id number] [facility] 2019-12-27 00:00:00 2019-12-27 00:00:00 Orders Only Doctor Unassigned, [place] [facility] 1.114 350.1.13.10 4.2.7.2.686 [id number] [facility] 2019-08-26 13:00:00 2019-08-26 13:00:00 Outpatient R BONNIE VARNER [facility] [id number] [facility] 2019-08-25 00:00:00 2019-08-25 00:00:00 Telephone Shaylee Boston [facility] Office Building One 1.114 350.1.13.10 4.2.7.2.686 [id number] [facility] 2019-08-24 18:15:00 2019-08-24 18:15:00 Outpatient R ANA, RYAN [facility] [id number] [facility] 2019-08-24 00:00:00 2019-08-24 00:00:00 Telephone Olesya Peoples [facility] Building 1.84114 350.1.13.10 4.2.7.2.686 [id number] [facility] 2019-02-03 13:42:38 2019-02-03 14:36:36 Office Visit Olesya Peoples [facility] Building 1.2.840.114 350.1.13.10 4.2.7.2.686 [id number] [facility] 2019-01-06 14:28:33 2019-01-06 16:42:02 Office Visit Olesya Peoples [facility] 1.2.840.114 350.1.13.10 4.2.7.2.686 [id number] [facility] 2019-01-06 00:00:00 2019-01-06 00:00:00 Orders Only Doctor Unassigned, [place] [facility] 1.2.840.114 350.1.13.10 4.2.7.2.686 [id number] [facility] 2018-11-13 08:00:00 2018-11-13 08:00:00 Outpatient P AMOL MARTINS [facility] [id number] [facility] 2018-11-09 08:00:00 2018-11-09 10:18:36 Outpatient P KATHY EWING [facility] [id number] [facility] Results Test Description Test Time Test Comments Results Result Co mments Source TRICHOMONAS, NAAT, [id number] 19:17:17* Test Item Value Reference Range Interpretation Comme nts TRICHOMONAS, NAAT (test code = 86459) NEGATIVE NEGATIVE IMPORTANT NO MECCA: SEE ANNOUNCEMENT AT [email or web address] Note: Assay methodology is nucleic acid amplification by timber setter mediated amplification (TMA) and Hybridization Protection Assay (HPA) utilizing the StreetHub platform. A negative result does not exclude low level infection, specimensampling error, or collection error. UNLESS OTHERWISE INDICATED, ALL TESTING PERFORMED [facility] [employer] [address] [place] [id number] CODING CLERK: JU SINGH M.D. [place] NUMBER [id number] [facility] [place]. [id number] RPR REFLEX TO T. PALLIDUM - [id number] 03:39:13* Test Item Value Reference Range Interpretation Comme nts RPR (test code = 89867) NON-REACTIVE NON-REACTIVE RPR TITER (test code = 3500) NOT INDIC. TITER NOT INDIC. HIV 1/2 4TH GEN, RFLX [id number] 03:12:45* Test Item Value Reference Range Interpretation Comme nts HIV 1/2 4TH GEN, RFLX CONF ( test code = 3514) NON-REACTIVE NON-REACTIVE HEPATITIS PANEL, [id number] 03:12:45* Test Item Value Reference Range Interpretation Comme nts HEPATITIS A IgM (test code = 94356) NON-REACTIVE NON-REACTIVE HEPATITIS B CORE IgM (test code = 4644) NON-REACTIVE NON-REACTIVE HEPATITIS B SURF AG (test code = 2739) NON-REACTIVE NON-REACTIVE HEPATITIS C ANTIBODY (test code = 4675) NON-REACTIVE NON-REACTIVE INTERPRETATION HEPATITIS A: (test code = 2552) (NOTE) Hepatitis A serology shows no evidence of acute hepatitis A. INTERPRETATION HEPATITIS B: (test code = 85547) (NOTE) Hepatitis B serology shows no evidence of acute hepatitis B andno indication of exposure to hepatitis B virus in the previous fiorella eight months. INTERPRETATION HEPATITIS C: (test code = 55946) (NOTE) Hepatitis C serology shows no evidence of exposure to hepatitisC virus at this time. It can take up to 12 months after exposure tothe hepatitis C virus for antibodies to become detectable in the blood in certain patients. CT/NG, NAAT, [id number] 10:28:27* Test Item Value Reference Range Interpretation Comme nts GONORRHEA, NAAT (test code = 78293) NEGATIVE NEGATIVE IMPORTANT NO MECCA: SEE ANNOUNCEMENT AT [email or web address] Note: Assay methodology is nucleic acid amplification by timber setter mediated amplification (TMA) utilizing the Aptima Combo 2 Assay. CHLAMYDIA, NAAT (test code = 59860) POSITIVE NEGATIVE A IMPORTANT NO MECCA: SEE ANNOUNCEMENT AT [email or web address] Note: Assay methodology is nucleic acid amplification by timber setter mediated amplification (TMA) utilizing the Aptima Combo 2 Assay. UNLESS OTHERWISE INDICATED, ALL TESTING PERFORMED [facility] [address] [place] [address] CODING CLERK: JU SINGH M.D. CLIA NUMBER [id number] [facility] [place]. [id number]
[2023-06-09] MEDS ORDERED: Levofloxacin 750mg IV 750 MG/150 ML BAG IV ONE (13:45)
[2023-06-09] MEDS ORDERED: ONDANSETRON 4 MG/2 ML VIAL ONE ×2 (13:45→15:18)
[2023-06-09] MEDS ORDERED: NA CHLORIDE 0.9% 1,000 ML ONE (13:45)
[2023-06-09] MEDS ORDERED: FENTANYL CITR 100 MCG/2 ML ONE ×2 (13:48→17:24)
[2023-06-09 13:50] LABS: Specific Gravity > 1.030 (1.005-1.030)
--- NOTE | 2023-06-09 13:55 | RAD REPORT ---
EXAM DESCRIPTION: CT - Head Brain Wo Cont - 06/09/2023 1:44 pm CLINICAL HISTORY: Headache COMPARISON: 2020 TECHNIQUE: Computed axial tomography of the head was obtained. IV contrast was not requested. All CT scans are performed using dose optimization technique as appropriate and may include automated exposure control or mA/KV adjustment according to patient size. FINDINGS: An intracranial bleed is not seen The ventricles are normal in caliber No significant hypodense areas within the brain visualized No extra-axial fluid collection is noted. Mild to moderate chronic ethmoid sinusitis. Mild chronic left maxillary sinusitis Edwg-ih-iikmtmoa opacification left mastoids IMPRESSION: No acute intracranial abnormality is seen Mild to moderate chronic ethmoid sinusitis. Mild chronic left maxillary sinusitis Eflg-fk-xxrukgyg opacification left mastoids may indicate a mastoiditis If patient's symptoms persist MRI of the brain would be recommended
[2023-06-09 13:57] LABS: Specific Gravity > 1.030 (1.005-1.030); Urine Bacteria <20 /HPF (<20); Urine Bilirubin NEGATIVE (Negative); Urine Blood Negative (Negative); Urine Clarity Turbid (Clear); Urine Color Yellow (Yellow); Urine Glucose NEGATIVE (Negative); Urine Mucus 1+ /HPF (None Seen); Urine Protein TRACE (Negative); Urine RBC <5 /HPF (None Seen); Urine Urobilinogen Normal (Normal)
[2023-06-09] MEDS ORDERED: OFLOXACIN OPH 0.3%-5 ML BTL OTIC SCH (14:00)
--- NOTE | 2023-06-09 14:29 | EDPHYS ---
Physician Documentation [facility] Name: Cary Romano Age: 22 yrs Sex: Female : 2000 Arrival Date: 06/09/2023 Time: 12:04 Bed 18 Private MD: ED Physician Anup Esquivel HPI: 06/09 13:24 This 22 yrs old Female presents to ER via Ambulatory with complaints of Ear jeff Pain. 13:24 The patient presents with pain, swelling, tenderness. The complaints affect the left jeff ear. Onset: The symptoms/episode began/occurred 1 day(s) ago. Modifying factors: The symptoms are alleviated by nothing, the symptoms are aggravated by nothing. Associated signs and symptoms: Pertinent positives: lightheadedness. Severity of symptoms: At their worst the symptoms were moderate in the emergency department the symptoms are unchanged. The patient has not experienced similar symptoms in the past. 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 - Social history:: Smoking status: Patient denies any tobacco usage or history of. ROS: 13:25 Constitutional: Negative for fever, chills, and weight loss, Eyes: Negative for injury, jeff pain, redness, and discharge, Neck: Negative for injury, pain, and swelling, Cardiovascular: Negative for chest pain, palpitations, and edema, Respiratory: Negative for shortness of breath, cough, wheezing, and pleuritic chest pain, Abdomen/GI: Negative for abdominal pain, nausea, vomiting, diarrhea, and constipation, Back: Negative for injury and pain, : Negative for injury, bleeding, discharge, and swelling, MS/Extremity: Negative for injury and deformity, Skin: Negative for injury, rash, and discoloration, Neuro: Negative for headache, weakness, numbness, tingling, and seizure, Psych: Negative for depression, anxiety, suicide ideation, homicidal ideation, and hallucinations, Allergy/Immunology: Negative for hives, rash, and allergies, Endocrine: Negative for neck swelling, polydipsia, polyuria, polyphagia, and marked weight changes, Hematologic/Lymphatic: Negative for swollen nodes, abnormal bleeding, and unusual bruising, 13:25 ENT: Positive for ear pain, Exam: 13:25 Constitutional: This is a well developed, well nourished patient who is awake, alert, jeff and in no acute distress. Head/Face: Normocephalic, atraumatic. Eyes: Pupils equal round and reactive to light, extra-ocular motions intact. Lids and lashes normal. Conjunctiva and sclera are non-icteric and not injected. Cornea within normal limits. Periorbital areas with no swelling, redness, or edema. Neck: Trachea midline, no thyromegaly or masses palpated, and no cervical lymphadenopathy. Supple, full range of motion without nuchal rigidity, or vertebral point tenderness. No Meningismus. Chest/axilla: Normal chest wall appearance and motion. Nontender with no deformity. No lesions are appreciated. Cardiovascular: Regular rate and rhythm with a normal S1 and S2. No gallops, murmurs, or rubs. Normal PMI, no JVD. No pulse deficits. Respiratory: Lungs have equal breath sounds bilaterally, clear to auscultation and percussion. No rales, rhonchi or wheezes noted. No increased work of breathing, no retractions or nasal flaring. Abdomen/GI: Soft, non-tender, with normal bowel sounds. No distension or tympany. No guarding or rebound. No evidence of tenderness throughout. Back: No spinal tenderness. No costovertebral tenderness. Full range of motion. Skin: Warm, dry with normal turgor. Normal color with no rashes, no lesions, and no evidence of cellulitis. MS/ Extremity: Pulses equal, no cyanosis. Neurovascular intact. Full, normal range of motion. Neuro: Awake and alert, GCS 15, oriented to person, place, time, and situation. Cranial nerves II-XII grossly intact. Motor strength 5/5 in all extremities. Sensory grossly intact. Cerebellar exam normal. Normal gait. Psych: Awake, alert, with orientation to person, place and time. Behavior, mood, and affect are within normal limits. 13:25 ENT: Ear canal(s): bleeding, bloody discharge, erythema, foreign body, is not appreciated, NO MASTOID PAIN, purulent discharge, that is minimal, that is moderate, in the left canal, Vital Signs: 12:16 BP 165 / 135; Pulse 108; Resp 20 S; Temp 98.3(TE); Pulse Ox 100% on R/A; Weight 117.93 aa5 kg (R); Height 5 ft. 4 in. (R); 13:10 BP 116 / 72; Pulse 86; Resp 17; Pulse Ox 100% on R/A; me1 14:06 BP 127 / 82; Pulse 87; Resp 18; Pulse Ox 100% on R/A; me1 16:44 BP 136 / 87; Pulse 98; Resp 17; Pulse Ox 100% on R/A; me1 17:53 BP 126 / 68; Pulse 95; Resp 18; Pulse Ox 100% on R/A; me1 12:16 Body Mass Index 44.63 (117.93 kg, 162.56 cm) aa5 MDM: 12:07 Patient medically screened. [facility] 13:27 Differential diagnosis: otitis media, otitis externa, ruptured TM, cerumen impaction. [facility] Data reviewed: vital signs, nurses notes, lab test result(s), radiologic studies, CT scan. Consideration of Admission/Observation Escalation of care including admission/observation considered. Independent interpretation of the following test(s) in the Emergency Department CT Scan: My interpretation is CT HEAD. Care significantly affected by the following chronic conditions: ICH. 06/09 13:24 Order name: CBC with Diff; Complete Time: 15:13 [facility] 06/09 13:24 Order name: Comprehensive Metabolic Panel; Complete Time: 15:13 [facility] 06/09 13:24 Order name: Urinalysis w/ reflexes; Complete Time: 14:19 [facility] 06/09 13:24 Order name: PREGU; Complete Time: 14:19 [facility] 06/09 16:17 Order name: Wound Culture [facility] 06/09 16:55 Order name: Wound Culture [facility] 06/10 04:54 Order name: CBC with Automated Diff [facility] 06/10 05:02 Order name: Basic Metabolic Panel [facility] 06/10 05:02 Order name: Magnesium [facility] 06/09 13:24 Order name: CT Head Brain wo Cont; Complete Time: 14:19 [facility] 06/09 15:13 Order name: CONS Physician Consult [facility] Administered Medications: 14:15 Drug: fentaNYL (PF) IVP 50 mcg IVP once Route: IVP; Site: left antecubital; me1 16:42 Follow up: Response: No adverse reaction; Pain is decreased me1 14:15 Drug: Ondansetron IVP 4 mg IVP once; over 2 minutes Route: IVP; Site: left antecubital; me1 16:42 Follow up: Response: No adverse reaction me1 14:15 Drug: Ofloxacin Ophthalmic Drops 0.3 % 4 drops Ophthalmic once; LEFT EAR {Note: me1 Administered to left EAR as ordered. .} Route: Ophthalmic; Site: left eye; 16:42 Follow up: Response: No adverse reaction me1 14:15 Drug: levofloxacin IVPB 750 mg 150 ml IVPB once over 90 mins Volume: 150 ml; Route: me1 IVPB; Infused Over: 90 mins; Site: left antecubital; 16:42 Follow up: IV Status: Completed infusion me1 16:42 Follow up: Response: No adverse reaction me1 14:16 Drug: NS 0.9% IV 500 ml IV at bolus once Route: IV; Rate: bolus; Site: left antecubital;me1 06/10 06:44 Follow up: Response: No adverse reaction; IV Status: Completed infusion; IV Intake: jw7 500ml 06/09 15:31 Drug: morphine IVP or IV 4 mg IVP once over 4 mins Route: IVP; Infused Over: 4 mins; me1 Site: left antecubital; 16:42 Follow up: Response: No adverse reaction; Pain is decreased me1 15:31 Drug: Ondansetron IVP 4 mg IVP once; over 2 minutes Route: IVP; Site: left antecubital; me1 16:43 Follow up: Response: No adverse reaction me1 Disposition Summary: 06/09/23 14:29 Hospitalization Ordered Notes: Hospitalization Status: Observation jeff Provider: Arielle Rendon jeff Condition: Fair jeff Problem: new jeff Symptoms: have improved jeff Bed/Room Type: Standard jeff Location: Telemetry/MedSurg (observation)(06/10/23 06:30) cg Room Assignment: [facility](06/10/23 06:30) cg Diagnosis - Diffuse otitis externa, left ear jeff - Essential (primary) hypertension - 165/135 jeff - Acute mastoiditis - LEFT jeff - UTI/ Urinary tract infection, site not specified jeff - Other acute sinusitis jeff Forms: - Medication Reconciliation Form ejff - SBAR form jeff - Leadership Thank You Letter [facility] Signatures: Dispatcher MedHost Anup Sánchez MD MD cha Calderon, Audri RN RN aa5 Jeannie Mccall RN RN Sandra Galvan RN RN me1 Shakira Steele RN jw7 Corrections: (The following items were deleted from the chart) 20:54 14:29 Telemetry/MedSurg (Inpatient) jeff cg 20:54 14:29 jeff cg 06/10 05:04 06/09 20:54 [facility] ER HOLD cg cg 06/10 05:04 06/09 20:54 ERHOLD- cg cg 06/10 06:30 05:04 Intensive Care Unit cg cg 06:30 05:04 5- cg cg
--- NOTE | 2023-06-09 14:29 | ER ---
Nurse's Notes [facility] Name: Cary Romano Age: 22 yrs Sex: Female : 2000 Arrival Date: 06/09/2023 Time: 12:04 Bed 18 Private MD: Diagnosis: Diffuse otitis externa, left ear;Essential (primary) hypertension-165/135;Acute mastoiditis-LEFT;UTI/ Urinary tract infection, site not specified;Other acute sinusitis Presentation: 06/09 12:16 Chief complaint: Patient states: severe pain to left ear. Pt states "I think it's from aa5 all the fireworks last night, I was at work and I bent over and my ear just started bubbling and bleeding". Coronavirus screen: At this time, the client does not indicate any symptoms associated with coronavirus-19. Ebola Screen: Patient denies travel to an Ebola-affected area in the 21 days before illness onset. Initial Sepsis Screen: Does the patient meet any 2 criteria? HR > 90 bpm. Does the patient have a suspected source of infection? No. Patient's initial sepsis screen is negative. Risk Assessment: Do you want to hurt yourself or someone else? Patient reports no desire to harm self or others. Onset of symptoms was June 09, 2023. 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 - Social history:: Smoking status: Patient denies any tobacco usage or history of. Screenin:30 [facility] ED Fall Risk Assessment (Adult) History of falling in the last 3 months, me1 including since admission No falls in past 3 months (0 pts) Confusion or Disorientation No (0 pts) Intoxicated or Sedated No (0 pts) Impaired Gait No (0 pts) Mobility Assist Device Used No (0 pt) Altered Elimination No (0 pt) Score/Fall Risk Level 0 - 2 = Low Risk Maintained a safe environment, Provided non-skid footwear, Hourly rounding (assess needs \\T\\ fall precautionary measures) done. Abuse screen: Denies threats or abuse. Nutritional screening: No deficits noted. Tuberculosis screening: No symptoms or risk factors identified. Assessment: 12:30 General: Appears uncomfortable, well groomed, well developed, well nourished, Behavior me1 is calm, cooperative, appropriate for age, Reports severe pain to left ear. Pt states "I think it's from all the fireworks last night, I was at work and I bent over and my ear just started bubbling and bleeding". Pain: Complains of pain in left ear Pain does not radiate. Pain currently is 10 out of 10 on a pain scale. Quality of pain is described as sharp, stabbing, Pain began suddenly, Is continuous. Neuro: Level of Consciousness is awake, alert, obeys commands, Oriented to person, place, time, situation, Appropriate for age. Cardiovascular: Capillary refill < 3 seconds Patient's skin is warm and dry. Respiratory: Airway is patent Respiratory effort is even, unlabored, Respiratory pattern is regular, symmetrical. EENT: Ear canal w/ bleeding noted from left ear Reports pain in left ear since this morning. Vital Signs: 12:16 BP 165 / 135; Pulse 108; Resp 20 S; Temp 98.3(TE); Pulse Ox 100% on R/A; Weight 117.93 aa5 kg (R); Height 5 ft. 4 in. (R); 13:10 BP 116 / 72; Pulse 86; Resp 17; Pulse Ox 100% on R/A; me1 14:06 BP 127 / 82; Pulse 87; Resp 18; Pulse Ox 100% on R/A; me1 16:44 BP 136 / 87; Pulse 98; Resp 17; Pulse Ox 100% on R/A; me1 17:53 BP 126 / 68; Pulse 95; Resp 18; Pulse Ox 100% on R/A; me1 12:16 Body Mass Index 44.63 (117.93 kg, 162.56 cm) aa5 ED Course: 12:06 Patient arrived in ED. ts1 12:07 Anup Esquivel MD is Attending Physician. [facility] 12:16 Arm band placed on. aa5 12:17 Triage completed. aa5 12:30 Allergy band placed. Bed in low position. Call light in reach. Side rails up X 1. me1 Provided Education on: POC. Verbalized understanding.. 12:30 No provider procedures requiring assistance completed. me1 13:12 Sandra Figueroa, RN is Primary Nurse. me1 13:45 CT Head Brain wo Cont In Process Unspecified. EDMS 13:49 Urinalysis w/ reflexes Sent. me1 13:49 PREGU Sent. me1 14:16 Inserted saline lock: 22 gauge in left antecubital area, using aseptic technique. me1 14:16 Comprehensive Metabolic Panel Sent. me1 14:16 CBC with Diff Sent. me1 14:21 Arielle Rendon MD is Hospitalizing Provider. jeff 16:43 Wound Culture Sent. me1 01 01:49 Patient admitted, IV remains in place. jw7 Administered Medications: 06/09 14:15 Drug: fentaNYL (PF) IVP 50 mcg IVP once Route: IVP; Site: left antecubital; me1 16:42 Follow up: Response: No adverse reaction; Pain is decreased me1 14:15 Drug: Ondansetron IVP 4 mg IVP once; over 2 minutes Route: IVP; Site: left antecubital; dc1 16:42 Follow up: Response: No adverse reaction me1 14:15 Drug: Ofloxacin Ophthalmic Drops 0.3 % 4 drops Ophthalmic once; LEFT EAR {Note: me1 Administered to left EAR as ordered. .} Route: Ophthalmic; Site: left eye; 16:42 Follow up: Response: No adverse reaction me1 14:15 Drug: levofloxacin IVPB 750 mg 150 ml IVPB once over 90 mins Volume: 150 ml; Route: me1 IVPB; Infused Over: 90 mins; Site: left antecubital; 16:42 Follow up: IV Status: Completed infusion me1 16:42 Follow up: Response: No adverse reaction me1 14:16 Drug: NS 0.9% IV 500 ml IV at bolus once Route: IV; Rate: bolus; Site: left antecubital;me1 06/10 06:44 Follow up: Response: No adverse reaction; IV Status: Completed infusion; IV Intake: jw7 500ml 06/09 15:31 Drug: morphine IVP or IV 4 mg IVP once over 4 mins Route: IVP; Infused Over: 4 mins; [facility] Site: left antecubital; 16:42 Follow up: Response: No adverse reaction; Pain is decreased me1 15:31 Drug: Ondansetron IVP 4 mg IVP once; over 2 minutes Route: IVP; Site: left antecubital; me1 16:43 Follow up: Response: No adverse reaction me1 Medication: 12:30 VIS not applicable for this client. me1 Intake: 06/10 06:44 IV: 500ml; Total: 500ml. jw7 Outcome: 06/09 14:29 Decision to Hospitalize by Provider. jeff 06/10 01:49 Admitted to ER Hold. Please see [facility] for further documentation. jw7 Condition: stable Instructed on the need for admit, Demonstrated understanding of instructions, 06:44 Patient left the ED. jw7 Signatures: Dispatcher MedHost EDAnup Wilde MD MD cha Calderon, Audri, RN RN aa5 Shakira Steele RN RN jw7 Vanesa Lopez PAS PAS ts1 Sandra Figueroa RN RN me1 Corrections: (The following items were deleted from the chart) 06/09 16:45 12:16 Chief complaint: Patient states: severe pain to left ear. Pt states "I think it's me1 from all the fireworks last night, I was at work and I bent over and my ear just started bubbling and bleeding" aa5
[2023-06-09 14:36] LABS: Absolute Lymphocytes (CBC) 0.9 K/uL (0.7-4.9); Lymphocytes % 9.6 % (15.3-44.8); MCV 83.5 fL (80-100); MPV 8.5 fL (7.6-11.3); Platelets 282 thou/uL (152-406); RBC Red Blood Cell Count 4.79 M/uL (3.86-4.86)
[2023-06-09 14:56] LABS: Bilirubin Total 0.4 mg/dL (0.2-1.0); Potassium 3.7 mEq/L (3.5-5.1); Protein, Total 7.7 g/dL (6.4-8.2)
--- NOTE | 2023-06-09 15:15 | P.HP ---
Patient History Date of Service: 06/09/23 Allergies No Known Allergies Allergy (Unverified 03/22/20 16:13) Home Medications: ondansetron HCL [Zofran] 4 mg PO TID PRN #5 tablet 03/23/20 - Past Medical/Surgical History Diabetic: No -: Suspected intracranial hypertension Psychosocial/ Personal History: Patient has a fiance. She has 1 child. Patient has an IUD. - Social History Alcohol use: No CD- Drugs: No Caffeine use: Yes Physical Examination - Studies Laboratory Data (last 24 hrs) 06/09/23 06/09/23 14:14 14:14 WBC 9.70 Hgb 13.5 Hct 40.0 Plt Count 282 Sodium 139 Potassium 3.7 BUN 11 Creatinine 0.59 Glucose 108 H Total Bilirubin 0.4 AST 13 L ALT 23 Alkaline Phosphatase 55 Assessment and Plan - Advance Directives Does patient have a Living Will: No Does patient have a Durable POA for Healthcare: No
[2023-06-09] MEDS ORDERED: MORPHINE 4 MG/ML SYR ONE (15:18)
--- NOTE | 2023-06-09 15:43 | P.HP ---
Certification for Inpatient Patient admitted to: Observation With expected LOS: <2 Midnights Patient will require the following post-hospital care: None Practitioner: I am a practitioner with admitting privileges, knowledge of patient current condition, hospital course, and medical plan of care. Services: Services provided to patient in accordance with Admission requirements found in Title 42 Section 412.3 of the Code of Federal Regulations <Mary Dan - Last Filed: 06/09/23 16:20> Patient History Date of Service: 06/09/23 Reason for admission: Mastoiditis History of Present Illness: 22-year-old female past medical history of increased intracranial pressure on no treatment presents to the emergency room with ear pain that started when she woke up this morning she reports the ear pain is 8 out of 10, she reports associated lightheadedness, left ear drainage, she denies fever, chills, nausea vomiting diarrhea. Denies recent infection, denies recent head injury. Plan to admit for Diffuse otitis externa, left ear, ED essential (primary) hypertension - 165/135, Acute mastoiditis - LEFT with ENT Dr. Vazquez to consult. She was treated with ofloxacin, levofloxacin IV, ED CT of the head brainIMPRESSION: No acute intracranial abnormality is seen Mild to moderate chronic ethmoid sinusitis. Mild chronic left maxillary sinusitis Miri-rj-upgoxsoc opacification left mastoids may indicate a mastoiditis If patient's symptoms persist MRI of the brain would be recommended. Laboratory evaluation no leukocytosis, early left shift 83.8, electrolytes unremarkable, test negative - Past Medical/Surgical History Diabetic: No -: Suspected intracranial hypertension Psychosocial/ Personal History: Patient has a fiance. She has 1 child. Patient has an IUD. - Social History Alcohol use: No CD- Drugs: No Caffeine use: Yes <Mary Dan - Last Filed: 06/09/23 16:20> Date of Service: 06/09/23 <Arielle Rendon - Last Filed: 06/09/23 18:29> Allergies No Known Allergies Allergy (Unverified 03/22/20 16:13) Home Medications: ondansetron HCL [Zofran] 4 mg PO TID PRN #5 tablet 03/23/20 Review of Systems per HPI <Mary Dan - Last Filed: 06/09/23 16:20> Physical Examination - Physical Exam General: Alert, In no apparent distress, Oriented x3, Other (tearful) HEENT: Other (Ear canal(s): bleeding, bloody discharge, canal(s): bleeding, bloody discharge, erythema, -neg no foreign body, ) Neck: Supple, 2+ carotid pulse no bruit Respiratory: Clear to auscultation bilaterally, Normal air movement Cardiovascular: Normal pulses Capillary refill: <2 Seconds Gastrointestinal: Normal bowel sounds, Soft and benign Musculoskeletal: No clubbing, No swelling Neurological: Normal speech, Normal strength at 5/5 x4 extr - Studies Laboratory Data (last 24 hrs) 06/09/23 06/09/23 14:14 14:14 WBC 9.70 Hgb 13.5 Hct 40.0 Plt Count 282 Sodium 139 Potassium 3.7 BUN 11 Creatinine 0.59 Glucose 108 H Total Bilirubin 0.4 AST 13 L ALT 23 Alkaline Phosphatase 55 <Mary Dan - Last Filed: 06/09/23 16:20> - Studies Laboratory Data (last 24 hrs) 06/09/23 06/09/23 14:14 14:14 WBC 9.70 Hgb 13.5 Hct 40.0 Plt Count 282 Sodium 139 Potassium 3.7 BUN 11 Creatinine 0.59 Glucose 108 H Total Bilirubin 0.4 AST 13 L ALT 23 Alkaline Phosphatase 55 <Arielle Rendon - Last Filed: 06/09/23 18:29> Assessment and Plan - Plan Assessment plan Diffuse otitis externa, left ear jeff Acute mastoiditis - LEFT ENT to consult, IV Levaquin, moxifloxacin, As needed analgesics, as needed antianxiety meds CT of the head brainIMPRESSION: No acute intracranial abnormality is seen Mild to moderate chronic ethmoid sinusitis. Mild chronic left maxillary sinusitis Bzit-az-gxpmyofx opacification left mastoids may indicate a mastoiditis If patient's symptoms persist MRI of the brain would be recommended. Laboratory evaluation no leukocytosis, early left shift 83.8, electrolytes unremarkable, test negative trend WBC, VS, Essential (primary) hypertension - 165/153 Treat acute pain, monitor blood pressure every 4 hours, 12:16 BP 165 / 135; Pulse 108; Resp 20 S; Temp 98.3(TE); Pulse Ox 100% on R/A; Weight 117.93 aa5 kg (R); Height 5 ft. 4 in. (R) Diet regular Full code DVT SCDs Discharge Plan: Home Plan to discharge in: 24 Hours - Advance Directives Does patient have a Living Will: No Does patient have a Durable POA for Healthcare: No - Code Status/Comfort Care Code Status: Full Code Critical Care: No Time Spent Managing Pts Care (In Minutes): 55 <Mary Dan - Last Filed: 06/09/23 16:20> - Plan Pt seen and examined. I agree with the note by the [employer]. Pt is a 22-year-old female past medical history of increased intracranial pressure who presents with ear pain. It started when she woke up this morning and progressively worsened at work when She bent over. Pt heard a whooshing sound in her ear and saw blood coming out of her ear. She placed cotton buds and came to the ER for evaluation. ER physician consulted ENT and they evaluated pt. Pt does not need any sirgical intervention at this time. CT head shows no acute intracranial abnormality is seen. It has mild to moderate chronic ethmoid sinusitis . ENT recommended iv levaquin. At bedside, pt is in ear pain. She denies any chest pain fever, chills, nausea, vomiting, abd pain or dysuria but reports left ear pain. 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 No ear trauma. A/P; Acute mastoiditis/diffuse otitis externa in left ear: Will continue levaquin. ENT is following. CT head shows moderate chronic ethmoid sinusitis. Will follow up MRI brain if pain persists. Continue prn pain med. Htn: Improved. Likely due to pain. Will monitor. Dispo: Pending hospital course Code: full <Arielle Rendon - Last Filed: 06/09/23 18:29>
--- NOTE | 2023-06-09 16:34 | P.CNS ---
Date of Consult: 06/09/23 06/09/2023 1600:Chart review including CT head images with max/ethmoid sinusitis but no radiographically concerning mastoiditis in regards to bone erosion or evidence is suggest need for acute surgical intervention. 06/10/2023 0730: HPI: Patient developed sudden severe left ear pain starting June 09, 2023. Initially she went to work but subsequently developed left otorrhagia and presented to the emergency room. She underwent a CT of the head that showed patchy opacification of the left mastoid and was admitted for mastoiditis. The patient has a remote history of recurrent otitis media during childhood but never had any surgery including tympanostomy tube placement. The patient has had no ear problems for many years. This morning she continues to have bloody and thin mucoid drainage from the left ear. She awoke this morning with 9 out of 10 left ear pain and was treated with morphine shortly prior to my evaluation. The patient does have a history of intracranial hypertension which was diagnosed by an unknown neurologist at [facility]. Her diagnosis was preceded by symptoms of vision and dizzy problems but details were not clear. The patient was evaluated with a lumbar puncture at that time but has not been on any medication for this problem. PMH, allergies, medications, ROS is reviewed from admission history and physical Physical exam: Patient is asleep but easily arousable and conversive, AAOx3. Her face is symmetric and atraumatic. Pupils equal round and reactive. External ear unremarkable. Right ear canal is clear, TM intact, No significant bulging but some mild erythema. Left canal with blood and mucoid drainage, partially removed with a tissue spear but still unable to adequately view tympanic membrane. The drainage does not appear pulsatile while patient is supine. Assessment: Suspect left acute otitis media with tympanic membrane rupture with incidental patchy opacification of the left mastoid; left acute sinusitis. There is no clinical evidence of acute mastoiditis on physical exam or history. As an underlying potential confounding factor, her intracranial hypertension increases potential risk of skull base erosion and development of CSF leak though this is not grossly apparent during her evaluation today. Recommendations: Continue pain control per primary team. Regular diet; no acute surgical intervention indicated. Dry ear precautions to the left ear. Avoid nose blowing and heavy lifting for 6 weeks to prevent injury/additional tearing of the tympanic membrane. Avoid Q-tip use. Patient instructed in use of tissue andrews as needed to help clear the ear canal. Continue ofloxacin. Transition to p.o. antibiotics for coverage of routine AOM pathogens -if penicillins are tolerated, Augmentin would be appropriate. Nasal saline spray for sinusitis. Discharge home at the discretion of the primary team. Follow-up in outpatient ENT clinic with Dr. Vazquez in 1 to 2 weeks for further evaluation.
[2023-06-09] MEDS ORDERED: ONDANSETRON 4 MG/2 ML VIAL IV PRN (16:54)
[2023-06-09] MEDS ORDERED: MORPHINE 4 MG/ML SYR IV PRN (16:54)
[2023-06-09] MEDS ORDERED: LORazepam 2 MG/ML VIAL IV PRN (16:54)
[2023-06-09] MEDS ORDERED: ACETAMINOPHEN 500 MG TAB PO PRN (16:54)
[2023-06-09] MEDS ORDERED: HYDROCODONE/APAP 5/325 MG TAB PO PRN (16:54)
[2023-06-09] MEDS ORDERED: HYDROCODONE/APAP 5/325 MG TAB ONE (20:29)
[2023-06-09 21:42] VITALS: BMI 44.6
[2023-06-10 04:51] LABS: Absolute Lymphocytes (CBC) 1.5 K/uL (0.7-4.9); Hematocrit 37.4 % (36.0-45.0); Lymphocytes % 20.6 % (15.3-44.8); MCV 83.3 fL (80-100); MPV 8.6 fL (7.6-11.3); Platelets 255 thou/uL (152-406); RBC Red Blood Cell Count 4.49 M/uL (3.86-4.86)
[2023-06-10 05:02] LABS: Potassium 3.6 mEq/L (3.5-5.1)
[2023-06-10] MEDS ORDERED: MORPHINE 4 MG/ML SYR ONE (06:32)
[2023-06-10 07:16] VITALS: O2SAT 100
[2023-06-10] MEDS ORDERED: INFLUENZA VACCINE (for 6+ mo) 0.5 ML DOSE IMVAC ONE (08:00)
[2023-06-10] MEDS ORDERED: Levofloxacin 750mg IV 750 MG/150 ML BAG IV SCH (09:00)
[2023-06-10 11:27] VITALS: BP 114/57; TEMP 98.1
--- NOTE | 2023-06-10 13:17 | P.DS ---
Admission Date: 06/09/23 Discharge Date: 06/10/23 Disposition: ROUTINE DISCHARGE Discharge Condition: GOOD Reason for Admission: Mastoiditis Brief History of Present Illness: 22-year-old female past medical history of increased intracranial pressure on no treatment presents to the emergency room with ear pain that started when she woke up this morning she reports the ear pain is 8 out of 10, she reports associated lightheadedness, left ear drainage, she denies fever, chills, nausea vomiting diarrhea. Denies recent infection, denies recent head injury. Plan to admit for Diffuse otitis externa, left ear, ED essential (primary) hypertension - 165/135, Acute mastoiditis - LEFT with ENT Dr. Vazquez to consult. She was treated with ofloxacin, levofloxacin IV, ED CT of the head brainIMPRESSION: No acute intracranial abnormality is seen Mild to moderate chronic ethmoid sinusitis. Mild chronic left maxillary sinusitis [id number]-vx-[id number] opacification left mastoids may indicate a mastoiditis If patient's symptoms persist MRI of the brain would be recommended. Laboratory evaluation no leukocytosis, early left shift 83.8, electrolytes unremarkable, test negative Hospital Course: Pt was admitted for further evaluation of acute mastoiditis/diffuse otitis externa in left ear. CT head showed moderate chronic ethmoid sinusitis. ENT evaluated pt in the ER and gave iv levaquin and floxin otic drops. We also gave prn percocet for pain control. The symptoms improved and pt requested to be discharged. We advised her to follow up with ENT within 1 week. Continue levaquin 750mg po daily and keep the left ear dry. Pt was advised to avoid strenous activities. like blowing her nose or bnding over. Avoid picking her ear. Pt was in NAD prior to discharge. Continue ad beto activity, take levaquin and floxin ear drop and prn pain med. Continue dry ear precautions to the left ear. Avoid nose blowing and heavy lifting for 6 weeks to prevent injury/additional tearing of the tympanic membrane. Avoid Q-tip use. Patient instructed in use of tissue andrews as needed to help clear the ear canal. Continue ofloxacin. Vital Signs/Physical Exam: Temp Pulse Resp BP Pulse Ox 98.1 F 96 H 17 114/57 L 98 06/10/23 11:15 06/10/23 11:15 06/10/23 11:15 06/10/23 11:15 06/10/23 11:15 Laboratory Data at Discharge: WBC 7.30 thou/uL (4.3-10.9) 06/10/23 03:58 Hgb 12.5 g/dL (12.0-15.0) 06/10/23 03:58 Hct 37.4 % (36.0-45.0) 06/10/23 03:58 Plt Count 255 thou/uL (152-406) 06/10/23 03:58 Sodium 139 mEq/L (136-145) 06/10/23 03:58 Potassium 3.6 mEq/L (3.5-5.1) 06/10/23 03:58 BUN 9 mg/dL (7-18) 06/10/23 03:58 Creatinine 0.50 mg/dL (0.55-1.02) L 06/10/23 03:58 Glucose 96 mg/dL (74-106) 06/10/23 03:58 Magnesium 2.0 mg/dL (1.6-2.4) 06/10/23 03:58 Total Bilirubin 0.4 mg/dL (0.2-1.0) 06/09/23 14:14 AST 13 U/L (15-37) L 06/09/23 14:14 ALT 23 U/L (13-56) 06/09/23 14:14 Alkaline Phosphatase 55 U/L (45-117) 06/09/23 14:14 Home Medications: Hydrocodone 5/APAP 325 [[place] 5/325*] 1 tab PO Q4H PRN 3 Days #18 tab 06/10/23 Ofloxacin Oph [Floxin Otic 0.3%*] 1 drop OTIC DAILY #1 bottle 06/10/23 levoFLOXacin [Levaquin] 750 mg PO DAILY 8 Days #8 tab 06/10/23 New Medications: Ofloxacin Oph [Floxin Otic 0.3%*] 1 drop OTIC DAILY #1 bottle levoFLOXacin [Levaquin] 750 mg PO DAILY 8 Days #8 tab Hydrocodone 5/APAP 325 [[place] 5/325*] 1 tab PO Q4H PRN 3 Days #18 tab PRN Reason: Pain Scale 5-7 (Moderate) Followup: Unknown,U [Primary Care Provider] -
== END 2023-06-10 14:35 | disposition home or self-care (01) ==
LOC: ER 12:04 → ERHOLD 15:09 → 4TH 06-10 06:35
PROVIDERS: ADMIT Hospitalist; ATTEND Hospitalist
DX: H60.312 Diffuse otitis externa, left ear (principal); J32.0 Chronic maxillary sinusitis; J32.2 Chronic ethmoidal sinusitis; I10 Essential (primary) hypertension; G93.2 Benign intracranial hypertension; N39.0 Urinary tract infection, site not specified; Z88.2 Allergy status to sulfonamides; Z88.1 Allergy status to other antibiotic agents
CPT/HCPCS: 36415; 70450; 80048; 80053; 81001; 81025; 83735; 85025; 87070; 87205; G0378; J2405; J3010; J7030